=== PATIENT | male | born 1955 | race Two or more races ===

== ENCOUNTER 2023-12-09 07:51 | Outpatient (OUT) | payer OTHER, MEDICARE, SELFPAY ==
--- NOTE | 2023-12-09 07:53 | VEIN_ITS ---
Patient Name: BRIGETTE CHA MR#: [id number] : 1955 Exam Date: 12/09/2023 Ordering Doctor: DR VIKTORIA JOSE M.D. RADIOLOGY REPORT PROCEDURE: [facility] EST [facility] - OFFICE VISIT INITIAL COMPARISON: None. PROGRESS NOTES: [age] year old male who presents with a 3 month history of bilateral leg pain and discolored veins. The patient's left leg symptoms are worse than the right. There has been a progression of symptoms over past 3 months. This increases with prolonged standing. The patient describes an improvement with rest and elevation. The patient denies any signs and symptoms to suggest arterial ischemia. The patient describes a family history of diabetes and cancer. The patient has drinking and smoking history of occasional alcohol consumption; no tobacco use. Patient has a past medical history significant for hypertension, degenerative disc disease, coronary artery disease. The patient denies a history of deep venous thrombus or pulmonary embolus. See separate history and physical for medication list. No prior treatment for varicose or spider veins. Current use of compression stockings. After review of nurse notes, history and physical exam I discussed at length the pathophysiology of venous hypertension and possible treatments, therapies and strategies available. We discussed at length the importance of elevating the lower extremities above the level of the heart, increased physical activity and compression stocking use. Ultrasound venous reflux study performed today was discussed at length with the patient. The report demonstrates abnormal dilation of right great saphenous vein with significant reflux. Dilated proximal segment of left great saphenous vein with several levels demonstrate moderate reflux.. PHYSICAL EXAM: The right leg demonstrates several varicosities, scattered reticular and spider veins, no ulceration, no significant edema, no skin discoloration. The left leg demonstrates several varicosities, scattered reticular and spider veins, no ulceration, no significant edema, no skin discoloration. Both thighs, legs and feet were symmetrically warm to the touch. Good posterior tibial and dorsalis pedis pulses were present bilaterally. VEIN/[facility] Facility EST Comprehensive IMPRESSION: 1. Bilateral lower extremity venous insufficiency 2. Bilateral lower extremity varicose veins 3. No significant lower extremity subcutaneous edema 4. No flow significant arterial disease 5. CEAP: C2, AP, , CA PLAN: 1. Continued use of compression stockings 2. Elevated legs and increased physical activity symptomatic relief 3. Endovenous laser ablation of right great saphenous vein. 4. Due to significant left lower extremity symptoms endovenous laser ablation of left great saphenous vein (as much of the length as can be accessed) is recommended. 5. Patient could use microfoam chemical ablation of branch saphenous varicosities, but this will not be approved by his insurance company. Nurse notes, history and physical were reviewed and confirmed, see attached forms. The nurse was present throughout the physical exam and consultation Dictated by: Tariq Dc M.D. on 12/09/2023 at 09:08 Approved by: Tariq Dc M.D. on 12/09/2023 at 09:17
--- NOTE | 2023-12-09 07:53 | VEIN_ITS ---
Patient Name: BRIGETTE CHA MR#: [id number] : 1955 Exam Date: 12/09/2023 Ordering Doctor: DR VIKTORIA JOSE M.D. RADIOLOGY REPORT PROCEDURE: VC EXT VENOUS REFLUX ALEXIA LMTD COMPARISON: None. INDICATIONS: I83.813 Bilateral painful varicose veins TECHNIQUE: Duplex imaging of the lower extremity to assess the deep and superficial venous system for the presence of deep or superficial venous incompetence and to document the location and severity of disease. The study includes evaluation of the great saphenous vein (GSV), anterior accessory saphenous vein (AASV) and small saphenous vein (SSV). Patient scanned in reverse Trendelenburg and standing. FINDINGS: RIGHT LOWER EXTREMITY: Saphenofemoral Junction Reflux: Yes 7.0mm 1.7 sec GSV: Diam (mm) Reflux/ Time (sec) Proximal Thigh 5.9 Yes 1.0 Mid Thigh 6.5 Yes 3.2 Distal Thigh 6.5 Yes 3.5 Prox Calf 5.6 Yes 1.5 Mid Calf 2.6 Yes 0.5 Saphenopopliteal Junction Reflux: SSV: Proximal Calf Mid Calf AASV: Not present Proximal Thigh Mid Thigh Distal Thigh Thrombi: Chronic thrombus visualized in mid to distal thigh GSV. It is compressible and demonstrates flow Compressibility: Normal Flow: Normal Preforator: Dist/med calf 2.6mm with 0s reflux. Dist/med thigh 3.9mm with 1.6s reflux. Tech Note: Incompetent GSV. Right SSV is not present. Patent varicose vein prox/med calf 4.4mm with 0.8s reflux. Patent varicose vein mid/med calf 1.0mm with 0s reflux. LEFT LOWER EXTREMITY: Saphenofemoral Junction Reflux: Yes 8.9 mm 1.6 sec GSV: Diam (mm) Reflux/Time (sec) Proximal Thigh 6.9 Yes 1.5 Mid Thigh 3.7 Yes 1.0 Distal Thigh 3.7 Yes 0.8 Prox Calf 3.3 Yes 1.3 Mid Calf 4.0 Yes 0.8 Saphenopopliteal Junction Relux: 3.1 mm No SSV: Proximal Calf 2.3 No Mid Calf 2.5 No AASV: Proximal Thigh 2.7 No Mid Thigh Distal Thigh Thrombi: No acute or chronic thrombus visualized Compressibility: Normal Flow: Normal Jewelry Setter: No perforators visualized. Tech Note: Incompetent GSV. GSV is extrafascial from medial knee to mid calf and then dives intrafascial. Patent varicose vein mid/med thigh 2.6mm with 0.7s reflux. CONCLUSION: 1. Abnormally dilated and incompetent right great saphenous vein. 2. Abnormally dilated and incompetent proximal segment of left great saphenous vein. Dictated by: Tariq Dc M.D. on 12/09/2023 at 08:47 Approved by: Tariq Dc M.D. on 12/09/2023 at 09:08
== END 2023-12-09 07:52 | disposition home or self-care (01) ==
PROVIDERS: PCP Family Medicine; Visit Provider Radiology Diagnostic Radiology
DX: I83.813 Varicose veins of bilateral lower extremities with pain (principal)
CPT/HCPCS: 93970; G0463

== ENCOUNTER 2024-01-11 08:49 | Outpatient (OUT) | payer OTHER, MEDICARE, SELFPAY | END 2024-01-11 08:50 | disposition home or self-care (01) | LOC: PST 08:49 | PROVIDERS: PCP Radiology Diagnostic Radiology; Visit Provider Surgery | DX: Z01.818 Encounter for other preprocedural examination (principal) ==

== ENCOUNTER 2024-01-13 08:58 | Outpatient (OUT) | payer OTHER, MEDICARE, SELFPAY ==
--- NOTE | 2024-01-13 09:06 | VEIN_ITS ---
[address] [address] Patient Name: BRIGETTE CHA MRN: [id number] date: 1955 Sex: M Assigned Patient Location: Current Patient Location: Accession/Order Number: [id number] Exam Date: 01/13/2024 09:08 Report Date: 01/13/2024 12:29 At the request of: VIKTORIA JOSE Procedure: VC Endovenous Ablation 1VeinRT EXAMINATION: VC Endovenous Ablation 1VeinRT right great saphenous vein HISTORY: Pain due to varicose veins of bilateral legs I83.813 COMPARISON: No relevant comparison available. TECHNIQUE: The risks and benefits of the procedure had been previously discussed, and were rediscussed at length. Informed written consent was obtained. Adamaris Espinoza and Dwight Parsons assisted. Time out procedure was performed. The right lower extremity was prepared and draped in the usual sterile fashion to allow knee flexion in the sterile field. Duplex ultrasound probe was draped in a sterile cover, sterile transmission gel was used. Venous mapping was performed with the areas of dilation and large tributaries marked. The total length was 27 cm from the entry proximal lower leg 2 3 cm below the saphenofemoral junction. The diameter of the greater saphenous vein ranged from 6-7 mm. A 30 gauge needle and 1% buffered lidocaine was used to anesthetize the entry site. A 4 mm incision was made with a scalpel and the saphenous vein was entered percutaneously under direct ultrasound guidance with a micropuncture set, a single stick was successful in gaining access. A micro-guide wire was inserted and the needle removed. A micro-set including a dilator was inserted over the microwire and the needle and dilator were removed. A 0.018 guide wire was inserted through the micro-set and threaded through the saphenous vein to the saphenofemoral junction. The dilator was removed and an introducer sheath was inserted over the wire until the end of the sheath entered the saphenofemoral junction. The dilator and wire were removed and the 600 micron fiber was introduced and placed and positioned so that it extended beyond the sheath and was 3 cm peripheral to the saphenofemoral femoral junction. Final position of the fiber was determined by ultrasound guidance and duplex imaging. Tumescent anesthetic was delivered by ultrasound guidance. 175 cc of fluid was delivered along the entire course of the saphenous vein. The solution consisted of 1000 cc of normal saline with 40 mL of 1% lidocaine and 20 mL of sodium bicarbonate. A final positioning check was made. The energy source was turned on by means of the foot pedal and the fiber and sheath were withdrawn. The total number of Joules delivered was 1286. The laser was active for 161seconds under continuous pulse, average laser use of 8 J. Laser start time 10:04 AM, 01/13/2024 . Laser stop time 10:06 AM 01/13/2024 . A duplex ultrasound revealed compressibility and flow at the saphenofemoral junction immediately after the procedure. Hemostasis at the access site was achieved. The skin incision of the saphenous vein was closed with a 4 x 4. A compression stocking was applied. Postop instructions were given. A follow up appointment was recommended and scheduled. The patient tolerated the procedure well and was discharged in good condition . VEIN/VC Endovenous Ablation 1VeinRT IMPRESSION: Technically successful endovenous ablation of the right great saphenous vein Electronically authenticated by: VIKTORIA JOSE Date: 01/13/2024 12:29
[2024-01-13] MEDS: LIDOCAINE HCL 1% 100 MG/10 ML MDV INJ (09:22)
[2024-01-13] MEDS: 0.9 % SODIUM CHLORIDE 500 ML, LIDOCAINE HCL 20 ML, SODIUM BICARBONATE 10 MEQ INJ (09:23)
== END 2024-01-13 08:59 | disposition home or self-care (01) ==
LOC: VC 08:58
PROVIDERS: PCP Radiology Diagnostic Radiology; Visit Provider Radiology Diagnostic Radiology
DX: I83.813 Varicose veins of bilateral lower extremities with pain (principal)
CPT/HCPCS: 36478

== ENCOUNTER 2024-01-17 07:46 | Day surgery (SDC) | payer OTHER, MEDICARE, SELFPAY ==
[2024-01-17 08:00] VITALS: BP 173/81; PULSE 88; TEMP 36.1; O2SAT 100; BMI 32.5
[2024-01-17 08:08] LABS: Glucometer 110 mg/dL (74-106)
[2024-01-17] MEDS: LACTATED RINGER'S SOLUTION 1,000 ML 50 ML IV (08:31)
--- NOTE | 2024-01-17 08:56 | PM.GSPRC ---
Date of procedure: 01/17/24 Indications for Procedure: screening colonoscopy Pre-op diagnosis: screening colonoscopy Post-op diagnosis: same as pre-op Procedure: Previous colonoscopy: never procedure: screening colonoscopy The patient was given IV conscious sedation.? The patient's SPO2 remained above 90% throughout the procedure. The colonoscope was inserted per rectum and advanced under direct vision to the cecum without difficulty.? The prep was good.? Findings: Terminal ileum os: normal Cecum/Ascending colon: normal Transverse colon: normal Descending/Sigmoid colon: normal Rectum/Anus: examined in normal and retroflexed positions and was normal Withdrawal Time was (minutes): 10 The colon was decompressed and the scope was removed.? The patient tolerated the procedure well. Recommendations/Plan: 1.? Lifestyle and dietary modifications as discussed 2.? F/U in 10 years for repeat c-scope 3.? Discussed with the family Findings: normal c-scope Anesthesia: MAC Surgeon: Kristopher Lopez Procedure Summary: screening colonoscopy Estimated blood loss (mL): 0 Complications: No Pathology: none sent Condition: stable Disposition: PACU
[2024-01-17 09:56] VITALS: BP 103/60; PULSE 70; TEMP 36.9; O2SAT 94
[2024-01-17 10:10] VITALS: BP 124/66; PULSE 69; O2SAT 95
[2024-01-17 10:24] VITALS: BP 117/78; PULSE 68; O2SAT 96
[2024-01-17 10:39] VITALS: BP 148/78; PULSE 62; O2SAT 96
== END 2024-01-17 10:50 | disposition home or self-care (01) ==
PROVIDERS: Visit Provider Surgery
PROC: (CPT 00812; principal; 2024-01-17 10:00)
DX: Z12.11 Encounter for screening for malignant neoplasm of colon (principal); Z79.82 Long term (current) use of aspirin; I10 Essential (primary) hypertension; I25.10 Atherosclerotic heart disease of native coronary artery without angina pectoris; M50.30 Other cervical disc degeneration, unspecified cervical region; M51.36 Other intervertebral disc degeneration, lumbar region; E78.5 Hyperlipidemia, unspecified; I25.2 Old myocardial infarction; M17.0 Bilateral primary osteoarthritis of knee; E66.9 Obesity, unspecified; Z79.899 Other long term (current) drug therapy; Z68.34 Body mass index [BMI] 34.0-34.9, adult
CPT/HCPCS: 00812; 45378; 36415; 82948; J2704

== ENCOUNTER 2024-01-20 08:17 | Outpatient (OUT) | payer OTHER, MEDICARE, SELFPAY ==
--- NOTE | 2024-01-20 08:18 | VEIN_ITS ---
Patient Name: BRIGETTE CHA MR#: [id number] : 1955 Exam Date: 01/20/2024 Ordering Doctor: DR THIAGO TERRAZAS M.D. RADIOLOGY REPORT PROCEDURE: VC EXT VENOUS RT LMTD COMPARISON: None. INDICATIONS: Phlebitis of superficial veins of rt lower extremity I80.01 TECHNIQUE: Lower extremity alvarez scale and Duplex Doppler evaluation of the deep venous system from the inguinal ligament through the calf veins. FINDINGS: REGION: Right lower extremity. THROMBI: Negative for DVT. Heat induced thrombus visualized 2.1 cm from the SFJ. The heat induced thrombus extends from groin to distal thigh. COMPRESSIBILITY: Non-compressible segments corresponding to thrombus FLOW: Areas of no flow corresponding to thrombus CONCLUSION: Post ablation occlusion of the right great saphenous vein with heat induced thrombus 2.1 cm from the saphenofemoral junction Dictated by: Thiago Terrazas MD on 01/20/2024 at 08:33 Approved by: Thiago Terrazas MD on 01/20/2024 at 08:34
--- NOTE | 2024-01-20 08:18 | VEIN_ITS ---
Patient Name: BRIGETTE CHA MR#: [id number] : 1955 Exam Date: 01/20/2024 Ordering Doctor: DR THIAGO TERRAZAS M.D. RADIOLOGY REPORT PROCEDURE: [facility] EST LMTD VEIN CENTER - OFFICE VISIT FOLLOW UP COMPARISON: None. PROGRESS NOTES: The patient reports some mild discomfort in bruising of the right leg following intravenous laser ablation of the right great saphenous vein. The patient did not require oral analgesics. The patient has worn his compression stocking. The patient has tried exercise Physical exam demonstrates 3 areas of bruising in the medial right thigh the largest area measuring 12 x 8 cm, consistent with tumescent injection. Thrombosed right great saphenous vein can be partially palpated. No erythema or warmth to suggest cellulitis or thrombophlebitis. No active ulceration Review of the ultrasound performed the same day demonstrates occlusive thrombus extending throughout the treated right great saphenous vein. Heat induced thrombus is 2.1 cm from the saphenofemoral junction. No deep vein thrombus. The patient expressed a desire to proceed with treatment of incompetent left great saphenous vein with intravenous laser ablation. VEIN/[facility] Facility EST LMTD IMPRESSION: 1. Successful ablation of the right great saphenous vein(s). 2. Persistent incompetent left great saphenous vein. PLAN: Intravenous laser ablation left great saphenous vein Nurse notes, history and physical were reviewed and confirmed, see attached forms. The nurse was present throughout the physical exam and consultation Dictated by: Thiago Terrazas MD on 01/20/2024 at 08:40 Approved by: Thiago Terrazas MD on 01/20/2024 at 08:41
--- OUTSIDE RECORDS SUMMARY | 2024-01-20 08:21 | XMS_ITS | CCD ---
Author Organization [facility] Care Team Providers Care Direct Mail Clerk Name Role Phone PHYSICIAN, DEFAULT Unavailable Unavailable PHYSICIAN, DEFAULT Unavailable Unavailable ALVARO ., CECIL Admitting Unavailable ALVARO Fernandes, CECIL Attending Unavailable DAMON, DR VIKTORIA Zhang Consulting Unavailable NADERER, DR LUX [place] Primary Care Unavailable CECIL WRIGHT Consulting Unavailable ALLYSSA, DR LUX [place] Attending Unavailable ALLYSSA, DR LUX [place] Admitting Unavailable ALLYSSA, DR LUX [place] Primary Care Unavailable ALLYSSA, DR LUX [place] Consulting Unavailable Allyssa, Dr. Lux Christine Primary Care Deangelo Spivey, Dr. Lux Christine Primary Care Angela Thomas Attending Unavailable Allyssa, Dr. Lux Christine Primary Care Deangelo Schaefer, Greg Malik Attending Unavailable Trinidad, Greg Malik Admitting Unavailable Allyssa, Lux Primary Care Unavailable Lux Spivey MD Primary Care Provider ANGELA SCHAEFER Attending Unavailable LUX SPIVEY Primary Care Unavailabl e LUX SPIVEY Primary Care Unavailable NGUYỄN JASMINE Attending Unavailable NGUYỄN JASMNIE Attending Unavailable NGUYỄN JASMINE Referring Unavailable LUX SPIVEY Primary Care Unavailable LUX SPIVEY Referring Unavailable ALLYSSA, LUX Attending Unavailable ODILON CHOI Attending Unavailable ALLYSSA, LUX Referring Unavailable Medications Current Medications Medication Drug Class(es) Dates Sig (Normalized) Sig (Original) aspirin 81 mg delayed release oral tablet (1 source) Platelet Aggregation Inhibitor, Nonsteroidal Anti-inflammator y Drug take 1 tablet by mouth once daily aspirin 81 mg EC tablet Take 1 tablet (81 mg) by mouth once daily. 0 Active atorvastatin 20 mg oral tablet (2 sources) HMG-CoA Reductase Inhibitor Start: 3 End: 4 take 1 tablet by mouth once daily atorvastatin (Lipitor) 20 mg tablet Indications: Mixed hyperlipidemia Take 1 tablet (20 mg) by mouth once daily. 90 tablet 3 08/03/2023 08/02/2024 Active famotidine 20 mg oral tablet (1 source) Histamine-2 Receptor Antagonist take 1 tablet by mouth once daily at bedtime famotidine (Pepcid) 20 mg tablet Take 1 tablet (20 mg) by mouth once daily at bedtime. 0 Active folic acid 1 mg oral tablet (1 source) take 1 tablet by mouth once daily folic acid (Folvite) 1 mg tablet Take 1 tablet (1 mg) by mouth once daily. 0 Active hydroCHLOROthiazide 25 mg oral tablet (2 sources) Thiazide Diuretic Start: 3 End: 4 take 1 tablet by mouth once daily hydroCHLOROthiazide (HYDRODiuril) 25 mg tablet Indications: Essential hypertension Take 1 tablet (25 mg) by mouth once daily. 90 tablet 3 08/03/2023 08/02/2024 Active melatonin 5 mg oral capsule (1 source) take 1 capsule by mouth once daily melatonin 5 mg capsule Take 1 capsule by mouth once daily. 0 Active 24 hr metoprolol succinate 25 mg extended release oral tablet (2 sources) beta-Adrenergic Toño Start: 3 End: 4 take 0.5 tablet by mouth once daily metoprolol succinate XL (Toprol-XL) 25 mg 24 hr tablet Indications: Essential hypertension Take 0.5 tablets (12.5 mg) by mouth once daily. Do not crush or chew. 45 tablet 3 08/03/2023 08/02/2024 Active multivitamin tablet (1 source) take 1 tablet by mouth once daily multivitamin tablet Take 1 tablet by mouth once daily. 0 Active nitroglycerin 0.4 mg sublingual tablet (1 source) Nitrate Vasodilator nitroglycerin (Nitrostat) 0.[address] 1 tablet (0.4 mg) under the tongue every 5 minutes if needed for chest pain. 0 Active Problems Active Problems Problem Classification Problem Date Documented Da te Episodic/Chronic Acute myocardial infarction (2 sources) ST elevation (STEMI) myocardial infarction of unspecified site; Translations: [ST elevation (STEMI) myocardial infarction involving other coronary artery of anterior wall] Onset: 01-15-2023 Chronic Coronary atherosclerosis and other heart disease (8 sources) History of non-ST segment elevation myocardial infarction; Translations: [Old myocardial infarction] Onset: 08-02-2023 08-03-2023 Chronic Disorders of lipid metabolism (5 sources) Hyperlipidemia, unspecified; Translations: [Mixed hyperlipidemia] Onset: 08-11-2022 08-03-2023 Chronic E Codes: Fall (1 source) Fall Onset: 09-29-2023 Essential hypertension (9 sources) Essential (primary) hypertension; Translations: [Essential hypertension] Onset: 08-06-2022 Chronic Malaise and fatigue (1 source) Fatigue; Translations: [Other fatigue] Onset: 08-02-2023 08-02-2023 Episodic Nonspecific chest pain (4 sources) Chest pain, unspecified; Translations: [Atypical chest pain] Onset: 01-15-2023 Episodic Other aftercare (1 source) Other alf (current) drug therapy; Translations: [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] Onset: 01-18-2023 Episodic Other non-traumatic joint disorders (1 source) Effusion, left knee; Translations: [Effusion, left knee] Onset: 09-29-2023 Episodic Other nutritional; endocrine; and metabolic disorders (1 source) Obesity, unspecified; Translations: [OBESITY UNSPECIFIED] Onset: 08-11-2022 Chronic Unclassified (1 source) Fall, Knee Pain Onset: 09-29-2023 Past or Other Problems Problem Classification Problem Date Documented Da te Episodic/Chronic Other screening for suspected conditions (not mental disorders or infectious disease) (1 source) Encounter for screening for malignant neoplasm of prostate; Translations: [ENC SCREEN MALIG NEOPLASM PROSTATE] Onset: 08-11-2022 Episodic Unclassified (1 source) Onset: 08-03-2023 08-03-2023 Results Test Name Value Interpretation Reference Range Facil ity XR KNEE LT 3 VWSon 4 XR KNEE LT 3 VWS XR KNEE LT 3 VWS XR KNEE LT 3 VWS HISTORY: Fall, knee pain. COMPARISON: None. IMPRESSION: 1. No acute fracture or dislocation. 2. Large knee joint effusion. Finalized by Akin Leon MD on 09/29/2023 9:46 AM Normal [facility] US LIVERon 09-23-2023 LIVER CLINICAL HISTORY: Abnormal liver function TECHNIQUE: Grayscale images and Doppler images of the right upper quadrant were obtained in multiple planes. COMPARISON: NONE. FINDINGS: The liver is normal in size and sonographic appearance. There are no solid or cystic lesions. There is no intra or extrahepatic bile duct dilatation. Diameter is 14.2 cm the common bile duct measures 3 mm. There is no free fluid. The gallbladder contains no filling defects or wall abnormalities. There is no pericholecystic fluid. The gallbladder wall measures 2 mm. The right kidney is normal in size and sonographic appearance of the diameter 8.5 x 5.4 x 5.9 cm. There is no hydronephrosis. There are no solid lesions. There is a simple cyst measuring 1.9 x 2.3 x 1.8 cm in the midportion of the right kidney. IMPRESSION: The study is within normal limits. ELECTRONICALLY SIGNED BY: Jesus Starks MD Normal Not Available Basic Metabolic Panelon 12-20 Anion gap [Moles/Vol] 10.0 mmol/L Normal 6.0-15.0 [facility] Comment on above: Performed By: #### C BC, BMP, LIPID #### [address] Calcium [Mass/Vol] 8.6 mg/dL Normal 8.6-10.3 [facility] Comment on above: Performed By: #### C BC, BMP, LIPID #### [address] Chloride [Moles/Vol] 102 mmol/L Normal 98-107 [facility] Comment on above: Performed By: #### C BC, BMP, LIPID #### [facility] [address] CO2 [Moles/Vol] 28.7 mmol/L Normal 21.0-31.0 [facility] Comment on above: Performed By: #### C BC, BMP, LIPID #### [facility] [address] Creatinine [Mass/Vol] 1.15 mg/dL Normal 0.70-1.30 [facility] Comment on above: Performed By: #### C BC, BMP, LIPID #### [facility] [address] [place] [address] [place] Creatinine Clr Calc Pharmacy 57.91 [facility] Comment on above: Performed By: #### C BC BMP, LIPID #### [facility] [address] [place] [address] [place] GFR/1.73 sq M.predicted MDRD (S/P/Bld) [Vol rate/Area] mL/min/{1.73_m2} Normal [facility] Comment on above: Performed By: #### C BC BMP, LIPID #### [facility] [address] Glucose [Mass/Vol] 112 mg/dL High 70-100 [facility] Comment on above: Result Comment: [place] Glucose Reference Range is dependent on time and content of last meal. Glucose of more than 200 mg/dL in a nonstressed, ambulatory subject supports the diagnosis of Diabetes Mellitus. ADA recommended reference range Performed By: #### C BC BMP, LIPID #### [address] Potassium [Moles/Vol] 3.7 mmol/L Normal 3.5-5.1 [facility] Comment on above: Performed By: #### C BC BMP, LIPID #### [address] Sodium [Moles/Vol] 137 mmol/L Normal 136-145 [facility] Comment on above: Performed By: #### C BC BMP, LIPID #### [facility] [address] [place] [address] [place] Urea nitrogen [Mass/Vol] 17 mg/dL Normal 7-25 [facility] Comment on above: Performed By: #### C BC, BMP, LIPID #### [facility] [address] [place] [address] Complete Blood Count Auto Di ffon 01-16-2023 Basophils (Bld) [#/Vol] 0.0 10*3/uL Normal 0.0-0.2 [facility] Comment on above: Result Comment: PERF ORMED BY: [place] [address] PATHOLOGIST INTERNAL COMBUSTION ENGINE SUBASSEMBLER COLLETTE ENRIQUEZ M.D. Performed By: #### C BC, BMP, LIPID #### [facility] [address] [place] [address] [place] Basophils/100 WBC (Bld) 0.2 % Normal . [facility] Comment on above: Performed By: #### C BC, BMP, LIPID #### [facility] [address] [place] [address] [place] Eosinophils (Bld) [#/Vol] 0.1 10*3/uL Normal 0.0-0.45 [facility] Comment on above: Performed By: #### C BC, BMP, LIPID #### [facility] [address] [place] [address] [place] Eosinophils/100 WBC (Bld) 0.5 % Normal . [facility] Comment on above: Performed By: #### C BC, BMP, LIPID #### [facility] [address] Erythrocyte distribution width (RBC) [Ratio] 13.7 % Normal 12.0-14.8 [facility] Comment on above: Performed By: #### C BC, BMP, LIPID #### [facility] [address] [place] [address] [place] Hematocrit (Bld) [Volume fraction] 50.3 % High 38.8-50.0 [facility] Comment on above: Performed By: #### C BC, BMP, LIPID #### [facility] [address] [place] [address] [place] Hemoglobin (Bld) [Mass/Vol] 16.9 g/dL Normal 13.0-17.0 [facility] Comment on above: Performed By: #### C BC, BMP, LIPID #### [facility] [address] [place] [address] [place] Lymphocytes (Bld) [#/Vol] 1.9 10*3/uL Normal 1.00-4.8 [facility] Comment on above: Performed By: #### C BC, BMP, LIPID #### [facility] [address] [place] [address] [place] Lymphocytes/100 WBC (Bld) 16.0 % Normal . [facility] Comment on above: Performed By: #### C BC, BMP, LIPID #### [facility] [address] MCH (RBC) [Entitic mass] 31.0 pg Normal 27.5-35.2 [facility] Comment on above: Performed By: #### C BC, BMP, LIPID #### [address] MCV (RBC) [Entitic vol] 92.0 fL Normal 83.5-101 [facility] Comment on above: Performed By: #### C BC, BMP, LIPID #### [address] Mean Corpuscular HGB Conc 33.6 g/dL Normal 32.5-35.6 [facility] Comment on above: Performed By: #### C BC, BMP, LIPID #### [address] Monocytes (Bld) [#/Vol] 1.1 10*3/uL High 0.0-0.8 [facility] Comment on above: Performed By: #### C BC, BMP, LIPID #### [address] Monocytes/100 WBC (Bld) 9.1 % Normal . [facility] Comment on above: Performed By: #### C BC, BMP, LIPID #### [address] Neutrophils (Bld) [#/Vol] 9.0 10*3/uL High 1.8-7.7 [facility] Comment on above: Performed By: #### C BC, BMP, LIPID #### [place] [address] [place] Neutrophils/100 WBC (Bld) 74.2 % Normal . [facility] Comment on above: Performed By: #### C BC, BMP, LIPID #### [address] NRBC% 0.1 /100{WBC} Normal 0-0.5 [facility] Comment on above: Performed By: #### C BC, BMP, LIPID #### [facility] [address] Platelet mean volume (Bld) [Entitic vol] 8.3 fL Normal 6.6-10.1 [facility] Comment on above: Performed By: #### C BC, BMP, LIPID #### [facility] [address] Platelets (Bld) [#/Vol] 229 10*3/uL Normal 150-450 [facility] Comment on above: Performed By: #### C BC, BMP, LIPID #### [address] RBC (Bld) [#/Vol] 5.47 10*6/uL Normal 3.90-5.60 [facility] Comment on above: Performed By: #### C BC, BMP, LIPID #### [address] WBC (Bld) [#/Vol] 12.2 10*3/uL High 4.1-10.5 [facility] Comment on above: Performed By: #### C BC, BMP, LIPID #### [address] ECG 12 lead ECGon 01-16-2023 ECG 12 lead ECG [facility] [place] [address] [place] [address] Electrocardiograph Report Signed Patient: Brigette Degroot Sr MR#: [id number] : 1955 Acct:[id number] Age/Sex: 67 / M ADM Date: 01/15/23 Loc: Room: 6M3495-6 Type: ADM IN Attending Dr: Greg Schaefer DO Ordering Provider: Greg Schaefer DO Date of Service: 01/16/23 ECG/ECG 12 lead ECG: High lateral STEMI Copies to: Test Reason : Blood Pressure : / mmHG Vent. Rate : 062 BPM Atrial Rate : 062 BPM P-R Int : 138 ms QRS Dur : 082 ms QT Int : 396 ms P-R-T Axes : 049 024 050 degrees QTc Int : 401 ms Normal sinus rhythm Normal ECG No previous ECGs available Confirmed by JIN HUNTER DO ([id number]) on 01/16/2023 3:16:49 PM Referred By: Electronically Signed By:JIN HUNTER DO Transcribed By: MUS Signed By Jin Hunter DO 01/16 1516 Normal [facility] Lipid Panelon 01-16-2023 Cholesterol [Mass/Vol] 181 mg/dL Normal 140-200 [facility] Comment on above: Result Comment: Chol less than 200 mg/dl low risk Chol 201-239 mg/dl borderline risk Chol 240 mg/dl and greater high risk Performed By: #### C BC, BMP, LIPID #### [facility] [address] Cholesterol in HDL [Mass/Vol] 46 mg/dL Normal 29-71 [facility] Comment on above: Result Comment: HDL CHOL ATP-III CLASSIFICATION Cardiovascular Risk HDL > or equal to 60 mg/dL LOW HDL < 40 mg/dL HIGH Performed By: #### C BC, BMP, LIPID #### [facility] [address] Cholesterol.total/C holesterol in HDL [Mass ratio] 3.9 {ratio} Normal <5.0 [facility] Comment on above: Result Comment: PERF ORMED BY: [place] [address] PATHOLOGIST INTERNAL COMBUSTION ENGINE SUBASSEMBLER COLLETTE ENRIQUEZ M.D. Performed By: #### C BC, BMP, LIPID #### [facility] [address] LDL Cholesterol,Calcula joey 107 mg/dL High 0-100 [facility] Comment on above: Result Comment: LDL ATP III CLASSIFICATION LDL less than 100 mg/dL Optimal LDL 100-129 mg/dL Near or above optimal LDL 130-159 mg/dL Borderline high LDL 160-189 mg/dL High LDL greater than 189 mg/dL Very high Performed By: #### C BC, BMP, LIPID #### [facility] [address] Triglyceride w/Reflex 141 mg/dL Normal 0-149 [facility] Comment on above: Result Comment: TRIG ATP III CLASSIFICATION TRIG less than 150 mg/dL Normal TRIG 150-199 mg/dL Borderline high TRIG 200-500 mg/dL High TRIG greater than 500 mg/dL Very high Standard traceable to the Center for Disease Conrtrol and Prevention (CDC) test method. Performed By: #### C BC, BMP, LIPID #### [facility] [address] VLDL CHOLESTEROL 28 mg/dL Normal [facility] Comment on above: Performed By: #### C BC, BMP, LIPID #### [facility] [address] BNPon 01-15-2023 Natriuretic peptide B (Bld) [Mass/Vol] 15.0 pg/mL Normal <=900.0 [facility] Comment on above: Performed By: #### C MP, BNP, CMADM #### [facility] [address] [place] [address] Dr. Harmeet Dorsey CARDIAC JULEE ADMITon 023 CK [Catalytic activity/Vol] 109 U/L Normal 39-308 [facility] Comment on above: Performed By: #### C MP, BNP, CMADM #### [facility] [address] [address] [address] Harmeet Dorsey CK.MB [Mass/Vol] 2.05 ng/mL Normal <=3.60 [facility] Comment on above: Performed By: #### C MP, BNP, CMADM #### [facility] [address] [address] [address] Harmeet Dorsey HSTROP 69.9 pg/mL Normal 4.0-76.1 [facility] Comment on above: Result Comment: CUT- OFF POINTS HAVE BEEN ESTABLISHED BASED ON THE FOURTH UNIVERSAL DEFINITIONS OF MYOCARDIAL INFARCTION. THE UPPER REFERENCE LIMIT (URL) OF TROPONIN, DEFINED THE 99TH PERCENTILE OF cTnI DISTRIBUTION IN A REFERENCE POPULATION, HAS BEEN CONFIRMED THE DECISION THRESHOLD FOR MT DIAGNOSIS. Performed By: #### C MP, BNP, CMADM #### [facility] [address] [place] [address] Dr. Harmeet Dorsey PRICE 96 ng/mL Normal 16-96 [facility] Comment on above: Performed By: #### C MP, BNP, CMADM #### [facility] [address] [address] [address] Harmeet Dorsey CBC AUTO DIFFon 01-15-2023 BASO # 0.1 103/ul Normal 0.0-0.1 [facility] Comment on above: Performed By: #### C BC #### [facility] [address] [place] [address] Dr. Harmeet Dorsey Basophils/100 WBC (Bld) 0.6 % Normal 0.2-2.0 [facility] Comment on above: Performed By: #### C BC #### [facility] [address] [place] [address] Dr. Harmeet Dorsey EO # 0.1 103/ul Normal 0.0-0.7 [facility] Comment on above: Performed By: #### C BC #### [facility] [address] [place] [address] Dr. Harmeet Dorsey Eosinophils/100 WBC (Bld) 0.7 % Critically low 0.9-7.0 [facility] Comment on above: Performed By: #### C BC #### [facility] [address] [place] [address] Dr. Harmeet Dorsey Erythrocyte distribution width (RBC) [Ratio] 13.3 % Normal 11.0-15.0 [facility] Comment on above: Performed By: #### C BC #### [facility] [address] [place] [address] Dr. Harmeet Dorsey Hematocrit (Bld) [Volume fraction] 54.4 % Critically high 42.0-54.0 [facility] Comment on above: Performed By: #### C BC #### [facility] [address] [place] [address] Dr. Harmeet Dorsey Hemoglobin (Bld) [Mass/Vol] 18.7 g/dL Critically high 14.0-18.0 [facility] Comment on above: Performed By: #### C BC #### [facility] [address] [address] [address] Harmeet Dorsey IG # 0.23 10e3/ul Critically high 0.00-0.03 [facility] Comment on above: Performed By: #### C BC #### [facility] [address] [place] [address] Dr. Harmeet Dorsey IG % 2.1 % Critically high 0.0-0.5 [facility] Comment on above: Performed By: #### C BC #### [facility] [address] [place] [address] Dr. Harmeet Dorsey LYMPH # 2.6 103/ul Normal 1.2-3.8 [facility] Comment on above: Performed By: #### C BC #### [facility] [address] [place] [address] Dr. Harmeet Dorsey Lymphocytes/100 WBC (Bld) 23.9 % Normal 20.5-60.0 [facility] Comment on above: Performed By: #### C BC #### [facility] [address] [place] [address] Dr. Harmeet Dorsey MANUAL DIFF REQ NO Normal [facility] Comment on above: Performed By: #### C BC #### [facility] [address] [place] [address] Dr. Harmeet Dorsey MCH (RBC) [Entitic mass] 31.2 pg Normal 25.9-34.0 [facility] Comment on above: Performed By: #### C BC #### [facility] [address] [place] [address] Dr. Harmeet Dorsey MCHC (RBC) [Mass/Vol] 34.4 g/dL Normal 29.9-35.2 [facility] Comment on above: Performed By: #### C BC #### [facility] [address] [place] [address] Dr. Harmeet Dorsey MCV (RBC) [Entitic vol] 90.8 fL Normal 80.0-94.0 [facility] Comment on above: Performed By: #### C BC #### [facility] [address] [address] [address] Harmeet Dorsey MONO # 0.9 103/ul Critically high 0.3-0.8 [facility] Comment on above: Performed By: #### C BC #### [facility] [address] [address] [address] Harmeet Dorsey Monocytes/100 WBC (Bld) 8.4 % Normal 1.7-12.0 [facility] Comment on above: Performed By: #### C BC #### [facility] [address] [place] [address] Dr. Harmeet Dorsey NEUT # 7.0 103/ul Critically high 1.4-6.5 [facility] Comment on above: Performed By: #### C BC #### [facility] [address] [place] [address] Dr. Harmeet Dorsey Neutrophils/100 WBC (Bld) 64.3 % Normal 43.0-75.0 [facility] Comment on above: Performed By: #### C BC #### [facility] [address] [place] [address] Dr. Harmeet Dorsey Platelet mean volume (Bld) [Entitic vol] 9.7 fL Normal 9.5-13.5 [facility] Comment on above: Performed By: #### C BC #### [facility] [address] [place] [address] Dr. Harmeet Dorsey PLT 262 103/ul Normal 150-450 [facility] Comment on above: Performed By: #### C BC #### [facility] [address] [place] [address] Dr. Harmeet Dorsey RBC 5.99 106/ul Normal 4.70-6.10 [facility] Comment on above: Performed By: #### C BC #### [facility] [address] [place] [address] Dr. Harmeet Dorsey WBC 10.9 103/ul Normal 4.0-11.0 [facility] Comment on above: Performed By: #### C BC #### [facility] [address] [place] [address] Dr. Harmeet Dorsey PROF 14(COMP METB)on 023 Albumin [Mass/Vol] 3.5 g/dL Normal 3.4-5.0 [facility] Comment on above: Performed By: #### C MP, BNP, CMADM #### [facility] [address] [address] [address] Harmeet Dorsey Albumin/Globulin [Mass ratio] 0.8 {ratio} Normal [facility] Comment on above: Performed By: #### C MP, BNP, CMADM #### [facility] [address] [address] [address] Harmeet Dorsey ALP [Catalytic activity/Vol] 71 U/L Normal 46-116 [facility] Comment on above: Performed By: #### C MP, BNP, CMADM #### [facility] [address] [place] [address] Dr. Harmeet Dorsey ALT [Catalytic activity/Vol] 218 U/L Critically high 16-63 [facility] Comment on above: Performed By: #### C MP, BNP, CMADM #### [facility] [address] [address] [address] Harmeet Dorsey Anion gap [Moles/Vol] 10.2 mmol/L Normal [facility] Comment on above: Performed By: #### C MP, BNP, CMADM #### [facility] [address] [address] [address] Harmeet Dorsey AST [Catalytic activity/Vol] 92 U/L Critically high 15-37 [facility] Comment on above: Performed By: #### C MP, BNP, CMADM #### [facility] [address] [address] [address] Harmeet Dorsey Bilirubin [Mass/Vol] 0.7 mg/dL Normal 0.2-1.0 [facility] Comment on above: Performed By: #### C MP, BNP, CMADM #### [facility] Laboratory [address] [address] [address] Harmeet Dorsey Calcium [Mass/Vol] 8.9 mg/dL Normal 8.5-10.1 [facility] Comment on above: Performed By: #### C MP, BNP, CMADM #### [facility] Laboratory [address] [address] [address] Harmeet Dorsey Chloride [Moles/Vol] 101 mmol/L Normal 98-107 [facility] Comment on above: Performed By: #### C MP, BNP, CMADM #### [facility] Laboratory [address] [place] [address] Dr. Harmeet Dorsey CO2 [Moles/Vol] 29.3 mmol/L Normal 21.0-32.0 [facility] Comment on above: Performed By: #### C MP, BNP, CMADM #### [facility] Laboratory [address] [place] [address] Dr. Harmeet Dorsey Creatinine [Mass/Vol] 1.26 mg/dL Normal 0.70-1.30 [facility] Comment on above: Performed By: #### C MP, BNP, CMADM #### [facility] Laboratory [address] [place] [address] Dr. Harmeet Dorsey EGFR-AF TANZANIAN >60 Normal >=60 [facility] Comment on above: Performed By: #### C MP, BNP, CMADM #### [facility] Laboratory [address] [place] [address] Dr. Harmeet Dorsey EGFR-NON AF TANZANIAN 57 mL/min/1.73m2 Critically low >=60 [facility] Comment on above: Performed By: #### C MP, BNP, CMADM #### [facility] Laboratory [address] [place] [address] Dr. Harmeet Dorsey Globulin (S) [Mass/Vol] 4.3 g/dL Normal [facility] Comment on above: Performed By: #### C MP, BNP, CMADM #### [facility] Laboratory [address] [place] [address] Dr. Harmeet Dorsey Glucose [Mass/Vol] 178 mg/dL Critically high 74-106 [facility] Comment on above: Performed By: #### C MP, BNP, CMADM #### [facility] Laboratory [address] [place] [address] Dr. Harmeet Dorsey Potassium [Moles/Vol] 3.5 mmol/L Normal 3.5-5.1 [facility] Comment on above: Performed By: #### C MP, BNP, CMADM #### [facility] Laboratory [address] [place] [address] Dr. Harmeet Dorsey Protein [Mass/Vol] 7.8 g/dL Normal 6.4-8.2 [facility] Comment on above: Performed By: #### C MP, BNP, CMADM #### [facility] Laboratory [address] [place] [address] Dr. Harmeet Dorsey Sodium [Moles/Vol] 137 mmol/L Normal 136-145 [facility] Comment on above: Performed By: #### C MP, BNP, CMADM #### [facility] Laboratory [address] [place] [address] Dr. Harmeet Dorsey Urea nitrogen [Mass/Vol] 15.0 mg/dL Normal 7.0-18.0 [facility] Comment on above: Performed By: #### C MP, BNP, CMADM #### [facility] Laboratory [address] [place] [address] Dr. Harmeet Dorsey Urea nitrogen/Creatinine [Mass ratio] 11.9 mg/mg Normal [facility] Comment on above: Performed By: #### C MP, BNP, CMADM #### [facility] Laboratory [address] [place] [address] Dr. Harmeet Dorsey PROTIMEon 01-15-2023 INR Coag (PPP) [Relative time] 0.98 {INR} Normal [facility] Comment on above: Performed By: #### P T, PTT #### [facility] Laboratory [address] [place] [address] Dr. Harmeet Dorsey INR GUIDELINES SEE BELOW Normal [facility] Comment on above: Result Comment: VICENTE RED INR: 2.0 - 3.0 CONDITIONS NOT LISTED BELOW 2.5 - 3.5 FOR PROSTHETIC HEART VALVE REPLACEMENT 2.5 - 3.5 RECURRENT THROMBOSIS Performed By: #### P T, PTT #### [facility] Laboratory [address] [place] [address] Dr. Harmeet Dorsey PT Coag (PPP) [Time] 10.4 s Normal 9.0-11.6 [facility] Comment on above: Performed By: #### P T, PTT #### [facility] Laboratory [address] [place] [address] Dr. Harmeet Dorsey PTTon 01-15-2023 aPTT Coag (Bld) [Time] 26.0 s Normal 22.3-36.2 [facility] Comment on above: Performed By: #### P T, PTT #### [facility] Laboratory [address] [place] [address] Dr. Harmeet Dorsey Troponin I High Sensitivityo n 01-15-2023 Troponin I High Sensitivity 34719.6 pg/mL Off scale high 0.0-20.0 [facility] Comment on above: Result Comment: Crit ical Result : Called to and read back by: KIM WALSH at: 01/15/2023 20:17:48 by:LFM PERFORMED BY: [place] [id number] PATHOLOGIST [employer]NAL [employer]SEM[employer]ER COLLETTE ENRIQUEZ M.D. Performed By: #### H S TROP #### [address] Troponin I High Sensitivity 9066.4 pg/mL Off scale high 0.0-20.0 [facility] Comment on above: Result Comment: Crit ical Result : Called to and read back by: LUCY MCELROY at: 01/15/2023 17:40:27 by:LFM PERFORMED BY: [place] [address] PATHOLOGIST INTERNAL COM[employer] ENGINE [employer]SEM[employer]ER COLLETTE ENRIQUEZ M.D. Performed By: #### H S TROP #### [address] Troponin I High Sensitivity 4327.6 pg/mL Off scale high 0.0-20.0 [facility] Comment on above: Result Comment: Crit ical Result : Called to and read back by: LUCY MCELROY at: 01/15/2023 14:33:06 by:LFM PERFORMED BY: [place] [address] PATHOLOGIST INTERNAL COM[employer] ENGINE [employer]SEM[employer]ER COLLETTE ENRIQUEZ M.D. Performed By: #### H S TROP #### [address] Troponin I High Sensitivity 1492.5 pg/mL Off scale high 0.0-20.0 [facility] Comment on above: Result Comment: Crit ical Result : Called to and read back by: LUCY MCELROY at: 01/15/2023 13:14:42 by:[id number] PERFORMED BY: [place] [address] PATHOLOGIST INTERNAL COM[employer]ST[employer] ENGINE SUBASSEM[employer]ER COLLETTE ENRIQUEZ M.D. Performed By: #### H S TROP #### [address] XR CHEST 1 Von 01-15-2023 XR CHEST 1 V EXAMINATION: XR CHES T 1 V HISTORY: CHEST PAIN, UNSPECIFIED COMPARISON: 10/10/2021 TECHNIQUE: AP portable FINDINGS: LUNGS: No significant pulmonary parenchymal abnormalities. VASCULATURE: No increased pulmonary vasculature. PLEURA: No pneumothorax, effusion, or pleural thickening. CARDIAC: No cardiomegaly or cardiac silhouette abnormality. MEDIASTINUM: No visible mass or adenopathy. BONES: No fracture or visible bone lesion. OTHER: Negative. IMPRESSION: No acute cardiopulmonary process Electronically authenticated by: VIKTORIA JOSE Date: 2023-01-15 09:51 Normal [facility] CBC AUTO DIFFon 08-06-2022 BASO # 0.0 103/ul Normal 0.0-0.1 [facility] Comment on above: Performed By: #### C BC #### [facility] Laboratory [address] [address] [address] Harmeet Dorsey Basophils/100 WBC (Bld) 0.4 % Normal 0.2-2.0 [facility] Comment on above: Performed By: #### C BC #### [facility] Laboratory [address] [address] [address] Harmeet Dorsey EO # 0.2 103/ul Normal 0.0-0.7 [facility] Comment on above: Performed By: #### C BC #### [facility] [address] [place] [address] Dr. Harmeet Dorsey Eosinophils/100 WBC (Bld) 2.3 % Normal 0.9-7.0 [facility] Comment on above: Performed By: #### C BC #### [facility] [address] [place] [address] Dr. Harmeet Dorsey Erythrocyte distribution width (RBC) [Ratio] 12.9 % Normal 11.0-15.0 [facility] Comment on above: Performed By: #### C BC #### [facility] Laboratory [address] [place] [address] Dr. Harmeet Dorsey Hematocrit (Bld) [Volume fraction] 49.8 % Normal 42.0-54.0 [facility] Comment on above: Performed By: #### C BC #### [facility] [address] [place] [address] Dr. Harmeet Dorsey Hemoglobin (Bld) [Mass/Vol] 17.0 g/dL Normal 14.0-18.0 [facility] Comment on above: Performed By: #### C BC #### [facility] [address] [place] [address] Dr. Harmeet Dorsey IG # 0.03 10e3/ul Normal 0.00-0.03 [facility] Comment on above: Performed By: #### C BC #### [facility] [address] [place] [address] Dr. Harmeet Dorsey IG % 0.4 % Normal 0.0-0.5 [facility] Comment on above: Performed By: #### C BC #### [facility] Laboratory [address] [place] [address] Dr. Harmeet Dorsey LYMPH # 2.5 103/ul Normal 1.2-3.8 [facility] Comment on above: Performed By: #### C BC #### [facility] Laboratory [address] [place] [address] Dr. Harmeet Dorsey Lymphocytes/100 WBC (Bld) 30.9 % Normal 20.5-60.0 [facility] Comment on above: Performed By: #### C BC #### [facility] [address] [place] [address] Dr. Harmeet Dorsey MANUAL DIFF REQ NO Normal [facility] Comment on above: Performed By: #### C BC #### [facility] [address] [place] [address] Dr. Harmeet Dorsey MCH (RBC) [Entitic mass] 30.7 pg Normal 25.9-34.0 [facility] Comment on above: Performed By: #### C BC #### [facility] [address] [place] [address] Dr. Harmeet Dorsey MCHC (RBC) [Mass/Vol] 34.1 g/dL Normal 29.9-35.2 [facility] Comment on above: Performed By: #### C BC #### [facility] [address] [place] [address] Dr. Harmeet Dorsey MCV (RBC) [Entitic vol] 90.1 fL Normal 80.0-94.0 [facility] Comment on above: Performed By: #### C BC #### [facility] [address] [place] [address] Dr. Harmeet Dorsey MONO # 0.8 103/ul Normal 0.3-0.8 [facility] Comment on above: Performed By: #### C BC #### [facility] [address] [place] [address] Dr. Harmeet Dorsey Monocytes/100 WBC (Bld) 10.1 % Normal 1.7-12.0 [facility] Comment on above: Performed By: #### C BC #### [facility] [address] [place] [address] Dr. Harmeet Dorsey NEUT # 4.6 103/ul Normal 1.4-6.5 [facility] Comment on above: Performed By: #### C BC #### [facility] [address] [place] [address] Dr. Harmeet Dorsey Neutrophils/100 WBC (Bld) 55.9 % Normal 43.0-75.0 [facility] Comment on above: Performed By: #### C BC #### [facility] [address] [address] [address] Harmeet Dorsey Platelet mean volume (Bld) [Entitic vol] 10.8 fL Normal 9.5-13.5 [facility] Comment on above: Performed By: #### C BC #### [facility] [address] [address] [address] Harmeet Dorsey PLT 254 103/ul Normal 150-450 [facility] Comment on above: Performed By: #### C BC #### [facility] Laboratory [address] [address] [address] Harmeet Dorsey RBC 5.53 106/ul Normal 4.70-6.10 [facility] Comment on above: Performed By: #### C BC #### [facility] [address] [place] [address] Dr. Harmeet Dorsey WBC 8.2 103/ul Normal 4.0-11.0 [facility] Comment on above: Performed By: #### C BC #### [facility] [address] [place] [address] Dr. Harmeet Dorsey LIPID PROFILEon 08-06-2022 CHOL-HDL RATIO NORM SEE BELOW Normal [facility] Comment on above: Result Comment: 3.3 - 4.4 LOW RISK 4.4 - 7.1 AVERAGE RISK 7.1 - 11.0 MODERATE RISK >11.0 HIGH RISK Performed By: #### L IPID, BMP, LIVER, TSH #### [facility] [address] [place] [address] Dr. Harmeet Dorsey Cholesterol [Mass/Vol] 236 mg/dL Critically high <=200 [facility] Comment on above: Performed By: #### L IPID, BMP, LIVER, TSH #### [facility] [address] [address] [address] Harmeet Dorsey Cholesterol in HDL [Mass/Vol] 43 mg/dL Normal 40-60 [facility] Comment on above: Performed By: #### L IPID, BMP, LIVER, TSH #### [facility] [address] [address] [address] Harmeet Dorsey Cholesterol in LDL [Mass/Vol] 146.8 mg/dL Normal [facility] Comment on above: Performed By: #### L IPID, BMP, LIVER, TSH #### [facility] [address] [address] [address] Harmeet Dorsey Cholesterol.total/C holesterol in HDL [Mass ratio] 5.5 {ratio} Normal [facility] Comment on above: Performed By: #### L IPID, BMP, LIVER, TSH #### [facility] [address] [address] [address] Harmeet Dorsey HDL NORMAL > or = 60 mg/dl - LO W CARDIOVASCULAR RISK <40 mg/dl - HIGH CARDIOVASCULAR RISK Normal [facility] Comment on above: Performed By: #### L IPID, BMP, LIVER, TSH #### [facility] [address] [place] [address] Dr. Harmeet Dorsey LDL CALC NORMAL SEE BELOW Normal [facility] Comment on above: Result Comment: <100 mg/dl OPTIMAL 100 - 129 mg/dl NEAR OR ABOVE OPTIMAL 130 - 159 mg/dl BORDERLINE HIGH 160 - 189 mg/dl HIGH >190 mg/dl VERY HIGH Performed By: #### L IPID, BMP, LIVER, TSH #### [facility] [address] [place] [address] Dr. Harmeet Dorsey Triglyceride [Mass/Vol] 231 mg/dL Critically high <=150 [facility] Comment on above: Performed By: #### L IPID, BMP, LIVER, TSH #### [facility] [address] [address] [address] Harmeet Dorsey VLDL CALC 46.2 mg/dL Normal [facility] Comment on above: Performed By: #### L IPID, BMP, LIVER, TSH #### [facility] [address] [address] [address] Harmeet Dorsey LIVER PROFILEon 08-06-2022 Albumin [Mass/Vol] 3.7 g/dL Normal 3.4-5.0 [facility] Comment on above: Performed By: #### C MP, BNP, CMADM #### [facility] [address] [place] [address] Dr. Harmeet Dorsey Albumin/Globulin [Mass ratio] 1.0 {ratio} Normal [facility] Comment on above: Performed By: #### C MP, BNP, CMADM #### [facility] [address] [place] [address] Dr. Harmeet Dorsey ALP [Catalytic activity/Vol] 65 U/L Normal 46-116 [facility] Comment on above: Performed By: #### C MP, BNP, CMADM #### [facility] [address] [place] [address] Dr. Harmeet Dorsey ALT [Catalytic activity/Vol] 131 U/L Critically high 16-63 [facility] Comment on above: Performed By: #### C MP, BNP, CMADM #### [facility] [address] [place] [address] Dr. Harmeet Dorsey AST [Catalytic activity/Vol] 83 U/L Critically high 15-37 [facility] Comment on above: Performed By: #### C MP, BNP, CMADM #### [facility] [address] [place] [address] Dr. Harmeet Dorsey BILI, CONJUGATED 0.2 mg/dL Normal 0.0-0.2 [facility] Comment on above: Performed By: #### C MP, BNP, CMADM #### [facility] [address] [place] [address] Dr. Harmeet Dorsey Bilirubin [Mass/Vol] 0.8 mg/dL Normal 0.2-1.0 [facility] Comment on above: Performed By: #### C MP, BNP, CMADM #### [facility] [address] [place] [address] Dr. Harmeet Dorsey Globulin (S) [Mass/Vol] 3.8 g/dL Normal [facility] Comment on above: Performed By: #### C MP, BNP, CMADM #### [facility] [address] [place] [address] Dr. Harmeet Dorsey Protein [Mass/Vol] 7.5 g/dL Normal 6.4-8.2 [facility] Comment on above: Performed By: #### C MP, BNP, CMADM #### [facility] [address] [address] [address] Harmeet Dorsey PROF CHEM 8 (BAS METB)on Anion gap [Moles/Vol] 9.5 mmol/L Normal [facility] Comment on above: Performed By: #### C MP, BNP, CMADM #### [facility] [address] [address] [address] Harmeet Dorsey Calcium [Mass/Vol] 8.8 mg/dL Normal 8.5-10.1 [facility] Comment on above: Performed By: #### C MP, BNP, CMADM #### [facility] [address] [address] [address] Harmeet Dorsey Chloride [Moles/Vol] 102 mmol/L Normal 98-107 [facility] Comment on above: Performed By: #### C MP, BNP, CMADM #### [facility] [address] [place] [address] Dr. Harmeet Dorsey CO2 [Moles/Vol] 29.0 mmol/L Normal 21.0-32.0 [facility] Comment on above: Performed By: #### C MP, BNP, CMADM #### [facility] [address] [place] [address] Dr. Harmeet Dorsey Creatinine [Mass/Vol] 1.07 mg/dL Normal 0.70-1.30 [facility] Comment on above: Performed By: #### C MP, BNP, CMADM #### [facility] [address] [place] [address] Dr. Harmeet Dorsey EGFR-AF TANZANIAN >60 Normal >=60 [facility] Comment on above: Performed By: #### C MP, BNP, CMADM #### [facility] [address] [place] [address] Dr. Harmeet Dorsey EGFR-NON AF TANZANIAN >60 Normal >=60 [facility] Comment on above: Performed By: #### C MP, BNP, CMADM #### [facility] [address] [place] [address] Dr. Harmeet Dorsey Glucose [Mass/Vol] 142 mg/dL Critically high 74-106 [facility] Comment on above: Performed By: #### C MP, BNP, CMADM #### [facility] [address] [place] [address] Dr. Harmeet Dorsey Potassium [Moles/Vol] 3.5 mmol/L Normal 3.5-5.1 [facility] Comment on above: Performed By: #### C MP, BNP, CMADM #### [facility] [address] [place] [address] Dr. Harmeet Dorsey Sodium [Moles/Vol] 137 mmol/L Normal 136-145 [facility] Comment on above: Performed By: #### C MP, BNP, CMADM #### [facility] [address] [place] [address] Dr. Harmeet Dorsey Urea nitrogen [Mass/Vol] 15.0 mg/dL Normal 7.0-18.0 [facility] Comment on above: Performed By: #### C MP, BNP, CMADM #### [facility] [address] [place] [address] Dr. Harmeet Dorsey Urea nitrogen/Creatinine [Mass ratio] 14.0 mg/mg Normal [facility] Comment on above: Performed By: #### C MP, BNP, CMADM #### [facility] [address] [place] [address] Dr. Harmeet Dorsey TSHon 08-06-2022 TSH 1.940 uIU/mL Normal 0.358-3.740 [facility] Comment on above: Performed By: #### C MP, BNP, CMADM #### [facility] [address] [place] [address] Dr. Harmeet Dorsey Vital Signs Date Time Vital Sign Value Performing Clinician Bettyi briana 08-03-2023 11:04-0500 Diastolic blood pressure 80 mm[Hg] nAgela Schaefer DO Work Phone: [facility] 08-03-2023 11:04-0500 Systolic blood pressure 144 mm[Hg] Angela Schaefer DO Work Phone: [facility] 08-03-2023 10:21-0500 Body height 157.5 cm Angela Schaefer DO Work Phone: [facility] 08-03-2023 10:21-0500 Body mass index (BMI) [Ratio] 34.02 kg/m2 Angela Schaefer DO Work Phone: [facility] 08-03-2023 10:21-0500 Body weight 84.37 kg Angela Schaefer DO Work Phone: [facility] 08-03-2023 10:21-0500 Heart rate 64 /min Angela Schaefer DO Work Phone: [facility] Encounters Encounter Date Encounter Type Care Provider Facility Start: 01-02-2024 End: 01-03-2024 ambulatory ODILON CHOI Not Available Start: 11-17-2023 End: 11-17-2023 ambulatory LUX SPIVEY Not Available Start: 09-29-2023 End: 09-30-2023 Emergency department patient visit NGUYỄNJOVITA JASMINE [facility] Start: 09-29-2023 End: 09-30-2023 ambulatory LUX SPIVEY Not Available Start: 08-03-2023 End: 08-03-2023 ambulatory ANGELA Whyte [facility]ID[facility] Start: 08-03-2023 End: 08-03-2023 Office outpatient visit 25 minutes Angela Schaefer DO Work Phone: [facility] Comment on above: History of non-ST el evation myocardial infarction (NSTEMI); Atherosclerosis of [place] coronary artery of [place] heart, unspecified whether angina present; Mixed hyperlipidemia; Essential hypertension Start: 01-17-[address] Lux Spivey Facility:[facility] Start: 01-15-[address] Lux Spivey Facility:[id number] Start: 01-15-2023 End: 01-16-2023 Evaluation and management of inpatient W King Valenzueladon Facility:[facility] Start: 01-15-2023 End: 01-15-2023 ambulatory CECIL Fernandes Facility: Start: 01-15-[address] Lux Spivey Facility:[id number] Start: 08-06-2022 End: 08-07-[address] LUX SPIVEY Facility: Start: 09-29-2018 End: 09-30-2018 Patient encounter procedure DEFAULT PHYSICIAN Facility:[facility] Procedures Date Procedure Procedure Detail Performing Clinician Start: 08-06-2022 PSA screening CECIL RAO . Comment on above: Performed By: #### P [facility] #### [facility] [address] [address] [address] Harmeet Dorsey Plan of Treatment Date Care Activity Detail Author Start: 03-18-2025 DTaP/Tdap/Td Vaccines (2 - Td or Tdap) DTaP/Tdap/Td Vaccines (2 - Td or Tdap) [facility] Start: 08-03-2023 End: 08-03-2024 Alanine aminotransferase [Enzymatic activity/volume] in Serum or Plasma by With P-5'-P Alanine Aminotransferase Lab Routine Mixed hyperlipidemia Expected: 08/03/2023 (Approximate), Expires: 08/03/2024 [facility] Service Area Work Phone: Comment on above: Expected: 08/03/2023 (Approximate), Expi res: 08/03/2024 Start: 08-03-2023 End: 08-03-2024 Aspartate aminotransferase [Enzymatic activity/volume] in Serum or Plasma by With P-5'-P Aspartate Aminotransferase Lab Routine Mixed hyperlipidemia Expected: 08/03/2023 (Approximate), Expires: 08/03/2024 [facility] Work Phone: Comment on above: Expected: 08/03/2023 (Approximate), Expi res: 08/03/2024 Start: 08-03-2023 End: 08-03-2024 Basic metabolic 2000 panel - Serum or Plasma Basic Metabolic Panel Lab Routine History of non-ST elevation myocardial infarction (NSTEMI) Atherosclerosis of [place] coronary artery of [place] heart, unspecified whether angina present Mixed hyperlipidemia Essential hypertension Expected: 08/03/2023 (Approximate), Expires: 08/03/2024 [facility] Work Phone: Comment on above: Expected: 08/03/2023 (Approximate), Expi res: 08/03/2024 Start: 08-03-2023 End: 08-03-2024 Lipid 1996 panel - Serum or Plasma Lipid Panel Lab Routine Mixed hyperlipidemia Expected: 08/03/2023 (Approximate), Expires: 08/03/2024 [facility] Work Phone: Comment on above: Expected: 08/03/2023 (Approximate), Expi res: 08/03/2024 Start: 05-20-2023 Influenza vaccination Influenza Vaccine (#1) [facility] Start: 08-27-2021 Zoster Vaccines (2 of 2) Zoster Vaccines (2 of 2) [facility] Start: 03-05-2021 COVID-19 Vaccine (3 - Pfizer series) COVID-19 Vaccine (3 - Pfizer series) [facility] Start: 2020 Abdominal aortic aneurysm screening Abdominal Aortic Aneurysm (AAA) Screening [facility] Start: 1973 Diabetes mellitus screening Diabetes Screening [facility] Start: 1973 Hepatitis C screening Hepatitis C Screening [facility] Start: 1961 Pneumococcal Vaccine: 65+ Years (1 - PCV) Pneumococcal Vaccine: 65+ Years (1 - PCV) [facility] Start: 1955 Lipid panel Lipid Panel [facility] Start: 1955 Screening for malignant neoplasm of colon [facility] Start: 1955 Yearly Adult Physical Yearly Adult Physical [facility] Immunizations Immunization Date Immunization Notes Care Provider Cher lorenzo 07-02-2021 influenza virus vaccine, unspecified formulation Angela Schaefer DO Work Phone: [facility] Work Phone: Payers Date Payer Category Payer Private Health Insurance [facility] [id number] 2023-Present [address] [place] [address] [id number] 2023 Private Health Insurance [id number] 2023 Self-pay 2020 Medicare MEDICARE MEDICAR E PART A AND B [id number] 2020-Present [address] [place] [address] [id number] 1959 Medicare [id number] 1959 Private Health Insurance [id number] 1955 Unknown [id number] [id number]. 2.647 1955 Unknown [id number] 2.16.840.1.219647.3.579. 2.593 1955 Unknown [id number] 2.16.840.1.117032.3.579. 2.593 1955 Unknown [id number] 2.16.840.1.011672.3.579. 2.356 1955 Unknown [id number] 2.16.840.1.993297.3.579. 2.356 1955 Unknown [id number] 2.16.840.1.136348.3.579. 2.1244 1955 Unknown [id number] 2.16.840.1.246108.3.579. 2.1286 1955 Unknown [id number] 2.16.840.1.809158.3.579. 2.1286 1955 Unknown [id number] 2.16.840.1.660247.3.579. 2.1259 1955 Unknown [id number] 2.16.840.1.782348.3.579. 2.1259 1955 Unknown [id number] 2.16.840.1.663290.3.579. 2.1259 Unknown Unknown [id number] 2.16.840.1.415858.3.579. 2.531 Social History Date Type Detail Facility Start: [facility]03[facility]23 [facility] History of tobacco use Current smoker [facility] Work Phone: History of tobacco use Cigarette Smoker [facility] Work Phone: Start: 08-03-2023 Tobacco use and exposure Smokeless tobacco non-user [facility] Work Phone: Start: 08-03-2023 Alcohol intake Lifetime non-d dylan (finding) [facility] Work Phone: Start: 08-03-2023 History of Social function [facility] Work Phone: Start: 08-03-2023 Tobacco use panel [facility] Work Phone: Start: 1955 Sex Assigned At Not on file [facility] Work Phone: Start: 07-24-2023 End: 08-03-2023 Exposure to SARS-CoV-2 (event) Not sure [facility] History of Present illness Narrative 08-03-2023 Angela Schaefer, DO - 08/03/2023 9:40 AM EST Note Date & Type Note Facility 08-03-2023 History of Present illness Narrative Katrina Degroot Sr. is a 67 y.o. male Chief Complaint Follow-up 67-year-old gentleman returns for 6-month follow-up he is doing well he has no cardiovascular events, symptoms or nitrate usage or recurrent hospitalizations. He sustained a small STEMI back in December 2022 with a small second diagonal branch occlusion with normal left ventricular function. He is relegated to conservative management no angioplasty or stenting was performed. He has had no clinical sequela Blood pressure is mildly elevated 144/80 on my exam, LDL is 92 AST and ALT are in the 80s/90s and there is been no advancement in his statin dosing. He remains on appropriate GDMT however not on DAPT. Recommendations, continue current therapies, follow-up with primary care physician, will reassess lipid and liver profiles in the next 3 months and keep an eye on his LFTs. Review of Systems All other systems reviewed and are negative. Visit Vitals BP 144/80 (BP Location: Left arm, Patient Position: Sitting) Pulse 64 Ht 1.575 m (5' 2 ) Wt 84.4 kg (186 lb) BMI 34.02 kg/m Smoking Status Former BSA 1.92 m Objective Physical Exam Constitutional: Appearance: Normal appearance. He is normal weight. HENT: Nose: Nose normal. Neck: Vascular: No carotid bruit. Cardiovascular: Rate and Rhythm: Normal rate. Pulses: Normal pulses. Heart sounds: Normal heart sounds. Pulmonary: Effort: Pulmonary effort is normal. Abdominal: General: Bowel sounds are normal. Palpations: Abdomen is soft. Genitourinary: Rectum: Normal. Musculoskeletal: General: Normal range of motion. Cervical back: Normal range of motion. Right lower leg: No edema. Left lower leg: No edema. Skin: General: Skin is warm and dry. Neurological: General: No focal deficit present. Mental Status: He is alert. Psychiatric: Mood and Affect: Mood normal. Behavior: Behavior normal. Thought Content: Thought content normal. Judgment: Judgment normal. Current Medications Current Outpatient Medications: aspirin 81 mg EC tablet, Take 1 tablet (81 mg) by mouth once daily., Disp: , Rfl: atorvastatin (Lipitor) 20 mg tablet, Take 1 tablet (20 mg) by mouth once daily., Disp: , Rfl: famotidine (Pepcid) 20 mg tablet, Take 1 tablet (20 mg) by mouth once daily at bedtime., Disp: , Rfl: folic acid (Folvite) 1 mg tablet, Take 1 tablet (1 mg) by mouth once daily., Disp: , Rfl: hydroCHLOROthiazide (HYDRODiuril) 25 mg tablet, Take 1 tablet (25 mg) by mouth once daily., Disp: , Rfl: melatonin 5 mg capsule, Take 1 capsule by mouth once daily., Disp: , Rfl: metoprolol succinate XL (Toprol-XL) 25 mg 24 hr tablet, Take 0.5 tablets (12.5 mg) by mouth once daily. Do not crush or chew., Disp: , Rfl: multivitamin tablet, Take 1 tablet by mouth once daily., Disp: , Rfl: nitroglycerin (Nitrostat) 0.4 mg SL tablet, Place 1 tablet (0.4 mg) under the tongue every 5 minutes if needed for chest pain., Disp: , Rfl: Assessment/Plan 1. History of non-ST elevation myocardial infarction (NSTEMI) 2. Atherosclerosis of [place] coronary artery of [place] heart, unspecified whether angina present 3. Mixed hyperlipidemia 4. Essential hypertension documented in this encounter [facility] Work Phone: Instructions 08-03-2023 Patient Instructions Note Date & Type Note Facility 08-03-2023 Instructions Savannah Graham LPN - 08/03/2023 9:40 AM EST Please bring all medicines, vitamins, and herbal supplements with you when you come to the office. Prescriptions will not be filled unless you are compliant with your follow up appointments or have a follow up appointment scheduled as per instruction of your physician. Refills should be requested at the time of your visit. documented in this encounter [facility] Work Phone: Clinical Note 10-26-2021 Note Date & Type Note Facility 10-26-2021 Note PROCEDURE: [employer] pe[employer]kin VCT 64, 5.0 mm withIV contrast, axial helical images of the chest were performed. Comparison made with prior examination, three years earlier October 13, 2018. FINDINGS: Minimal posterior subpleural haziness, no suspicious nodule, mass or parenchymal consolidation/infiltrate. Near total resolution of the prior subpleural abnormalities from the three years earlier consistent with a resolved inflammatory process with minimal residual post-inflammatory sequela. No mediastinal or hilar lymphadenopathy. No pleural or pericardial effusion. Residual right lower paratracheal 7 x 14 mm lymph node, reduced volume from the prior examination. Unremarkable upper abdominal images. IMPRESSION: 1. No suspicious lung nodule or mass, resolved parenchymal changes from three years earlier with minimal post-inflammatory sequela. Report reported and signed by Pradeep Renteria on 10/26/2021 133[address] [facility] [employer] Evaluation note Note Date & Type Note Facility Evaluation note Diagnosis History of non-ST elevation myocardial infarction (NSTEMI) Atherosclerosis of [place] coronary artery of [place] heart, unspecified whether angina present Mixed hyperlipidemia Essential hypertension Unspecified essential hypertension documented in this encounter [facility] Work Phone: Reason for referral (narrative) Consultation (Routine) - Authorized Note Date & Type Note Facility Reason for referral (narrati ve) Specialty Diagnoses / Procedures Referred By Leonie villanueva Referred To Contact Cardiology Diagnoses History of non-ST elevation myocardial infarction (NSTEMI) Atherosclerosis of [place] coronary artery of [place] heart, unspecified whether angina present Essential hypertension Procedures Follow Up In Cardiology Angela Schaefer DO [address] [place] [address] Angela Schaefer DO [address] [place] [address] Referral ID Status Reason Start Date Expiration Date V isits Requested Visits Authorized [id number] Authorized 08/03/2023 08/02/2024 1 1 [facility] Work Phone: Summary Purpose Family History No Family History Records FoundNo Family History Records FoundNo Family History Records FoundNo Family History Records FoundNo Family History Records FoundNo Family History Records FoundNo Family History Records FoundNo Family History Records Found Advance Directives No Advanced Directives Records FoundNo Advanced Directives Records FoundNo Advanced Directives Records FoundNo Advanced Directives Records FoundNo Advanced Directives Records FoundNo Advanced Directives Records FoundNo Advanced Directives Records FoundNo Advanced Directives Records Found Additional Source Comments (unrecognized sect ion and content) No Status Records FoundNo Status Records FoundNo Status Records FoundNo Status Records FoundNo Status Records FoundNo Status Records FoundNo Status Records FoundNo Status Records Found INFORMATION SOURCE (unrecogn ized section and content) DATE CREATED AUTHOR 10/02/2018 [facility] DATE CREATED AUTHOR AUTHOR'S ORGANIZ ATION 10/27/2021 [facility] dical Specialist DATE CREATED AUTHOR AUTHOR'S ORGANIZ ATION 01/18/2023 [facility] DATE CREATED AUTHOR AUTHOR'S ORGANIZ ATION 01/19/2023 [facility] DATE CREATED AUTHOR AUTHOR'S ORGANIZ ATION 03/08/2023 [facility] DATE CREATED AUTHOR AUTHOR'S ORGANIZ ATION 08/05/2023 [facility] DATE CREATED AUTHOR AUTHOR'S ORGANIZ ATION 10/02/2023 [facility] DATE CREATED AUTHOR AUTHOR'S ORGANIZ ATION 01/07/2024 [facility] dical Specialists EPIC Reason for Visit (unrecogniz ed section and content) Reason Comments Follow-up 6m Care Teams (unrecognized sec tion and content) Direct Mail Clerk Relationship Specialty Start Date End Date Lux Spivey MD [address] [place] [address] PCP - General 01/17/23 FOR RECORDS PERTAINING TO PATIENTS WHO ARE OR HAVE BEEN ENROLLED IN A CHEMICAL DEPENDENCY/SUBSTANCEABUSE PROGRAM, SOME INFORMATION MAY BE OMITTED. This clinical summary was aggregated from multiple sources. Caution should be exercised in using it in the provision of clinical care. This summary normalizes information from multiple sources, and as a consequence, information in this document may materially change the coding, format and clinical context of patient data. In addition, data may be omitted in some cases. CLINICAL DECISIONS SHOULD BE BASED ON THE PRIMARY CLINICAL RECORDS. [facility]. provides no warranty or guarantee of the accuracy or completeness of information in this document.
== END 2024-01-20 08:18 | disposition home or self-care (01) ==
LOC: VC 08:17
PROVIDERS: Visit Provider Radiology Diagnostic Radiology
DX: I80.01 Phlebitis and thrombophlebitis of superficial vessels of right lower extremity (principal)
CPT/HCPCS: 93971; G0463

== ENCOUNTER 2024-02-03 07:48 | Outpatient (OUT) | payer OTHER, MEDICARE, SELFPAY ==
--- NOTE | 2024-02-03 07:50 | VEIN_ITS ---
[address] [address] Patient Name: BRIGETTE CHA MRN: [id number] date: 1955 Sex: M Assigned Patient Location: Current Patient Location: Accession/Order Number: [id number] Exam Date: 02/03/2024 07:55 Report Date: 02/03/2024 09:17 At the request of: VIKTORIA JOSE Procedure: VC Endovenous Ablation 1VeinLT EXAMINATION: VC Endovenous Ablation 1Vein, left great saphenous vein HISTORY: I83.813 Pain due to varicose veins of bilateral legs COMPARISON: No relevant comparison available. TECHNIQUE: The risks and benefits of the procedure had been previously discussed, and were rediscussed at length. Informed written consent was obtained. Erin Ptee and Dwight Parsons assisted. Time out procedure was performed. The left lower extremity was prepared and draped in the usual sterile fashion to allow knee flexion in the sterile field. Duplex ultrasound probe was draped in a sterile cover, sterile transmission gel was used. Venous mapping was performed with the areas of dilation and large tributaries marked. The total length was 57 cm from the entry 4 cm above the medial malleolus to 3 cm below the saphenofemoral junction. The diameter of the greater saphenous vein ranged from 4-7 mm. A 30 gauge needle and 1% buffered lidocaine was used to anesthetize the entry site. A 4 mm incision was made with a scalpel and the saphenous vein was entered percutaneously under direct ultrasound guidance with a micropuncture set, a single stick was successful in gaining access. A micro-guide wire was inserted and the needle removed. A micro-set including a dilator was inserted over the microwire and the needle and dilator were removed. A 0.018 guide wire was inserted through the micro-set and threaded through the saphenous vein to the saphenofemoral junction. The dilator was removed and an introducer sheath was inserted over the wire until the end of the sheath entered the saphenofemoral junction. The dilator and wire were removed and the 600 micron fiber was introduced and placed and positioned so that it extended beyond the sheath and was 3 cm peripheral to the saphenofemoral femoral junction. Final position of the fiber was determined by ultrasound guidance and duplex imaging. Tumescent anesthetic was delivered by ultrasound guidance. 225 cc of fluid was delivered along the entire course of the saphenous vein. The solution consisted of 1000 cc of normal saline with 40 mL of 1% lidocaine and 20 mL of sodium bicarbonate. A final positioning check was made. The energy source was turned on by means of the foot pedal and the fiber and sheath were withdrawn. The total number of Joules delivered was 2763. The laser was active for 345seconds under continuous pulse, average laser use of 8 J. Laser start time 838 AM 02/03/2024. Laser stop time 8:47AM 02/03/2024. A duplex ultrasound revealed compressibility and flow at the saphenofemoral junction immediately after the procedure. Hemostasis at the access site was achieved. The skin incision of the saphenous vein was closed with a 4 x 4. A compression stocking was applied. Postop instructions were given. A follow up appointment was recommended and scheduled. The patient tolerated the procedure well and was discharged in good condition . VEIN/VC Endovenous Ablation 1VeinLT IMPRESSION: Technically successful endovenous laser ablation of the left great saphenous vein Electronically authenticated by: VIKTORIA JOSE Date: 02/03/2024 09:17
--- OUTSIDE RECORDS SUMMARY | 2024-02-03 07:54 | XMS_ITS | CCD ---
Author Organization [facility] Care Team Providers Care Manager General Name Role Phone PHYSICIAN, DEFAULT Unavailable Unavailable [...] Care Unavailable NGUYỄN JASMINE Attending Unavailable NGUYỄN JASMINE Attending Unavailable NGUYỄN JASMINE Referring Unavailable LUX [...] 01-15-2023 Episodic Other aftercare (1 source) Other [place] [facility] (current) drug therapy; Translations: [OTH BALLOON PILOT CURRENT DRUG THERAPY] Onset: 01-18-2023 Episodic Other [...] Leon MD on 09/29/2023 9:46 AM Normal [facility] US LIVERon 09-23-2023 LIVER CLINICAL HISTORY: Abnormal [...] Anion gap [Moles/Vol] 10.0 mmol/L Normal 6.0-15.0 [facility] Comment on above: Performed By: #### C BC, BMP, LIPID #### [address] Calcium [Mass/Vol] 8.6 mg/dL Normal 8.6-10.[address] [facility] Comment on above: Performed By: #### C BC, BMP, LIPID #### [address] Chloride [Moles/Vol] 102 mmol/L Normal 98-107 [facility] Comment on above: Performed By: #### C BC, BMP, LIPID #### [facility] [address] CO2 [Moles/Vol] 28.7 mmol/L Normal 21.0-31.[address] [facility] Comment on above: Performed By: #### C BC, BMP, LIPID #### [facility] [address] Creatinine [Mass/Vol] 1.15 mg/dL Normal 0.70-1.30 [facility] Comment on above: Performed By: #### C BC, BMP, LIPID #### [facility] [address] [place] [address] [place] Creatinine Clr Calc Pharmacy 57.91 [facility] Comment on above: Performed By: #### C BC BMP, LIPID #### [facility] [address] [place] [address] [place] GFR/1.73 sq M.predicted MDRD (S/P/Bld) [Vol rate/Area] mL/min/{1.73_m2} Normal [facility] Comment on above: Performed By: #### C BC BMP, LIPID #### [facility] [address] Glucose [Mass/Vol] 112 mg/dL High 70-[address] [facility] Comment on above: Result Comment: [place] Glucose Reference Range is dependent on time and content of last meal. Glucose of more than 200 mg/dL in a nonstressed, ambulatory subject supports the diagnosis of Diabetes Mellitus. ADA recommended reference range Performed By: #### C BC BMP, LIPID #### [address] Potassium [Moles/Vol] 3.7 mmol/L Normal 3.5-5.1 [facility] Comment on above: Performed By: #### C BC BMP, LIPID #### [address] Sodium [Moles/Vol] 137 mmol/L Normal 136-[address] [facility] Comment on above: Performed By: #### C BC BMP, LIPID #### [facility] [address] [place] [address] [place] Urea nitrogen [Mass/Vol] 17 mg/dL Normal 7-25 [facility] Comment on above: Performed By: #### C BC, BMP, LIPID #### [facility] [address] [place] [address] Complete Blood Count Auto Di ffon 01-16-2023 Basophils (Bld) [#/Vol] 0.0 10*3/uL Normal 0.0-0.2 [facility] Comment on above: Result Comment: PERF ORMED BY: [place] [address] PATHOLOGIST GEOTECHNICAL FIELD TECHNICIAN COLLETTE ENRIQUEZ M.D. Performed By: #### C BC, BMP, LIPID #### [facility] [address] [place] [address] [place] Basophils/100 WBC (Bld) 0.2 % Normal . [facility] Comment on above: Performed By: #### C BC, BMP, LIPID #### [facility] [address] [place] [address] [place] Eosinophils (Bld) [#/Vol] 0.1 10*3/uL Normal 0.0-0.45 [facility] Comment on above: Performed By: #### C BC, BMP, LIPID #### [facility] [address] [place] [address] [place] Eosinophils/100 WBC (Bld) 0.5 % Normal . [facility] Comment on above: Performed By: #### C BC, BMP, LIPID #### [facility] [address] Erythrocyte distribution width (RBC) [Ratio] 13.7 % Normal 12.0-14.8 [facility] Comment on above: Performed By: #### C BC, BMP, LIPID #### [facility] [address] [place] [address] [place] Hematocrit (Bld) [Volume fraction] 50.3 % High 38.8-50.0 [facility] Comment on above: Performed By: #### C BC, BMP, LIPID #### [facility] [address] [place] [address] [place] Hemoglobin (Bld) [Mass/Vol] 16.9 g/dL Normal 13.0-17.0 [facility] Comment on above: Performed By: #### C BC, BMP, LIPID #### [facility] [address] [place] [address] [place] Lymphocytes (Bld) [#/Vol] 1.9 10*3/uL Normal 1.00-4.8 [facility] Comment on above: Performed By: #### C BC, BMP, LIPID #### [facility] [address] [place] [address] [place] Lymphocytes/100 WBC (Bld) 16.0 % Normal . [facility] Comment on above: Performed By: #### C BC, BMP, LIPID #### [facility] [address] MCH (RBC) [Entitic mass] 31.0 pg Normal 27.5-35.2 [facility] Comment on above: Performed By: #### C BC, BMP, LIPID #### [address] MCV (RBC) [Entitic vol] 92.0 fL Normal 83.5-101 [facility] Comment on above: Performed By: #### C BC, BMP, LIPID #### [address] Mean Corpuscular HGB Conc 33.6 g/dL Normal 32.5-35.6 [facility] Comment on above: Performed By: #### C BC, BMP, LIPID #### [address] Monocytes (Bld) [#/Vol] 1.1 10*3/uL High 0.0-0.8 [facility] Comment on above: Performed By: #### C BC, BMP, LIPID #### [address] Monocytes/100 WBC (Bld) 9.1 % Normal . [facility] Comment on above: Performed By: #### C BC, BMP, LIPID #### [address] Neutrophils (Bld) [#/Vol] 9.0 10*3/uL High 1.8-7.7 [facility] Comment on above: Performed By: #### C BC, BMP, LIPID #### [place] [address] [place] Neutrophils/100 WBC (Bld) 74.2 % Normal . [facility] Comment on above: Performed By: #### C BC, BMP, LIPID #### [address] NRBC% 0.1 /100{WBC} Normal 0-0.5 [facility] Comment on above: Performed By: #### C BC, BMP, LIPID #### [facility] [address] Platelet mean volume (Bld) [Entitic vol] 8.3 fL Normal 6.6-10.1 [facility] Comment on above: Performed By: #### C BC, BMP, LIPID #### [facility] [address] Platelets (Bld) [#/Vol] 229 10*3/uL Normal 150-450 [facility] Comment on above: Performed By: #### C BC, BMP, LIPID #### [address] RBC (Bld) [#/Vol] 5.47 10*6/uL Normal 3.90-5.60 [facility] Comment on above: Performed By: #### C BC, BMP, LIPID #### [address] WBC (Bld) [#/Vol] 12.2 10*3/uL High 4.1-10.5 [facility] Comment on above: Performed By: #### C BC, BMP, LIPID #### [address] ECG 12 lead ECGon 01-16-2023 ECG 12 lead ECG [facility] [place] [address] [place] [address] Electrocardiograph Report Signed Patient: Brigette Degroot Sr MR#: [id number] : 1955 Acct:[id number] Age/Sex: 67 / M ADM Date: 01/15/23 Loc: Room: 0E7695-1 Type: ADM IN Attending Dr: Greg Schaefer [...] By Jin Hunter DO 01/16 1516 Normal [facility] Lipid Panelon 01-16-2023 Cholesterol [Mass/Vol] 181 mg/dL Normal 140-200 [facility] Comment on above: Result Comment: Chol less than 200 mg/dl low risk Chol 201-239 mg/dl borderline risk Chol 240 mg/dl and greater high risk Performed By: #### C BC, BMP, LIPID #### [facility] [address] Cholesterol in HDL [Mass/Vol] 46 mg/dL Normal 29-71 [facility] Comment on above: Result Comment: HDL CHOL ATP-III CLASSIFICATION Cardiovascular Risk HDL > or equal to 60 mg/dL LOW HDL < 40 mg/dL HIGH Performed By: #### C BC, BMP, LIPID #### [facility] [address] Cholesterol.total/C holesterol in HDL [Mass ratio] 3.9 {ratio} Normal <5.0 [facility] Comment on above: Result Comment: PERF ORMED BY: [place] [address] PATHOLOGIST GEOTECHNICAL FIELD TECHNICIAN COLLETTE ENRIQUEZ M.D. Performed By: #### C BC, BMP, LIPID #### [facility] [address] LDL Cholesterol,Calcula joey 107 mg/dL High 0-100 [facility] Comment on above: Result Comment: LDL ATP III CLASSIFICATION LDL less than 100 mg/dL Optimal LDL 100-129 mg/dL Near or above optimal LDL 130-159 mg/dL Borderline high LDL 160-189 mg/dL High LDL greater than 189 mg/dL Very high Performed By: #### C BC, BMP, LIPID #### [facility] [address] Triglyceride w/Reflex 141 mg/dL Normal 0-149 [facility] Comment on above: Result Comment: TRIG ATP III CLASSIFICATION TRIG less than 150 mg/dL Normal TRIG 150-199 mg/dL Borderline high TRIG 200-500 mg/dL High TRIG greater than 500 mg/dL Very high Standard traceable to the Center for Disease Conrtrol and Prevention (CDC) test method. Performed By: #### C BC, BMP, LIPID #### [facility] [address] VLDL CHOLESTEROL 28 mg/dL Normal [facility] Comment on above: Performed By: #### C BC, BMP, LIPID #### [facility] [address] BNPon 01-15-2023 Natriuretic peptide B (Bld) [Mass/Vol] 15.0 pg/mL Normal <=900.0 [facility] Comment on above: Performed By: #### C MP, BNP, CMADM #### [facility] [address] [place] [address] Dr. Harmeet Dorsey CARDIAC JLUEE ADMITon 023 CK [Catalytic activity/Vol] 109 U/L Normal 39-308 [facility] Comment on above: Performed By: #### C MP, BNP, CMADM #### [facility] [address] [address] [address] Harmeet Dorsey CK.MB [Mass/Vol] 2.05 ng/mL Normal <=3.60 [facility] Comment on above: Performed By: #### C MP, BNP, CMADM #### [facility] [address] [address] [address] Harmeet Dorsey HSTROP 69.9 pg/mL Normal 4.0-76.1 [facility] Comment on above: Result Comment: CUT- OFF POINTS HAVE BEEN ESTABLISHED BASED ON THE FOURTH UNIVERSAL DEFINITIONS OF MYOCARDIAL INFARCTION. THE UPPER REFERENCE LIMIT (URL) OF TROPONIN, DEFINED THE 99TH PERCENTILE OF cTnI DISTRIBUTION IN A REFERENCE POPULATION, HAS BEEN CONFIRMED THE DECISION THRESHOLD FOR [place] DIAGNOSIS. Performed By: #### C MP, BNP, CMADM #### [facility] [address] [place] [address] Dr. Harmeet Dorsey PRICE 96 ng/mL Normal 16-96 [facility] Comment on above: Performed By: #### C MP, BNP, CMADM #### [facility] [address] [address] [address] Harmeet Dorsey CBC AUTO DIFFon 01-15-2023 BASO # 0.1 103/ul Normal 0.0-0.1 [facility] Comment on above: Performed By: #### C BC #### [facility] [address] [place] [address] Dr. Harmeet Dorsey Basophils/100 WBC (Bld) 0.6 % Normal 0.2-2.0 [facility] Comment on above: Performed By: #### C BC #### [facility] [address] [place] [address] Dr. Harmeet Dorsey EO # 0.1 103/ul Normal 0.0-0.7 [facility] Comment on above: Performed By: #### C BC #### [facility] [address] [place] [address] Dr. Harmeet Dorsey Eosinophils/100 WBC (Bld) 0.7 % Critically low 0.9-7.0 [facility] Comment on above: Performed By: #### C BC #### [facility] [address] [place] [address] Dr. Harmeet Dorsey Erythrocyte distribution width (RBC) [Ratio] 13.3 % Normal 11.0-15.0 [facility] Comment on above: Performed By: #### C BC #### [facility] [address] [place] [address] Dr. Harmeet Dorsey Hematocrit (Bld) [Volume fraction] 54.4 % Critically high 42.0-54.0 [facility] Comment on above: Performed By: #### C BC #### [facility] [address] [place] [address] Dr. Harmeet Dorsey Hemoglobin (Bld) [Mass/Vol] 18.7 g/dL Critically high 14.0-18.0 [facility] Comment on above: Performed By: #### C BC #### [facility] [address] [address] [address] Harmeet Dorsey IG # 0.23 10e3/ul Critically high 0.00-0.03 [facility] Comment on above: Performed By: #### C BC #### [facility] [address] [place] [address] Dr. Harmeet Dorsey IG % 2.1 % Critically high 0.0-0.5 [facility] Comment on above: Performed By: #### C BC #### [facility] [address] [place] [address] Dr. Harmeet Dorsey LYMPH # 2.6 103/ul Normal 1.2-3.8 [facility] Comment on above: Performed By: #### C BC #### [facility] [address] [place] [address] Dr. Harmeet Dorsey Lymphocytes/100 WBC (Bld) 23.9 % Normal 20.5-60.0 [facility] Comment on above: Performed By: #### C BC #### [facility] [address] [place] [address] Dr. Harmeet Dorsey MANUAL DIFF REQ NO Normal [facility] Comment on above: Performed By: #### C BC #### [facility] [address] [place] [address] Dr. Harmeet Dorsey MCH (RBC) [Entitic mass] 31.2 pg Normal 25.9-34.0 [facility] Comment on above: Performed By: #### C BC #### [facility] [address] [place] [address] Dr. Harmeet Dorsey MCHC (RBC) [Mass/Vol] 34.4 g/dL Normal 29.9-35.2 [facility] Comment on above: Performed By: #### C BC #### [facility] [address] [place] [address] Dr. Harmeet Dorsey MCV (RBC) [Entitic vol] 90.8 fL Normal 80.0-94.0 [facility] Comment on above: Performed By: #### C BC #### [facility] [address] [address] [address] Harmeet Dorsey MONO # 0.9 103/ul Critically high 0.3-0.8 [facility] Comment on above: Performed By: #### C BC #### [facility] [address] [address] [address] Harmeet Dorsey Monocytes/100 WBC (Bld) 8.4 % Normal 1.7-12.0 [facility] Comment on above: Performed By: #### C BC #### [facility] [address] [place] [address] Dr. Harmeet Dorsey NEUT # 7.0 103/ul Critically high 1.4-6.5 [facility] Comment on above: Performed By: #### C BC #### [facility] [address] [place] [address] Dr. Harmeet Dorsey Neutrophils/100 WBC (Bld) 64.3 % Normal 43.0-75.0 [facility] Comment on above: Performed By: #### C BC #### [facility] [address] [place] [address] Dr. Harmeet Dorsey Platelet mean volume (Bld) [Entitic vol] 9.7 fL Normal 9.5-13.5 [facility] Comment on above: Performed By: #### C BC #### [facility] [address] [place] [address] Dr. Harmeet Dorsey PLT 262 103/ul Normal 150-450 [facility] Comment on above: Performed By: #### C BC #### [facility] [address] [place] [address] Dr. Harmeet Dorsey RBC 5.99 106/ul Normal 4.70-6.10 [facility] Comment on above: Performed By: #### C BC #### [facility] [address] [place] [address] Dr. Harmeet Dorsey WBC 10.9 103/ul Normal 4.0-11.0 [facility] Comment on above: Performed By: #### C BC #### [facility] [address] [place] [address] Dr. Harmeet Dorsey PROF 14(COMP METB)on 023 Albumin [Mass/Vol] 3.5 g/dL Normal 3.4-5.0 [facility] Comment on above: Performed By: #### C MP, BNP, CMADM #### [facility] [address] [address] [address] Harmeet Dorsey Albumin/Globulin [Mass ratio] 0.8 {ratio} Normal [facility] Comment on above: Performed By: #### C MP, BNP, CMADM #### [facility] [address] [address] [address] Harmeet Drosey ALP [Catalytic activity/Vol] 71 U/L Normal 46-116 [facility] Comment on above: Performed By: #### C MP, BNP, CMADM #### [facility] [address] [place] [address] Dr. Harmeet Dorsey ALT [Catalytic activity/Vol] 218 U/L Critically high 16-63 [facility] Comment on above: Performed By: #### C MP, BNP, CMADM #### [facility] [address] [address] [address] Harmeet Dorsey Anion gap [Moles/Vol] 10.2 mmol/L Normal [facility] Comment on above: Performed By: #### C MP, BNP, CMADM #### [facility] [address] [address] [address] Harmeet Dorsey AST [Catalytic activity/Vol] 92 U/L Critically high 15-37 [facility] Comment on above: Performed By: #### C MP, BNP, CMADM #### [facility] [address] [address] [address] Harmeet Dorsey Bilirubin [Mass/Vol] 0.7 mg/dL Normal 0.2-1.0 [facility] Comment on above: Performed By: #### C MP, BNP, CMADM #### [facility] [address] [address] [address] Harmeet Dorsey Calcium [Mass/Vol] 8.9 mg/dL Normal 8.5-10.1 [facility] Comment on above: Performed By: #### C MP, BNP, CMADM #### [facility] [address] [address] [address] Harmeet Dorsey Chloride [Moles/Vol] 101 mmol/L Normal 98-107 [facility] Comment on above: Performed By: #### C MP, BNP, CMADM #### [facility] [address] [place] [address] Dr. Harmeet Dorsey CO2 [Moles/Vol] 29.3 mmol/L Normal 21.0-32.0 [facility] Comment on above: Performed By: #### C MP, BNP, CMADM #### [facility] [address] [place] [address] Dr. Harmeet Dorsey Creatinine [Mass/Vol] 1.26 mg/dL Normal 0.70-1.30 [facility] Comment on above: Performed By: #### C MP, BNP, CMADM #### [facility] [address] [place] [address] Dr. Harmeet Dorsey EGFR-AF LIBYAN >60 Normal >=60 [facility] Comment on above: Performed By: #### C MP, BNP, CMADM #### [facility] [address] [place] [address] Dr. Harmeet Dorsey EGFR-NON AF LIBYAN 57 mL/min/1.73m2 Critically low >=60 [facility] Comment on above: Performed By: #### C MP, BNP, CMADM #### [facility] [address] [place] [address] Dr. Harmeet Dorsey Globulin (S) [Mass/Vol] 4.3 g/dL Normal [facility] Comment on above: Performed By: #### C MP, BNP, CMADM #### [facility] [address] [place] [address] Dr. Harmeet Dorsey Glucose [Mass/Vol] 178 mg/dL Critically high 74-106 [facility] Comment on above: Performed By: #### C MP, BNP, CMADM #### [facility] [address] [place] [address] Dr. Harmeet Dorsey Potassium [Moles/Vol] 3.5 mmol/L Normal 3.5-5.1 [facility] Comment on above: Performed By: #### C MP, BNP, CMADM #### [facility] [address] [place] [address] Dr. Harmeet Dorsey Protein [Mass/Vol] 7.8 g/dL Normal 6.4-8.2 [facility] Comment on above: Performed By: #### C MP, BNP, CMADM #### [facility] [address] [place] [address] Dr. Harmeet Dorsey Sodium [Moles/Vol] 137 mmol/L Normal 136-145 [facility] Comment on above: Performed By: #### C MP, BNP, CMADM #### [facility] [address] [place] [address] Dr. Harmeet Dorsey Urea nitrogen [Mass/Vol] 15.0 mg/dL Normal 7.0-18.0 [facility] Comment on above: Performed By: #### C MP, BNP, CMADM #### [facility] [address] [place] [address] Dr. Harmeet Dorsey Urea nitrogen/Creatinine [Mass ratio] 11.9 mg/mg Normal [facility] Comment on above: Performed By: #### C MP, BNP, CMADM #### [facility] [address] [place] [address] Dr. Harmeet Dorsey PROTIMEon 01-15-2023 INR Coag (PPP) [Relative time] 0.98 {INR} Normal [facility] Comment on above: Performed By: #### P T, PTT #### [facility] [address] [place] [address] Dr. Harmeet Dorsey INR GUIDELINES SEE BELOW Normal [facility] Comment on above: Result Comment: VICENTE RED INR: 2.0 - 3.0 CONDITIONS NOT LISTED BELOW 2.5 - 3.5 FOR PROSTHETIC HEART VALVE REPLACEMENT 2.5 - 3.5 RECURRENT THROMBOSIS Performed By: #### P T, PTT #### [facility] [address] [place] [address] Dr. Harmeet Dorsey PT Coag (PPP) [Time] 10.4 s Normal 9.0-11.6 [facility] Comment on above: Performed By: #### P T, PTT #### [facility] [address] [place] [address] Dr. Harmeet Dorsey PTTon 01-15-2023 aPTT Coag (Bld) [Time] 26.0 s Normal 22.3-36.2 [facility] Comment on above: Performed By: #### P T, PTT #### [facility] [address] [place] [address] Dr. Harmeet Dorsey Troponin I High Sensitivityo n 01-15-2023 Troponin I High Sensitivity 11541.6 pg/mL Off scale high 0.0-20.0 [facility] Comment on above: Result Comment: Crit ical Result : Called to and read back by: KIM WALSH at: 01/15/2023 20:17:48 by:LFM PERFORMED BY: [place] [phone] PATHOLOGIST GEOTECHNICAL FIELD TECHNICIAN COLLETTE ENRIQUEZ M.D. Performed By: #### H S TROP #### [address] Troponin I High Sensitivity 9066.4 pg/mL Off scale high 0.0-20.0 [facility] Comment on above: Result Comment: Crit ical Result : Called to and read back by: LUCY MCELROY at: 01/15/2023 17:40:27 by:LFM PERFORMED BY: [place] [address] PATHOLOGIST GEOTECHNICAL FIELD TECHNICIAN COLLETTE ENRIQUEZ M.D. Performed By: #### H S TROP #### [address] Troponin I High Sensitivity 4327.6 pg/mL Off scale high 0.0-20.0 [facility] Comment on above: Result Comment: Crit ical Result : Called to and read back by: LUCY MCELROY at: 01/15/2023 14:33:06 by:LFM PERFORMED BY: [place] [address] PATHOLOGIST GEOTECHNICAL FIELD TECHNICIAN COLLETTE ENRIQUEZ M.D. Performed By: #### H S TROP #### [address] Troponin I High Sensitivity 1492.5 pg/mL Off scale high 0.0-20.0 [facility] Comment on above: Result Comment: Crit ical Result : Called to and read back by: LUCY MCELROY at: 01/15/2023 13:14:42 by:[id number] PERFORMED BY: [place] [address] PATHOLOGIST GEOTECHNICAL FIELD TECHNICIAN COLLETTE ENRIQUEZ M.D. Performed By: #### H S TROP #### [address] XR CHEST 1 Von 01-15-2023 XR [...] VIKTORIA JOSE Date: 2023-01-15 09:51 Normal [facility] CBC AUTO DIFFon 08-06-2022 BASO # 0.0 103/ul Normal 0.0-0.1 [facility] Comment on above: Performed By: #### C BC #### [facility] [address] [address] [address] Harmeet Dorsey Basophils/100 WBC (Bld) 0.4 % Normal 0.2-2.0 [facility] Comment on above: Performed By: #### C BC #### [facility] [address] [address] [address] Harmeet Dorsey EO # 0.2 103/ul Normal 0.0-0.7 [facility] Comment on above: Performed By: #### C BC #### [facility] [address] [place] [address] Dr. Harmeet Dorsey Eosinophils/100 WBC (Bld) 2.3 % Normal 0.9-7.0 [facility] Comment on above: Performed By: #### C BC #### [facility] [address] [place] [address] Dr. Harmeet Dorsey Erythrocyte distribution width (RBC) [Ratio] 12.9 % Normal 11.0-15.0 [facility] Comment on above: Performed By: #### C BC #### [facility] [address] [place] [address] Dr. Harmeet Dorsey Hematocrit (Bld) [Volume fraction] 49.8 % Normal 42.0-54.0 [facility] Comment on above: Performed By: #### C BC #### [facility] [address] [place] [address] Dr. Harmeet Dorsey Hemoglobin (Bld) [Mass/Vol] 17.0 g/dL Normal 14.0-18.0 [facility] Comment on above: Performed By: #### C BC #### [facility] [address] [place] [address] Dr. Harmeet Dorsey IG # 0.03 10e3/ul Normal 0.00-0.03 [facility] Comment on above: Performed By: #### C BC #### [facility] [address] [place] [address] Dr. Harmeet Dorsey IG % 0.4 % Normal 0.0-0.5 [facility] Comment on above: Performed By: #### C BC #### [facility] [address] [place] [address] Dr. Harmeet Dorsey LYMPH # 2.5 103/ul Normal 1.2-3.8 [facility] Comment on above: Performed By: #### C BC #### [facility] [address] [place] [address] Dr. Hrameet Dorsey Lymphocytes/100 WBC (Bld) 30.9 % Normal 20.5-60.0 [facility] Comment on above: Performed By: #### C BC #### [facility] [address] [place] [address] Dr. Harmeet Dorsey MANUAL DIFF REQ NO Normal [facility] Comment on above: Performed By: #### C BC #### [facility] [address] [place] [address] Dr. Harmeet Dorsey MCH (RBC) [Entitic mass] 30.7 pg Normal 25.9-34.0 [facility] Comment on above: Performed By: #### C BC #### [facility] [address] [place] [address] Dr. Harmeet Dorsey MCHC (RBC) [Mass/Vol] 34.1 g/dL Normal 29.9-35.2 [facility] Comment on above: Performed By: #### C BC #### [facility] [address] [place] [address] Dr. Harmeet Dorsey MCV (RBC) [Entitic vol] 90.1 fL Normal 80.0-94.0 [facility] Comment on above: Performed By: #### C BC #### [facility] [address] [place] [address] Dr. Harmeet Dorsey MONO # 0.8 103/ul Normal 0.3-0.8 [facility] Comment on above: Performed By: #### C BC #### [facility] [address] [place] [address] Dr. Harmeet Dorsey Monocytes/100 WBC (Bld) 10.1 % Normal 1.7-12.0 [facility] Comment on above: Performed By: #### C BC #### [facility] [address] [place] [address] Dr. Harmeet Dorsey NEUT # 4.6 103/ul Normal 1.4-6.5 [facility] Comment on above: Performed By: #### C BC #### [facility] [address] [place] [address] Dr. Harmeet Dorsey Neutrophils/100 WBC (Bld) 55.9 % Normal 43.0-75.0 [facility] Comment on above: Performed By: #### C BC #### [facility] [address] [address] [address] Harmeet Dorsey Platelet mean volume (Bld) [Entitic vol] 10.8 fL Normal 9.5-13.5 [facility] Comment on above: Performed By: #### C BC #### [facility] [address] [address] [address] Harmeet Dorsey PLT 254 103/ul Normal 150-450 [facility] Comment on above: Performed By: #### C BC #### [facility] [address] [address] [address] Harmeet Dorsey RBC 5.53 106/ul Normal 4.70-6.10 [facility] Comment on above: Performed By: #### C BC #### [facility] [address] [place] [address] Dr. Harmeet Dorsey WBC 8.2 103/ul Normal 4.0-11.0 [facility] Comment on above: Performed By: #### C BC #### [facility] [address] [place] [address] Dr. Harmeet Dorsey LIPID PROFILEon 08-06-2022 CHOL-HDL RATIO NORM SEE BELOW Normal [facility] Comment on above: Result Comment: 3.3 - 4.4 LOW RISK 4.4 - 7.1 AVERAGE RISK 7.1 - 11.0 MODERATE RISK >11.0 HIGH RISK Performed By: #### L IPID, BMP, LIVER, TSH #### [facility] [address] [place] [address] Dr. Harmeet Dorsey Cholesterol [Mass/Vol] 236 mg/dL Critically high <=200 [facility] Comment on above: Performed By: #### L IPID, BMP, LIVER, TSH #### [facility] [address] [address] [address] Harmeet Dorsey Cholesterol in HDL [Mass/Vol] 43 mg/dL Normal 40-60 [facility] Comment on above: Performed By: #### L IPID, BMP, LIVER, TSH #### [facility] [address] [address] [address] Harmeet Dorsey Cholesterol in LDL [Mass/Vol] 146.8 mg/dL Normal [facility] Comment on above: Performed By: #### L IPID, BMP, LIVER, TSH #### [facility] [address] [address] [address] Harmeet Dorsey Cholesterol.total/C holesterol in HDL [Mass ratio] 5.5 {ratio} Normal [facility] Comment on above: Performed By: #### L IPID, BMP, LIVER, TSH #### [facility] [address] [address] [address] Harmeet Dorsey HDL NORMAL > or = 60 mg/dl - LO W CARDIOVASCULAR RISK <40 mg/dl - HIGH CARDIOVASCULAR RISK Normal [facility] Comment on above: Performed By: #### L IPID, BMP, LIVER, TSH #### [facility] [address] [place] [address] Dr. Harmeet Dorsey LDL CALC NORMAL SEE BELOW Normal [facility] Comment on above: Result Comment: <100 mg/dl OPTIMAL 100 - 129 mg/dl NEAR OR ABOVE OPTIMAL 130 - 159 mg/dl BORDERLINE HIGH 160 - 189 mg/dl HIGH >190 mg/dl VERY HIGH Performed By: #### L IPID, BMP, LIVER, TSH #### [facility] [address] [place] [address] Dr. Harmeet Dorsey Triglyceride [Mass/Vol] 231 mg/dL Critically high <=150 [facility] Comment on above: Performed By: #### L IPID, BMP, LIVER, TSH #### [facility] [address] [address] [address] Harmeet Dorsey VLDL CALC 46.2 mg/dL Normal [facility] Comment on above: Performed By: #### L IPID, BMP, LIVER, TSH #### [facility] [address] [address] [address] Harmeet Dorsey LIVER PROFILEon 08-06-2022 Albumin [Mass/Vol] 3.7 g/dL Normal 3.4-5.0 [facility] Comment on above: Performed By: #### C MP, BNP, CMADM #### [facility] [address] [place] [address] Dr. Harmeet Dorsey Albumin/Globulin [Mass ratio] 1.0 {ratio} Normal [facility] Comment on above: Performed By: #### C MP, BNP, CMADM #### [facility] [address] [place] [address] Dr. Harmeet Dorsey ALP [Catalytic activity/Vol] 65 U/L Normal 46-116 [facility] Comment on above: Performed By: #### C MP, BNP, CMADM #### [facility] [address] [place] [address] Dr. Harmeet Dorsey ALT [Catalytic activity/Vol] 131 U/L Critically high 16-63 [facility] Comment on above: Performed By: #### C MP, BNP, CMADM #### [facility] [address] [place] [address] Dr. Harmeet Dosrey AST [Catalytic activity/Vol] 83 U/L Critically high 15-37 [facility] Comment on above: Performed By: #### C MP, BNP, CMADM #### [facility] [address] [place] [address] Dr. Harmeet Dorsey BILI, CONJUGATED 0.2 mg/dL Normal 0.0-0.2 [facility] Comment on above: Performed By: #### C MP, BNP, CMADM #### [facility] [address] [place] [address] Dr. Harmeet Dorsey Bilirubin [Mass/Vol] 0.8 mg/dL Normal 0.2-1.0 [facility] Comment on above: Performed By: #### C MP, BNP, CMADM #### [facility] [address] [place] [address] Dr. Harmeet Dorsey Globulin (S) [Mass/Vol] 3.8 g/dL Normal [facility] Comment on above: Performed By: #### C MP, BNP, CMADM #### [facility] [address] [place] [address] Dr. Harmeet Dorsey Protein [Mass/Vol] 7.5 g/dL Normal 6.4-8.2 [facility] Comment on above: Performed By: #### C MP, BNP, CMADM #### [facility] [address] [address] [address] Harmeet Dorsey PROF CHEM 8 (BAS METB)on Anion gap [Moles/Vol] 9.5 mmol/L Normal [facility] Comment on above: Performed By: #### C MP, BNP, CMADM #### [facility] [address] [address] [address] Harmeet Dorsey Calcium [Mass/Vol] 8.8 mg/dL Normal 8.5-10.1 [facility] Comment on above: Performed By: #### C MP, BNP, CMADM #### [facility] [address] [address] [address] Harmeet Dorsey Chloride [Moles/Vol] 102 mmol/L Normal 98-107 [facility] Comment on above: Performed By: #### C MP, BNP, CMADM #### [facility] [address] [place] [address] Dr. Harmeet Dorsey CO2 [Moles/Vol] 29.0 mmol/L Normal 21.0-32.0 [facility] Comment on above: Performed By: #### C MP, BNP, CMADM #### [facility] [address] [place] [address] Dr. Harmeet Dorsey Creatinine [Mass/Vol] 1.07 mg/dL Normal 0.70-1.30 [facility] Comment on above: Performed By: #### C MP, BNP, CMADM #### [facility] [address] [place] [address] Dr. Harmeet Dorsey EGFR-AF LIBYAN >60 Normal >=60 [facility] Comment on above: Performed By: #### C MP, BNP, CMADM #### [facility] [address] [place] [address] Dr. Harmeet Dorsey EGFR-NON AF LIBYAN >60 Normal >=60 [facility] Comment on above: Performed By: #### C MP, BNP, CMADM #### [facility] [address] [place] [address] Dr. Harmeet Dorsey Glucose [Mass/Vol] 142 mg/dL Critically high 74-106 [facility] Comment on above: Performed By: #### C MP, BNP, CMADM #### [facility] [address] [place] [address] Dr. Harmeet Dorsey Potassium [Moles/Vol] 3.5 mmol/L Normal 3.5-5.1 [facility] Comment on above: Performed By: #### C MP, BNP, CMADM #### [facility] [address] [place] [address] Dr. Harmeet Dorsey Sodium [Moles/Vol] 137 mmol/L Normal 136-145 [facility] Comment on above: Performed By: #### C MP, BNP, CMADM #### [facility] [address] [place] [address] Dr. Harmeet Dorsey Urea nitrogen [Mass/Vol] 15.0 mg/dL Normal 7.0-18.0 [facility] Comment on above: Performed By: #### C MP, BNP, CMADM #### [facility] [address] [place] [address] Dr. Harmeet Dorsey Urea nitrogen/Creatinine [Mass ratio] 14.0 mg/mg Normal [facility] Comment on above: Performed By: #### C MP, BNP, CMADM #### [facility] [address] [place] [address] Dr. Harmeet Dorsey TSHon 08-06-2022 TSH 1.940 uIU/mL Normal 0.358-3.740 [facility] Comment on above: Performed By: #### C MP, BNP, CMADM #### [facility] [address] [place] [address] Dr. Harmeet Dorsey Vital Signs Date Time Vital Sign Value Performing Clinician Bettyi briana 08-03-2023 11:04-0500 Diastolic blood pressure 80 mm[Hg] Angela Schaefer DO Work Phone: [facility] 08-03-2023 11:04-0500 Systolic blood pressure 144 mm[Hg] Angela Schaefer DO Work Phone: [facility] 08-03-2023 10:21-0500 Body height 157.5 cm Angela Schaefer DO Work Phone: [facility] 08-03-2023 10:21-0500 Body mass index (BMI) [Ratio] 34.02 kg/m2 Angela Schaefer DO Work Phone: [facility] 08-03-2023 10:21-0500 Body weight 84.37 kg Angela Schaefer DO Work Phone: [facility] 08-03-2023 10:21-0500 Heart rate 64 /min Angela Schaefer DO Work Phone: [facility] Encounters Encounter Date Encounter Type Care Provider Facility Start: 01-02-2024 End: 01-03-2024 ambulatory ODILON CHOI Not Available Start: 11-17-2023 End: 11-17-2023 ambulatory LUX SPIVEY Not Available Start: 09-29-2023 End: 09-30-2023 Emergency department patient visit NGUYỄNJOVITA JASMINE [facility] Start: 09-29-2023 End: 09-30-2023 ambulatory LUX SPIVEY Not Available Start: 08-03-2023 End: 08-03-2023 ambulatory ANGELA Whyte TRINIDAD [facility] Start: 08-03-2023 End: 08-03-2023 Office outpatient visit 25 minutes Angela Schaefer DO Work Phone: [facility] Comment on above: History of non-ST el evation myocardial infarction (NSTEMI); Atherosclerosis of beaver coronary artery of beaver heart, unspecified whether angina present; Mixed hyperlipidemia; Essential hypertension Start: 01-17-[address] Lux Spivey Facility:[facility] Start: 01-15-[address] Lux Spivey Facility:[id number] Start: 01-15-2023 End: 01-16-2023 Evaluation and management of inpatient W King Valenzueladon Facility:[facility] Start: 01-15-2023 End: 01-15-2023 ambulatory CECIL Fernandes Facility: Start: 01-15-[address] Lux Spivey Facility:[id number] Start: 08-06-2022 End: 08-07-[address] LUX SPIVEY Facility: Start: 09-29-2018 End: 09-30-2018 Patient encounter procedure DEFAULT PHYSICIAN Facility:[facility] Procedures Date Procedure Procedure Detail Performing Clinician Start: 08-06-2022 PSA screening CECIL RAO . Comment on above: Performed By: #### P [facility] #### [facility] [address] [address] [address] Harmeet Dorsey Plan of Treatment Date Care Activity Detail Author Start: 03-18-2025 DTaP/Tdap/Td Vaccines (2 - Td or Tdap) DTaP/Tdap/Td Vaccines (2 - Td or Tdap) [facility] Start: 08-03-2023 End: 08-03-2024 Alanine aminotransferase [Enzymatic activity/volume] in Serum or Plasma by With P-5'-P Alanine Aminotransferase Lab Routine Mixed hyperlipidemia Expected: 08/03/2023 (Approximate), Expires: 08/03/2024 [facility] Service Area Work Phone: Comment on above: Expected: 08/03/2023 (Approximate), Expi res: 08/03/2024 Start: 08-03-2023 End: 08-03-2024 Aspartate aminotransferase [Enzymatic activity/volume] in Serum or Plasma by With P-5'-P Aspartate Aminotransferase Lab Routine Mixed hyperlipidemia Expected: 08/03/2023 (Approximate), Expires: 08/03/2024 [facility] Work Phone: Comment on above: Expected: 08/03/2023 (Approximate), Expi res: 08/03/2024 Start: 08-03-2023 End: 08-03-2024 Basic metabolic 2000 panel - Serum or Plasma Basic Metabolic Panel Lab Routine History of non-ST elevation myocardial infarction (NSTEMI) Atherosclerosis of beaver coronary artery of beaver heart, unspecified whether angina present Mixed hyperlipidemia Essential hypertension Expected: 08/03/2023 (Approximate), Expires: 08/03/2024 [facility] Work Phone: Comment on above: Expected: 08/03/2023 (Approximate), Expi res: 08/03/2024 Start: 08-03-2023 End: 08-03-2024 Lipid 1996 panel - Serum or Plasma Lipid Panel Lab Routine Mixed hyperlipidemia Expected: 08/03/2023 (Approximate), Expires: 08/03/2024 [facility] Work Phone: Comment on above: Expected: 08/03/2023 (Approximate), Expi res: 08/03/2024 Start: 05-20-2023 Influenza vaccination Influenza Vaccine (#1) [facility] Start: 08-27-2021 Zoster Vaccines (2 of 2) Zoster Vaccines (2 of 2) [facility] Start: 03-05-2021 COVID-19 Vaccine (3 - Pfizer series) COVID-19 Vaccine (3 - Pfizer series) [facility] Start: 2020 Abdominal aortic aneurysm screening Abdominal Aortic Aneurysm (AAA) Screening [facility] Start: 1973 Diabetes mellitus screening Diabetes Screening [facility] Start: 1973 Hepatitis C screening Hepatitis C Screening [facility] Start: 1961 Pneumococcal Vaccine: 65+ Years (1 - PCV) Pneumococcal Vaccine: 65+ Years (1 - PCV) [facility] Start: 1955 Lipid panel Lipid Panel [facility] Start: 1955 Screening for malignant neoplasm of colon [facility] Start: 1955 Yearly Adult Physical Yearly Adult Physical [facility] Immunizations Immunization Date Immunization Notes Care Provider Cher lorenzo 07-02-2021 influenza virus vaccine, unspecified formulation Angela Schaefer DO Work Phone: [facility] Work Phone: Payers Date Payer Category Payer Private Health Insurance [facility] [id number] 2023-Present [address] [place] [address] [id number] 2023 Private Health Insurance [id number] 2023 Self-pay 2020 Medicare MEDICARE MEDICAR E PART A AND B [id number] 2020-Present [address] [place] [address] [id number] 1959 Medicare [id number] 1959 Private Health Insurance [id number] 1955 Unknown [id number]. [id number] 1955 Unknown [id number] [id number]. 2.593 1955 Unknown [id number] [id number]. 2.593 1955 Unknown [id number] [id number]. 2.356 1955 Unknown [id number] [id number]. 2.356 1955 Unknown [id number] [id number]. 2.1244 1955 Unknown [id number] [id number]. 2.1286 1955 Unknown [id number] [id number]. 2.1286 1955 Unknown [id number] [id number]. 2.1259 1955 Unknown [id number] [id number]. 2.1259 1955 Unknown [id number] [id number]. 2.1259 Unknown Unknown [id number] [id number]. 2.531 Social History Date Type Detail Facility Start: 08-03-2023 [facility] History of tobacco use Current smoker [facility] Work Phone: History of tobacco use Cigarette Smoker [facility] Work Phone: Start: 08-03-2023 Tobacco use and exposure Smokeless tobacco non-user [facility] Work Phone: Start: 08-03-2023 Alcohol intake Lifetime non-d dylan (finding) [facility] Work Phone: Start: 08-03-2023 History of Social function [facility] Work Phone: Start: 08-03-2023 Tobacco use panel [facility] Work Phone: Start: 1955 Sex Assigned At Not on file [facility] Work Phone: Start: 07-24-2023 End: 08-03-2023 Exposure to SARS-CoV-2 (event) Not sure [facility] History of Present illness Narrative [...] elevation myocardial infarction (NSTEMI) 2. Atherosclerosis of beaver coronary artery of beaver heart, unspecified whether angina present 3. Mixed hyperlipidemia 4. Essential hypertension documented in this encounter [facility] Work Phone: Instructions 08-03-2023 Patient [...] of your visit. documented in this encounter [facility] Work Phone: Clinical Note 10-26-2021 Note Date & Type Note Facility 10-26-2021 Note PROCEDURE: [employer] VCT 64, 5.0 mm withIV contrast, axial [...] signed by Pradeep Renteria on 10/26/2021 1336 [facility] Telehealth Nurse Evaluation note Note Date & Type Note Facility Evaluation note Diagnosis History of non-ST elevation myocardial infarction (NSTEMI) Atherosclerosis of beaver coronary artery of beaver heart, unspecified whether angina present Mixed hyperlipidemia Essential hypertension Unspecified essential hypertension documented in this encounter [facility] Work Phone: Reason for referral (narrative) Consultation (Routine) - Authorized Note Date & Type Note Facility Reason for referral (narrati ve) Specialty Diagnoses / Procedures Referred By Leonie villanueva Referred To Contact Cardiology Diagnoses History of non-ST elevation myocardial infarction (NSTEMI) Atherosclerosis of beaver coronary artery of beaver heart, unspecified whether angina present Essential hypertension Procedures Follow Up In Cardiology Angela Schaefer DO [address] [facility] [address] [place] [address] Angela Schaefer DO [address] [facility] [address] [place] [address] Referral ID Status Reason Start Date Expiration Date V isits Requested Visits Authorized [id number] Authorized 08/03/2023 08/02/2024 1 1 [facility] Work Phone: Summary Purpose Family History No [...] section and content) DATE CREATED AUTHOR 10/02/2018 [facility] DATE CREATED AUTHOR AUTHOR'S ORGANIZ ATION 10/27/2021 [facility] dical Specialist DATE CREATED AUTHOR AUTHOR'S ORGANIZ ATION 01/18/2023 [facility] DATE CREATED AUTHOR AUTHOR'S ORGANIZ ATION 01/19/2023 [facility] DATE CREATED AUTHOR AUTHOR'S ORGANIZ ATION 03/08/2023 [facility] DATE CREATED AUTHOR AUTHOR'S ORGANIZ ATION 08/05/2023 [facility] DATE CREATED AUTHOR AUTHOR'S ORGANIZ ATION 10/02/2023 [facility] DATE CREATED AUTHOR AUTHOR'S ORGANIZ ATION 01/07/2024 [facility] dical Specialists EPIC Reason for Visit (unrecogniz ed section and content) Reason Comments Follow-up 6m Care Teams (unrecognized sec tion and content) Manager General Relationship Specialty Start Date End Date Lux Spivey MD [address] [place] [address] PCP - General 01/17/23 FOR RECORDS PERTAINING [...] BE BASED ON THE PRIMARY CLINICAL RECORDS. [employer] [facility]. provides no warranty or guarantee of the accuracy or completeness of information in this document.
[2024-02-03] MEDS: LIDOCAINE HCL 1% 100 MG/10 ML MDV INJ (07:57)
[2024-02-03] MEDS: 0.9 % SODIUM CHLORIDE 500 ML, LIDOCAINE HCL 20 ML, SODIUM BICARBONATE 10 MEQ INJ (07:58)
== END 2024-02-03 07:49 | disposition home or self-care (01) ==
LOC: VC 07:48
PROVIDERS: PCP Radiology Diagnostic Radiology; Visit Provider Radiology Diagnostic Radiology
DX: I83.813 Varicose veins of bilateral lower extremities with pain (principal)
CPT/HCPCS: 36478

== ENCOUNTER 2024-02-10 07:43 | Outpatient (OUT) | payer OTHER, MEDICARE, SELFPAY ==
--- NOTE | 2024-02-10 07:45 | VEIN_ITS ---
Patient Name: BRIGETTE CHA MR#: [id number] : 1955 Exam Date: 02/10/2024 Ordering Doctor: DR VIKTORIA JOSE M.D. RADIOLOGY REPORT PROCEDURE: VC EXT VENOUS LT LIMITED COMPARISON: None. INDICATIONS: I80.02 Phlebitis of superficial veins of lt lower extremity TECHNIQUE: Lower extremity alvarez scale and Duplex Doppler evaluation of the deep venous system from the inguinal ligament through the calf veins. FINDINGS: REGION: Left lower extremity. THROMBI: Negative for DVT. Heat induced thrombus in left GSV 9.9 mm from SFJ and extends to distal lower leg. COMPRESSIBILITY: Non-compressible segments corresponding to thrombus FLOW: Areas of no flow corresponding to thrombus OTHER: CONCLUSION: 1. Successful post ablation occlusion of left great saphenous vein. Dictated by: Tariq Dc M.D. on 02/10/2024 at 08:41 Approved by: Tariq Dc M.D. on 02/10/2024 at 08:45
--- NOTE | 2024-02-10 07:45 | VEIN_ITS ---
Patient Name: BRIGETTE CHA MR#: [id number] : 1955 Exam Date: 02/10/2024 Ordering Doctor: DR VIKTORIA JOSE M.D. RADIOLOGY REPORT PROCEDURE: [facility] - OFFICE VISIT FOLLOW UP [facility] PROGRESS NOTES: The patient reports improvement in leg symptoms. There has been interval reduction in varicosities. The patient has followed our recommendations to walk 20-30 minutes once or twice per day since the procedure. Physical exam demonstrates decrease in varicosities of the leg. Persistent reticular veins and spider veins are identified along the legs bilaterally. Review of the ultrasound performed the same day demonstrates occlusive thrombus extending throughout the treated vein(s), see separate report, consistent with a successful ablation. No thrombus extending into or beyond the saphenofemoral junction. The patient expressed a desire to proceed with treatment of reticular and spider veins. The patient was informed that treatment was a process and would require approximately 2 procedures/sessions. [facility]: 1. Successful ablation of the left great saphenous vein(s). 2. Persistent reticular veins and spider veins and lower extremity superficial symptoms. PLAN: Bilateral lower extremity sclerotherapy is recommended. Nurse notes, history and physical were reviewed and confirmed, see attached forms. The nurse was present throughout the physical exam and consultation Dictated by: Tariq Dc M.D. on 02/10/2024 at 08:45 Approved by: Tariq Dc M.D. on 02/10/2024 at 08:49
--- OUTSIDE RECORDS SUMMARY | 2024-02-10 07:47 | XMS_ITS | CCD ---
Author Organization [facility] Care Team Providers Care Yam Curer Name Role Phone PHYSICIAN, DEFAULT Unavailable Unavailable PHYSICIAN, DEFAULT Unavailable Unavailable ALVARO Fernandes, CECIL Admitting Unavailable ALVARO Fernandes, CECIL Attending [...] Allyssa, Dr. Lux Christine Primary Care Deangelo Abdi, Greg Malik Attending Unavailable Silvano, Greg Malik Admitting Unavailable Allyssa, Lux Primary Care Unavailable Lux Spivey MD Primary Care Provider ANGELA ABDI Attending Unavailable LUX SPIVEY Primary Care Unavailabl e LUX SPIVEY Primary Care Unavailable NGUYỄN JASMINE Attending Unavailable NGUYỄN JASMINE Attending Unavailable NGUYỄN JASMINE Referring Unavailable LUX SPIVEY Primary Care Unavailable ALLYSSA, LUX Referring Unavailable ALLYSSA, LUX Attending Unavailable OIDLON CHOI Attending Unavailable JOSE DERELeona, LUX Referring Unavailable Medications Current Medications Medication [...] 01-15-2023 Episodic Other aftercare (1 source) Other exterminator termite (current) drug therapy; Translations: [OTH 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 Comment on above: Performed By: #### C BC, BMP, LIPID #### [place] [address] [place] Chloride [Moles/Vol] 102 mmol/L Normal 98-107 [facility] Comment on above: Performed By: #### C BC, BMP, LIPID #### [facility] [address] [id number] [place] CO2 [Moles/Vol] 28.7 mmol/L Normal 21.0-31.0 [facility] Comment on above: Performed By: #### C BC, BMP, LIPID #### [facility] [address] [id number] [place] Creatinine [Mass/Vol] 1.15 mg/dL Normal 0.70-1.30 [facility] Comment on above: Performed By: #### C BC, BMP, LIPID #### [address] Creatinine Clr Calc Pharmacy 57.91 [facility] Comment on above: Performed By: #### C MOHIT RAMIREZ, LIPID #### [place] [address] [place] GFR/1.73 sq M.predicted MDRD (S/P/Bld) [Vol rate/Area] mL/min/{1.73_m2} Normal [facility] Comment on above: Performed By: #### C ASHLEY BMP, LIPID #### [place] [address] [place] Glucose [Mass/Vol] 112 mg/dL High 70-100 [facility] Comment on above: Result Comment: [facility] Glucose Reference Range is dependent on time and content of last meal. Glucose of more than 200 mg/dL in a nonstressed, ambulatory subject supports the diagnosis of Diabetes Mellitus. ADA recommended reference range Performed By: #### C MOHIT RAMIREZ, LIPID #### [address] Potassium [Moles/Vol] 3.7 mmol/L Normal 3.5-5.1 [facility] Comment on above: Performed By: #### C MOHIT RAMIREZ, LIPID #### [address] Sodium [Moles/Vol] 137 mmol/L Normal 136-145 [facility] Comment on above: Performed By: #### C MOHIT RAMIREZ, LIPID #### [place] [address] [place] Urea nitrogen [Mass/Vol] 17 mg/dL Normal 7-25 [facility] Comment on above: Performed By: #### C MOHIT RAMIREZ, LIPID #### [address] Complete Blood Count Auto Di ffon 01-16-2023 Basophils (Bld) [#/Vol] 0.0 10*3/uL Normal 0.0-0.2 [facility] Comment on above: Result Comment: PERF ORMED BY: [place] [phone] PATHOLOGIST [employer]SE[employer] COLLETTE ENRIQUEZ M.D. Performed By: #### C BC, BMP, LIPID #### [address] Basophils/100 WBC (Bld) 0.2 % Normal . [facility] Comment on above: Performed By: #### C BC, BMP, LIPID #### [address] Eosinophils (Bld) [#/Vol] 0.1 10*3/uL Normal 0.0-0.45 [facility] Comment on above: Performed By: #### C BC, BMP, LIPID #### [address] Eosinophils/100 WBC (Bld) 0.5 % Normal . [facility] Comment on above: Performed By: #### C BC, BMP, LIPID #### [address] Erythrocyte distribution width (RBC) [Ratio] 13.7 % Normal 12.0-14.8 [facility] Comment on above: Performed By: #### C BC, BMP, LIPID #### [address] Hematocrit (Bld) [Volume fraction] 50.3 % High 38.8-50.0 [facility] Comment on above: Performed By: #### C BC, BMP, LIPID #### [address] Hemoglobin (Bld) [Mass/Vol] 16.9 g/dL Normal 13.0-17.0 [facility] Comment on above: Performed By: #### C BC, BMP, LIPID #### [address] Lymphocytes (Bld) [#/Vol] 1.9 10*3/uL Normal 1.00-4.8 [facility] Comment on above: Performed By: #### C BC, BMP, LIPID #### [place] [address] [place] Lymphocytes/100 WBC (Bld) 16.0 % Normal . [facility] Comment on above: Performed By: #### C BC, BMP, LIPID #### [facility] [address] MCH (RBC) [Entitic mass] 31.0 pg Normal 27.5-35.2 [facility] Comment on above: Performed By: #### C BC, BMP, LIPID #### [address] MCV (RBC) [Entitic vol] 92.0 fL Normal 83.5-101 [facility] Comment on above: Performed By: #### C BC, BMP, LIPID #### [address] Mean Corpuscular HGB Conc 33.6 g/dL Normal 32.5-35.6 [facility] Comment on above: Performed By: #### C BC, BMP, LIPID #### [address] Monocytes (Bld) [#/Vol] 1.1 10*3/uL High 0.0-0.8 [facility] Comment on above: Performed By: #### C BC, BMP, LIPID #### [address] Monocytes/100 WBC (Bld) 9.1 % Normal . [facility] Comment on above: Performed By: #### C BC, BMP, LIPID #### [address] Neutrophils (Bld) [#/Vol] 9.0 10*3/uL High 1.8-7.7 [facility] Comment on above: Performed By: #### C BC, BMP, LIPID #### [address] Neutrophils/100 WBC (Bld) 74.2 % Normal . [facility] Comment on above: Performed By: #### C BC, BMP, LIPID #### [address] NRBC% 0.1 /100{WBC} Normal 0-0.5 [facility] Comment on above: Performed By: #### C BC, BMP, LIPID #### [facility] [address] Platelet mean volume (Bld) [Entitic vol] 8.3 fL Normal 6.6-10.1 [facility] Comment on above: Performed By: #### C BC, BMP, LIPID #### [facility] [address] Platelets (Bld) [#/Vol] 229 10*3/uL Normal 150-450 [facility] Comment on above: Performed By: #### C BC, BMP, LIPID #### [address] RBC (Bld) [#/Vol] 5.47 10*6/uL Normal 3.90-5.60 [facility] Comment on above: Performed By: #### C BC, BMP, LIPID #### [address] WBC (Bld) [#/Vol] 12.2 10*3/uL High 4.1-10.5 [facility] Comment on above: Performed By: #### C BC, BMP, LIPID #### [address] ECG 12 lead ECGon 01-16-2023 ECG 12 lead ECG [facility] [place] [address] [place] [address] Electrocardiograph Report Signed Patient: Brigette Degroot MR#: [id number] : 1955 Acct:[id number] Age/Sex: 67 / M ADM Date: 01/15/23 Loc: Room: [address] [place] [address] Type: ADM IN Attending Dr: Greg Abdi DO Ordering Provider: Greg Abdi DO Date of Service: 01/16/23 ECG/ECG 12 [...] By Jin Hunter DO 01/16 1516 Normal [facility] Lipid Panelon 01-16-2023 Cholesterol [Mass/Vol] 181 mg/dL Normal 140-200 [facility] Comment on above: Result Comment: Chol less than 200 mg/dl low risk Chol 201-239 mg/dl borderline risk Chol 240 mg/dl and greater high risk Performed By: #### C BC, BMP, LIPID #### [facility] [address] Cholesterol in HDL [Mass/Vol] 46 mg/dL Normal 29-71 [facility] Comment on above: Result Comment: HDL CHOL ATP-III CLASSIFICATION Cardiovascular Risk HDL > or equal to 60 mg/dL LOW HDL < 40 mg/dL HIGH Performed By: #### C BC, BMP, LIPID #### [facility] [address] Cholesterol.total/C holesterol in HDL [Mass ratio] 3.9 {ratio} Normal <5.0 [facility] Comment on above: Result Comment: PERF ORMED BY: [place] [address] PATHOLOGIST [employer] COLLETTE ENRIQUEZ M.D. Performed By: #### C BC, BMP, LIPID #### [facility] [address] LDL Cholesterol,Calcula joey 107 mg/dL High 0-100 [facility] Comment on above: Result Comment: LDL ATP III CLASSIFICATION LDL less than 100 mg/dL Optimal LDL 100-129 mg/dL Near or above optimal LDL 130-159 mg/dL Borderline high LDL 160-189 mg/dL High LDL greater than 189 mg/dL Very high Performed By: #### C BC, BMP, LIPID #### [facility] [address] Triglyceride w/Reflex 141 mg/dL Normal 0-149 [facility] Comment on above: Result Comment: TRIG ATP III CLASSIFICATION TRIG less than 150 mg/dL Normal TRIG 150-199 mg/dL Borderline high TRIG 200-500 mg/dL High TRIG greater than 500 mg/dL Very high Standard traceable to the Center for Disease Conrtrol and Prevention (CDC) test method. Performed By: #### C BC, BMP, LIPID #### [facility] [address] VLDL CHOLESTEROL 28 mg/dL Normal [facility] Comment on above: Performed By: #### C BC, BMP, LIPID #### [facility] [address] BNPon 01-15-2023 Natriuretic peptide B (Bld) [Mass/Vol] 15.0 pg/mL Normal <=900.0 [facility] Comment on above: Performed By: #### C MP, BNP, CMADM #### [facility] [address] [address] [address] Harmeet Dorsey CARDIAC JULEE ADMITon 023 CK [Catalytic activity/Vol] 109 U/L Normal 39-308 [facility] Comment on above: Performed By: #### C MP, BNP, CMADM #### [facility] [address] [address] [address] Harmeet Dorsey CK.MB [Mass/Vol] 2.05 ng/mL Normal <=3.60 [facility] Comment on above: Performed By: #### C MP, BNP, CMADM #### [facility] [address] [address] [address] Harmeet Dorsey HSTROP 69.9 pg/mL Normal 4.0-76.[address] [facility] Comment on above: Result Comment: CUT- OFF POINTS HAVE BEEN ESTABLISHED BASED ON THE FOURTH UNIVERSAL DEFINITIONS OF MYOCARDIAL INFARCTION. THE UPPER REFERENCE LIMIT (URL) OF TROPONIN, DEFINED THE 99TH PERCENTILE OF cTnI DISTRIBUTION IN A REFERENCE POPULATION, HAS BEEN CONFIRMED THE DECISION THRESHOLD FOR [place] DIAGNOSIS. Performed By: #### C MP, BNP, CMADM #### [facility] [address] [address] [address] Harmeet Dorsey PRICE 96 ng/mL Normal 16-96 [facility] Comment on above: Performed By: #### C MP, BNP, CMADM #### [facility] [address] [address] [address] Harmeet Dorsey CBC AUTO DIFFon 01-15-2023 BASO # 0.1 103/ul Normal 0.0-0.1 [facility] Comment on above: Performed By: #### C BC #### [facility] [address] [place] [address] Dr. Harmeet Dorsey Basophils/100 WBC (Bld) 0.6 % Normal 0.2-2.0 [facility] Comment on above: Performed By: #### C BC #### [facility] [address] [place] [address] Dr. Harmeet Dorsey EO # 0.1 103/ul Normal 0.0-0.7 [facility] Comment on above: Performed By: #### C BC #### [facility] [address] [place] [address] Dr. Harmeet Dorsey Eosinophils/100 WBC (Bld) 0.7 % Critically low 0.9-7.0 [facility] Comment on above: Performed By: #### C BC #### [facility] [address] [place] [address] Dr. Harmeet Dorsey Erythrocyte distribution width (RBC) [Ratio] 13.3 % Normal 11.0-15.0 [facility] Comment on above: Performed By: #### C BC #### [facility] [address] [place] [address] Dr. Harmeet Dorsey Hematocrit (Bld) [Volume fraction] 54.4 % Critically high 42.0-54.0 [facility] Comment on above: Performed By: #### C BC #### [facility] [address] [place] [address] Dr. Harmeet Dorsey Hemoglobin (Bld) [Mass/Vol] 18.7 g/dL Critically high 14.0-18.0 [facility] Comment on above: Performed By: #### C BC #### [facility] [address] [address] [address] Harmeet Dorsey IG # 0.23 10e3/ul Critically high 0.00-0.03 [facility] Comment on above: Performed By: #### C BC #### [facility] [address] [address] [address] Harmeet Dorsey IG % 2.1 % Critically high 0.0-0.[address] [facility] Comment on above: Performed By: #### C BC #### [facility] [address] [address] [address] Harmeet Dorsey LYMPH # 2.6 103/ul Normal 1.2-3.8 [facility] Comment on above: Performed By: #### C BC #### [facility] [address] [place] [address] Dr. Harmeet Dorsey Lymphocytes/100 WBC (Bld) 23.9 % Normal 20.5-60.0 [facility] Comment on above: Performed By: #### C BC #### [facility] [address] [address] [address] Harmeet Dorsey MANUAL DIFF REQ NO Normal [facility] Comment on above: Performed By: #### C BC #### [facility] [address] [place] [address] Dr. Harmeet Dorsey MCH (RBC) [Entitic mass] 31.2 pg Normal 25.9-34.0 [facility] Comment on above: Performed By: #### C BC #### [facility] [address] [place] [address] Dr. Harmeet Dorsey MCHC (RBC) [Mass/Vol] 34.4 g/dL Normal 29.9-35.2 [facility] Comment on above: Performed By: #### C BC #### [facility] [address] [place] [address] Dr. Harmeet Dorsey MCV (RBC) [Entitic vol] 90.8 fL Normal 80.0-94.0 [facility] Comment on above: Performed By: #### C BC #### [facility] [address] [address] [address] Harmeet Dorsey MONO # 0.9 103/ul Critically high 0.3-0.[address] [facility] Comment on above: Performed By: #### C BC #### [facility] [address] [address] [address] Harmeet Dorsey Monocytes/100 WBC (Bld) 8.4 % Normal 1.7-12.0 [facility] Comment on above: Performed By: #### C BC #### [facility] [address] [address] [address] Harmeet Dorsey NEUT # 7.0 103/ul Critically high 1.4-6.5 The [facility] Comment on above: Performed By: #### C BC #### [facility] [address] [place] [address] Dr. Harmeet Dorsey Neutrophils/100 WBC (Bld) 64.3 % Normal 43.0-75.0 [facility] Comment on above: Performed By: #### C BC #### [facility] [address] [place] [address] Dr. Harmeet Dorsey Platelet mean volume (Bld) [Entitic vol] 9.7 fL Normal 9.5-13.5 [facility] Comment on above: Performed By: #### C BC #### [facility] [address] [place] [address] Dr. Harmeet Dorsey PLT 262 103/ul Normal 150-[address] [facility] Comment on above: Performed By: #### C BC #### [facility] [address] [address] [address] Harmeet Dorsey RBC 5.99 106/ul Normal 4.70-6.[address] [facility] Comment on above: Performed By: #### C BC #### [facility] [address] [address] [address] Harmeet Dorsey WBC 10.9 103/ul Normal 4.0-11.[address] [facility] Comment on above: Performed By: #### C BC #### [facility] [address] [address] [address] Harmeet Dorsey PROF 14(COMP METB)on 023 Albumin [Mass/Vol] 3.5 g/dL Normal 3.4-5.0 [facility] Comment on above: Performed By: #### C MP, BNP, CMADM #### [facility] [address] [address] [address] Harmeet Dorsey Albumin/Globulin [Mass ratio] 0.8 {ratio} Normal [facility] Comment on above: Performed By: #### C MP, BNP, CMADM #### [facility] [address] [address] [address] Harmeet Dorsey ALP [Catalytic activity/Vol] 71 U/L Normal 46-116 [facility] Comment on above: Performed By: #### C MP, BNP, CMADM #### [facility] [address] [address] [address] Harmeet Dorsey ALT [Catalytic activity/Vol] 218 U/L Critically high 16-63 [facility] Comment on above: Performed By: #### C MP, BNP, CMADM #### [facility] [address] [address] [address] Harmeet Dorsey Anion gap [Moles/Vol] 10.2 mmol/L Normal [facility] Comment on above: Performed By: #### C MP, BNP, CMADM #### [facility] [address] [address] [address] Harmeet Dorsey AST [Catalytic activity/Vol] 92 U/L Critically high 15-37 [facility] Comment on above: Performed By: #### C MP, BNP, CMADM #### [facility] [address] [address] [address] Harmeet Dorsey Bilirubin [Mass/Vol] 0.7 mg/dL Normal 0.2-1.0 [facility] Comment on above: Performed By: #### C MP, BNP, CMADM #### [facility] [address] [address] [address] Harmeet Dorsey Calcium [Mass/Vol] 8.9 mg/dL Normal 8.5-10.1 [facility] Comment on above: Performed By: #### C MP, BNP, CMADM #### [facility] [address] [place] [address] Dr. Harmeet Dorsey Chloride [Moles/Vol] 101 mmol/L Normal 98-107 [facility] Comment on above: Performed By: #### C MP, BNP, CMADM #### [facility] [address] [place] [address] Dr. Harmeet Dorsey CO2 [Moles/Vol] 29.3 mmol/L Normal 21.0-32.0 [facility] Comment on above: Performed By: #### C MP, BNP, CMADM #### [facility] [address] [place] [address] Dr. Harmeet Dorsey Creatinine [Mass/Vol] 1.26 mg/dL Normal 0.70-1.30 [facility] Comment on above: Performed By: #### C MP, BNP, CMADM #### [facility] [address] [place] [address] Dr. Harmeet Dorsey EGFR-AF EGYPTIAN >60 Normal >=60 [facility] Comment on above: Performed By: #### C MP, BNP, CMADM #### [facility] [address] [place] [address] Dr. Harmeet Dorsey EGFR-NON AF EGYPTIAN 57 mL/min/1.73m2 Critically low >=60 [facility] Comment on above: Performed By: #### C MP, BNP, CMADM #### [facility] [address] [place] [address] Dr. Harmeet Dorsey Globulin (S) [Mass/Vol] 4.3 g/dL Normal [facility] Comment on above: Performed By: #### C MP, BNP, CMADM #### [facility] [address] [place] [address] Dr. Harmeet Dorsey Glucose [Mass/Vol] 178 mg/dL Critically high 74-106 [facility] Comment on above: Performed By: #### C MP, BNP, CMADM #### [facility] [address] [place] [address] Dr. Harmeet Dorsey Potassium [Moles/Vol] 3.5 mmol/L Normal 3.5-5.[address] [facility] Comment on above: Performed By: #### C MP, BNP, CMADM #### [facility] [address] [place] [address] Dr. Harmeet Dorsey Protein [Mass/Vol] 7.8 g/dL Normal 6.4-8.2 [facility] Comment on above: Performed By: #### C MP, BNP, CMADM #### [facility] [address] [place] [address] Dr. Harmeet Dorsey Sodium [Moles/Vol] 137 mmol/L Normal 136-145 [facility] Comment on above: Performed By: #### C MP, BNP, CMADM #### [facility] [address] [place] [address] Dr. Harmeet Dorsey Urea nitrogen [Mass/Vol] 15.0 mg/dL Normal 7.0-18.0 [facility] Comment on above: Performed By: #### C MP, BNP, CMADM #### [facility] [address] [place] [address] Dr. Harmeet Dorsey Urea nitrogen/Creatinine [Mass ratio] 11.9 mg/mg Normal [facility] Comment on above: Performed By: #### C MP, BNP, CMADM #### [facility] [address] [place] [address] Dr. Harmeet Dorsey PROTIMEon 01-15-2023 INR Coag (PPP) [Relative time] 0.98 {INR} Normal [facility] Comment on above: Performed By: #### P T, PTT #### [facility] [address] [place] [address] Dr. Harmeet Dorsey INR GUIDELINES SEE BELOW Normal [facility] Comment on above: Result Comment: VICENTE RED INR: 2.0 - 3.0 CONDITIONS NOT LISTED BELOW 2.5 - 3.5 FOR PROSTHETIC HEART VALVE REPLACEMENT 2.5 - 3.5 RECURRENT THROMBOSIS Performed By: #### P T, PTT #### [facility] [address] [place] [address] Dr. Harmeet Dorsey PT Coag (PPP) [Time] 10.4 s Normal 9.0-11.6 [facility] Comment on above: Performed By: #### P T, PTT #### [facility] [address] [place], [place] [address] Dr. Harmeet Dorsey PTTon 01-15-2023 aPTT Coag (Bld) [Time] 26.0 s Normal 22.3-36.2 [facility] Comment on above: Performed By: #### P T, PTT #### [facility] [address] [place] [address] [address] Harmeet Dorsey Troponin I High Sensitivityo n 01-15-2023 Troponin I High Sensitivity 06721.6 pg/mL Off scale high 0.0-20.0 [facility] Comment on above: Result Comment: Crit ical Result : Called to and read back by: KIM WALSH at: 01/15/2023 20:17:48 by:LFM PERFORMED BY: [place] [id number] PATHOLOGIST [employer] COLLETTE ENRIQUEZ M.D. Performed By: #### H S TROP #### [address] Troponin I High Sensitivity 9066.4 pg/mL Off scale high 0.0-20.0 [facility] Comment on above: Result Comment: Crit ical Result : Called to and read back by: LUCY MCELROY at: 01/15/2023 17:40:27 by:LFM PERFORMED BY: [id number] PATHOLOGIST [employer] COLLETTE ENRIQUEZ M.D. Performed By: #### H S TROP #### [facility] [address] [place] [address] Troponin I High Sensitivity 4327.6 pg/mL Off scale high 0.0-20.0 [facility] Comment on above: Result Comment: Crit ical Result : Called to and read back by: LUCY MCELROY at: 01/15/2023 14:33:06 by:LFM PERFORMED BY: [place] [address] PATHOLOGIST [employer] COLLETTE ENRIQUEZ M.D. Performed By: #### H S TROP #### [place] [id number] [facility] Troponin I High Sensitivity 1492.5 pg/mL Off scale high 0.0-20.0 [facility] Comment on above: Result Comment: Crit ical Result : Called to and read back by: LUCY MCELROY at: 01/15/2023 13:14:42 by:[id number] PERFORMED BY: [place] [address] PATHOLOGIST [employer] COLLETTE ENRIQUEZ M.D. Performed By: #### H S TROP #### [place] [id number] [facility] XR CHEST 1 Von 01-15-2023 XR CHEST [...] VIKTORIA JOSE Date: 2023-01-15 09:[address] [facility] CBC AUTO DIFFon 08-06-2022 BASO # 0.0 103/ul Normal 0.0-0.1 [facility] Comment on above: Performed By: #### C BC #### [facility] [address] [address] [address] Harmeet Dorsey Basophils/100 WBC (Bld) 0.4 % Normal 0.2-2.0 [facility] Comment on above: Performed By: #### C BC #### [facility] [address] [address] [address] Harmeet Dorsey EO # 0.2 103/ul Normal 0.0-0.7 [facility] Comment on above: Performed By: #### C BC #### [facility] [address] [place] [address] Dr. Harmeet Dorsey Eosinophils/100 WBC (Bld) 2.3 % Normal 0.9-7.0 [facility] Comment on above: Performed By: #### C BC #### [facility] [address] [place] [address] Dr. Harmeet Dorsey Erythrocyte distribution width (RBC) [Ratio] 12.9 % Normal 11.0-15.0 [facility] Comment on above: Performed By: #### C BC #### [facility] [address] [place] [address] Dr. Harmeet Dorsey Hematocrit (Bld) [Volume fraction] 49.8 % Normal 42.0-54.0 [facility] Comment on above: Performed By: #### C BC #### [facility] [facility] [address] [place] [address] Dr. Harmeet Dorsey Hemoglobin (Bld) [Mass/Vol] 17.0 g/dL Normal 14.0-18.0 [facility] Comment on above: Performed By: #### C BC #### [facility] [address] [place] [address] Dr. Harmeet Dorsey IG # 0.03 10e3/ul Normal 0.00-0.03 [facility] Comment on above: Performed By: #### C BC #### [facility] [address] [place] [address] Dr. Harmeet Dorsey IG % 0.4 % Normal 0.0-0.[address] [facility] Comment on above: Performed By: #### C BC #### [facility] [address] [place] [address] Dr. Harmeet Dorsey LYMPH # 2.5 103/ul Normal 1.2-3.[address] [facility] Comment on above: Performed By: #### C BC #### [facility] [address] [place] [address] Dr. Harmeet Dorsey Lymphocytes/100 WBC (Bld) 30.9 % Normal 20.5-60.0 [facility] Comment on above: Performed By: #### C BC #### [facility] [address] [place] [address] Dr. Harmeet Dorsey MANUAL DIFF REQ NO Normal [facility] Comment on above: Performed By: #### C BC #### [facility] [address] [place] [address] Dr. Harmeet Dorsey MCH (RBC) [Entitic mass] 30.7 pg Normal 25.9-34.0 [facility] Comment on above: Performed By: #### C BC #### [facility] [address] [place] [address] Dr. Harmeet Dorsey MCHC (RBC) [Mass/Vol] 34.1 g/dL Normal 29.9-35.2 [facility] Comment on above: Performed By: #### C BC #### [facility] [address] [place] [address] Dr. Harmeet Dorsey MCV (RBC) [Entitic vol] 90.1 fL Normal 80.0-94.0 [facility] Comment on above: Performed By: #### C BC #### [facility] [address] [place] [address] Dr. Harmeet Dorsey MONO # 0.8 103/ul Normal 0.3-0.8 [facility] Comment on above: Performed By: #### C BC #### [facility] [address] [place] [address] Dr. Harmeet Dorsey Monocytes/100 WBC (Bld) 10.1 % Normal 1.7-12.0 [facility] Comment on above: Performed By: #### C BC #### [facility] [address] [place] [address] Dr. Harmeet Dorsey NEUT # 4.6 103/ul Normal 1.4-6.[address] [facility] Comment on above: Performed By: #### C BC #### [facility] [address] [place] [address] Dr. Harmeet Dorsey Neutrophils/100 WBC (Bld) 55.9 % Normal 43.0-75.[address] [facility] Comment on above: Performed By: #### C BC #### [facility] [address] [place] [address] Dr. Harmeet Dorsey Platelet mean volume (Bld) [Entitic vol] 10.8 fL Normal 9.5-13.5 [facility] Comment on above: Performed By: #### C BC #### [facility] [address] [place] [address] Dr. Harmeet Dorsey PLT 254 103/ul Normal 150-[address] [facility] Comment on above: Performed By: #### C BC #### [facility] [address] [place] [address] Dr. Harmeet Dorsey RBC 5.53 106/ul Normal 4.70-6.10 [facility] Comment on above: Performed By: #### C BC #### [facility] [address] [place] [address] Dr. Harmeet Dorsey WBC 8.2 103/ul Normal 4.0-11.0 [facility] Comment on above: Performed By: #### C BC #### [facility] [address] [place] [address] Dr. Harmeet Dorsey LIPID PROFILEon 08-06-2022 CHOL-HDL RATIO NORM SEE BELOW Normal [facility] Comment on above: Result Comment: 3.3 - 4.4 LOW RISK 4.4 - 7.1 AVERAGE RISK 7.1 - 11.0 MODERATE RISK >11.0 HIGH RISK Performed By: #### L IPID, BMP, LIVER, TSH #### [facility] [address] [place] [address] Dr. Harmeet Dorsey Cholesterol [Mass/Vol] 236 mg/dL Critically high <=200 [facility] Comment on above: Performed By: #### L IPID, BMP, LIVER, TSH #### [facility] [address] [place] [address] Dr. Harmeet Dorsey Cholesterol in HDL [Mass/Vol] 43 mg/dL Normal 40-60 [facility] Comment on above: Performed By: #### L IPID, BMP, LIVER, TSH #### [facility] [address] [place] [address] Dr. Harmeet Dorsey Cholesterol in LDL [Mass/Vol] 146.8 mg/dL Normal [facility] Comment on above: Performed By: #### L IPID, BMP, LIVER, TSH #### [facility] [address] [address] [address] Harmeet Dorsey Cholesterol.total/C holesterol in HDL [Mass ratio] 5.5 {ratio} Normal [facility] Comment on above: Performed By: #### L IPID, BMP, LIVER, TSH #### [facility] [address] [address] [address] Harmeet Dorsey HDL NORMAL > or = 60 mg/dl - LO W CARDIOVASCULAR RISK <40 mg/dl - HIGH CARDIOVASCULAR RISK Normal [facility] Comment on above: Performed By: #### L IPID, BMP, LIVER, TSH #### [facility] [address] [address] [address] Harmeet Dorsey LDL CALC NORMAL SEE BELOW Normal The [facility] Comment on above: Result Comment: <100 mg/dl OPTIMAL 100 - 129 mg/dl NEAR OR ABOVE OPTIMAL 130 - 159 mg/dl BORDERLINE HIGH 160 - 189 mg/dl HIGH >190 mg/dl VERY HIGH Performed By: #### L IPID, BMP, LIVER, TSH #### [facility] [address] [address] [address] Harmeet Dorsey Triglyceride [Mass/Vol] 231 mg/dL Critically high <=150 [facility] Comment on above: Performed By: #### L IPID, BMP, LIVER, TSH #### [facility] [address] [address] [address] Harmeet Dorsey VLDL CALC 46.2 mg/dL Normal [facility] Comment on above: Performed By: #### L IPID, BMP, LIVER, TSH #### [facility] [address] [address] [address] Harmeet Dorsey LIVER PROFILEon 08-06-2022 Albumin [Mass/Vol] 3.7 g/dL Normal 3.4-5.0 [facility] Comment on above: Performed By: #### C MP, BNP, CMADM #### [facility] [address] [address] [address] Harmeet Dorsey Albumin/Globulin [Mass ratio] 1.0 {ratio} Normal [facility] Comment on above: Performed By: #### C MP, BNP, CMADM #### [facility] [address] [place] [address] Dr. Harmeet Dorsey ALP [Catalytic activity/Vol] 65 U/L Normal 46-116 [facility] Comment on above: Performed By: #### C MP, BNP, CMADM #### [facility] [address] [address] [address] Harmeet Dorsey ALT [Catalytic activity/Vol] 131 U/L Critically high 16-63 [facility] Comment on above: Performed By: #### C MP, BNP, CMADM #### [facility] [address] [place] [address] Dr. Harmeet Dorsey AST [Catalytic activity/Vol] 83 U/L Critically high 15-37 [facility] Comment on above: Performed By: #### C MP, BNP, CMADM #### [facility] [address] [place] [address] Dr. Harmeet Dorsey BILI, CONJUGATED 0.2 mg/dL Normal 0.0-0.2 [facility] Comment on above: Performed By: #### C MP, BNP, CMADM #### [facility] [address] [place] [address] Dr. Harmeet Dorsey Bilirubin [Mass/Vol] 0.8 mg/dL Normal 0.2-1.0 [facility] Comment on above: Performed By: #### C MP, BNP, CMADM #### [facility] [address] [place] [address] Dr. Harmeet Dorsey Globulin (S) [Mass/Vol] 3.8 g/dL Normal [facility] Comment on above: Performed By: #### C MP, BNP, CMADM #### [facility] [address] [place] [address] Dr. Harmeet Dorsey Protein [Mass/Vol] 7.5 g/dL Normal 6.4-8.2 [facility] Comment on above: Performed By: #### C MP, BNP, CMADM #### [facility] [address] [address] [address] Harmeet Dorsey PROF CHEM 8 (BAS METB)on Anion gap [Moles/Vol] 9.5 mmol/L Normal [facility] Comment on above: Performed By: #### C MP, BNP, CMADM #### [facility] [address] [place] [address] Dr. Harmeet Dorsey Calcium [Mass/Vol] 8.8 mg/dL Normal 8.5-10.1 [facility] Comment on above: Performed By: #### C MP, BNP, CMADM #### [facility] [address] [place] [address] Dr. Harmeet Dorsey Chloride [Moles/Vol] 102 mmol/L Normal 98-107 [facility] Comment on above: Performed By: #### C MP, BNP, CMADM #### [facility] [address] [place] [address] Dr. Harmeet Dorsey CO2 [Moles/Vol] 29.0 mmol/L Normal 21.0-32.0 [facility] Comment on above: Performed By: #### C MP, BNP, CMADM #### [facility] [address] [place] [address] Dr. Harmeet Dorsey Creatinine [Mass/Vol] 1.07 mg/dL Normal 0.70-1.30 [facility] Comment on above: Performed By: #### C MP, BNP, CMADM #### [facility] [address] [place] [address] Dr. Harmeet Dorsey EGFR-AF EGYPTIAN >60 Normal >=60 [facility] Comment on above: Performed By: #### C MP, BNP, CMADM #### [facility] [address] [place] [address] Dr. Harmeet Dorsey EGFR-NON AF EGYPTIAN >60 Normal >=60 [facility] Comment on above: Performed By: #### C MP, BNP, CMADM #### [facility] [address] [place] [address] Dr. Harmeet Dorsey Glucose [Mass/Vol] 142 mg/dL Critically high 74-106 [facility] Comment on above: Performed By: #### C MP, BNP, CMADM #### [facility] [address] [place] [address] Dr. Harmeet Dorsey Potassium [Moles/Vol] 3.5 mmol/L Normal 3.5-5.1 [facility] Comment on above: Performed By: #### C MP, BNP, CMADM #### [facility] [address] [place] [address] Dr. Harmeet Dorsey Sodium [Moles/Vol] 137 mmol/L Normal 136-145 [facility] Comment on above: Performed By: #### C MP, BNP, CMADM #### [facility] [address] [place] [address] Dr. Harmeet Dorsey Urea nitrogen [Mass/Vol] 15.0 mg/dL Normal 7.0-18.0 [facility] Comment on above: Performed By: #### C MP, BNP, CMADM #### [facility] [address] [place] [address] Dr. Harmeet Dorsey Urea nitrogen/Creatinine [Mass ratio] 14.0 mg/mg Normal [facility] Comment on above: Performed By: #### C MP, BNP, CMADM #### [facility] [address] [place] [address] Dr. Harmeet Dorsey TSHon 08-06-2022 TSH 1.940 uIU/mL Normal 0.358-3.740 [facility] Comment on above: Performed By: #### C MP, BNP, CMADM #### [facility] [address] [place] [address] Dr. Harmeet Dorsey Vital Signs Date Time Vital Sign Value Performing Clinician Alberto warren 08-03-2023 11:04-0500 Diastolic blood pressure 80 mm[Hg] Angela Abdi DO Work Phone: [facility] 08-03-2023 11:04-0500 Systolic blood pressure 144 mm[Hg] Angela Abdi DO Work Phone: [facility] 08-03-2023 10:21-0500 Body height 157.5 cm Angela Abdi DO Work Phone: [facility] 08-03-2023 10:0500 Body mass index (BMI) [Ratio] 34.02 kg/m2 Angela Abdi DO Work Phone: [facility] 08-03-2023 10:050 Body weight 84.37 kg Angela Abdi DO Work Phone: [facility] 08-03-2023 10:050 Heart rate 64 /min Angela Abdi DO Work Phone: [facility] Encounters Encounter Date Encounter Type Care Provider Facility Start: 01-02-2024 End: 01-03-2024 ambulatory ODILON CHOI Not Available Start: 11-17-2023 End: 11-17-2023 ambulatory LUX SPIVEY Not Available Start: 09-29-2023 End: 09-30-2023 Emergency department patient visit NGUYỄN JASMINE [facility] Start: 09-29-2023 End: 09-30-2023 ambulatory LUX SPIVEY Not Available Start: 08-03-2023 End: 08-03-2023 ambulatory [facility] Start: 08-03-2023 End: 08-03-2023 Office outpatient visit 25 minutes Angela Abdi DO Work Phone: [facility] Comment on above: History of non-ST el evation myocardial infarction (NSTEMI); Atherosclerosis of crow coronary artery of crow heart, unspecified whether angina present; Mixed hyperlipidemia; Essential hypertension Start: 01-17-[address] Lux Spivey Facility:[facility] Start: 01-15-[address] Lux Spivey Facility:[id number] Start: 01-15-2023 End: 01-16-2023 Evaluation and management of inpatient W King Abdi Facility:[facility] Start: 01-15-2023 End: 01-15-2023 ambulatory CECIL JOHN . Facility: Start: 01-15-[address] Lux Spievy Facility:[id number] Start: 08-06-2022 End: 08-07-[address] LUX SPIVEY Facility: Start: 09-29-2018 End: 09-30-2018 Patient encounter procedure DEFAULT PHYSICIAN Facility:[facility] Procedures Date Procedure Procedure Detail Performing Clinician Start: 08-06-2022 PSA screening CECIL RAO . Comment on above: Performed By: #### [facility] #### [facility] [address] [address] [address] Harmeet Dorsey Plan of Treatment Date Care Activity Detail Author Start: 03-18-2025 DTaP/Tdap/Td Vaccines (2 - Td or Tdap) DTaP/Tdap/Td Vaccines (2 - Td or Tdap) [facility] Start: 08-03-2023 End: 08-03-2024 Alanine aminotransferase [Enzymatic activity/volume] in Serum or Plasma by With P-5'-P Alanine Aminotransferase Lab Routine Mixed hyperlipidemia Expected: 08/03/2023 (Approximate), Expires: 08/03/2024 [facility] Service Area Work Phone: Comment on above: Expected: 08/03/2023 (Approximate), Expi res: 08/03/2024 Start: 08-03-2023 End: 08-03-2024 Aspartate aminotransferase [Enzymatic activity/volume] in Serum or Plasma by With P-5'-P Aspartate Aminotransferase Lab Routine Mixed hyperlipidemia Expected: 08/03/2023 (Approximate), Expires: 08/03/2024 [facility] Work Phone: Comment on above: Expected: 08/03/2023 (Approximate), Expi res: 08/03/2024 Start: 08-03-2023 End: 08-03-2024 Basic metabolic 2000 panel - Serum or Plasma Basic Metabolic Panel Lab Routine History of non-ST elevation myocardial infarction (NSTEMI) Atherosclerosis of crow coronary artery of crow heart, unspecified whether angina present Mixed hyperlipidemia Essential hypertension Expected: 08/03/2023 (Approximate), Expires: 08/03/2024 [facility] Work Phone: Comment on above: Expected: 08/03/2023 (Approximate), Expi res: 08/03/2024 Start: 08-03-2023 End: 08-03-2024 Lipid 1996 panel - Serum or Plasma Lipid Panel Lab Routine Mixed hyperlipidemia Expected: 08/03/2023 (Approximate), Expires: 08/03/2024 [facility] Work Phone: Comment on above: Expected: 08/03/2023 (Approximate), Expi res: 08/03/2024 Start: 05-20-2023 Influenza vaccination Influenza Vaccine (#1) [facility] Start: 08-27-2021 Zoster Vaccines (2 of 2) Zoster Vaccines (2 of 2) [facility] Start: 03-05-2021 COVID-19 Vaccine (3 - Pfizer series) COVID-19 Vaccine (3 - Pfizer series) [facility] Start: 2020 Abdominal aortic aneurysm screening Abdominal Aortic Aneurysm (AAA) Screening [facility] Start: 1973 Diabetes mellitus screening Diabetes Screening [facility] Start: 1973 Hepatitis C screening Hepatitis C Screening [facility] Start: 1961 Pneumococcal Vaccine: 65+ Years (1 - PCV) Pneumococcal Vaccine: 65+ Years (1 - PCV) [facility] Start: 1955 Lipid panel Lipid Panel [facility] Start: 1955 Screening for malignant neoplasm of colon [facility] Start: 1955 Yearly Adult Physical Yearly Adult Physical [facility] Immunizations Immunization Date Immunization Notes Care Provider Fa cilikiley 07-02-2021 influenza virus vaccine, unspecified formulation Angela Abdi DO Work Phone: [facility] Work Phone: Payers Date Payer Category Payer Private Health Insurance [facility] [id number] 2023-Present [address] [place] [address] [id number] 2023 Private Health Insurance [id number] 2023 Self-pay 2020 Medicare MEDICARE MEDICAR E PART A AND B [id number] 2020-Present [address] [place] [address] [id number] 1959 Medicare [id number] 1959 Private Health Insurance [id number] 1955 Unknown [id number]. 2.647 1955 Unknown [id number] [id number]. 2.593 1955 Unknown [id number] [id number]. 2.593 1955 Unknown [id number] [id number]. 2.356 1955 Unknown [id number] [id number]. 2.356 1955 Unknown [id number] [id number]. 2.1244 1955 Unknown [id number] [id number]. 2.1286 1955 Unknown [id number] 2.16.840.1.683729.3.579. 2.1286 1955 Unknown [id number] [id number]. 2.1259 1955 Unknown [id number] [id number]. 2.1259 1955 Unknown [id number] [id number]. 2.1259 Unknown Unknown [id number] [id number]. 2.531 Social History Date Type Detail Facility Start: 08-03-2023 [facility] History of tobacco use Current smoker [facility] Work Phone: History of tobacco use Cigarette Smoker [facility] Work Phone: Start: 08-03-2023 Tobacco use and exposure Smokeless tobacco non-user [facility] Work Phone: Start: 08-03-2023 Alcohol intake Lifetime non-d dylan (finding) [facility] Work Phone: Start: 08-03-2023 History of Social function [facility] Work Phone: Start: 08-03-[address] [facility] Work Phone: Start: 1955 Sex Assigned At Not on file [facility] Work Phone: Start: 07-24-2023 End: 08-03-2023 Exposure to SARS-CoV-2 (event) Not sure [facility] History of Present illness Narrative 08-03-2023 Angela Abdi, DO - 08/03/2023 9:40 AM EST Note Date & Type Note Facility 08-03-2023 History of Present illness Narrative Subjective Brigette Degroot Sr. is a 67 y.o. male [...] elevation myocardial infarction (NSTEMI) 2. Atherosclerosis of crow coronary artery of crow heart, unspecified whether angina present 3. Mixed hyperlipidemia 4. Essential hypertension documented in this encounter [facility] Work Phone: Instructions 08-03-2023 Patient Instructions [...] of your visit. documented in this encounter [facility] Work Phone: Clinical Note 10-26-2021 Note Date & Type Note Facility 10-26-2021 Note PROCEDURE: 250ok VCT 64, 5.0 mm withIV contrast, axial [...] signed by Pradeep Renteria on 10/26/2021 133[address] [facility] [employer] Evaluation note Note Date & Type Note Facility Evaluation note Diagnosis History of non-ST elevation myocardial infarction (NSTEMI) Atherosclerosis of crow coronary artery of crow heart, unspecified whether angina present Mixed hyperlipidemia Essential hypertension Unspecified essential hypertension documented in this encounter [facility] Work Phone: Reason for referral (narrative) Consultation (Routine) - Authorized Note Date & Type Note Facility Reason for referral (narrati ve) Specialty Diagnoses / Procedures Referred By Contac t Referred To Contact Cardiology Diagnoses History of non-ST elevation myocardial infarction (NSTEMI) Atherosclerosis of crow coronary artery of crow heart, unspecified whether angina present Essential hypertension Procedures Follow Up In Cardiology Angela Abdi DO [address] [facility] [address] [place] [address] Angela Abdi DO [address] [facility] [address] [id number] Referral ID Status Reason Start Date Expiration Date V isits Requested Visits Authorized [id number] Authorized 08/03/2023 08/02/2024 1 1 [facility] Work Phone: Summary Purpose Family History No [...] section and content) DATE CREATED AUTHOR 10/02/2018 [facility] DATE CREATED AUTHOR AUTHOR'S ORGANIZ ATION 10/27/2021 [facility] dical Specialist DATE CREATED AUTHOR AUTHOR'S ORGANIZ ATION 01/18/2023 [facility] DATE CREATED AUTHOR AUTHOR'S ORGANIZ ATION 01/19/2023 [facility] DATE CREATED AUTHOR AUTHOR'S ORGANIZ ATION 03/08/2023 [facility] DATE CREATED AUTHOR AUTHOR'S ORGANIZ ATION 08/05/2023 [facility] DATE CREATED AUTHOR AUTHOR'S ORGANIZ ATION 10/02/2023 [facility] DATE CREATED AUTHOR AUTHOR'S ORGANIZ ATION 01/07/2024 [facility] dical Specialists EPIC Reason for Visit (unrecogniz ed section and content) Reason Comments Follow-up Care Teams (unrecognized sec tion and content) Yam Curer Relationship Specialty Start Date End Date Lux Spivey MD [address] [place] [address] PCP - General 01/17/23 FOR RECORDS PERTAINING [...] BE BASED ON THE PRIMARY CLINICAL RECORDS. [facility]. provides no warranty or guarantee of the accuracy or completeness of information in this document.
== END 2024-02-10 07:44 | disposition home or self-care (01) ==
LOC: VC 07:43
PROVIDERS: PCP Radiology Diagnostic Radiology; Visit Provider Radiology Diagnostic Radiology
DX: I80.02 Phlebitis and thrombophlebitis of superficial vessels of left lower extremity (principal)
CPT/HCPCS: 93971; G0463

== ENCOUNTER 2024-03-09 07:50 | Outpatient (OUT) | payer OTHER, MEDICARE, SELFPAY ==
--- NOTE | 2024-03-09 07:51 | VEIN_ITS ---
[address] [address] Patient Name: BRIGETTE CHA MRN: [id number] date: 1955 Sex: M Assigned Patient Location: Current Patient Location: Accession/Order Number: [id number] Exam Date: 03/09/2024 07:55 Report Date: 03/09/2024 09:54 At the request of: VIKTORIA JOSE Procedure: VC INJ Sclerosing SOLMULT Vein EXAMINATION: VC INJ Sclerosing SOLMULT Vein HISTORY: I83.813 Bilateral leg painful varicose veins COMPARISON: No relevant comparison available. TECHNIQUE: The risks and benefits of the procedure were explained at length to the patient and informed written consent was obtained. Dwight Parsons was present and assisted. The procedure was performed under sterile technique. The patient's leg was wrapped with Coban and postprocedural verbal and written instructions provided. SCLEROSANT: 4 cc, 0.5% polidocanol VEIN(S) INJECTED: 26 veins in the left leg VISUALIZATION: Ultrasound was not used to visualize the sclerosant ANESTHESIA: Supercooled air COMPLICATIONS: None VEIN/VC INJ Sclerosing SOLMULT Vein IMPRESSION: Technically successful sclerotherapy as described Electronically authenticated by: VIKTORIA JOSE Date: 03/09/2024 09:54
--- OUTSIDE RECORDS SUMMARY | 2024-03-09 07:53 | XMS_ITS | CCD ---
Author Organization [facility] Care Team Providers Care Sash Installer Name Role Phone PHYSICIAN, DEFAULT Unavailable Unavailable PHYSICIAN, DEFAULT Unavailable Unavailable ALVARO Fernandes, CECIL Admitting Unavailable ALVARO Fernandes, CECIL Attending Unavailable DAMON, DR VIKTORIA Zhang Consulting Unavailable NADERER, DR LUX [place] [facility] Unavailable CECIL WRIGHT Consulting Unavailable ALLYSSA, DR LXU [place] Attending Unavailable ALLYSSA, DR LUX [place] [...] JASMINE Attending Unavailable NGUYỄN JASMINE Attending Unavailable NUGYỄN JASMINE Referring Unavailable LUX SPIVEY Primary Care Unavailable ALLYSSA, LUX Referring Unavailable ALLYSSA, LUX Attending Unavailable ODILON CHOI Attending Unavailable JOSE DERELeona, LUX Referring [...] 01-15-2023 Episodic Other aftercare (1 source) 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; Translations: [OTH 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 OF 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 MEDICINE CURRENT DRUG THERAPY] Onset: 01-18-2023 Episodic Other [...] Leon MD on 09/29/2023 9:46 AM Normal [facility] LIVERon 09-23-2023 LIVER CLINICAL HISTORY: Abnormal liver [...] Anion gap [Moles/Vol] 10.0 mmol/L Normal 6.0-15.0 [facility] Comment on above: Performed By: #### C BC, BMP, LIPID #### [address] Calcium [Mass/Vol] 8.6 mg/dL Normal 8.6-10.3 [facility] Comment on above: Performed By: #### C BC, BMP, LIPID #### [place] [address] [place] Chloride [Moles/Vol] 102 mmol/L Normal 98-107 [facility] Comment on above: Performed By: #### C BC, BMP, LIPID #### [facility] [address] [place] [id number] [place] CO2 [Moles/Vol] 28.7 mmol/L Normal 21.0-31.0 [facility] Comment on above: Performed By: #### C BC, BMP, LIPID #### [facility] [address] [place] [id number] [place] Creatinine [Mass/Vol] 1.15 mg/dL Normal 0.70-1.30 [facility] Comment on above: Performed By: #### C BC, BMP, LIPID #### [address] Creatinine Clr Calc Pharmacy 57.91 [facility] Comment on above: Performed By: #### C MOHIT RAMIREZ, LIPID #### [place] [address] [place] GFR/1.73 sq M.predicted MDRD (S/P/Bld) [Vol rate/Area] mL/min/{1.73_m2} Normal [facility] Comment on above: Performed By: #### C ASHLEY BMP, LIPID #### [place] [address] [place] Glucose [Mass/Vol] 112 mg/dL High 70-100 [facility] Comment on above: Result Comment: [facility] Glucose Reference Range is dependent on time and content of last meal. Glucose of more than 200 mg/dL in a nonstressed, ambulatory subject supports the diagnosis of Diabetes Mellitus. ADA recommended reference range Performed By: #### C MOHIT RAMIREZ, LIPID #### [address] Potassium [Moles/Vol] 3.7 mmol/L Normal 3.5-5.1 [facility] Comment on above: Performed By: #### C MOHIT RAMIREZ, LIPID #### [address] Sodium [Moles/Vol] 137 mmol/L Normal 136-145 [facility] Comment on above: Performed By: #### C MOHIT RAMIREZ, LIPID #### [place] [address] [place] Urea nitrogen [Mass/Vol] 17 mg/dL Normal 7-25 [facility] Comment on above: Performed By: #### C MOHIT RAMIREZ, LIPID #### [address] Complete Blood Count Auto Di ffon 01-16-2023 Basophils (Bld) [#/Vol] 0.0 10*3/uL Normal 0.0-0.2 [facility] Comment on above: Result Comment: PERF ORMED BY: [place] [phone] PATHOLOGIST [employer] COLLETTE ENRIQUEZ M.D. Performed By: #### C BC, BMP, LIPID #### [address] Basophils/100 WBC (Bld) 0.2 % Normal . [facility] Comment on above: Performed By: #### C BC, BMP, LIPID #### [address] Eosinophils (Bld) [#/Vol] 0.1 10*3/uL Normal 0.0-0.45 [facility] Comment on above: Performed By: #### C BC, BMP, LIPID #### [address] Eosinophils/100 WBC (Bld) 0.5 % Normal . [facility] Comment on above: Performed By: #### C BC, BMP, LIPID #### [address] Erythrocyte distribution width (RBC) [Ratio] 13.7 % Normal 12.0-14.8 [facility] Comment on above: Performed By: #### C BC, BMP, LIPID #### [address] Hematocrit (Bld) [Volume fraction] 50.3 % High 38.8-50.0 [facility] Comment on above: Performed By: #### C BC, BMP, LIPID #### [address] Hemoglobin (Bld) [Mass/Vol] 16.9 g/dL Normal 13.0-17.0 [facility] Comment on above: Performed By: #### C BC, BMP, LIPID #### [address] Lymphocytes (Bld) [#/Vol] 1.9 10*3/uL Normal 1.00-4.8 [facility] Comment on above: Performed By: #### C BC, BMP, LIPID #### [place] [address] [place] Lymphocytes/100 WBC (Bld) 16.0 % Normal . [facility] Comment on above: Performed By: #### C BC, BMP, LIPID #### [facility] [address] MCH (RBC) [Entitic mass] 31.0 pg Normal 27.5-35.2 [facility] Comment on above: Performed By: #### C BC, BMP, LIPID #### [address] MCV (RBC) [Entitic vol] 92.0 fL Normal 83.5-101 [facility] Comment on above: Performed By: #### C BC, BMP, LIPID #### [address] Mean Corpuscular HGB Conc 33.6 g/dL Normal 32.5-35.6 [facility] Comment on above: Performed By: #### C BC, BMP, LIPID #### [address] Monocytes (Bld) [#/Vol] 1.1 10*3/uL High 0.0-0.8 [facility] Comment on above: Performed By: #### C BC, BMP, LIPID #### [address] Monocytes/100 WBC (Bld) 9.1 % Normal . [facility] Comment on above: Performed By: #### C BC, BMP, LIPID #### [address] Neutrophils (Bld) [#/Vol] 9.0 10*3/uL High 1.8-7.7 [facility] Comment on above: Performed By: #### C BC, BMP, LIPID #### [address] Neutrophils/100 WBC (Bld) 74.2 % Normal . [facility] Comment on above: Performed By: #### C BC, BMP, LIPID #### [address] NRBC% 0.1 /100{WBC} Normal 0-0.5 [facility] Comment on above: Performed By: #### C BC, BMP, LIPID #### [facility] [address] Platelet mean volume (Bld) [Entitic vol] 8.3 fL Normal 6.6-10.1 [facility] Comment on above: Performed By: #### C BC, BMP, LIPID #### [facility] [address] Platelets (Bld) [#/Vol] 229 10*3/uL Normal 150-450 [facility] Comment on above: Performed By: #### C BC, BMP, LIPID #### [address] RBC (Bld) [#/Vol] 5.47 10*6/uL Normal 3.90-5.60 [facility] Comment on above: Performed By: #### C BC, BMP, LIPID #### [address] WBC (Bld) [#/Vol] 12.2 10*3/uL High 4.1-10.5 [facility] Comment on above: Performed By: #### C BC, BMP, LIPID #### [address] ECG 12 lead ECGon 01-16-2023 ECG 12 lead ECG [facility] [place] [address] [place] [address] Electrocardiograph Report Signed Patient: Brigette Degroot MR#: [id number] : 1955 Acct:[id number] Age/Sex: 67 / M ADM Date: 01/15/23 Loc: Room: [address] [place] [address] Type: ADM IN Attending Dr: Greg Abdi [...] By Jin Hunter DO 01/16 1516 Normal [facility] Lipid Panelon 01-16-2023 Cholesterol [Mass/Vol] 181 mg/dL Normal 140-200 [facility] Comment on above: Result Comment: Chol less than 200 mg/dl low risk Chol 201-239 mg/dl borderline risk Chol 240 mg/dl and greater high risk Performed By: #### C BC, BMP, LIPID #### [facility] [address] Cholesterol in HDL [Mass/Vol] 46 mg/dL Normal 29-71 [facility] Comment on above: Result Comment: HDL CHOL ATP-III CLASSIFICATION Cardiovascular Risk HDL > or equal to 60 mg/dL LOW HDL < 40 mg/dL HIGH Performed By: #### C BC, BMP, LIPID #### [facility] [address] Cholesterol.total/C holesterol in HDL [Mass ratio] 3.9 {ratio} Normal <5.0 [facility] Comment on above: Result Comment: PERF ORMED BY: [place] [id number] PATHOLOGIST [employer]LE[employer]E ENRIQUEZ M.D. Performed By: #### C BC, BMP, LIPID #### [facility] [address] LDL Cholesterol,Calcula joey 107 mg/dL High 0-100 [facility] Comment on above: Result Comment: LDL ATP III CLASSIFICATION LDL less than 100 mg/dL Optimal LDL 100-129 mg/dL Near or above optimal LDL 130-159 mg/dL Borderline high LDL 160-189 mg/dL High LDL greater than 189 mg/dL Very high Performed By: #### C BC, BMP, LIPID #### [facility] [address] Triglyceride w/Reflex 141 mg/dL Normal 0-149 [facility] Comment on above: Result Comment: TRIG ATP III CLASSIFICATION TRIG less than 150 mg/dL Normal TRIG 150-199 mg/dL Borderline high TRIG 200-500 mg/dL High TRIG greater than 500 mg/dL Very high Standard traceable to the Center for Disease Conrtrol and Prevention (CDC) test method. Performed By: #### C BC, BMP, LIPID #### [facility] [address] VLDL CHOLESTEROL 28 mg/dL Normal [facility] Comment on above: Performed By: #### C BC, BMP, LIPID #### [facility] [address] BNPon 01-15-2023 Natriuretic peptide B (Bld) [Mass/Vol] 15.0 pg/mL Normal <=900.0 [facility] Comment on above: Performed By: #### C MP, BNP, CMADM #### [facility] [address] [place] [address] [address] Harmeet Dorsey CARDIAC JULEE ADMITon 023 CK [Catalytic activity/Vol] 109 U/L Normal 39-308 [facility] Comment on above: Performed By: #### C MP, BNP, CMADM #### [facility] [address] [place] [address] [address] Harmeet Dorsey CK.MB [Mass/Vol] 2.05 ng/mL Normal <=3.60 [facility] Comment on above: Performed By: #### C MP, BNP, CMADM #### [facility] [address] [place] [address] [address] Harmeet Dorsey HSTROP 69.9 pg/mL Normal 4.0-76.1 [facility] Comment on above: Result Comment: CUT- OFF POINTS HAVE BEEN ESTABLISHED BASED ON THE FOURTH UNIVERSAL DEFINITIONS OF MYOCARDIAL INFARCTION. THE UPPER REFERENCE LIMIT (URL) OF TROPONIN, DEFINED THE 99TH PERCENTILE OF cTnI DISTRIBUTION IN A REFERENCE POPULATION, HAS BEEN CONFIRMED THE DECISION THRESHOLD FOR [place] DIAGNOSIS. Performed By: #### C MP, BNP, CMADM #### [facility] [address] [address] [address] Harmeet Dorsey PRICE 96 ng/mL Normal 16-96 [facility] Comment on above: Performed By: #### C MP, BNP, CMADM #### [facility] [address] [place] [address] [address] Harmeet Dorsey CBC AUTO DIFFon 01-15-2023 BASO # 0.1 103/ul Normal 0.0-0.1 [facility] Comment on above: Performed By: #### C BC #### [facility] [address] [place] [address] Dr. Harmeet Dorsey Basophils/100 WBC (Bld) 0.6 % Normal 0.2-2.0 [facility] Comment on above: Performed By: #### C BC #### [facility] [address] [place] [address] Dr. Harmeet Dorsey EO # 0.1 103/ul Normal 0.0-0.7 [facility] Comment on above: Performed By: #### C BC #### [facility] [address] [place] [address] Dr. Harmeet Dorsey Eosinophils/100 WBC (Bld) 0.7 % Critically low 0.9-7.0 [facility] Comment on above: Performed By: #### C BC #### [facility] [address] [place] [address] Dr. Harmeet Dorsey Erythrocyte distribution width (RBC) [Ratio] 13.3 % Normal 11.0-15.0 [facility] Comment on above: Performed By: #### C BC #### [facility] [address] [place] [address] Dr. Harmeet Dorsey Hematocrit (Bld) [Volume fraction] 54.4 % Critically high 42.0-54.0 [facility] Comment on above: Performed By: #### C BC #### [facility] [address] [place] [address] Dr. Harmeet Dorsey Hemoglobin (Bld) [Mass/Vol] 18.7 g/dL Critically high 14.0-18.0 [facility] Comment on above: Performed By: #### C BC #### [facility] [address] [place] [address] [address] Harmeet Dorsey IG # 0.23 10e3/ul Critically high 0.00-0.03 [facility] Comment on above: Performed By: #### C BC #### [facility] [address] [place] [address] [address] Harmeet Dorsey IG % 2.1 % Critically high 0.0-0.5 [facility] Comment on above: Performed By: #### C BC #### [facility] [address] [place] [address] [address] Harmeet Dorsey LYMPH # 2.6 103/ul Normal 1.2-3.8 [facility] Comment on above: Performed By: #### C BC #### [facility] [address] [place] [address] Dr. Harmeet Dorsey Lymphocytes/100 WBC (Bld) 23.9 % Normal 20.5-60.0 [facility] Comment on above: Performed By: #### C BC #### [facility] [address] [place] [address] [address] Harmeet Dorsey MANUAL DIFF REQ NO Normal [facility] Comment on above: Performed By: #### C BC #### [facility] [address] [place] [address] Dr. Harmeet Dorsey MCH (RBC) [Entitic mass] 31.2 pg Normal 25.9-34.0 [facility] Comment on above: Performed By: #### C BC #### [facility] [address] [place] [address] Dr. Harmeet Dorsey MCHC (RBC) [Mass/Vol] 34.4 g/dL Normal 29.9-35.2 [facility] Comment on above: Performed By: #### C BC #### [facility] [address] [place] [address] Dr. Harmeet Dorsey MCV (RBC) [Entitic vol] 90.8 fL Normal 80.0-94.0 [facility] Comment on above: Performed By: #### C BC #### [facility] [address] [place] [address] [address] Harmeet Dorsey MONO # 0.9 103/ul Critically high 0.3-0.8 [facility] Comment on above: Performed By: #### C BC #### [facility] [address] [place] [address] [address] Harmeet Dorsey Monocytes/100 WBC (Bld) 8.4 % Normal 1.7-12.0 [facility] Comment on above: Performed By: #### C BC #### [facility] [address] [place] [address] [address] Harmeet Dorsey NEUT # 7.0 103/ul Critically high 1.4-6.5 [facility] Comment on above: Performed By: #### C BC #### [facility] [address] [place] [address] Dr. Harmeet Dorsey Neutrophils/100 WBC (Bld) 64.3 % Normal 43.0-75.0 [facility] Comment on above: Performed By: #### C BC #### [facility] [address] [place] [address] Dr. Harmeet Dorsey Platelet mean volume (Bld) [Entitic vol] 9.7 fL Normal 9.5-13.5 [facility] Comment on above: Performed By: #### C BC #### [facility] [address] [place] [address] Dr. Harmeet Dorsey PLT 262 103/ul Normal 150-450 [facility] Comment on above: Performed By: #### C BC #### [facility] [address] [place] [address] [address] Harmeet Dorsey RBC 5.99 106/ul Normal 4.70-6.10 [facility] Comment on above: Performed By: #### C BC #### [facility] [address] [place] [address] [address] Harmeet Dorsey WBC 10.9 103/ul Normal 4.0-11.0 [facility] Comment on above: Performed By: #### C BC #### [facility] [address] [place] [address] [address] Harmeet Dorsey PROF 14(COMP METB)on 023 Albumin [Mass/Vol] 3.5 g/dL Normal 3.4-5.0 [facility] Comment on above: Performed By: #### C MP, BNP, CMADM #### [facility] [address] [place] [address] [address] Harmeet Dorsey Albumin/Globulin [Mass ratio] 0.8 {ratio} Normal [facility] Comment on above: Performed By: #### C MP, BNP, CMADM #### [facility] [address] [address] [address] Harmeet Dorsey ALP [Catalytic activity/Vol] 71 U/L Normal 46-116 [facility] Comment on above: Performed By: #### C MP, BNP, CMADM #### [facility] [address] [place] [address] [address] Harmeet Dorsey ALT [Catalytic activity/Vol] 218 U/L Critically high 16-63 [facility] Comment on above: Performed By: #### C MP, BNP, CMADM #### [facility] [address] [place] [address] [address] Harmeet Dorsey Anion gap [Moles/Vol] 10.2 mmol/L Normal [facility] Comment on above: Performed By: #### C MP, BNP, CMADM #### [facility] [address] [place] [address] [address] Harmeet Dorsey AST [Catalytic activity/Vol] 92 U/L Critically high 15-37 [facility] Comment on above: Performed By: #### C MP, BNP, CMADM #### [facility] [address] [address] [address] Harmeet Dorsey Bilirubin [Mass/Vol] 0.7 mg/dL Normal 0.2-1.0 [facility] Comment on above: Performed By: #### C MP, BNP, CMADM #### [facility] [address] [address] [address] Harmeet Dorsey Calcium [Mass/Vol] 8.9 mg/dL Normal 8.5-10.1 [facility] Comment on above: Performed By: #### C MP, BNP, CMADM #### [facility] [address] [place] [address] Dr. Harmeet Dorsey Chloride [Moles/Vol] 101 mmol/L Normal 98-107 [facility] Comment on above: Performed By: #### C MP, BNP, CMADM #### [facility] [address] [place] [address] Dr. Harmeet Dorsey CO2 [Moles/Vol] 29.3 mmol/L Normal 21.0-32.0 [facility] Comment on above: Performed By: #### C MP, BNP, CMADM #### [facility] [address] [place] [address] Dr. Harmeet Dorsey Creatinine [Mass/Vol] 1.26 mg/dL Normal 0.70-1.30 [facility] Comment on above: Performed By: #### C MP, BNP, CMADM #### [facility] [address] [place] [address] Dr. Harmeet Dorsey EGFR-AF PRYDEINIG >60 Normal >=60 [facility] Comment on above: Performed By: #### C MP, BNP, CMADM #### [facility] [address] [place] [address] Dr. Harmeet Dorsey EGFR-NON AF PRYDEINIG 57 mL/min/1.73m2 Critically low >=60 [facility] Comment on above: Performed By: #### C MP, BNP, CMADM #### [facility] [address] [place] [address] Dr. Harmeet Dorsey Globulin (S) [Mass/Vol] 4.3 g/dL Normal [facility] Comment on above: Performed By: #### C MP, BNP, CMADM #### [facility] [address] [place] [address] Dr. Harmeet Dorsey Glucose [Mass/Vol] 178 mg/dL Critically high 74-106 [facility] Comment on above: Performed By: #### C MP, BNP, CMADM #### [facility] [address] [place] [address] Dr. Harmeet Dorsey Potassium [Moles/Vol] 3.5 mmol/L Normal 3.5-5.1 [facility] Comment on above: Performed By: #### C MP, BNP, CMADM #### [facility] [address] [place] [address] Dr. Harmeet Dorsey Protein [Mass/Vol] 7.8 g/dL Normal 6.4-8.2 [facility] Comment on above: Performed By: #### C MP, BNP, CMADM #### [facility] [address] [place] [address] Dr. Harmeet Dorsey Sodium [Moles/Vol] 137 mmol/L Normal 136-145 [facility] Comment on above: Performed By: #### C MP, BNP, CMADM #### [facility] [address] [place] [address] Dr. Harmeet Dorsey Urea nitrogen [Mass/Vol] 15.0 mg/dL Normal 7.0-18.0 [facility] Comment on above: Performed By: #### C MP, BNP, CMADM #### [facility] [address] [place] [address] Dr. Harmeet Dorsey Urea nitrogen/Creatinine [Mass ratio] 11.9 mg/mg Normal [facility] Comment on above: Performed By: #### C MP, BNP, CMADM #### [facility] [address] [place] [address] Dr. Harmeet Dorsey PROTIMEon 01-15-2023 INR Coag (PPP) [Relative time] 0.98 {INR} Normal [facility] Comment on above: Performed By: #### P T, PTT #### [facility] [address] [place] [address] Dr. Harmeet Dorsey INR GUIDELINES SEE BELOW Normal [facility] Comment on above: Result Comment: VICENTE RED INR: 2.0 - 3.0 CONDITIONS NOT LISTED BELOW 2.5 - 3.5 FOR PROSTHETIC HEART VALVE REPLACEMENT 2.5 - 3.5 RECURRENT THROMBOSIS Performed By: #### P T, PTT #### [facility] [address] [place] [address] Dr. Harmeet Dorsey PT Coag (PPP) [Time] 10.4 s Normal 9.0-11.6 [facility] Comment on above: Performed By: #### P T, PTT #### [facility] [address] [place], [place] [address] Dr. Harmeet Dorsey PTTon 01-15-2023 aPTT Coag (Bld) [Time] 26.0 s Normal 22.3-36.2 [facility] Comment on above: Performed By: #### P T, PTT #### [facility] [address] [place] [address] Harmeet Dorsey Troponin I High Sensitivityo n 01-15-2023 Troponin I High Sensitivity 28383.6 pg/mL Off scale high 0.0-20.0 [facility] Comment on above: Result Comment: Crit ical Result : Called to and read back by: KIM WALSH at: 01/15/2023 20:17:48 by:LFM PERFORMED BY: [place] [id number] PATHOLOGIST [employer] COLLETTE ENRIQUEZ M.D. Performed By: #### H S TROP #### [address] Troponin I High Sensitivity 9066.4 pg/mL Off scale high 0.0-20.0 [facility] Comment on above: Result Comment: Crit ical Result : Called to and read back by: LUCY MCELROY at: 01/15/2023 17:40:27 by:LFM PERFORMED BY: [phone] PATHOLOGIST [employer] COLLETTE ENRIQUEZ M.D. Performed By: #### H S TROP #### [facility] [address] [place] [address] Troponin I High Sensitivity 4327.6 pg/mL Off scale high 0.0-20.0 [facility] Comment on above: Result Comment: Crit ical Result : Called to and read back by: LUCY MCELROY at: 01/15/2023 14:33:06 by:LFM PERFORMED BY: [place] [id number] PATHOLOGIST [employer] COLLETTE ENRIQUEZ M.D. Performed By: #### H S TROP #### [place] [id number] [facility] Troponin I High Sensitivity 1492.5 pg/mL Off scale high 0.0-20.0 [facility] Comment on above: Result Comment: Crit ical Result : Called to and read back by: LUCY MCELROY at: 01/15/2023 13:14:42 by:[id number] PERFORMED BY: [place] [id number] PATHOLOGIST [employer]LE[employer]E ENRIQUEZ M.D. Performed By: #### H S TROP #### [place] [id number] [facility] XR CHEST 1 Von 01-15-2023 XR [...] VIKTORIA JOSE Date: 2023-01-15 09:51 Normal [facility] CBC AUTO DIFFon 08-06-2022 BASO # 0.0 103/ul Normal 0.0-0.1 [facility] Comment on above: Performed By: #### C BC #### [facility] [address] [address] [address] Harmeet Dorsey Basophils/100 WBC (Bld) 0.4 % Normal 0.2-2.0 [facility] Comment on above: Performed By: #### C BC #### [facility] [address] [address] [address] Harmeet Dorsey EO # 0.2 103/ul Normal 0.0-0.7 [facility] Comment on above: Performed By: #### C BC #### [facility] [address] [place] [address] Dr. Harmeet Dorsey Eosinophils/100 WBC (Bld) 2.3 % Normal 0.9-7.0 [facility] Comment on above: Performed By: #### C BC #### [facility] [address] [place] [address] Dr. Harmeet Dorsey Erythrocyte distribution width (RBC) [Ratio] 12.9 % Normal 11.0-15.0 [facility] Comment on above: Performed By: #### C BC #### [facility] [address] [place] [address] Dr. Harmeet Dorsey Hematocrit (Bld) [Volume fraction] 49.8 % Normal 42.0-54.0 [facility] Comment on above: Performed By: #### C BC #### [facility] [address] [place] [address] Dr. Harmeet Dorsey Hemoglobin (Bld) [Mass/Vol] 17.0 g/dL Normal 14.0-18.0 [facility] Comment on above: Performed By: #### C BC #### [facility] [address] [place] [address] Dr. Harmeet Dorsey IG # 0.03 10e3/ul Normal 0.00-0.03 [facility] Comment on above: Performed By: #### C BC #### [facility] [address] [place] [address] Dr. Harmeet Dorsey IG % 0.4 % Normal 0.0-0.5 [facility] Comment on above: Performed By: #### C BC #### [facility] [address] [place] [address] Dr. Harmeet Dorsey LYMPH # 2.5 103/ul Normal 1.2-3.8 [facility] Comment on above: Performed By: #### C BC #### [facility] [address] [place] [address] Dr. Harmeet Dorsey Lymphocytes/100 WBC (Bld) 30.9 % Normal 20.5-60.0 [facility] Comment on above: Performed By: #### C BC #### [facility] [address] [place] [address] Dr. Harmeet Dorsey MANUAL DIFF REQ NO Normal [facility] Comment on above: Performed By: #### C BC #### [facility] [address] [place] [address] Dr. Harmeet Dorsey MCH (RBC) [Entitic mass] 30.7 pg Normal 25.9-34.0 [facility] Comment on above: Performed By: #### C BC #### [facility] [address] [place] [address] Dr. Harmeet Dorsey MCHC (RBC) [Mass/Vol] 34.1 g/dL Normal 29.9-35.2 [facility] Comment on above: Performed By: #### C BC #### [facility] [address] [place] [address] Dr. Harmeet Dorsey MCV (RBC) [Entitic vol] 90.1 fL Normal 80.0-94.0 [facility] Comment on above: Performed By: #### C BC #### [facility] [address] [place] [address] Dr. Harmeet Dorsey MONO # 0.8 103/ul Normal 0.3-0.8 [facility] Comment on above: Performed By: #### C BC #### [facility] [address] [place] [address] Dr. Harmeet Dorsey Monocytes/100 WBC (Bld) 10.1 % Normal 1.7-12.0 [facility] Comment on above: Performed By: #### C BC #### [facility] [address] [place] [address] Dr. Harmeet Dorsey NEUT # 4.6 103/ul Normal 1.4-6.5 [facility] Comment on above: Performed By: #### C BC #### [facility] [address] [place] [address] Dr. Harmeet Dorsey Neutrophils/100 WBC (Bld) 55.9 % Normal 43.0-75.0 [facility] Comment on above: Performed By: #### C BC #### [facility] [address] [place] [address] Dr. Harmeet Dorsey Platelet mean volume (Bld) [Entitic vol] 10.8 fL Normal 9.5-13.5 [facility] Comment on above: Performed By: #### C BC #### [facility] [address] [place] [address] Dr. Harmeet Dorsey PLT 254 103/ul Normal 150-450 [facility] Comment on above: Performed By: #### C BC #### [facility] [address] [place] [address] Dr. Harmeet Dorsey RBC 5.53 106/ul Normal 4.70-6.10 [facility] Comment on above: Performed By: #### C BC #### [facility] [address] [place] [address] Dr. Harmeet Dorsey WBC 8.2 103/ul Normal 4.0-11.0 [facility] Comment on above: Performed By: #### C BC #### [facility] [address] [place] [address] Dr. Harmeet Dorsey LIPID PROFILEon 08-06-2022 CHOL-HDL RATIO NORM SEE BELOW Normal [facility] Comment on above: Result Comment: 3.3 - 4.4 LOW RISK 4.4 - 7.1 AVERAGE RISK 7.1 - 11.0 MODERATE RISK >11.0 HIGH RISK Performed By: #### L IPID, BMP, LIVER, TSH #### [facility] [address] [place] [address] Dr. Harmeet Dorsey Cholesterol [Mass/Vol] 236 mg/dL Critically high <=200 [facility] Comment on above: Performed By: #### L IPID, BMP, LIVER, TSH #### [facility] [address] [place] [address] Dr. Harmeet Dorsey Cholesterol in HDL [Mass/Vol] 43 mg/dL Normal 40-60 [facility] Comment on above: Performed By: #### L IPID, BMP, LIVER, TSH #### [facility] [address] [place] [address] Dr. Harmeet Dorsey Cholesterol in LDL [Mass/Vol] 146.8 mg/dL Normal [facility] Comment on above: Performed By: #### L IPID, BMP, LIVER, TSH #### [facility] [address] [address] [address] Harmeet Dorsey Cholesterol.total/C holesterol in HDL [Mass ratio] 5.5 {ratio} Normal [facility] Comment on above: Performed By: #### L IPID, BMP, LIVER, TSH #### [facility] [address] [address] [address] Harmeet Dorsey HDL NORMAL > or = 60 mg/dl - LO W CARDIOVASCULAR RISK <40 mg/dl - HIGH CARDIOVASCULAR RISK Normal [facility] Comment on above: Performed By: #### L IPID, BMP, LIVER, TSH #### [facility] [address] [address] [address] Harmeet Dorsey LDL CALC NORMAL SEE BELOW Normal [facility] Comment on above: Result Comment: <100 mg/dl OPTIMAL 100 - 129 mg/dl NEAR OR ABOVE OPTIMAL 130 - 159 mg/dl BORDERLINE HIGH 160 - 189 mg/dl HIGH >190 mg/dl VERY HIGH Performed By: #### L IPID, BMP, LIVER, TSH #### [facility] [address] [address] [address] Harmeet Dorsey Triglyceride [Mass/Vol] 231 mg/dL Critically high <=150 [facility] Comment on above: Performed By: #### L IPID, BMP, LIVER, TSH #### [facility] [address] [address] [address] Harmeet Dorsey VLDL CALC 46.2 mg/dL Normal [facility] Comment on above: Performed By: #### L IPID, BMP, LIVER, TSH #### [facility] [address] [address] [address] Harmeet Dorsey LIVER PROFILEon 08-06-2022 Albumin [Mass/Vol] 3.7 g/dL Normal 3.4-5.0 [facility] Comment on above: Performed By: #### C MP, BNP, CMADM #### [facility] [address] [address] [address] Harmeet Dorsey Albumin/Globulin [Mass ratio] 1.0 {ratio} Normal [facility] Comment on above: Performed By: #### C MP, BNP, CMADM #### [facility] [address] [place] [address] Dr. Harmeet Dorsey ALP [Catalytic activity/Vol] 65 U/L Normal 46-116 [facility] Comment on above: Performed By: #### C MP, BNP, CMADM #### [facility] [address] [address] [address] Harmeet Dorsey ALT [Catalytic activity/Vol] 131 U/L Critically high 16-63 [facility] Comment on above: Performed By: #### C MP, BNP, CMADM #### [facility] [address] [place] [address] Dr. Harmeet Dorsey AST [Catalytic activity/Vol] 83 U/L Critically high 15-37 [facility] Comment on above: Performed By: #### C MP, BNP, CMADM #### [facility] [address] [place] [address] Dr. Harmeet Dorsey BILI, CONJUGATED 0.2 mg/dL Normal 0.0-0.2 [facility] Comment on above: Performed By: #### C MP, BNP, CMADM #### [facility] [address] [place] [address] Dr. Harmeet Dorsey Bilirubin [Mass/Vol] 0.8 mg/dL Normal 0.2-1.0 [facility] Comment on above: Performed By: #### C MP, BNP, CMADM #### [facility] [address] [place] [address] Dr. Harmeet Dorsey Globulin (S) [Mass/Vol] 3.8 g/dL Normal [facility] Comment on above: Performed By: #### C MP, BNP, CMADM #### [facility] [address] [place] [address] Dr. Harmeet Dorsey Protein [Mass/Vol] 7.5 g/dL Normal 6.4-8.2 [facility] Comment on above: Performed By: #### C MP, BNP, CMADM #### [facility] [address] [address] [address] Harmeet Dorsey PROF CHEM 8 (BAS METB)on Anion gap [Moles/Vol] 9.5 mmol/L Normal [facility] Comment on above: Performed By: #### C MP, BNP, CMADM #### [facility] [address] [place] [address] Dr. Harmeet Dorsey Calcium [Mass/Vol] 8.8 mg/dL Normal 8.5-10.1 [facility] Comment on above: Performed By: #### C MP, BNP, CMADM #### [facility] [address] [place] [address] Dr. Harmeet Dorsey Chloride [Moles/Vol] 102 mmol/L Normal 98-107 [facility] Comment on above: Performed By: #### C MP, BNP, CMADM #### [facility] [address] [place] [address] Dr. Harmeet Dorsey CO2 [Moles/Vol] 29.0 mmol/L Normal 21.0-32.0 [facility] Comment on above: Performed By: #### C MP, BNP, CMADM #### [facility] [address] [place] [address] Dr. Harmeet Dorsey Creatinine [Mass/Vol] 1.07 mg/dL Normal 0.70-1.30 [facility] Comment on above: Performed By: #### C MP, BNP, CMADM #### [facility] [address] [place] [address] Dr. Harmeet Dorsey EGFR-AF PRYDEINIG >60 Normal >=60 [facility] Comment on above: Performed By: #### C MP, BNP, CMADM #### [facility] [address] [place] [address] Dr. Harmeet Dorsey EGFR-NON AF PRYDEINIG >60 Normal >=60 [facility] Comment on above: Performed By: #### C MP, BNP, CMADM #### [facility] [address] [place] [address] Dr. Harmeet Dorsey Glucose [Mass/Vol] 142 mg/dL Critically high 74-106 T [facility] Comment on above: Performed By: #### C MP, BNP, CMADM #### [facility] [address] [place] [address] Dr. Harmeet Dorsey Potassium [Moles/Vol] 3.5 mmol/L Normal 3.5-5.1 [facility] Comment on above: Performed By: #### C MP, BNP, CMADM #### [facility] [address] [place] [address] Dr. Harmeet Dorsey Sodium [Moles/Vol] 137 mmol/L Normal 136-145 [facility] Comment on above: Performed By: #### C MP, BNP, CMADM #### [facility] [address] [place] [address] Dr. Harmeet Dorsey Urea nitrogen [Mass/Vol] 15.0 mg/dL Normal 7.0-18.0 [facility] Comment on above: Performed By: #### C MP, BNP, CMADM #### [facility] [address] [place] [address] Dr. Harmeet Dorsey Urea nitrogen/Creatinine [Mass ratio] 14.0 mg/mg Normal [facility] Comment on above: Performed By: #### C MP, BNP, CMADM #### [facility] [address] [place] [address] Dr. Harmeet Dorsey TSHon 08-06-2022 TSH 1.940 uIU/mL Normal 0.358-3.740 [facility] Comment on above: Performed By: #### C MP, BNP, CMADM #### [facility] [address] [place] [address] Dr. Harmeet Dorsey Vital Signs Date Time Vital Sign Value Performing Clinician Alberto warren 08-03-2023 11:04-0500 Diastolic blood pressure 80 mm[Hg] Angela Abdi DO Work Phone: [facility] 08-03-2023 11:04-0500 Systolic blood pressure 144 mm[Hg] Angela Abdi DO Work Phone: [facility] 08-03-2023 10:21-0500 Body height 157.5 cm Angela Abdi DO Work Phone: [facility] 08-03-2023 10:0500 Body mass index (BMI) [Ratio] 34.02 kg/m2 Angela Abdi DO Work Phone: [facility] 08-03-2023 10:050 Body weight 84.37 kg Angela Abdi DO Work Phone: [facility] 08-03-2023 10:050 Heart rate 64 /min Angela Abdi DO Work Phone: [facility] Encounters Encounter Date Encounter Type Care Provider Facility Start: 01-02-2024 End: 01-03-2024 ambulatory ODILON CHOI Not Available Start: 11-17-2023 End: 11-17-2023 ambulatory LUX SPIVEY Not Available Start: 09-29-2023 End: 09-30-2023 Emergency department patient visit NGUYỄN JASMINE [facility] Start: 09-29-2023 End: 09-30-2023 ambulatory LUX SPIVEY Not Available Start: 08-03-2023 End: 08-03-2023 ambulatory [facility] Ambulatory Start: 08-03-2023 End: 08-03-2023 Office outpatient visit 25 minutes Angela Abdi DO Work Phone: [facility] Comment on above: History of non-ST el evation myocardial infarction (NSTEMI); Atherosclerosis of [place] coronary artery of [place] heart, unspecified whether angina present; Mixed hyperlipidemia; Essential hypertension Start: 01-17-[address] Lux Spivey Facility:[facility] Start: 01-15-[address] Lux Spivey Facility:[id number] Start: 01-15-2023 End: 01-16-2023 Evaluation and management of inpatient W King Abdi Facility:[facility] Start: 01-15-2023 End: 01-15-2023 ambulatory CECIL JOHN . Facility: Start: 01-15-[address] Lux Spivey Facility:[id number] Start: 08-06-2022 End: 08-07-[address] LUX SPIVEY Facility: Start: 09-29-2018 End: 09-30-2018 Patient encounter procedure DEFAULT PHYSICIAN Facility:[facility] Procedures Date Procedure Procedure Detail Performing Clinician Start: 08-06-2022 PSA screening CECIL RAO . Comment on above: Performed By: #### P [facility] #### [facility] [address] [address] [address] Harmeet Dorsey Plan of Treatment Date Care Activity Detail Author Start: 03-18-2025 DTaP/Tdap/Td Vaccines (2 - Td or Tdap) DTaP/Tdap/Td Vaccines (2 - Td or Tdap) [facility] Start: 08-03-2023 End: 08-03-2024 Alanine aminotransferase [Enzymatic activity/volume] in Serum or Plasma by With P-5'-P Alanine Aminotransferase Lab Routine Mixed hyperlipidemia Expected: 08/03/2023 (Approximate), Expires: 08/03/2024 [facility] Service Area Work Phone: Comment on above: Expected: 08/03/2023 (Approximate), Expi res: 08/03/2024 Start: 08-03-2023 End: 08-03-2024 Aspartate aminotransferase [Enzymatic activity/volume] in Serum or Plasma by With P-5'-P Aspartate Aminotransferase Lab Routine Mixed hyperlipidemia Expected: 08/03/2023 (Approximate), Expires: 08/03/2024 [facility] Work Phone: Comment on above: Expected: 08/03/2023 (Approximate), Expi res: 08/03/2024 Start: 08-03-2023 End: 08-03-2024 Basic metabolic 2000 panel - Serum or Plasma Basic Metabolic Panel Lab Routine History of non-ST elevation myocardial infarction (NSTEMI) Atherosclerosis of [place] coronary artery of [place] heart, unspecified whether angina present Mixed hyperlipidemia Essential hypertension Expected: 08/03/2023 (Approximate), Expires: 08/03/2024 [facility] Work Phone: Comment on above: Expected: 08/03/2023 (Approximate), Expi res: 08/03/2024 Start: 08-03-2023 End: 08-03-2024 Lipid 1996 panel - Serum or Plasma Lipid Panel Lab Routine Mixed hyperlipidemia Expected: 08/03/2023 (Approximate), Expires: 08/03/2024 [facility] Work Phone: Comment on above: Expected: 08/03/2023 (Approximate), Expi res: 08/03/2024 Start: 05-20-2023 Influenza vaccination Influenza Vaccine (#1) [facility] Start: 08-27-2021 Zoster Vaccines (2 of 2) Zoster Vaccines (2 of 2) [facility] Start: 03-05-2021 COVID-19 Vaccine (3 - Pfizer series) COVID-19 Vaccine (3 - Pfizer series) [facility] Start: 2020 Abdominal aortic aneurysm screening Abdominal Aortic Aneurysm (AAA) Screening [facility] Start: 1973 Diabetes mellitus screening Diabetes Screening [facility] Start: 1973 Hepatitis C screening Hepatitis C Screening [facility] Start: 1961 Pneumococcal Vaccine: 65+ Years (1 - PCV) Pneumococcal Vaccine: 65+ Years (1 - PCV) [facility] Start: 1955 Lipid panel Lipid Panel [facility] Start: 1955 Screening for malignant neoplasm of colon [facility] Start: 1955 Yearly Adult Physical Yearly Adult Physical [facility] Immunizations Immunization Date Immunization Notes Care Provider Fa cilikiley 07-02-2021 influenza virus vaccine, unspecified formulation Angela Abdi DO Work Phone: [facility] Work Phone: Payers Date Payer Category Payer Private Health Insurance [facility] [id number] 2023-Present [address] [place] [address] [id number] 2023 Private Health Insurance [id number] 2023 Self-pay 2020 Medicare MEDICARE MEDICAR E PART A AND B [id number] 2020-Present [address] [place] [address] [id number] 1959 Medicare [id number] 1959 Private Health Insurance [id number] 1955 Unknown [id number]. 2.647 1955 Unknown [id number] [id number]. 2.593 1955 Unknown [id number] [id number]. 2.593 1955 Unknown [id number] [id number]. 2.356 1955 Unknown [id number] [id number]. 2.356 1955 Unknown [id number] [id number]. 2.1244 1955 Unknown [id number] [id number]. 2.1286 1955 Unknown [id number] [id number]. 2.1286 1955 Unknown [id number] [id number]. 2.1259 1955 Unknown [id number] [id number]. 2.1259 1955 Unknown [id number] [id number]. 2.1259 Unknown Unknown [id number]. 2.531 Social History Date Type Detail Facility Start: 08-03-2023 [facility] History of tobacco use Current smoker [facility] Work Phone: History of tobacco use Cigarette Smoker [facility] Work Phone: Start: 08-03-2023 Tobacco use and exposure Smokeless tobacco non-user [facility] Work Phone: Start: 08-03-2023 Alcohol intake Lifetime non-d dylan (finding) [facility] Work Phone: Start: 08-03-2023 History of Social function [facility] Work Phone: Start: 08-03-2023 Tobacco use panel [facility] Work Phone: Start: 1955 Sex Assigned At Not on file [facility] Work Phone: Start: 07-24-2023 End: 08-03-2023 Exposure to SARS-CoV-2 (event) Not sure [facility] History of Present illness Narrative 08-03-2023 [...] elevation myocardial infarction (NSTEMI) 2. Atherosclerosis of [place] coronary artery of [place] heart, unspecified whether angina present 3. Mixed hyperlipidemia 4. Essential hypertension documented in this encounter [facility] Work Phone: Instructions 08-03-2023 Patient Instructions [...] of your visit. documented in this encounter [facility] Work Phone: Clinical Note 10-26-2021 Note Date & Type Note Facility 10-26-2021 Note PROCEDURE: [employer] VCT 64, 5.0 mm withIV contrast, axial [...] signed by Pradeep Renteria on 10/26/2021 [address] [facility] Oncology Registrar Evaluation note Note Date & Type Note Facility Evaluation note Diagnosis History of non-ST elevation myocardial infarction (NSTEMI) Atherosclerosis of [place] coronary artery of [place] heart, unspecified whether angina present Mixed hyperlipidemia Essential hypertension Unspecified essential hypertension documented in this encounter [facility] Work Phone: Reason for referral (narrative) Consultation (Routine) - Authorized Note Date & Type Note Facility Reason for referral (narrati ve) Specialty Diagnoses / Procedures Referred By Contac t Referred To Contact Cardiology Diagnoses History of non-ST elevation myocardial infarction (NSTEMI) Atherosclerosis of [place] coronary artery of [place] heart, unspecified whether angina present Essential hypertension Procedures Follow Up In Cardiology Angela Abdi DO [address] [facility] [address] [place] [address] Angela Abdi DO [address] [facility] [address] [id number] Referral ID Status Reason Start Date Expiration Date V isits Requested Visits Authorized [id number] Authorized 08/03/2023 08/02/2024 1 1 [facility] Work Phone: Summary Purpose Family History [...] section and content) DATE CREATED AUTHOR 10/02/2018 [facility] DATE CREATED AUTHOR AUTHOR'S ORGANIZ ATION 10/27/2021 [facility] dical Specialist DATE CREATED AUTHOR AUTHOR'S ORGANIZ ATION 01/18/2023 [facility] pital DATE CREATED AUTHOR AUTHOR'S ORGANIZ ATION 01/19/2023 [facility] DATE CREATED AUTHOR AUTHOR'S ORGANIZ ATION 03/08/[address] 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 [email or web address] [facility]. provides no warranty or guarantee of the accuracy or completeness of information in this document.
== END 2024-03-09 07:51 | disposition home or self-care (01) ==
LOC: VC 07:50
PROVIDERS: PCP Radiology Diagnostic Radiology; Visit Provider Radiology Diagnostic Radiology
DX: I83.813 Varicose veins of bilateral lower extremities with pain (principal)
CPT/HCPCS: 36471

== ENCOUNTER 2024-05-07 08:58 | Outpatient (OUT) | payer OTHER, MEDICARE, SELFPAY ==
--- NOTE | 2024-05-07 09:04 | XR_ITS ---
The [address] [address] Patient Name: BRIGETTE CHA MRN: [id number] date: 1955 Sex: M Assigned Patient Location: [facility] Current Patient Location: Accession/Order Number: [id number] Exam Date: 05/07/2024 09:55 Report Date: 05/08/2024 07:17 At the request of: ODILON CHOI Procedure: XR chest 2V PROCEDURE: XR chest 2V DATE: 05/07/2024 8:55 AM CDT COMPARISONS: 01/15/2023 CLINICAL INDICATION: 68 years Male Preop exam FINDINGS: The cardiomediastinal silhouette and pulmonary vasculature are within normal limits. The lungs are clear. There is no evidence of pleural effusion or pneumothorax. XR/XR chest 2V IMPRESSION: Chest radiograph is within normal limits. Electronically authenticated by: ARIADNE QUIROZ Date: 05/08/2024 07:17
--- NOTE | 2024-05-07 09:04 | ECG_ITS ---
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
--- OUTSIDE RECORDS SUMMARY | 2024-05-07 09:10 | XMS_ITS | CCD ---
Author Organization [facility] Care Team Providers Care Switch Box Installer Name Role Phone PHYSICIAN, DEFAULT Unavailable Unavailable PHYSICIAN, DEFAULT Unavailable Unavailable ALVARO eFrnandes, CECIL Admitting Unavailable ALVARO Fernandes, CECIL Attending Unavailable DAMON, DR VIKTORIA Zhang Consulting Unavailable NADERER, DR LUX [place] [facility] Unavailable CECIL WRIGHT Consulting Unavailable ALLYSSA, DR LUX [place] Attending Unavailable NADBARB, DR LUX [place] Admitting Unavailable ALLYSSA, DR LUX [place] [facility] Unavailable ALLYSSA, DR LUX [place] Consulting Unavailable Allyssa, Dr. Lux Christine Primary Care Deangelo Spivey, Dr. Lux Christine Primary Care Angela Thomas Attending Unavailable Allyssa, Dr. Lux Christine Primary Care Deangelo Abdi, Greg Malik Attending Unavailable Silvano, Greg Malik Admitting Unavailable Lux Spivey Primary Care Unavailable Lux Spivey MD Primary Care Provider ANGELA ABDI Attending Unavailable LUX SPIVEY Primary Care Unavailabl e LUX SPIVEY Primary Care Unavailable NGUYỄN JASMINE Attending Unavailable NGUYỄN JASMINE Attending Unavailable NGUYỄN JASMINE Referring Unavailable LUX SPIVEY Primary Care Unavailable ALLYSSA, LUX Referring Unavailable ALLYSSA, LUX Attending Unavailable ODILON CHOI Attending Unavailable JOSE DERER, LUX Referring Unavailable JOSE DERELeona, LUX Attending Unavailable ODILON CHOI Attending Unavailable Medications Current Medications Medication Drug Class(es) [...] 01-15-2023 Episodic Other aftercare (1 source) Other manager terminal (current) drug therapy; Translations: [OTH SNF CURRENT DRUG THERAPY] Onset: 01-18-2023 Episodic Other [...] Leon MD on 09/29/2023 9:46 AM Normal [facility] L[facility]on 09-23-2023 US LIVER CLINICAL HISTORY: Abnormal liver function TECHNIQUE: [...] Anion gap [Moles/Vol] 10.0 mmol/L Normal 6.0-15.0 [facility] Comment on above: Performed By: #### C BC, BMP, LIPID #### [facility] [address] [id number] [place] Calcium [Mass/Vol] 8.6 mg/dL Normal 8.6-10.3 [facility] Comment on above: Performed By: #### C BC, BMP, LIPID #### [facility] [address] [id number] [place] Chloride [Moles/Vol] 102 mmol/L Normal 98-107 [facility] Comment on above: Performed By: #### C BC, BMP, LIPID #### [facility] [address] [place] [address] [place] CO2 [Moles/Vol] 28.7 mmol/L Normal 21.0-31.0 [facility] Comment on above: Performed By: #### C BC, BMP, LIPID #### [facility] [address] [id number] [place] Creatinine [Mass/Vol] 1.15 mg/dL Normal 0.70-1.30 [facility] Comment on above: Performed By: #### C BC, BMP, LIPID #### [facility] [address] [place] [address] [place] Creatinine Clr Calc Pharmacy 57.91 Normal [facility] Comment on above: Performed By: #### C BC BMP, LIPID #### [facility] [address] [place] [address] [place] GFR/1.73 sq M.predicted MDRD (S/P/Bld) [Vol rate/Area] mL/min/{1.73_m2} Normal [facility] Comment on above: Performed By: #### C BC BMP, LIPID #### [facility] [address] Glucose [Mass/Vol] 112 mg/dL High 70-100 [facility] Comment on above: Result Comment: [place] Glucose Reference Range is dependent on time and content of last meal. Glucose of more than 200 mg/dL in a nonstressed, ambulatory subject supports the diagnosis of Diabetes Mellitus. ADA recommended reference range Performed By: #### C ASHLEY BMP, LIPID #### [address] Potassium [Moles/Vol] 3.7 mmol/L Normal 3.5-5.1 [facility] Comment on above: Performed By: #### C ASHLEY BMP, LIPID #### [facility] [address] Sodium [Moles/Vol] 137 mmol/L Normal 136-145 [facility] Comment on above: Performed By: #### C BC BMP, LIPID #### [facility] [address] [place] [address] [place] Urea nitrogen [Mass/Vol] 17 mg/dL Normal 7-25 [facility] Comment on above: Performed By: #### C BC BMP, LIPID #### [address] Complete Blood Count Auto Di ffon 01-16-2023 Basophils (Bld) [#/Vol] 0.0 10*3/uL Normal 0.0-0.2 [facility] Comment on above: Result Comment: PERF ORMED BY: [place] [address] PATHOLOGIST [employer] COLLETTE ENRIQUEZ M.D. Performed By: #### C BC, BMP, LIPID #### [address] Basophils/100 WBC (Bld) 0.2 % Normal . [facility] Comment on above: Performed By: #### C BC, BMP, LIPID #### [address] Eosinophils (Bld) [#/Vol] 0.1 10*3/uL Normal 0.0-0.45 [facility] Comment on above: Performed By: #### C BC, BMP, LIPID #### [address] Eosinophils/100 WBC (Bld) 0.5 % Normal . [facility] Comment on above: Performed By: #### C BC, BMP, LIPID #### [address] Erythrocyte distribution width (RBC) [Ratio] 13.7 % Normal 12.0-14.8 [facility] Comment on above: Performed By: #### C BC, BMP, LIPID #### [address] Hematocrit (Bld) [Volume fraction] 50.3 % High 38.8-50.0 [facility] Comment on above: Performed By: #### C BC, BMP, LIPID #### [address] Hemoglobin (Bld) [Mass/Vol] 16.9 g/dL Normal 13.0-17.0 [facility] Comment on above: Performed By: #### C BC, BMP, LIPID #### [address] Lymphocytes (Bld) [#/Vol] 1.9 10*3/uL Normal 1.00-4.8 [facility] Comment on above: Performed By: #### C BC, BMP, LIPID #### [facility] [address] [place] [address] [place] Lymphocytes/100 WBC (Bld) 16.0 % Normal . [facility] Comment on above: Performed By: #### C BC, BMP, LIPID #### [facility] [address] MCH (RBC) [Entitic mass] 31.0 pg Normal 27.5-35.2 [facility] Comment on above: Performed By: #### C BC, BMP, LIPID #### [facility] [address] MCV (RBC) [Entitic vol] 92.0 fL Normal 83.5-101 [facility] Comment on above: Performed By: #### C BC, BMP, LIPID #### [facility] [address] Mean Corpuscular HGB Conc 33.6 g/dL Normal 32.5-35.6 [facility] Comment on above: Performed By: #### C BC, BMP, LIPID #### [facility] [address] [place] [address] [place] Monocytes (Bld) [#/Vol] 1.1 10*3/uL High 0.0-0.8 [facility] Comment on above: Performed By: #### C BC, BMP, LIPID #### [facility] [address] [place] [address] [place] Monocytes/100 WBC (Bld) 9.1 % Normal . [facility] Comment on above: Performed By: #### C BC, BMP, LIPID #### [facility] [address] [place] [address] [place] Neutrophils (Bld) [#/Vol] 9.0 10*3/uL High 1.8-7.7 [facility] Comment on above: Performed By: #### C BC, BMP, LIPID #### [facility] [address] [place] [address] [place] Neutrophils/100 WBC (Bld) 74.2 % Normal . [facility] Comment on above: Performed By: #### C BC, BMP, LIPID #### [facility] [address] NRBC% 0.1 /100{WBC} Normal 0-0.5 [facility] Comment on above: Performed By: #### C BC, BMP, LIPID #### [facility] [address] Platelet mean volume (Bld) [Entitic vol] 8.3 fL Normal 6.6-10.1 [facility] Comment on above: Performed By: #### C BC, BMP, LIPID #### [facility] [address] Platelets (Bld) [#/Vol] 229 10*3/uL Normal 150-450 [facility] Comment on above: Performed By: #### C BC, BMP, LIPID #### [address] RBC (Bld) [#/Vol] 5.47 10*6/uL Normal 3.90-5.60 [facility] Comment on above: Performed By: #### C BC, BMP, LIPID #### [facility] [address] [place] [address] WBC (Bld) [#/Vol] 12.2 10*3/uL High 4.1-10.5 [facility] Comment on above: Performed By: #### C BC, BMP, LIPID #### [address] ECG 12 lead ECGon 01-16-2023 ECG 12 lead ECG [facility] [place] [address] [place] [address] Electrocardiograph Report Signed Patient: Brigette Degroot MR#: [id number] : 1955 Acct:[id number] Age/Sex: 67 / M ADM Date: 01/15/23 Loc: Room: [address] [place] [address] Type: ADM IN Attending Dr: Greg Abdi [...] By Jin Hunter DO 01/16 1516 Normal [facility] Lipid Panelon 01-16-2023 Cholesterol [Mass/Vol] 181 mg/dL Normal 140-200 [facility] Comment on above: Result Comment: Chol less than 200 mg/dl low risk Chol 201-239 mg/dl borderline risk Chol 240 mg/dl and greater high risk Performed By: #### C BC, BMP, LIPID #### [facility] [address] Cholesterol in HDL [Mass/Vol] 46 mg/dL Normal 29-71 [facility] Comment on above: Result Comment: HDL CHOL ATP-III CLASSIFICATION Cardiovascular Risk HDL > or equal to 60 mg/dL LOW HDL < 40 mg/dL HIGH Performed By: #### C BC, BMP, LIPID #### [facility] [address] Cholesterol.total/C holesterol in HDL [Mass ratio] 3.9 {ratio} Normal <5.0 [facility] Comment on above: Result Comment: PERF ORMED BY: [place] [address] PATHOLOGIST [employer] COLLETTE ENRIQUEZ M.D. Performed By: #### C BC, BMP, LIPID #### [facility] [address] [place] [address] [place] LDL Cholesterol,Calcula joey 107 mg/dL High 0-100 [facility] Comment on above: Result Comment: LDL ATP III CLASSIFICATION LDL less than 100 mg/dL Optimal LDL 100-129 mg/dL Near or above optimal LDL 130-159 mg/dL Borderline high LDL 160-189 mg/dL High LDL greater than 189 mg/dL Very high Performed By: #### C BC, BMP, LIPID #### [facility] [address] Triglyceride w/Reflex 141 mg/dL Normal 0-149 [facility] Comment on above: Result Comment: TRIG ATP III CLASSIFICATION TRIG less than 150 mg/dL Normal TRIG 150-199 mg/dL Borderline high TRIG 200-500 mg/dL High TRIG greater than 500 mg/dL Very high Standard traceable to the Center for Disease Conrtrol and Prevention (CDC) test method. Performed By: #### C BC, BMP, LIPID #### [facility] [address] VLDL CHOLESTEROL 28 mg/dL Normal [facility] Comment on above: Performed By: #### C BC, BMP, LIPID #### [facility] [address] BNPon 01-15-2023 Natriuretic peptide B (Bld) [Mass/Vol] 15.0 pg/mL Normal <=900.0 [facility] Comment on above: Performed By: #### C MP, BNP, CMADM #### [facility] [address] [address] [address] Harmeet Dorsey CARDIAC JULEE ADMITon 023 CK [Catalytic activity/Vol] 109 U/L Normal 39-308 [facility] Comment on above: Performed By: #### C MP, BNP, CMADM #### [facility] [address] [address] [address] Harmeet Dorsey CK.MB [Mass/Vol] 2.05 ng/mL Normal <=3.60 [facility] Comment on above: Performed By: #### C MP, BNP, CMADM #### [facility] [address] [address] [address] Harmeet Dorsey HSTROP 69.9 pg/mL Normal 4.0-76.1 [facility] Comment on above: Result Comment: CUT- OFF POINTS HAVE BEEN ESTABLISHED BASED ON THE FOURTH UNIVERSAL DEFINITIONS OF MYOCARDIAL INFARCTION. THE UPPER REFERENCE LIMIT (URL) OF TROPONIN, DEFINED THE 99TH PERCENTILE OF cTnI DISTRIBUTION IN A REFERENCE POPULATION, HAS BEEN CONFIRMED THE DECISION THRESHOLD FOR [place] DIAGNOSIS. Performed By: #### C MP, BNP, CMADM #### [facility] [address] [place] [address] Dr. Harmeet Dorsey PRICE 96 ng/mL Normal 16-96 [facility] Comment on above: Performed By: #### C MP, BNP, CMADM #### [facility] [address] [place] [address] Dr. Harmeet Dorsey CBC AUTO DIFFon 01-15-2023 BASO # 0.1 103/ul Normal 0.0-0.1 [facility] Comment on above: Performed By: #### C BC #### [facility] [address] [place] [address] Dr. Harmeet Dorsey Basophils/100 WBC (Bld) 0.6 % Normal 0.2-2.0 [facility] Comment on above: Performed By: #### C BC #### [facility] [address] [place] [address] Dr. Harmeet Dorsey EO # 0.1 103/ul Normal 0.0-0.7 [facility] Comment on above: Performed By: #### C BC #### [facility] [address] [place] [address] Dr. Harmeet Dorsey Eosinophils/100 WBC (Bld) 0.7 % Critically low 0.9-7.0 [facility] Comment on above: Performed By: #### C BC #### [facility] [address] [place] [address] Dr. Harmeet Dorsey Erythrocyte distribution width (RBC) [Ratio] 13.3 % Normal 11.0-15.0 [facility] Comment on above: Performed By: #### C BC #### [facility] [address] [place] [address] Dr. Harmeet Dorsey Hematocrit (Bld) [Volume fraction] 54.4 % Critically high 42.0-54.0 [facility] Comment on above: Performed By: #### C BC #### [facility] [address] [place] [address] Dr. Harmeet Dorsey Hemoglobin (Bld) [Mass/Vol] 18.7 g/dL Critically high 14.0-18.0 [facility] Comment on above: Performed By: #### C BC #### [facility] [address] [place] [address] Dr. Harmeet Dorsey IG # 0.23 10e3/ul Critically high 0.00-0.03 [facility] Comment on above: Performed By: #### C BC #### [facility] [address] [place] [address] Dr. Harmeet Dorsey IG % 2.1 % Critically high 0.0-0.5 [facility] Comment on above: Performed By: #### C BC #### [facility] [address] [place] [address] Dr. Harmeet Dorsey LYMPH # 2.6 103/ul Normal 1.2-3.8 [facility] Comment on above: Performed By: #### C BC #### [facility] [address] [place] [address] Dr. Harmeet Dorsey Lymphocytes/100 WBC (Bld) 23.9 % Normal 20.5-60.0 [facility] Comment on above: Performed By: #### C BC #### [facility] [address] [place] [address] Dr. Harmeet Dorsey MANUAL DIFF REQ NO Normal [facility] Comment on above: Performed By: #### C BC #### [facility] [address] [place] [address] Dr. Harmeet Drosey MCH (RBC) [Entitic mass] 31.2 pg Normal 25.9-34.0 [facility] Comment on above: Performed By: #### C BC #### [facility] [address] [place] [address] Dr. Harmeet Dorsey MCHC (RBC) [Mass/Vol] 34.4 g/dL Normal 29.9-35.2 [facility] Comment on above: Performed By: #### C BC #### [facility] [address] [place] [address] Dr. Harmeet Dorsey MCV (RBC) [Entitic vol] 90.8 fL Normal 80.0-94.0 [facility] Comment on above: Performed By: #### C BC #### [facility] [address] [place] [address] Dr. Harmeet Dorsey MONO # 0.9 103/ul Critically high 0.3-0.8 [facility] Comment on above: Performed By: #### C BC #### [facility] [address] [place] [address] Dr. Harmeet Dorsey Monocytes/100 WBC (Bld) 8.4 % Normal 1.7-12.0 [facility] Comment on above: Performed By: #### C BC #### [facility] [address] [place] [address] Dr. Harmeet Dorsey NEUT # 7.0 103/ul Critically high 1.4-6.5 [facility] Comment on above: Performed By: #### C BC #### [facility] [address] [place] [address] Dr. Harmeet Dorsey Neutrophils/100 WBC (Bld) 64.3 % Normal 43.0-75.0 [facility] Comment on above: Performed By: #### C BC #### [facility] [address] [place] [address] Dr. Harmeet Dorsey Platelet mean volume (Bld) [Entitic vol] 9.7 fL Normal 9.5-13.5 [facility] Comment on above: Performed By: #### C BC #### [facility] [address] [place] [address] Dr. Harmeet Dorsey PLT 262 103/ul Normal 150-450 [facility] Comment on above: Performed By: #### C BC #### [facility] [address] [place] [address] Dr. Harmeet Dorsey RBC 5.99 106/ul Normal 4.70-6.10 [facility] Comment on above: Performed By: #### C BC #### [facility] [address] [place] [address] Dr. Harmeet Dorsey WBC 10.9 103/ul Normal 4.0-11.0 [facility] Comment on above: Performed By: #### C BC #### [facility] [address] [place] [address] Dr. Harmeet Dorsey PROF 14(COMP METB)on 023 Albumin [Mass/Vol] 3.5 g/dL Normal 3.4-5.0 [facility] Comment on above: Performed By: #### C MP, BNP, CMADM #### [facility] [address] [place] [address] Dr. Harmeet Dorsey Albumin/Globulin [Mass ratio] 0.8 {ratio} Normal [facility] Comment on above: Performed By: #### C MP, BNP, CMADM #### [facility] [address] [place] [address] Dr. Harmeet Dorsey ALP [Catalytic activity/Vol] 71 U/L Normal 46-116 [facility] Comment on above: Performed By: #### C MP, BNP, CMADM #### [facility] [address] [place] [address] Dr. Harmeet Dorsey ALT [Catalytic activity/Vol] 218 U/L Critically high 16-63 [facility] Comment on above: Performed By: #### C MP, BNP, CMADM #### [facility] [address] [place] [address] Dr. Harmeet Dorsey Anion gap [Moles/Vol] 10.2 mmol/L Normal [facility] Comment on above: Performed By: #### C MP, BNP, CMADM #### [facility] [address] [place] [address] Dr. Harmeet Dorsey AST [Catalytic activity/Vol] 92 U/L Critically high 15-37 [facility] Comment on above: Performed By: #### C MP, BNP, CMADM #### [facility] [address] [place] [address] Dr. Harmeet Dorsey Bilirubin [Mass/Vol] 0.7 mg/dL Normal 0.2-1.0 [facility] Comment on above: Performed By: #### C MP, BNP, CMADM #### [facility] [address] [place] [address] Dr. Harmeet Dorsey Calcium [Mass/Vol] 8.9 mg/dL Normal 8.5-10.1 [facility] Comment on above: Performed By: #### C MP, BNP, CMADM #### [facility] [address] [address] [address] Harmeet Dorsey Chloride [Moles/Vol] 101 mmol/L Normal 98-107 [facility] Comment on above: Performed By: #### C MP, BNP, CMADM #### [facility] [address] [address] [address] Harmeet Dorsey CO2 [Moles/Vol] 29.3 mmol/L Normal 21.0-32.0 [facility] Comment on above: Performed By: #### C MP, BNP, CMADM #### [facility] [address] [place] [address] Dr. Harmeet Dorsey Creatinine [Mass/Vol] 1.26 mg/dL Normal 0.70-1.30 [facility] Comment on above: Performed By: #### C MP, BNP, CMADM #### [facility] [address] [place] [address] Dr. Harmeet Dorsey EGFR-AF INDONESIAN >60 Normal >=60 [facility] Comment on above: Performed By: #### C MP, BNP, CMADM #### [facility] [address] [address] [address] Harmeet Dorsey EGFR-NON AF INDONESIAN 57 mL/min/1.73m2 Critically low >=60 [facility] Comment on above: Performed By: #### C MP, BNP, CMADM #### [facility] [address] [place] [address] Dr. Harmeet Dorsey Globulin (S) [Mass/Vol] 4.3 g/dL Normal [facility] Comment on above: Performed By: #### C MP, BNP, CMADM #### [facility] [address] [place] [address] Dr. Harmeet Dorsey Glucose [Mass/Vol] 178 mg/dL Critically high 74-106 [facility] Comment on above: Performed By: #### C MP, BNP, CMADM #### [facility] [address] [address] [address] Harmeet Dorsey Potassium [Moles/Vol] 3.5 mmol/L Normal 3.5-5.1 [facility] Comment on above: Performed By: #### C MP, BNP, CMADM #### [facility] [address] [address] [address] Harmeet Dorsey Protein [Mass/Vol] 7.8 g/dL Normal 6.4-8.2 [facility] Comment on above: Performed By: #### C MP, BNP, CMADM #### [facility] [address] [place] [address] Dr. Harmeet Dorsey Sodium [Moles/Vol] 137 mmol/L Normal 136-145 [facility] Comment on above: Performed By: #### C MP, BNP, CMADM #### [facility] [address] [place] [address] Dr. Harmeet Dorsey Urea nitrogen [Mass/Vol] 15.0 mg/dL Normal 7.0-18.0 [facility] Comment on above: Performed By: #### C MP, BNP, CMADM #### [facility] [address] [address] [address] Harmeet Dorsey Urea nitrogen/Creatinine [Mass ratio] 11.9 mg/mg Normal [facility] Comment on above: Performed By: #### C MP, BNP, CMADM #### [facility] [address] [place] [address] Dr. Harmeet Dorsey PROTIMEon 01-15-2023 INR Coag (PPP) [Relative time] 0.98 {INR} Normal [facility] Comment on above: Performed By: #### P T, PTT #### [facility] [address] [place] [address] Dr. Harmeet Dorsey INR GUIDELINES SEE BELOW Normal [facility] Comment on above: Result Comment: VICENTE RED INR: 2.0 - 3.0 CONDITIONS NOT LISTED BELOW 2.5 - 3.5 FOR PROSTHETIC HEART VALVE REPLACEMENT 2.5 - 3.5 RECURRENT THROMBOSIS Performed By: #### P T, PTT #### [facility] [address] [address] [address] Harmeet Dorsey PT Coag (PPP) [Time] 10.4 s Normal 9.0-11.6 [facility] Comment on above: Performed By: #### P T, PTT #### [facility] [address] [address] [address] Harmeet Dorsey PTTon 01-15-2023 aPTT Coag (Bld) [Time] 26.0 s Normal 22.3-36.2 [facility] Comment on above: Performed By: #### P T, PTT #### [facility] [address] [address] [address] Harmeet Dorsey Troponin I High Sensitivityo n 01-15-2023 Troponin I High Sensitivity 24992.6 pg/mL Off scale high 0.0-20.0 [facility] Comment on above: Result Comment: Crit ical Result : Called to and read back by: KIM WALSH at: 01/15/2023 20:17:48 by:LFM PERFORMED BY: [place] [address] PATHOLOGIST [employer] COLLETTE ENRIQUEZ M.D. Performed By: #### H S TROP #### [facility] [address] [place] [address] Troponin I High Sensitivity 9066.4 pg/mL Off scale high 0.0-20.0 [facility] Comment on above: Result Comment: Crit ical Result : Called to and read back by: LUCY MCELROY at: 01/15/2023 17:40:27 by:LFM PERFORMED BY: [place] [address] PATHOLOGIST [employer] COLLETTE ENRIQUEZ M.D. Performed By: #### H S TROP #### [facility] [address] [place] [address] [place] Troponin I High Sensitivity 4327.6 pg/mL Off scale high 0.0-20.0 [facility] [facility] Comment on above: Result Comment: Crit ical Result : Called to and read back by: LUCY MCELROY at: 01/15/2023 14:33:06 by:LFM PERFORMED BY: [place] [address] PATHOLOGIST [employer] COLLETTE ENRIQUEZ M.D. Performed By: #### H S TROP #### [address] Troponin I High Sensitivity 1492.5 pg/mL Off scale high 0.0-20.0 [facility] Comment on above: Result Comment: Crit ical Result : Called to and read back by: LUCY MCELROY at: 01/15/2023 13:14:42 by:[id number] PERFORMED BY: [place] [address] PATHOLOGIST [employer] GU[employer] COLLETTE ENRIQUEZ M.D. Performed By: #### H S TROP #### [address] XR CHEST 1 Von 01-15-2023 XR [...] VIKTORIA JOSE Date: 2023-01-15 09:51 Normal [facility] CBC AUTO DIFFon 08-06-2022 BASO # 0.0 103/ul Normal 0.0-0.1 [facility] Comment on above: Performed By: #### C BC #### [facility] [address] [place] [address] Dr. Harmeet Dorsey Basophils/100 WBC (Bld) 0.4 % Normal 0.2-2.0 [facility] Comment on above: Performed By: #### C BC #### [facility] [address] [place] [address] Dr. Harmeet Dorsey EO # 0.2 103/ul Normal 0.0-0.7 [facility] Comment on above: Performed By: #### C BC #### [facility] [address] [place] [address] Dr. Harmeet Dorsey Eosinophils/100 WBC (Bld) 2.3 % Normal 0.9-7.0 [facility] Comment on above: Performed By: #### C BC #### [facility] [address] [place] [address] Dr. Harmeet Dorsey Erythrocyte distribution width (RBC) [Ratio] 12.9 % Normal 11.0-15.0 [facility] Comment on above: Performed By: #### C BC #### [facility] [address] [place] [address] Dr. Harmeet Dorsey Hematocrit (Bld) [Volume fraction] 49.8 % Normal 42.0-54.0 [facility] Comment on above: Performed By: #### C BC #### [facility] [address] [place] [address] Dr. Harmeet Dorsey Hemoglobin (Bld) [Mass/Vol] 17.0 g/dL Normal 14.0-18.0 [facility] Comment on above: Performed By: #### C BC #### [facility] [address] [place] [address] Dr. Harmeet Dorsey IG # 0.03 10e3/ul Normal 0.00-0.03 [facility] Comment on above: Performed By: #### C BC #### [facility] [address] [place] [address] Dr. Harmeet Dorsey IG % 0.4 % Normal 0.0-0.5 [facility] Comment on above: Performed By: #### C BC #### [facility] [address] [place] [address] Dr. Harmeet Dorsey LYMPH # 2.5 103/ul Normal 1.2-3.8 [facility] Comment on above: Performed By: #### C BC #### [facility] [address] [place] [address] Dr. Harmeet Dorsey Lymphocytes/100 WBC (Bld) 30.9 % Normal 20.5-60.0 [facility] Comment on above: Performed By: #### C BC #### [facility] [address] [place] [address] Dr. Harmeet Dorsey MANUAL DIFF REQ NO Normal [facility] Comment on above: Performed By: #### C BC #### [facility] [address] [place] [address] Dr. Harmeet Dorsey MCH (RBC) [Entitic mass] 30.7 pg Normal 25.9-34.0 [facility] Comment on above: Performed By: #### C BC #### [facility] [address] [place] [address] Dr. Harmeet Dorsey MCHC (RBC) [Mass/Vol] 34.1 g/dL Normal 29.9-35.2 [facility] Comment on above: Performed By: #### C BC #### [facility] [address] [place] [address] Dr. Harmeet Dorsey MCV (RBC) [Entitic vol] 90.1 fL Normal 80.0-94.0 [facility] Comment on above: Performed By: #### C BC #### [facility] [address] [place] [address] Dr. Harmeet Dorsey MONO # 0.8 103/ul Normal 0.3-0.8 [facility] Comment on above: Performed By: #### C BC #### [facility] [address] [place] [address] Dr. Harmeet Dorsey Monocytes/100 WBC (Bld) 10.1 % Normal 1.7-12.0 [facility] Comment on above: Performed By: #### C BC #### [facility] [address] [place] [address] Dr. Harmeet Dorsey NEUT # 4.6 103/ul Normal 1.4-6.5 [facility] Comment on above: Performed By: #### C BC #### [facility] [address] [place] [address] Dr. Harmeet Dorsey Neutrophils/100 WBC (Bld) 55.9 % Normal 43.0-75.0 [facility] Comment on above: Performed By: #### C BC #### [facility] [address] [address] [address] Harmeet Dorsey Platelet mean volume (Bld) [Entitic vol] 10.8 fL Normal 9.5-13.5 [facility] Comment on above: Performed By: #### C BC #### [facility] [address] [address] [address] Harmeet Dorsey PLT 254 103/ul Normal 150-450 [facility] Comment on above: Performed By: #### C BC #### [facility] [address] [address] [address] Harmeet Dorsey RBC 5.53 106/ul Normal 4.70-6.10 [facility] Comment on above: Performed By: #### C BC #### [facility] [address] [place] [address] Dr. Harmeet Dorsey WBC 8.2 103/ul Normal 4.0-11.0 [facility] Comment on above: Performed By: #### C BC #### [facility] [address] [place] [address] Dr. Harmeet Dorsey LIPID PROFILEon 08-06-2022 CHOL-HDL RATIO NORM SEE BELOW Normal [facility] Comment on above: Result Comment: 3.3 - 4.4 LOW RISK 4.4 - 7.1 AVERAGE RISK 7.1 - 11.0 MODERATE RISK >11.0 HIGH RISK Performed By: #### L IPID, BMP, LIVER, TSH #### [facility] [address] [place] [address] Dr. Harmeet Dorsey Cholesterol [Mass/Vol] 236 mg/dL Critically high <=200 [facility] Comment on above: Performed By: #### L IPID, BMP, LIVER, TSH #### [facility] [address] [address] [address] Harmeet Dorsey Cholesterol in HDL [Mass/Vol] 43 mg/dL Normal 40-60 [facility] Comment on above: Performed By: #### L IPID, BMP, LIVER, TSH #### [facility] [address] [address] [address] Harmeet Dorsey Cholesterol in LDL [Mass/Vol] 146.8 mg/dL Normal [facility] Comment on above: Performed By: #### L IPID, BMP, LIVER, TSH #### [facility] [address] [address] [address] Harmeet Dorsey Cholesterol.total/C holesterol in HDL [Mass ratio] 5.5 {ratio} Normal [facility] Comment on above: Performed By: #### L IPID, BMP, LIVER, TSH #### [facility] [address] [address] [address] Harmeet Dorsey HDL NORMAL > or = 60 mg/dl - LO W CARDIOVASCULAR RISK <40 mg/dl - HIGH CARDIOVASCULAR RISK Normal [facility] Comment on above: Performed By: #### L IPID, BMP, LIVER, TSH #### [facility] [address] [address] [address] Harmeet Dorsey LDL CALC NORMAL SEE BELOW Normal [facility] Comment on above: Result Comment: <100 mg/dl OPTIMAL 100 - 129 mg/dl NEAR OR ABOVE OPTIMAL 130 - 159 mg/dl BORDERLINE HIGH 160 - 189 mg/dl HIGH >190 mg/dl VERY HIGH Performed By: #### L IPID, BMP, LIVER, TSH #### [facility] [address] [address] [address] Harmeet Dorsey Triglyceride [Mass/Vol] 231 mg/dL Critically high <=150 [facility] Comment on above: Performed By: #### L IPID, BMP, LIVER, TSH #### [facility] [address] [address] [address] Harmeet Dorsey VLDL CALC 46.2 mg/dL Normal [facility] Comment on above: Performed By: #### L IPID, BMP, LIVER, TSH #### [facility] [address] [address] [address] Harmeet Dorsey LIVER PROFILEon 08-06-2022 Albumin [Mass/Vol] 3.7 g/dL Normal 3.4-5.0 [facility] Comment on above: Performed By: #### C MP, BNP, CMADM #### [facility] [address] [address] [address] Harmeet Dorsey Albumin/Globulin [Mass ratio] 1.0 {ratio} Normal [facility] Comment on above: Performed By: #### C MP, BNP, CMADM #### [facility] [address] [address] [address] Harmeet Dorsey ALP [Catalytic activity/Vol] 65 U/L Normal 46-116 [facility] Comment on above: Performed By: #### C MP, BNP, CMADM #### [facility] [address] [address] [address] Harmeet Dorsey ALT [Catalytic activity/Vol] 131 U/L Critically high 16-63 [facility] Comment on above: Performed By: #### C MP, BNP, CMADM #### [facility] [address] [place] [address] Dr. Harmeet Dorsey AST [Catalytic activity/Vol] 83 U/L Critically high 15-37 [facility] Comment on above: Performed By: #### C MP, BNP, CMADM #### [facility] [address] [place] [address] Dr. Harmeet Dorsey BILI, CONJUGATED 0.2 mg/dL Normal 0.0-0.2 [facility] Comment on above: Performed By: #### C MP, BNP, CMADM #### [facility] [address] [place] [address] Dr. Harmeet Dorsey Bilirubin [Mass/Vol] 0.8 mg/dL Normal 0.2-1.0 [facility] Comment on above: Performed By: #### C MP, BNP, CMADM #### [facility] [address] [place] [address] Dr. Harmeet Dorsey Globulin (S) [Mass/Vol] 3.8 g/dL Normal [facility] Comment on above: Performed By: #### C MP, BNP, CMADM #### [facility] [address] [address] [address] Harmeet Dorsey Protein [Mass/Vol] 7.5 g/dL Normal 6.4-8.2 [facility] Comment on above: Performed By: #### C MP, BNP, CMADM #### [facility] [address] [place] [address] Dr. Harmeet Dorsey PROF CHEM 8 (BAS METB)on Anion gap [Moles/Vol] 9.5 mmol/L Normal [facility] Comment on above: Performed By: #### C MP, BNP, CMADM #### [facility] [address] [place] [address] Dr. Harmeet Dorsey Calcium [Mass/Vol] 8.8 mg/dL Normal 8.5-10.1 [facility] Comment on above: Performed By: #### C MP, BNP, CMADM #### [facility] [address] [place] [address] Dr. Harmeet Dorsey Chloride [Moles/Vol] 102 mmol/L Normal 98-107 [facility] Comment on above: Performed By: #### C MP, BNP, CMADM #### [facility] [address] [place] [address] Dr. Harmeet Dorsey CO2 [Moles/Vol] 29.0 mmol/L Normal 21.0-32.0 [facility] Comment on above: Performed By: #### C MP, BNP, CMADM #### [facility] [address] [place] [address] Dr. Harmeet Dorsey Creatinine [Mass/Vol] 1.07 mg/dL Normal 0.70-1.30 [facility] Comment on above: Performed By: #### C MP, BNP, CMADM #### [facility] [address] [place] [address] Dr. Harmeet Dorsey EGFR-AF INDONESIAN >60 Normal >=60 [facility] Comment on above: Performed By: #### C MP, BNP, CMADM #### [facility] [address] [place] [address] Dr. Harmeet Dorsey EGFR-NON AF INDONESIAN >60 Normal >=60 [facility] Comment on above: Performed By: #### C MP, BNP, CMADM #### [facility] [address] [place] [address] Dr. Harmeet Dorsey Glucose [Mass/Vol] 142 mg/dL Critically high 74-106 [facility] Comment on above: Performed By: #### C MP, BNP, CMADM #### [facility] [address] [place] [address] Dr. Harmeet Dorsey Potassium [Moles/Vol] 3.5 mmol/L Normal 3.5-5.1 [facility] Comment on above: Performed By: #### C MP, BNP, CMADM #### [facility] [address] [place] [address] Dr. Harmeet Dorsey Sodium [Moles/Vol] 137 mmol/L Normal 136-145 [facility] Comment on above: Performed By: #### C MP, BNP, CMADM #### [facility] [address] [place] [address] Dr. Harmeet Dorsey Urea nitrogen [Mass/Vol] 15.0 mg/dL Normal 7.0-18.0 [facility] Comment on above: Performed By: #### C MP, BNP, CMADM #### [facility] [address] [place] [address] Dr. Harmeet Dorsey Urea nitrogen/Creatinine [Mass ratio] 14.0 mg/mg Normal [facility] Comment on above: Performed By: #### C MP, BNP, CMADM #### [facility] [address] [place] [address] Dr. Harmeet Dorsey TSHon 08-06-2022 TSH 1.940 uIU/mL Normal 0.358-3.740 [facility] Comment on above: Performed By: #### C MP, BNP, CMADM #### [facility] [address] [place] [address] Dr. Harmeet Dorsey Vital Signs Date Time Vital Sign Value Performing Clinician Alberto warren 08-03-2023 11:04-0500 Diastolic blood pressure 80 mm[Hg] Angela Abdi DO Work Phone: [facility] 08-03-2023 11:04-0500 Systolic blood pressure 144 mm[Hg] Angela Abdi DO Work Phone: [facility] 08-03-2023 10:21-0500 Body height 157.5 cm Angela Abdi DO Work Phone: [facility] 08-03-2023 10:21-0500 Body mass index (BMI) [Ratio] 34.02 kg/m2 Angela Abdi DO Work Phone: [facility] 08-03-2023 10:21-0500 Body weight 84.37 kg Angela Abdi DO Work Phone: [facility] 08-03-2023 10:21-0500 Heart rate 64 /min Angela Abdi DO Work Phone: [facility] Encounters Encounter Date Encounter Type Care Provider Facility Start: 04-30-2024 End: 04-30-2024 ambulatory ODILON CHOI Not Available Start: 04-24-2024 End: 04-24-2024 ambulatory LUX SPIVEY Not Available Start: 01-02-2024 End: 01-02-2024 ambulatory ODILON CHOI Not Available Start: 11-17-2023 End: 11-17-2023 ambulatory LUX SPIVEY Not Available Start: 09-29-2023 End: 09-30-2023 Emergency department patient visit [facility] Start: 09-29-2023 End: 09-29-2023 ambulatory LUX SPIVEY Not Available Start: 08-03-2023 End: 08-03-2023 ambulatory [facility] Start: 08-03-2023 End: 08-03-2023 Office outpatient visit 25 minutes Angela Valenzueladon Work Phone: [facility] Comment on above: History of non-ST el evation myocardial infarction (NSTEMI); Atherosclerosis of [place] coronary artery of [place] heart, unspecified whether angina present; Mixed hyperlipidemia; Essential hypertension Start: 01-17-[address] Lux Spivey Facility:[facility] Start: 01-15-[address] Lux Spivey Facility:[id number] Start: 01-15-2023 End: 01-16-2023 Evaluation and management of inpatient W King Valenzueladon Facility:[facility] Start: 01-15-2023 End: 01-15-2023 ambulatory CECIL JOHN . Facility:[facility] Start: 01-15-[address] Lux Spivey Facility:[id number] Start: 08-06-2022 End: 08-07-[address] LUX SPIVEY Facility:[facility] Start: 09-29-2018 End: 09-30-2018 Patient encounter procedure DEFAULT PHYSICIAN Facility:[facility] Procedures Date Procedure Procedure Detail Performing Clinician Start: 08-06-2022 PSA screening CECIL RAO . Comment on above: Performed By: #### P [facility] #### [facility] [address] [place] [address] Dr. Harmeet Dorsey Plan of Treatment Date Care Activity Detail Author Start: 03-18-2025 DTaP/Tdap/Td Vaccines (2 - Td or Tdap) DTaP/Tdap/Td Vaccines (2 - Td or Tdap) [facility] Start: 08-03-2023 End: 08-03-2024 Alanine aminotransferase [Enzymatic activity/volume] in Serum or Plasma by With P-5'-P Alanine Aminotransferase Lab Routine Mixed hyperlipidemia Expected: 08/03/2023 (Approximate), Expires: 08/03/2024 [facility] Service Area Work Phone: Comment on above: Expected: 08/03/2023 (Approximate), Expi res: 08/03/2024 Start: 08-03-2023 End: 08-03-2024 Aspartate aminotransferase [Enzymatic activity/volume] in Serum or Plasma by With P-5'-P Aspartate Aminotransferase Lab Routine Mixed hyperlipidemia Expected: 08/03/2023 (Approximate), Expires: 08/03/[address] [facility] Work Phone: Comment on above: Expected: 08/03/2023 (Approximate), Expi res: 08/03/2024 Start: 08-03-2023 End: 08-03-2024 Basic metabolic 2000 panel - Serum or Plasma Basic Metabolic Panel Lab Routine History of non-ST elevation myocardial infarction (NSTEMI) Atherosclerosis of [place] coronary artery of [place] heart, unspecified whether angina present Mixed hyperlipidemia Essential hypertension Expected: 08/03/2023 (Approximate), Expires: 08/03/[address] [facility] Work Phone: Comment on above: Expected: 08/03/2023 (Approximate), Expi res: 08/03/2024 Start: 08-03-2023 End: 08-03-2024 Lipid 1996 panel - Serum or Plasma Lipid Panel Lab Routine Mixed hyperlipidemia Expected: 08/03/2023 (Approximate), Expires: 08/03/[address] [facility] Work Phone: Comment on above: Expected: 08/03/2023 (Approximate), Expi res: 08/03/2024 Start: 05-20-2023 Influenza vaccination Influenza Vaccine (#1) [facility] Start: 08-27-2021 Zoster Vaccines (2 of 2) Zoster Vaccines (2 of 2) [facility] Start: 03-05-2021 COVID-19 Vaccine (3 - Pfizer series) COVID-19 Vaccine (3 - Pfizer series) [facility] Start: 2020 Abdominal aortic aneurysm screening Abdominal Aortic Aneurysm (AAA) Screening [facility] Start: 1973 Diabetes mellitus screening Diabetes Screening [facility] Start: 1973 Hepatitis C screening Hepatitis C Screening [facility] Start: 1961 Pneumococcal Vaccine: 65+ Years (1 - PCV) Pneumococcal Vaccine: 65+ Years (1 - PCV) [facility] Start: 1955 Lipid panel Lipid Panel [facility] Start: 1955 Screening for malignant neoplasm of colon [facility] Start: 1955 Yearly Adult Physical Yearly Adult Physical [facility] Immunizations Immunization Date Immunization Notes Care Provider Fa cilikiley 07-02-2021 influenza virus vaccine, unspecified formulation Angela Abdi DO Work Phone: [facility] Work Phone: Payers Date Payer Category Payer Private Health Insurance [facility] [id number] 2023-Present [address] [place] [address] [id number] 2023 Private Health Insurance [id number] 2023 Self-pay 2020 Medicare MEDICARE MEDICAR E PART A AND B [id number] 2020-Present [address] [place] [address] [id number] 1959 Medicare [id number] 1959 Private Health Insurance [id number] 1955 Unknown [id number] [id number]. 2.647 1955 Unknown [id number] [id number]. 2.593 1955 Unknown [id number] 2.16.840.1.247539.3.579. 2.593 1955 Unknown [id number] 2.16.840.1.504224.3.579. 2.356 1955 Unknown [id number] 2.16.840.1.107155.3.579. 2.356 1955 Unknown [id number] 2.16.840.1.818353.3.579. 2.1244 1955 Unknown [id number] 2.16.840.1.541688.3.579. 2.1286 1955 Unknown [id number] 2.16.840.1.067331.3.579. 2.1286 1955 Unknown [id number] 2.16.840.1.826800.3.579. 2.1259 1955 Unknown [id number] 2.16.840.1.104054.3.579. 2.1259 1955 Unknown [id number] 2.16.840.1.710076.3.579. 2.1259 1955 Unknown [id number] 2.16.840.1.265171.3.579. 2.1259 1955 Unknown [id number] 2.16.840.1.224923.3.579. 2.1259 Unknown Unknown [id number] [id number]. 2.531 Social History Date Type Detail Facility Start: 08-03-2023 Tobacco smoking stat us NHIS Ex-smoker [facility] History of tobacco use Current smoker [facility] Work Phone: History of tobacco use Cigarette Smoker [facility] Work Phone: Start: 08-03-2023 Tobacco use and exposure Smokeless tobacco non-user [facility] Work Phone: Start: 08-03-2023 Alcohol intake Lifetime non-d dylan (finding) [facility] Work Phone: Start: 08-03-2023 History of Social function [facility] Work Phone: Start: 08-03-2023 Tobacco use panel [facility] Work Phone: Start: 1955 Sex Assigned At Not on file [facility] Work Phone: Start: 07-24-2023 End: 08-03-2023 Exposure to SARS-CoV-2 (event) Not sure [facility] History of Present illness Narrative 08-03-2023 Angela Abdi, DO - 08/03/2023 9:40 AM EST Note Date & Type Note Facility 08-03-2023 History of Present illness Narrative Katrina Degroot is a 67 y.o. male Chief Complaint [...] elevation myocardial infarction (NSTEMI) 2. Atherosclerosis of [place] coronary artery of [place] heart, unspecified whether angina present 3. Mixed hyperlipidemia 4. Essential hypertension documented in this encounter [facility] Work Phone: Instructions 08-03-2023 Patient Instructions [...] of your visit. documented in this encounter [facility] Work Phone: Clinical Note 10-26-2021 Note Date & Type Note Facility 10-26-2021 Note PROCEDURE: [employer] peed VCT 64, 5.0 mm withIV contrast, axial [...] signed by Pradeep Renteria on 10/26/2021 [id number] [facility] Box [employer] Evaluation note Note Date & Type Note Facility Evaluation note Diagnosis History of non-ST elevation myocardial infarction (NSTEMI) Atherosclerosis of [place] coronary artery of [place] heart, unspecified whether angina present Mixed hyperlipidemia Essential hypertension Unspecified essential hypertension documented in this encounter [facility] Work Phone: Reason for referral (narrative) Consultation (Routine) - Authorized Note Date & Type Note Facility Reason for referral (narrati ve) Specialty Diagnoses / Procedures Referred By Contac t Referred To Contact Cardiology Diagnoses History of non-ST elevation myocardial infarction (NSTEMI) Atherosclerosis of [place] coronary artery of [place] heart, unspecified whether angina present Essential hypertension Procedures Follow Up In Cardiology Angela Abdi DO [address] [facility] [address], [address] [address] Angela Abdi DO [facility] [facility], [address] [address] Referral ID Status Reason Start Date Expiration Date V isits Requested Visits Authorized [id number] Authorized 08/03/2023 08/02/2024 1 1 [facility] Work Phone: Summary Purpose Family History [...] section and content) DATE CREATED AUTHOR 10/02/2018 [facility] DATE CREATED AUTHOR AUTHOR'S ORGANIZ ATION 10/27/2021 [facility] Me dical Specialist DATE CREATED AUTHOR AUTHOR'S ORGANIZ ATION 01/18/2023 [facility] DATE CREATED AUTHOR AUTHOR'S ORGANIZ ATION 01/19/2023 [facility] DATE CREATED AUTHOR AUTHOR'S ORGANIZ ATION 03/08/2023 [facility] DATE CREATED AUTHOR AUTHOR'S ORGANIZ ATION 08/05/2023 [facility] DATE CREATED AUTHOR AUTHOR'S ORGANIZ ATION 10/02/2023 [facility] DATE CREATED AUTHOR AUTHOR'S ORGANIZ ATION 05/01/2024 [facility] dical Specialists EPIC Reason for Visit (unrecogniz ed section and content) Reason Comments Follow-up 6m Care Teams (unrecognized sec tion and content) 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 [employer] [facility]. provides no warranty or guarantee of the accuracy or completeness of information in this [email or web address]
[2024-05-07 09:46] LABS: Basophils Percent Auto 0.4 % (0.2-2.0); Eosinophils Absolute Auto 0.1 10^3/uL (0.0-0.7); Eosinophils Percent Auto 1.2 % (0.9-7.0); Hematocrit 48.5 % (42.0-54.0); Hemoglobin 16.7 g/dL (14.0-18.0); Immature Granulocytes Abs Auto 0.04 10^3/uL (0.00-0.03); Immature Granulocytes Pct Auto 0.5 % (0.0-0.5); Lymphocytes Absolute Auto 2.3 10^3/uL (1.2-3.8); Lymphocytes Percent Auto 27.9 % (20.5-60.0); Mean Corpuscular HGB Conc 34.4 g/dL (29.9-35.2); Mean Corpuscular Hemoglobin 31.9 pg (25.9-34.0); Mean Corpuscular Volume 92.7 fL (80.0-94.0); Mean Platelet Volume 10.1 fL (9.5-13.5); Monocytes Absolute Auto 0.7 10^3/uL (0.3-0.8); Monocytes Percent Auto 8.3 % (1.7-12.0); Neutrophils Absolute Auto 5.1 10^3/uL (1.4-6.5); Neutrophils Percent Auto 61.7 % (43.0-75.0); Platelet Count 214 10^3/uL (150-450); Red Blood Count 5.23 10^6/uL (4.70-6.10); Red Cell Distribution Width 12.7 % (11.0-15.0); White Blood Count 8.2 10^3/uL (4.0-11.0)
[2024-05-07 10:02] LABS: INR 1.02; Partial Thromboplastin Time 29.3 sec (22.3-36.2); Prothrombin Time 10.8 sec (9.0-11.6)
[2024-05-07 10:30] LABS: Anion Gap 12.3; BUN Creatinine Ratio 21.2; Calcium 9.3 mg/dL (8.5-10.1); Carbon Dioxide 28.9 mmol/L (21.0-32.0); Chloride 102 mmol/L (98-107); Estimated GFR (African America >60 (>=60); Estimated GFR (Non-African Ame >60 (>=60); Glucose 125 mg/dL (74-106); Potassium 4.2 mmol/L (3.5-5.1); Sodium 139 mmol/L (136-145)
== END 2024-05-07 08:59 | disposition home or self-care (01) ==
LOC: PST 08:59
PROVIDERS: PCP Family Medicine; Visit Provider Surgery
DX: Z01.810 Encounter for preprocedural cardiovascular examination (principal); Z01.812 Encounter for preprocedural laboratory examination; D36.7 Benign neoplasm of other specified sites
CPT/HCPCS: 71046; 80048; 85025; 85610; 85730; 93005

== ENCOUNTER 2024-05-15 08:15 | Day surgery (SDC) | payer OTHER, MEDICARE, SELFPAY ==
[2024-05-07 09:36] VITALS: BP 148/81; PULSE 65; TEMP 36.3; O2SAT 98; BMI 34.9
[2024-05-15] VITALS (11 sets, daily range): BP systolic 103–145; BP diastolic 58–75; PULSE 64–75; TEMP 36.3–36.7; O2SAT 92–98; BMI 33.6
--- OUTSIDE RECORDS SUMMARY | 2024-05-15 08:31 | XMS_ITS | CCD ---
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; Translations: [OTH [facility] CURRENT DRUG THERAPY] Onset: 01-18-2023 Episodic Other [...] Leon MD on 09/29/2023 9:46 AM [facility]23 US LIVER CLINICAL HISTORY: Abnormal [...] Anion gap [Moles/Vol] 10.0 mmol/L Normal 6.0-15.0 [facility] Comment on above: Performed By: #### C BC, BMP, LIPID #### [facility] [address] [id number] [place] Calcium [Mass/Vol] 8.6 mg/dL Normal 8.6-10.3 [facility] Comment on above: Performed By: #### C BC, BMP, LIPID #### [facility] [address] [id number] [place] Chloride [Moles/Vol] 102 mmol/L Normal 98-107 [facility] Comment on above: Performed By: #### C BC, BMP, LIPID #### [facility] [address] [place] [address] [place] CO2 [Moles/Vol] 28.7 mmol/L Normal 21.0-31.0 [facility] Comment on above: Performed By: #### C BC, BMP, LIPID #### [facility] [address] [id number] [place] Creatinine [Mass/Vol] 1.15 mg/dL Normal 0.70-1.30 [facility] Comment on above: Performed By: #### C BC, BMP, LIPID #### [facility] [address] [place] [address] [place] Creatinine Clr Calc Pharmacy 57.91 Normal [facility] Comment on above: Performed By: #### C BC BMP, LIPID #### [facility] [address] [place] [address] [place] GFR/1.73 sq M.predicted MDRD (S/P/Bld) [Vol rate/Area] mL/min/{1.73_m2} Normal [facility] Comment on above: Performed By: #### C BC BMP, LIPID #### [facility] [address] Glucose [Mass/Vol] 112 mg/dL High 70-100 [facility] Comment on above: Result Comment: [place] Glucose Reference Range is dependent on time and content of last meal. Glucose of more than 200 mg/dL in a nonstressed, ambulatory subject supports the diagnosis of Diabetes Mellitus. ADA recommended reference range Performed By: #### C ASHLEY BMP, LIPID #### [address] Potassium [Moles/Vol] 3.7 mmol/L Normal 3.5-5.1 [facility] Comment on above: Performed By: #### C ASHLEY BMP, LIPID #### [facility] [address] Sodium [Moles/Vol] 137 mmol/L Normal 136-145 [facility] Comment on above: Performed By: #### C BC BMP, LIPID #### [facility] [address] [place] [address] [place] Urea nitrogen [Mass/Vol] 17 mg/dL Normal 7-25 [facility] Comment on above: Performed By: #### C BC BMP, LIPID #### [address] Complete Blood Count Auto Di ffon 01-16-2023 Basophils (Bld) [#/Vol] 0.0 10*3/uL Normal 0.0-0.2 [facility] Comment on above: Result Comment: PERF ORMED BY: [place] [address] PATHOLOGIST NEURO INTENSIVIST PHYSICIAN COLLETTE ENRIQUEZ M.D. Performed By: #### C BC, BMP, LIPID #### [address] Basophils/100 WBC (Bld) 0.2 % Normal . [facility] Comment on above: Performed By: #### C BC, BMP, LIPID #### [address] Eosinophils (Bld) [#/Vol] 0.1 10*3/uL Normal 0.0-0.45 [facility] Comment on above: Performed By: #### C BC, BMP, LIPID #### [address] Eosinophils/100 WBC (Bld) 0.5 % Normal . [facility] Comment on above: Performed By: #### C BC, BMP, LIPID #### [address] Erythrocyte distribution width (RBC) [Ratio] 13.7 % Normal 12.0-14.8 [facility] Comment on above: Performed By: #### C BC, BMP, LIPID #### [address] Hematocrit (Bld) [Volume fraction] 50.3 % High 38.8-50.0 [facility] Comment on above: Performed By: #### C BC, BMP, LIPID #### [address] Hemoglobin (Bld) [Mass/Vol] 16.9 g/dL Normal 13.0-17.0 [facility] Comment on above: Performed By: #### C BC, BMP, LIPID #### [address] Lymphocytes (Bld) [#/Vol] 1.9 10*3/uL Normal 1.00-4.8 [facility] Comment on above: Performed By: #### C BC, BMP, LIPID #### [facility] [address] [place] [address] [place] Lymphocytes/100 WBC (Bld) 16.0 % Normal . [facility] Comment on above: Performed By: #### C BC, BMP, LIPID #### [facility] [address] MCH (RBC) [Entitic mass] 31.0 pg Normal 27.5-35.2 [facility] Comment on above: Performed By: #### C BC, BMP, LIPID #### [facility] [address] MCV (RBC) [Entitic vol] 92.0 fL Normal 83.5-101 [facility] Comment on above: Performed By: #### C BC, BMP, LIPID #### [facility] [address] Mean Corpuscular HGB Conc 33.6 g/dL Normal 32.5-35.6 [facility] Comment on above: Performed By: #### C BC, BMP, LIPID #### [facility] [address] [place] [address] [place] Monocytes (Bld) [#/Vol] 1.1 10*3/uL High 0.0-0.8 [facility] Comment on above: Performed By: #### C BC, BMP, LIPID #### [facility] [address] [place] [address] [place] Monocytes/100 WBC (Bld) 9.1 % Normal . [facility] Comment on above: Performed By: #### C BC, BMP, LIPID #### [facility] [address] [place] [address] [place] Neutrophils (Bld) [#/Vol] 9.0 10*3/uL High 1.8-7.7 [facility] Comment on above: Performed By: #### C BC, BMP, LIPID #### [facility] [address] [place] [address] [place] Neutrophils/100 WBC (Bld) 74.2 % Normal . [facility] Comment on above: Performed By: #### C BC, BMP, LIPID #### [facility] [address] NRBC% 0.1 /100{WBC} Normal 0-0.5 [facility] Comment on above: Performed By: #### C BC, BMP, LIPID #### [facility] [address] Platelet mean volume (Bld) [Entitic vol] 8.3 fL Normal 6.6-10.1 [facility] Comment on above: Performed By: #### C BC, BMP, LIPID #### [facility] [address] Platelets (Bld) [#/Vol] 229 10*3/uL Normal 150-450 [facility] Comment on above: Performed By: #### C BC, BMP, LIPID #### [address] RBC (Bld) [#/Vol] 5.47 10*6/uL Normal 3.90-5.[address] [facility] Comment on above: Performed By: #### C BC, BMP, LIPID #### [facility] [address] [place] [address] WBC (Bld) [#/Vol] 12.2 10*3/uL High 4.1-10.[address] [facility] Comment on above: Performed By: #### C BC, BMP, LIPID #### [address] ECG 12 lead ECGon 01-16-2023 ECG 12 lead ECG [facility] Main [place] [address] [place] [address] Electrocardiograph Report Signed Patient: Brigette Degroot MR#: [id number] : 1955 Acct:[id number] Age/Sex: 67 / M ADM Date: 01/15/23 Loc: Room: [address] [place] [address] Type: ADM IN Attending Dr: Greg Abdi [...] By Jin Hunter DO 01/16 1516 Normal [facility] Lipid Panelon 01-16-2023 Cholesterol [Mass/Vol] 181 mg/dL Normal 140-200 [facility] Comment on above: Result Comment: Chol less than 200 mg/dl low risk Chol 201-239 mg/dl borderline risk Chol 240 mg/dl and greater high risk Performed By: #### C BC, BMP, LIPID #### [facility] [address] Cholesterol in HDL [Mass/Vol] 46 mg/dL Normal 29-71 [facility] Comment on above: Result Comment: HDL CHOL ATP-III CLASSIFICATION Cardiovascular Risk HDL > or equal to 60 mg/dL LOW HDL < 40 mg/dL HIGH Performed By: #### C BC, BMP, LIPID #### [facility] [address] Cholesterol.total/C holesterol in HDL [Mass ratio] 3.9 {ratio} Normal <5.0 [facility] Comment on above: Result Comment: PERF ORMED BY: [place] [address] PATHOLOGIST NEURO INTENSIVIST PHYSICIAN COLLETTE ENRIQUEZ M.D. Performed By: #### C BC, BMP, LIPID #### [facility] [address] [place] [address] [place] LDL Cholesterol,Calcula joey 107 mg/dL High 0-100 [facility] Comment on above: Result Comment: LDL ATP III CLASSIFICATION LDL less than 100 mg/dL Optimal LDL 100-129 mg/dL Near or above optimal LDL 130-159 mg/dL Borderline high LDL 160-189 mg/dL High LDL greater than 189 mg/dL Very high Performed By: #### C BC, BMP, LIPID #### [facility] [address] Triglyceride w/Reflex 141 mg/dL Normal 0-149 [facility] Comment on above: Result Comment: TRIG ATP III CLASSIFICATION TRIG less than 150 mg/dL Normal TRIG 150-199 mg/dL Borderline high TRIG 200-500 mg/dL High TRIG greater than 500 mg/dL Very high Standard traceable to the Center for Disease Conrtrol and Prevention (CDC) test method. Performed By: #### C BC, BMP, LIPID #### [facility] [address] VLDL CHOLESTEROL 28 mg/dL Normal [facility] Comment on above: Performed By: #### C BC, BMP, LIPID #### [facility] [address] BNPon 01-15-2023 Natriuretic peptide B (Bld) [Mass/Vol] 15.0 pg/mL Normal <=900.0 [facility] Comment on above: Performed By: #### C MP, BNP, CMADM #### [facility] [address] [address] [address] Harmeet Dorsey CARDIAC JULEE ADMITon 023 CK [Catalytic activity/Vol] 109 U/L Normal 39-308 [facility] Comment on above: Performed By: #### C MP, BNP, CMADM #### [facility] [address] [address] [address] Harmeet Dorsey CK.MB [Mass/Vol] 2.05 ng/mL Normal <=3.60 [facility] Comment on above: Performed By: #### C MP, BNP, CMADM #### [facility] [address] [address] [address] Harmeet Dorsey HSTROP 69.9 pg/mL Normal 4.0-76.1 [facility] Comment on above: Result Comment: CUT- OFF POINTS HAVE BEEN ESTABLISHED BASED ON THE FOURTH UNIVERSAL DEFINITIONS OF MYOCARDIAL INFARCTION. THE UPPER REFERENCE LIMIT (URL) OF TROPONIN, DEFINED THE 99TH PERCENTILE OF cTnI DISTRIBUTION IN A REFERENCE POPULATION, HAS BEEN CONFIRMED THE DECISION THRESHOLD FOR NC DIAGNOSIS. Performed By: #### C MP, BNP, CMADM #### [facility] [address] [place] [address] Dr. Harmeet Dorsey PRICE 96 ng/mL Normal 16-96 [facility] Comment on above: Performed By: #### C MP, BNP, CMADM #### [facility] [address] [place] [address] Dr. Harmeet Dorsey CBC AUTO DIFFon 01-15-2023 BASO # 0.1 103/ul Normal 0.0-0.1 [facility] Comment on above: Performed By: #### C BC #### [facility] [address] [place] [address] Dr. Harmeet Dorsey Basophils/100 WBC (Bld) 0.6 % Normal 0.2-2.0 [facility] Comment on above: Performed By: #### C BC #### [facility] [address] [place] [address] Dr. Harmeet Dorsey EO # 0.1 103/ul Normal 0.0-0.7 [facility] Comment on above: Performed By: #### C BC #### [facility] [address] [place] [address] Dr. Harmeet Dorsey Eosinophils/100 WBC (Bld) 0.7 % Critically low 0.9-7.0 [facility] Comment on above: Performed By: #### C BC #### [facility] [address] [place] [address] Dr. Harmeet Dorsey Erythrocyte distribution width (RBC) [Ratio] 13.3 % Normal 11.0-15.0 [facility] Comment on above: Performed By: #### C BC #### [facility] [address] [place] [address] Dr. Harmeet Dorsey Hematocrit (Bld) [Volume fraction] 54.4 % Critically high 42.0-54.0 [facility] Comment on above: Performed By: #### C BC #### [facility] [address] [place] [address] Dr. Harmeet Dorsey Hemoglobin (Bld) [Mass/Vol] 18.7 g/dL Critically high 14.0-18.0 [facility] Comment on above: Performed By: #### C BC #### [facility] [address] [place] [address] Dr. Harmeet Dorsey IG # 0.23 10e3/ul Critically high 0.00-0.03 [facility] Comment on above: Performed By: #### C BC #### [facility] [address] [place] [address] Dr. Harmeet Dorsey IG % 2.1 % Critically high 0.0-0.5 [facility] Comment on above: Performed By: #### C BC #### [facility] [address] [place] [address] Dr. Harmeet Dorsey LYMPH # 2.6 103/ul Normal 1.2-3.8 [facility] Comment on above: Performed By: #### C BC #### [facility] [address] [place] [address] Dr. Harmeet Dorsey Lymphocytes/100 WBC (Bld) 23.9 % Normal 20.5-60.0 [facility] Comment on above: Performed By: #### C BC #### [facility] [address] [place] [address] Dr. Harmeet Dorsey MANUAL DIFF REQ NO Normal [facility] Comment on above: Performed By: #### C BC #### [facility] [address] [place] [address] Dr. Harmeet Dorsey MCH (RBC) [Entitic mass] 31.2 pg Normal 25.9-34.0 [facility] Comment on above: Performed By: #### C BC #### [facility] [address] [place] [address] Dr. Harmeet Dorsey MCHC (RBC) [Mass/Vol] 34.4 g/dL Normal 29.9-35.2 [facility] Comment on above: Performed By: #### C BC #### [facility] [address] [place] [address] Dr. Harmeet Dorsey MCV (RBC) [Entitic vol] 90.8 fL Normal 80.0-94.0 [facility] Comment on above: Performed By: #### C BC #### [facility] [address] [place] [address] Dr. Harmeet Dorsey MONO # 0.9 103/ul Critically high 0.3-0.8 [facility] Comment on above: Performed By: #### C BC #### [facility] [address] [place] [address] Dr. Harmeet Dorsey Monocytes/100 WBC (Bld) 8.4 % Normal 1.7-12.0 [facility] Comment on above: Performed By: #### C BC #### [facility] [address] [place] [address] Dr. Harmeet Dorsey NEUT # 7.0 103/ul Critically high 1.4-6.5 [facility] Comment on above: Performed By: #### C BC #### [facility] [address] [place] [address] Dr. Harmeet Dorsey Neutrophils/100 WBC (Bld) 64.3 % Normal 43.0-75.0 [facility] Comment on above: Performed By: #### C BC #### [facility] [address] [place] [address] Dr. Harmeet Dorsey Platelet mean volume (Bld) [Entitic vol] 9.7 fL Normal 9.5-13.5 [facility] Comment on above: Performed By: #### C BC #### [facility] [address] [place] [address] Dr. Harmeet Dorsey PLT 262 103/ul Normal 150-450 [facility] Comment on above: Performed By: #### C BC #### [facility] [address] [place] [address] Dr. Harmeet Dorsey RBC 5.99 106/ul Normal 4.70-6.10 [facility] Comment on above: Performed By: #### C BC #### [facility] [address] [place] [address] Dr. Harmeet Dorsey WBC 10.9 103/ul Normal 4.0-11.0 [facility] Comment on above: Performed By: #### C BC #### [facility] [address] [place] [address] Dr. Harmeet Dorsey PROF 14(COMP METB)on 023 Albumin [Mass/Vol] 3.5 g/dL Normal 3.4-5.0 [facility] Comment on above: Performed By: #### C MP, BNP, CMADM #### [facility] [address] [place] [address] Dr. Harmeet Dorsey Albumin/Globulin [Mass ratio] 0.8 {ratio} Normal [facility] Comment on above: Performed By: #### C MP, BNP, CMADM #### [facility] [address] [place] [address] Dr. Harmeet Dorsey ALP [Catalytic activity/Vol] 71 U/L Normal 46-116 [facility] Comment on above: Performed By: #### C MP, BNP, CMADM #### [facility] [address] [place] [address] Dr. Harmeet Dorsey ALT [Catalytic activity/Vol] 218 U/L Critically high 16-63 [facility] Comment on above: Performed By: #### C MP, BNP, CMADM #### [facility] [address] [place] [address] Dr. Harmeet Dorsey Anion gap [Moles/Vol] 10.2 mmol/L Normal [facility] Comment on above: Performed By: #### C MP, BNP, CMADM #### [facility] [address] [place] [address] Dr. Harmeet Dorsey AST [Catalytic activity/Vol] 92 U/L Critically high 15-37 [facility] Comment on above: Performed By: #### C MP, BNP, CMADM #### [facility] [address] [place] [address] Dr. Harmeet Dorsey Bilirubin [Mass/Vol] 0.7 mg/dL Normal 0.2-1.0 [facility] Comment on above: Performed By: #### C MP, BNP, CMADM #### [facility] [address] [place] [address] Dr. Harmeet Dorsey Calcium [Mass/Vol] 8.9 mg/dL Normal 8.5-10.1 [facility] Comment on above: Performed By: #### C MP, BNP, CMADM #### [facility] [address] [address] [address] Harmeet Dorsey Chloride [Moles/Vol] 101 mmol/L Normal 98-107 [facility] Comment on above: Performed By: #### C MP, BNP, CMADM #### [facility] [address] [address] [address] Harmeet Dorsey CO2 [Moles/Vol] 29.3 mmol/L Normal 21.0-32.0 [facility] Comment on above: Performed By: #### C MP, BNP, CMADM #### [facility] [address] [place] [address] Dr. Harmeet Dorsey Creatinine [Mass/Vol] 1.26 mg/dL Normal 0.70-1.30 [facility] Comment on above: Performed By: #### C MP, BNP, CMADM #### [facility] [address] [place] [address] Dr. Harmeet Dorsey EGFR-AF QATARI >60 Normal >=60 [facility] Comment on above: Performed By: #### C MP, BNP, CMADM #### [facility] [address] [address] [address] Harmeet Dorsey EGFR-NON AF QATARI 57 mL/min/1.73m2 Critically low >=60 [facility] Comment on above: Performed By: #### C MP, BNP, CMADM #### [facility] [address] [place] [address] Dr. Harmeet Dorsey Globulin (S) [Mass/Vol] 4.3 g/dL Normal [facility] Comment on above: Performed By: #### C MP, BNP, CMADM #### [facility] [address] [place] [address] Dr. Harmeet Dorsey Glucose [Mass/Vol] 178 mg/dL Critically high 74-106 [facility] Comment on above: Performed By: #### C MP, BNP, CMADM #### [facility] [address] [address] [address] Harmeet Dorsey Potassium [Moles/Vol] 3.5 mmol/L Normal 3.5-5.1 [facility] Comment on above: Performed By: #### C MP, BNP, CMADM #### [facility] [address] [address] [address] Harmeet Dorsey Protein [Mass/Vol] 7.8 g/dL Normal 6.4-8.2 [facility] Comment on above: Performed By: #### C MP, BNP, CMADM #### [facility] [address] [place] [address] Dr. Harmeet Dorsey Sodium [Moles/Vol] 137 mmol/L Normal 136-145 [facility] Comment on above: Performed By: #### C MP, BNP, CMADM #### [facility] [address] [place] [address] Dr. Harmeet Dorsey Urea nitrogen [Mass/Vol] 15.0 mg/dL Normal 7.0-18.0 [facility] Comment on above: Performed By: #### C MP, BNP, CMADM #### [facility] [address] [address] [address] Harmeet Dorsey Urea nitrogen/Creatinine [Mass ratio] 11.9 mg/mg Normal [facility] Comment on above: Performed By: #### C MP, BNP, CMADM #### [facility] [address] [place] [address] Dr. Harmeet Dorsey PROTIMEon 01-15-2023 INR Coag (PPP) [Relative time] 0.98 {INR} Normal [facility] Comment on above: Performed By: #### P T, PTT #### [facility] [address] [place] [address] Dr. Harmeet Dorsey INR GUIDELINES SEE BELOW Normal [facility] Comment on above: Result Comment: VICENTE RED INR: 2.0 - 3.0 CONDITIONS NOT LISTED BELOW 2.5 - 3.5 FOR PROSTHETIC HEART VALVE REPLACEMENT 2.5 - 3.5 RECURRENT THROMBOSIS Performed By: #### P T, PTT #### [facility] [address] [address] [address] Harmeet Dorsey PT Coag (PPP) [Time] 10.4 s Normal 9.0-11.6 [facility] Comment on above: Performed By: #### P T, PTT #### [facility] [address] [address] [address] Harmeet Dorsey PTTon 01-15-2023 aPTT Coag (Bld) [Time] 26.0 s Normal 22.3-36.2 [facility] Comment on above: Performed By: #### P T, PTT #### [facility] [address] [address] [address] Harmeet Dorsey Troponin I High Sensitivityo n 01-15-2023 Troponin I High Sensitivity 52686.6 pg/mL Off scale high 0.0-20.0 [facility] Comment on above: Result Comment: Crit ical Result : Called to and read back by: KIM WALSH at: 01/15/2023 20:17:48 by:LFM PERFORMED BY: [place] [address] PATHOLOGIST NEURO INTENSIVIST PHYSICIAN COLLETTE ENRIQUEZ M.D. Performed By: #### H S TROP #### [facility] [address] [place] [address] Troponin I High Sensitivity 9066.4 pg/mL Off scale high 0.0-20.0 [facility] Comment on above: Result Comment: Crit ical Result : Called to and read back by: LUCY MCELROY at: 01/15/2023 17:40:27 by:LFM PERFORMED BY: [place] [address] PATHOLOGIST NEURO INTENSIVIST PHYSICIAN COLLETTE ENRIQUEZ M.D. Performed By: #### H S TROP #### [facility] [address] [place] [address] [place] Troponin I High Sensitivity 4327.6 pg/mL Off scale high 0.0-20.0 [facility] Comment on above: Result Comment: Crit ical Result : Called to and read back by: LUCY MCELROY at: 01/15/2023 14:33:06 by:LFM PERFORMED BY: [place] [address] PATHOLOGIST NEURO INTENSIVIST PHYSICIAN COLLETTE ENRIQUEZ M.D. Performed By: #### H S TROP #### [address] Troponin I High Sensitivity 1492.5 pg/mL Off scale high 0.0-20.0 [facility] Comment on above: Result Comment: Crit ical Result : Called to and read back by: LUCY MCELROY at: 01/15/2023 13:14:42 by:[id number] PERFORMED BY: [place] [address] PATHOLOGIST NEURO INTENSIVIST PHYSICIAN COLLETTE ENRIQUEZ M.D. Performed By: #### H S TROP #### [address] XR CHEST 1 Von 01-15-2023 XR [...] VIKTORIA JOSE Date: 2023-01-15 09:51 Normal [facility] CBC AUTO DIFFon 08-06-2022 BASO # 0.0 103/ul Normal 0.0-0.1 [facility] Comment on above: Performed By: #### C BC #### [facility] [address] [place] [address] Dr. Harmeet Dorsey Basophils/100 WBC (Bld) 0.4 % Normal 0.2-2.0 [facility] Comment on above: Performed By: #### C BC #### [facility] [address] [place] [address] Dr. Harmeet Dorsey EO # 0.2 103/ul Normal 0.0-0.7 [facility] Comment on above: Performed By: #### C BC #### [facility] [address] [place] [address] Dr. Harmeet Dorsey Eosinophils/100 WBC (Bld) 2.3 % Normal 0.9-7.0 [facility] Comment on above: Performed By: #### C BC #### [facility] [address] [place] [address] Dr. Harmeet Dorsey Erythrocyte distribution width (RBC) [Ratio] 12.9 % Normal 11.0-15.0 [facility] Comment on above: Performed By: #### C BC #### [facility] [address] [place] [address] Dr. Harmeet Dorsey Hematocrit (Bld) [Volume fraction] 49.8 % Normal 42.0-54.0 [facility] Comment on above: Performed By: #### C BC #### [facility] [address] [place] [address] Dr. Harmeet Dorsey Hemoglobin (Bld) [Mass/Vol] 17.0 g/dL Normal 14.0-18.0 [facility] Comment on above: Performed By: #### C BC #### [facility] [address] [place] [address] Dr. Harmeet Dorsey IG # 0.03 10e3/ul Normal 0.00-0.03 [facility] Comment on above: Performed By: #### C BC #### [facility] [address] [place] [address] Dr. Harmeet Dorsey IG % 0.4 % Normal 0.0-0.5 [facility] Comment on above: Performed By: #### C BC #### [facility] [address] [place] [address] Dr. Harmeet Dorsey LYMPH # 2.5 103/ul Normal 1.2-3.8 [facility] Comment on above: Performed By: #### C BC #### [facility] [address] [place] [address] Dr. Harmeet Dorsey Lymphocytes/100 WBC (Bld) 30.9 % Normal 20.5-60.0 [facility] Comment on above: Performed By: #### C BC #### [facility] [address] [place] [address] Dr. Harmeet Dorsey MANUAL DIFF REQ NO Normal [facility] Comment on above: Performed By: #### C BC #### [facility] [address] [place] [address] Dr. Harmeet Dorsey MCH (RBC) [Entitic mass] 30.7 pg Normal 25.9-34.0 [facility] Comment on above: Performed By: #### C BC #### [facility] [address] [place] [address] Dr. Harmeet Dorsey MCHC (RBC) [Mass/Vol] 34.1 g/dL Normal 29.9-35.2 [facility] Comment on above: Performed By: #### C BC #### [facility] [address] [place] [address] Dr. Harmeet Dorsey MCV (RBC) [Entitic vol] 90.1 fL Normal 80.0-94.0 [facility] Comment on above: Performed By: #### C BC #### [facility] [address] [place] [address] Dr. Harmeet Dorsey MONO # 0.8 103/ul Normal 0.3-0.8 [facility] Comment on above: Performed By: #### C BC #### [facility] [address] [place] [address] Dr. Harmeet Dorsey Monocytes/100 WBC (Bld) 10.1 % Normal 1.7-12.0 [facility] Comment on above: Performed By: #### C BC #### [facility] [address] [place] [address] Dr. Harmeet Dorsey NEUT # 4.6 103/ul Normal 1.4-6.5 [facility] Comment on above: Performed By: #### C BC #### [facility] [address] [place] [address] Dr. Harmeet Dorsey Neutrophils/100 WBC (Bld) 55.9 % Normal 43.0-75.0 [facility] Comment on above: Performed By: #### C BC #### [facility] [address] [address] [address] Harmeet Dorsey Platelet mean volume (Bld) [Entitic vol] 10.8 fL Normal 9.5-13.5 [facility] Comment on above: Performed By: #### C BC #### [facility] [address] [address] [address] Harmeet Dorsey PLT 254 103/ul Normal 150-450 [facility] Comment on above: Performed By: #### C BC #### [facility] [address] [address] [address] Harmeet Dorsey RBC 5.53 106/ul Normal 4.70-6.10 [facility] Comment on above: Performed By: #### C BC #### [facility] [address] [place] [address] Dr. Harmeet Dorsey WBC 8.2 103/ul Normal 4.0-11.0 [facility] Comment on above: Performed By: #### C BC #### [facility] [address] [place] [address] Dr. Harmeet Dorsey LIPID PROFILEon 08-06-2022 CHOL-HDL RATIO NORM SEE BELOW Normal [facility] Comment on above: Result Comment: 3.3 - 4.4 LOW RISK 4.4 - 7.1 AVERAGE RISK 7.1 - 11.0 MODERATE RISK >11.0 HIGH RISK Performed By: #### L IPID, BMP, LIVER, TSH #### [facility] [address] [place] [address] Dr. Harmeet Dorsey Cholesterol [Mass/Vol] 236 mg/dL Critically high <=200 [facility] Comment on above: Performed By: #### L IPID, BMP, LIVER, TSH #### [facility] [address] [address] [address] Harmeet Dorsey Cholesterol in HDL [Mass/Vol] 43 mg/dL Normal 40-60 [facility] Comment on above: Performed By: #### L IPID, BMP, LIVER, TSH #### [facility] [address] [address] [address] Harmeet Dorsey Cholesterol in LDL [Mass/Vol] 146.8 mg/dL Normal [facility] Comment on above: Performed By: #### L IPID, BMP, LIVER, TSH #### [facility] [address] [address] [address] Harmeet Dorsey Cholesterol.total/C holesterol in HDL [Mass ratio] 5.5 {ratio} Normal [facility] Comment on above: Performed By: #### L IPID, BMP, LIVER, TSH #### [facility] [address] [address] [address] Harmeet Dorsey HDL NORMAL > or = 60 mg/dl - LO W CARDIOVASCULAR RISK <40 mg/dl - HIGH CARDIOVASCULAR RISK Normal [facility] Comment on above: Performed By: #### L IPID, BMP, LIVER, TSH #### [facility] [address] [address] [address] Harmeet Dorsey LDL CALC NORMAL SEE BELOW Normal [facility] Comment on above: Result Comment: <100 mg/dl OPTIMAL 100 - 129 mg/dl NEAR OR ABOVE OPTIMAL 130 - 159 mg/dl BORDERLINE HIGH 160 - 189 mg/dl HIGH >190 mg/dl VERY HIGH Performed By: #### L IPID, BMP, LIVER, TSH #### [facility] [address] [address] [address] Harmeet Dorsey Triglyceride [Mass/Vol] 231 mg/dL Critically high <=150 [facility] Comment on above: Performed By: #### L IPID, BMP, LIVER, TSH #### [facility] [address] [address] [address] Harmeet Dorsey VLDL CALC 46.2 mg/dL Normal [facility] Comment on above: Performed By: #### L IPID, BMP, LIVER, TSH #### [facility] [address] [address] [address] Harmeet Dorsey LIVER PROFILEon 08-06-2022 Albumin [Mass/Vol] 3.7 g/dL Normal 3.4-5.0 [facility] Comment on above: Performed By: #### C MP, BNP, CMADM #### [facility] [address] [address] [address] Harmeet Dorsey Albumin/Globulin [Mass ratio] 1.0 {ratio} Normal [facility] Comment on above: Performed By: #### C MP, BNP, CMADM #### [facility] [address] [address] [address] Harmeet Dorsey ALP [Catalytic activity/Vol] 65 U/L Normal 46-116 [facility] Comment on above: Performed By: #### C MP, BNP, CMADM #### [facility] [address] [address] [address] Harmeet Dorsey ALT [Catalytic activity/Vol] 131 U/L Critically high 16-63 [facility] Comment on above: Performed By: #### C MP, BNP, CMADM #### [facility] [address] [place] [address] Dr. Harmeet Dorsey AST [Catalytic activity/Vol] 83 U/L Critically high 15-37 [facility] Comment on above: Performed By: #### C MP, BNP, CMADM #### [facility] [address] [place] [address] Dr. Harmeet Dorsey BILI, CONJUGATED 0.2 mg/dL Normal 0.0-0.2 [facility] Comment on above: Performed By: #### C MP, BNP, CMADM #### [facility] [address] [place] [address] Dr. Harmeet Dorsey Bilirubin [Mass/Vol] 0.8 mg/dL Normal 0.2-1.0 [facility] Comment on above: Performed By: #### C MP, BNP, CMADM #### [facility] [address] [place] [address] Dr. Harmeet Dorsey Globulin (S) [Mass/Vol] 3.8 g/dL Normal [facility] Comment on above: Performed By: #### C MP, BNP, CMADM #### [facility] [address] [address] [address] Harmeet Dorsey Protein [Mass/Vol] 7.5 g/dL Normal 6.4-8.2 [facility] Comment on above: Performed By: #### C MP, BNP, CMADM #### [facility] [address] [place] [address] Dr. Harmeet Dorsey PROF CHEM 8 (BAS METB)on Anion gap [Moles/Vol] 9.5 mmol/L Normal [facility] Comment on above: Performed By: #### C MP, BNP, CMADM #### [facility] [address] [place] [address] Dr. Harmeet Dorsey Calcium [Mass/Vol] 8.8 mg/dL Normal 8.5-10.1 [facility] Comment on above: Performed By: #### C MP, BNP, CMADM #### [facility] [address] [place] [address] Dr. Harmeet Dorsey Chloride [Moles/Vol] 102 mmol/L Normal 98-107 [facility] Comment on above: Performed By: #### C MP, BNP, CMADM #### [facility] [address] [place] [address] Dr. Harmeet Dorsey CO2 [Moles/Vol] 29.0 mmol/L Normal 21.0-32.0 [facility] Comment on above: Performed By: #### C MP, BNP, CMADM #### [facility] [address] [place] [address] Dr. Harmeet Dorsey Creatinine [Mass/Vol] 1.07 mg/dL Normal 0.70-1.30 [facility] Comment on above: Performed By: #### C MP, BNP, CMADM #### [facility] [address] [place] [address] Dr. Harmeet Dorsey EGFR-AF QATARI >60 Normal >=60 [facility] Comment on above: Performed By: #### C MP, BNP, CMADM #### [facility] [address] [place] [address] Dr. Harmeet Dorsey EGFR-NON AF QATARI >60 Normal >=60 [facility] Comment on above: Performed By: #### C MP, BNP, CMADM #### [facility] [address] [place] [address] Dr. Harmeet Dorsey Glucose [Mass/Vol] 142 mg/dL Critically high 74-106 [facility] Comment on above: Performed By: #### C MP, BNP, CMADM #### [facility] [address] [place] [address] Dr. Harmeet Dorsey Potassium [Moles/Vol] 3.5 mmol/L Normal 3.5-5.1 [facility] Comment on above: Performed By: #### C MP, BNP, CMADM #### [facility] [address] [place] [address] Dr. Harmeet Dorsey Sodium [Moles/Vol] 137 mmol/L Normal 136-145 [facility] Comment on above: Performed By: #### C MP, BNP, CMADM #### [facility] [address] [place] [address] Dr. Harmeet Dorsey Urea nitrogen [Mass/Vol] 15.0 mg/dL Normal 7.0-18.0 [facility] Comment on above: Performed By: #### C MP, BNP, CMADM #### [facility] [address] [place] [address] Dr. Harmeet Dorsey Urea nitrogen/Creatinine [Mass ratio] 14.0 mg/mg Normal [facility] Comment on above: Performed By: #### C MP, BNP, CMADM #### [facility] [address] [place] [address] Dr. Harmeet Dorsey TSHon 08-06-2022 TSH 1.940 uIU/mL Normal 0.358-3.740 [facility] Comment on above: Performed By: #### C MP, BNP, CMADM #### [facility] [address] [place] [address] Dr. Harmeet Dorsey Vital Signs Date Time Vital Sign Value Performing Clinician Alberto warren 08-03-2023 11:04-0500 Diastolic blood pressure 80 mm[Hg] Angela Abdi DO Work Phone: [facility] 08-03-2023 11:04-0500 Systolic blood pressure 144 mm[Hg] Angela Abdi DO Work Phone: [facility] 08-03-2023 10:21-0500 Body height 157.5 cm Angela Abdi DO Work Phone: [facility] 08-03-2023 10:21-0500 Body mass index (BMI) [Ratio] 34.02 kg/m2 Angela Abdi DO Work Phone: [facility] 08-03-2023 10:21-0500 Body weight 84.37 kg Angela Abdi DO Work Phone: [facility] 08-03-2023 10:21-0500 Heart rate 64 /min Angela Abdi DO Work Phone: [facility] Encounters Encounter Date Encounter Type Care Provider Facility Start: 04-30-2024 End: 04-30-2024 ambulatory ODILON CHOI Not Available Start: 04-24-2024 End: 04-24-2024 ambulatory LUX SPIVEY Not Available Start: 01-02-2024 End: 01-02-2024 ambulatory ODILON CHOI Not Available Start: 11-17-2023 End: 11-17-2023 ambulatory LUX SPIVEY Not Available Start: 09-29-2023 End: 09-30-2023 Emergency department patient visit NGUYỄNJOVITA JASMINE [facility] Start: 09-29-2023 End: 09-29-2023 ambulatory LUX SPIVEY Not Available Start: 08-03-2023 End: 08-03-2023 ambulatory [facility] Start: 08-03-2023 End: 08-03-2023 Office outpatient visit 25 minutes Angela Valenzueladon Work Phone: [facility] Comment on above: History of non-ST el evation myocardial infarction (NSTEMI); Atherosclerosis of enterprise coronary artery of enterprise heart, unspecified whether angina present; Mixed hyperlipidemia; Essential hypertension Start: 01-17-[address] Lux Spivey Facility:[facility] Start: 01-15-[address] Lux Spivey Facility:[id number] Start: 01-15-2023 End: 01-16-2023 Evaluation and management of inpatient W King Valenzueladon Facility:[facility] Start: 01-15-2023 End: 01-15-2023 ambulatory CECIL JOHN . Facility:[facility] Start: 01-15-[address] Lux Spivey Facility:[id number] Start: 08-06-2022 End: 08-07-[address] LUX SPIVEY Facility:[facility] Start: 09-29-2018 End: 09-30-2018 Patient encounter procedure DEFAULT PHYSICIAN Facility:[facility] Procedures Date Procedure Procedure Detail Performing Clinician Start: 08-06-2022 PSA screening CECIL RAO . Comment on above: Performed By: #### [facility] #### [facility] [address] [place] [address] Dr. Harmeet Dorsey Plan of Treatment Date Care Activity Detail Author Start: 03-18-2025 DTaP/Tdap/Td Vaccines (2 - Td or Tdap) DTaP/Tdap/Td Vaccines (2 - Td or Tdap) [facility] Start: 08-03-2023 End: 08-03-2024 Alanine aminotransferase [Enzymatic activity/volume] in Serum or Plasma by With P-5'-P Alanine Aminotransferase Lab Routine Mixed hyperlipidemia Expected: 08/03/2023 (Approximate), Expires: 08/03/2024 [facility] Service Area Work Phone: Comment on above: Expected: 08/03/2023 (Approximate), Expi res: 08/03/2024 Start: 08-03-2023 End: 08-03-2024 Aspartate aminotransferase [Enzymatic activity/volume] in Serum or Plasma by With P-5'-P Aspartate Aminotransferase Lab Routine Mixed hyperlipidemia Expected: 08/03/2023 (Approximate), Expires: 08/03/2024 [facility] Work Phone: Comment on above: Expected: 08/03/2023 (Approximate), Expi res: 08/03/2024 Start: 08-03-2023 End: 08-03-2024 Basic metabolic 2000 panel - Serum or Plasma Basic Metabolic Panel Lab Routine History of non-ST elevation myocardial infarction (NSTEMI) Atherosclerosis of enterprise coronary artery of enterprise heart, unspecified whether angina present Mixed hyperlipidemia Essential hypertension Expected: 08/03/2023 (Approximate), Expires: 08/03/2024 [facility] Work Phone: Comment on above: Expected: 08/03/2023 (Approximate), Expi res: 08/03/2024 Start: 08-03-2023 End: 08-03-2024 Lipid 1996 panel - Serum or Plasma Lipid Panel Lab Routine Mixed hyperlipidemia Expected: 08/03/2023 (Approximate), Expires: 08/03/2024 [facility] Work Phone: Comment on above: Expected: 08/03/2023 (Approximate), Expi res: 08/03/2024 Start: 05-20-2023 Influenza vaccination Influenza Vaccine (#1) [facility] Start: 08-27-2021 Zoster Vaccines (2 of 2) Zoster Vaccines (2 of 2) [facility] Start: 03-05-2021 COVID-19 Vaccine (3 - Pfizer series) COVID-19 Vaccine (3 - Pfizer series) [facility] Start: 2020 Abdominal aortic aneurysm screening Abdominal Aortic Aneurysm (AAA) Screening [facility] Start: 1973 Diabetes mellitus screening Diabetes Screening [facility] Start: 1973 Hepatitis C screening Hepatitis C Screening [facility] Start: 1961 Pneumococcal Vaccine: 65+ Years (1 - PCV) Pneumococcal Vaccine: 65+ Years (1 - PCV) [facility] Start: 1955 Lipid panel Lipid Panel [facility] Start: 1955 Screening for malignant neoplasm of colon [facility] Start: 1955 Yearly Adult Physical Yearly Adult Physical [facility] Immunizations Immunization Date Immunization Notes Care Provider Fa [email or web address] 07-02-2021 influenza virus vaccine, unspecified formulation Angela Abdi DO Work Phone: [facility] Work Phone: Payers Date Payer Category Payer Private Health Insurance [facility] [id number] 2023-Present [address] [place] [address] [id number] 2023 Private Health Insurance [id number] 2023 Self-pay 2020 Medicare MEDICARE MEDICAR E PART A AND B [id number] 2020-Present [address] [place] [address] [id number] 1959 Medicare [id number] 1959 Private Health Insurance [id number] 1955 Unknown [id number] [id number]. 2.647 1955 Unknown [id number] [id number]. 2.593 1955 Unknown [id number] [id number]. 2.593 1955 Unknown [id number] 2.16.840.1.825777.3.579. 2.356 1955 Unknown [id number] 2.16.840.1.963824.3.579. 2.356 1955 Unknown [id number] 2.16.840.1.939757.3.579. 2.1244 1955 Unknown [id number] 2.16.840.1.531437.3.579. 2.1286 1955 Unknown [id number] 2.16.840.1.966731.3.579. 2.1286 1955 Unknown [id number] 2.16.840.1.796252.3.579. 2.1259 1955 Unknown [id number] 2.16.840.1.819973.3.579. 2.1259 1955 Unknown [id number] 2.16.840.1.180300.3.579. 2.1259 1955 Unknown [id number] [id number]. 2.1259 1955 Unknown [id number] [id number]. 2.1259 Unknown Unknown [id number] [id number]. 2.531 Social History Date Type Detail Facility Start: 08-03-2023 Tobacco smoking stat us [facility] Ex-smoker [facility] History of tobacco use Current smoker [facility] Work Phone: History of tobacco use Cigarette Smoker [facility] Work Phone: Start: 08-03-2023 Tobacco use and exposure Smokeless tobacco non-user [facility] Work Phone: Start: 08-03-2023 Alcohol intake Lifetime non-d dylan (finding) [facility] Work Phone: Start: 08-03-2023 History of Social function [facility] Work Phone: Start: 08-03-2023 Tobacco use panel [facility] Work Phone: Start: 1955 Sex Assigned At Not on file [facility] Work Phone: Start: 07-24-2023 End: 08-03-2023 Exposure to SARS-CoV-2 (event) Not sure [facility] History of Present illness Narrative [...] elevation myocardial infarction (NSTEMI) 2. Atherosclerosis of enterprise coronary artery of enterprise heart, unspecified whether angina present 3. Mixed hyperlipidemia 4. Essential hypertension documented in this encounter [facility] Work Phone: Instructions 08-03-2023 Patient [...] of your visit. documented in this encounter [facility] Work Phone: Clinical Note 10-26-2021 Note Date & Type Note Facility 10-26-2021 Note PROCEDURE: Jenn Rykert peed VCT 64, 5.0 mm withIV contrast, [...] signed by Pradeep Renteria on 10/26/2021 [id number] [facility] [employer] Evaluation note Note Date & Type Note Facility Evaluation note Diagnosis History of non-ST elevation myocardial infarction (NSTEMI) Atherosclerosis of enterprise coronary artery of enterprise heart, unspecified whether angina present Mixed hyperlipidemia Essential hypertension Unspecified essential hypertension documented in this encounter [facility] Work Phone: Reason for referral (narrative) Consultation (Routine) - Authorized Note Date & Type Note Facility Reason for referral (narrati ve) Specialty Diagnoses / Procedures Referred By Contac t Referred To Contact Cardiology Diagnoses History of non-ST elevation myocardial infarction (NSTEMI) Atherosclerosis of enterprise coronary artery of enterprise heart, unspecified whether angina present Essential hypertension Procedures Follow Up In Cardiology Angela Abdi DO [address] [facility], [address] [address] Angela Abdi DO [address] [facility], [address] [address] Referral ID Status Reason Start Date Expiration Date V isits Requested Visits Authorized [id number] Authorized 08/03/2023 08/02/2024 1 1 [facility] Work Phone: Summary Purpose Family History No [...] and content) DATE CREATED AUTHOR 10/02/2018 [facility] DATE CREATED AUTHOR AUTHOR'S ORGANIZ ATION 10/27/2021 [facility] Me dical Specialist DATE CREATED AUTHOR AUTHOR'S ORGANIZ ATION 01/18/2023 [facility] pital DATE CREATED AUTHOR AUTHOR'S ORGANIZ ATION 01/19/2023 [facility] DATE CREATED AUTHOR AUTHOR'S ORGANIZ ATION 03/08/2023 [facility] DATE CREATED AUTHOR AUTHOR'S ORGANIZ ATION 08/05/2023 [facility]ulatory DATE CREATED AUTHOR AUTHOR'S ORGANIZ ATION 10/02/[address] [facility] DATE CREATED AUTHOR AUTHOR'S ORGANIZ ATION 05/01/2024 [facility] dical Specialists EPIC Reason for Visit (unrecogniz ed section and content) Reason Comments Follow-up 6m Care Teams (unrecognized sec tion and content) Health Physicist Relationship Specialty Start Date End Date Lux Spivey MD [address] [place] [address] PCP - General 01/17/23 FOR RECORDS PERTAINING [...] BE BASED ON THE PRIMARY CLINICAL RECORDS. [facility]. provides no warranty or guarantee of the accuracy or completeness of information in this document.
[2024-05-15 08:37] LABS: Glucometer 117 mg/dL (74-106)
[2024-05-15] MEDS: LACTATED RINGER'S SOLUTION 1,000 ML 50 ML IV (08:54)
--- NOTE | 2024-05-15 09:33 | W.PM.PROCNOT ---
Date of procedure: 05/15/24 Pre-op diagnosis: right chest wall cyst Post-op diagnosis: same as pre-op Procedure: Excision of right chest wall cyst aprox 5cm Procedure Details The patient was taken to Operating Room, identified as the correct patient and the procedure verified. A Time Out was held and the above information confirmed. The patient was placed in supine position and anesthesia was induced per anesthesia team, along with placement of EPC cuffs. The right chest wall was was prepped and draped in a sterile fashion. The area of planned incision was injected with 1% lidocaine with epi, approximately 10ml was used. A 15 blade was used to make an ellipse style incision around the right chest wall cyst approximately 5cm in length along the lines of Rancho. Use of careful sharp and blunt dissection was carried out to remove the lesion in its entirety. The lesion was sent to pathology. The skin edges and incision site deep tissues were cauterized to ensure proper hemostasis. The skin incision was closed in a layered fashion. 3-0 Vircyl deep dermal sutures followed by a running 4-0 monocryl subcuticular running stitch. The area was cleansed and skin glue was applied. Instrument, sponge, and needle counts were correct at the conclusion of the case. Patient tolerated the procedure well without any complications.? Patient was transferred to PACU in stable condition. Anesthesia: MAC Surgeon: Kristopher Lopez Estimated blood loss (mL): 3 Pathology: other (right chest wall cyst) Condition: stable Disposition: PACU
[2024-05-15] MEDS: CEFAZOLIN SODIUM/DEXTROSE,ISO 2 GM/50 ML PIGGYBACK IV (10:00)
[2024-05-15] MEDS: LIDOCAINE HCL 1%-EPINEPHRINE 1:100,000 10 ML MDV INJ (10:13)
== END 2024-05-15 11:40 | disposition home or self-care (01) ==
PROVIDERS: PCP Family Medicine; Visit Provider Surgery
PROC: (CPT 00400; principal; 2024-05-15 09:35)
DX: L72.0 Epidermal cyst (principal); E78.5 Hyperlipidemia, unspecified; I10 Essential (primary) hypertension; I25.10 Atherosclerotic heart disease of native coronary artery without angina pectoris; E11.9 Type 2 diabetes mellitus without complications
CPT/HCPCS: 00400; 11406; 12032; 36415; 82948; 88304; J0690; J2405; J2704; J3010

== ENCOUNTER 2024-12-15 13:00 | Emergency (ER) | payer OTHER, MEDICARE, SELFPAY ==
[2024-12-15] VITALS (9 sets, daily range): BP systolic 141–175; BP diastolic 71–83; PULSE 86–98; TEMP 36.5; O2SAT 92–97; BMI 32.0
--- OUTSIDE RECORDS SUMMARY | 2024-12-15 13:29 | XMS_ITS | CCD ---
Author Organization [facility] Providers Care Proj Engineer Name Role Phone PHYSICIAN, DEFAULT Unavailable Unavailable PHYSICIAN, DEFAULT Unavailable Unavailable ALVARO Fernandes, CECIL Admitting Unavailable CECIL WRIGHT Attending Unavailable DAMON, DR VIKTORIA Zhang Consulting Unavailable NADERER, DR LUX [place] Primary Care Unavailable CECIL WRIGHT Consulting Unavailable ALLYSSA, DR ULX [place] Attending Unavailable ALLYSSA, DR LUX [place] Admitting Unavailable ALLYSSA, DR LUX [place] Primary Care Unavailable ALLYSSA, DR LUX [place] Consulting Unavailable Allyssa, Dr. Lux Christine Primary Care Deangelo Spivey, Dr. Lux Christine Primary Care Roosevelt Thomas Attending Unavailable Allyssa, Dr. Lux Christine Primary Care Lux Maciel MD Primary Care Provider LUX SPIVEY Primary Care Unavailable NGUYỄN JASMINE Attending Unavailable NGUYỄN JASMINE Attending Unavailable NGUYỄN JASMINE Referring Unavailable LUX SPIVEY Primary Care Unavailable MD Lux Spivey Primary Care Provider DO Odilon Lopez Attending Provider Odilon Lopez Attending Unavailable Odilon Lopez Admitting Unavailable Lux Spivey Primary Care Unavailable Lux Spivey MD Primary Care Provider Lux Spivey MD Primary Care Provider ROOSEVELT ABDI Attending Unavailable ROOSEVELT ABDI Referring Unavailable LUX SPIVEY Primary Care Unavailreagan e LUX SPIVEY Referring Unavailable LUX SPIVEY Attending Unavailable ODILON LOPEZ Attending Unavailable LUX SPIVEY Referring Unavailable LUX SPIVEY Attending Unavailable ODILON LOPEZ Attending Unavailable LUX SPIVEY Attending Unavailable ODILON LOPEZ Attending Unavailable ROCKY LUNSFORD Attending Unavailable ROCKY LUNSFORD Attending Unavailable LUX SPIVEY Attending Unavailable JACQUE HUNT Attending Unavailable ASUNCION INGRAM Attending Unavailable LUX SPIVEY Referring Unavailable LUX SPIVEY Attending Unavailable Medications Current Medications Medication Drug Class(es) Dates Sig (Normalized) Sig (Original) acetaminophen 325 mg / HYDROcodone bitartrate 5 mg oral tablet (12 sources) Opioid Agonist Start: 08-31-2024 End: 09-07-2024 take 1 tablet by mouth four times daily as needed for pain HYDROcodone-acetamin ophen ([place]) 5-325 MG tablet Indications: Primary osteoarthritis of both knees Take 1 tablet by mouth 4 (four) times a day as needed for severe pain for up to 7 days 28 tablet 08/31/2024 09/07/2024 Active Start: 06-18-2024 End: 06-25-2024 take 1 tablet by mouth four times daily as needed for pain HYDROcodone-acetaminophen ([place]) 5-325 MG tablet Indications: Primary osteoarthritis of both knees Take 1 tablet by mouth 4 (four) times a day as needed for severe pain for up to 7 days 28 tablet 06/18/2024 06/25/2024 Active Start: 05-18-2024 End: 06-16-2024 take 1 tablet by mouth four times daily as needed for pain HYDROcodone-acetaminophen ([place]) 5-325 MG tablet Indications: Primary osteoarthritis of both knees Take 1 tablet by mouth 4 (four) times a day as needed for severe pain for up to 7 days 28 tablet 05/18/2024 05/25/2024 Active Start: 01-15-2023 take 1 tablet by ching th every six hours Hydrocodone-Acetaminophen Active 1 TAB P O Q6H January 15, 2023 12:00am aspirin 81 mg delayed release oral tablet (20 sources) Platelet Aggregation Inhibitor, Nonsteroidal Anti-inflammatory Drug Start: 08-10-2024 Aspirin Low Dose 81 MG EC tablet Indications: Coronary artery disease, occlusive (CMS/HCC) TOME ADOLFO TABLETA TODOS LOS [place]NAMORADO 90 tablet 3 08/10/2024 Active Start: 01-16-2023 take 1 tablet by ching th once daily aspirin (Aspirin Low Dose) 81 MG EC tablet Indications: Coronary artery disease, occlusive (CMS/HCC) Take 1 tablet (81 mg) by mouth Daily 90 tablet 3 11/17/2023 Active atorvastatin 40 mg oral tablet (20 sources) HMG-CoA Reductase Inhibitor Start: 09-21-2024 take 1 tablet by mouth once daily atorvastatin (Lipitor) 40 MG tablet Take 1 tablet (40 mg) by mouth Daily 09/21/2024 Active Start: 09-21-2024 take 1 tablet by ching th once daily atorvastatin (Lipitor) 40 MG tablet Take 1 tablet (40 mg) by mouth Daily 09/21/2024 Active Start: 08-08-2024 End: 08-08-2025 take 1 tablet by mouth once daily atorvastatin (Lipitor) 40 mg tablet Indications: Mixed hyperlipidemia Take 1 tablet (40 mg) by mouth once daily. 90 tablet 3 08/08/2024 08/08/2025 Active Start: 08-03-2023 End: 09-21-2024 take 1 tablet by mouth once daily atorvastatin (Lipitor) 20 mg tablet Indications: Mixed hyperlipidemia Take 1 tablet (20 mg) by mouth once daily. 90 tablet 3 08/03/2023 08/08/2024 Discontinued (Reorder) Start: 01-16-2023 take 80 mg by mouth once daily in the evening Atorvastatin Active 80 MG PO Every evening January 16, 2023 12:00am cefdinir 300 mg oral capsule (1 source) Cephalosporin Antibacterial Start: 01-15-2023 take 300 mg by mouth twice daily Cefdinir Active 300 MG PO Twice daily January 15, 2023 12:00am famotidine 20 mg oral tablet (5 sources) Histamine-2 Receptor Antagonist End: 05-18-2024 take 1 tablet by mouth once daily at bedtime famotidine (Pepcid) 20 mg tablet Take 1 tablet (20 mg) by mouth once daily at bedtime. Active folic acid 1 mg oral tablet (20 sources) Start: 01-15-2023 folic acid (Folvite) 1 MG tablet Indications: Encounter for general adult medical examination without abnormal findings , Routine general medical examination at a health care facility KARMEN MUKHERJEE ENAMORADO 90 tablet 1 01/31/2024 Active hydroCHLOROthiazide 25 mg oral tablet (20 sources) Thiazide Diuretic Start: 01-15-2023 End: 08-02-2024 take 1 tablet by mouth once daily hydroCHLOROthiazide (HYDRODiuril) 25 mg tablet Indications: Essential hypertension Take 1 tablet (25 mg) by mouth once daily. 90 tablet 3 08/03/2023 Active lisinopril 10 mg oral tablet (20 sources) Angiotensin Converting Enzyme Inhibitor Start: 12-27-2023 lisinopril 10 MG tablet Indications: Essential hypertension, benign (CMS/HCC) KARMEN MATA TABLETA ESTIVEN MUKHERJEE ENAMORADO 90 tablet 3 12/27/2023 Active Start: 01-15-2023 take 20 mg by mouth once daily Lisinopril Active 20 MG PO Daily January 15, 2023 12:00am meclizine hydrochloride 25 mg oral tablet (1 source) Antiemetic Start: 01-15-2023 take 25 mg by mouth three times daily Meclizine Active 25 MG PO Three times daily January 15, 2023 12:00am melatonin 5 mg oral capsule (20 sources) Start: 01-16-2023 take 5 mg by mouth once daily at bedtime Melatonin Active 5 MG PO Daily at bedtime January 16, 2023 12:00am methocarbamol 750 mg oral tablet (1 source) Muscle Relaxant Start: 01-15-2023 take 750 mg by mouth three times daily Methocarbamol Active 750 MG PO Three times daily January 15, 2023 12:00am 24 hr metoprolol succinate 25 mg extended release oral tablet (20 sources) beta-Adrenergic Toño Start: 02-02-2024 metoprolol succinate XL (Toprol-XL) 25 mg 24 hr tablet Indications: Essential hypertension KARMEN MATA TABLETA ESTIVEN MUKHERJEE ENAMORADO 90 tablet 3 02/02/2024 Active Start: 08-03-2023 End: 09-21-2024 take 1 tablet by mouth every twenty-four hours in the morning metoprolol succinate XL (Toprol-XL) 25 MG 24 hr tablet Take 1 tablet by mouth in the morning. 08/03/2023 09/21/2024 Discontinued Start: 08-03-2023 End: 08-02-2024 take 0.5 tablet by mouth once daily metoprolol succinate XL (Toprol-XL) 25 mg 24 hr tablet Indications: Essential hypertension Take 0.5 tablets (12.5 mg) by mouth once daily. Do not crush or chew. 45 tablet 3 08/03/2023 08/02/2024 Active Start: 01-16-2023 take 25 mg by mouth once daily Metoprolol Succinate Active 25 MG PO Daily January 16, 2023 12:00am Multiple Vitamin (Multi-Vitamin) tablet (20 sources) take 1 tablet by mouth in the morning Multiple Vitamin (Multi-Vitamin) tablet Take 1 tablet by mouth in the morning. Active Multivit With Min-Folic Acid (Centrum Adult 50 Fresh-Fruity) 120 mcg Tablet,Chewable (1 source) Start: 01-15-2023 take 1 tablet by mouth once daily Multivit With Min-Folic Acid (Centrum Adult 50 Fresh-Fruity) 120 mcg Tablet,Chewable Active 1 TAB PO Daily January 15, 2023 12:00am multivitamin tablet (2 sources) take 1 tablet by mouth once daily multivitamin tablet Take 1 tablet by mouth once daily. Active take 1 tablet by mouth once janina y multivitamin tablet Take 1 tablet by mouth once daily. 0 Active nitroglycerin 0.4 mg sublingual tablet (20 sources) Nitrate Vasodilator Start: 01-16-2023 Nitroglycerin Active 0.4 MG SUBLINGUAL Q5M January 16, 2023 12:00am omeprazole 40 mg delayed release oral capsule (20 sources) Proton Pump Inhibitor Start: 09-14-2024 take 1 capsule by mouth before mealtime omeprazole (PriLOSEC) [address] capsule Indications: Gastroesophageal reflux disease without esophagitis TAKE 1 CAPSULE (40 MG) BY MOUTH IN THE MORNING. TAKE BEFORE MEALS. DO NOT CRUSH OR CHEW.. 90 capsule 1 09/14/2024 Active Start: 05-18-2024 take 1 capsule by mo uth before mealtime omeprazole (PriLOSEC) [address] capsule Indications: Gastroesophageal reflux disease without esophagitis Take 1 capsule (40 mg) by mouth in the morning. Take before meals. Do not crush or chew.. 30 capsule 3 05/18/2024 Active ondansetron 4 mg disintegrating oral tablet (1 source) Serotonin-3 Receptor Antagonist Start: 01-15-2023 take 4 mg by mouth every four hours Ondansetron Active 4 MG PO Q4H January 15, 2023 12:00am rOPINIRole 0.25 mg oral tablet (20 sources) Nonergot Dopamine Agonist Start: 09-14-2024 End: 09-21-2024 rOPINIRole (Requip) 0.25 MG tablet Indications: Restless legs syndrome TOME ADOLFO TABLETA TODOS YAZ SCOTTS AL ACOSTARSE 90 tablet 1 09/14/2024 09/21/2024 Discontinued Start: 12-27-2023 rOPINIRole (Re quip) 0.25 MG tablet Indications: Restless legs syndrome TOME ADOLFO TABLETA ESTIVEN ENAMORADO AL ACOSTARSE 90 tablet 1 12/27/2023 Active Completed/Discontinued Medications Medication Drug Class(es) Dates Sig (Normalized) Sig (Original) celecoxib 200 mg oral capsule (1 source) Nonsteroidal Anti-inflammatory Drug Start: 3 End: 3 take 200 mg by mouth twice daily Celecoxib Discontinued 200 MG PO Twice daily January 15, 2023 12:00am January 15, 2023 12:51pm 1 ml methylPREDNISolone acetate 40 mg/ml injection (4 sources) Corticosteroid Start: End: methylPREDNISolone acetate (DEPO-Medrol) injection 40 mg Start: 05-28-2024 End: 05-28-2024 40 mg, Intra-articular, Once PRN Procedure, Starting on 05/28/24 at 1738, For 1 dose Problems Active Problems Problem Classification Problem Date Documented Date Episodic/Chronic Acute myocardial infarction (2 sources) ST elevation (STEMI) myocardial infarction of unspecified site; Translations: [Acute myocardial infarction of anterior wall] Onset: 01-18-2023 08-31-2023 Chronic Coronary atherosclerosis and other heart disease (20 sources) History of non-ST segment elevation myocardial infarction; Translations: [Old myocardial infarction] Onset: 08-02-2023 08-03-2023 Chronic Diabetes mellitus with complications (17 sources) Hyperglycemia due to type 2 diabetes mellitus; Translations: [Type 2 diabetes mellitus with hyperglycemia] Onset: 11-17-2023 06-21-2024 Chronic Disorders of lipid metabolism (20 sources) Hyperlipidemia, unspecified; Translations: [Mixed hyperlipidemia] Onset: 08-11-2022 08-03-2023 Chronic E Codes: Fall (1 source) Fall Onset: 09-29-2023 Esophageal disorders (20 sources) Gastroesophageal reflux disease without esophagitis; Translations: [Gastro-esophageal reflux disease without esophagitis] Onset: 05-18-2024 05-18-2024 Chronic Essential hypertension (20 sources) Essential (primary) hypertension; Translations: [Essential hypertension] Onset: 08-06-2022 Chronic Joint disorders and dislocations; trauma-related (4 sources) Derangement of left knee; Translations: [Unspecified internal derangement of left knee] 05-28-2024 Chronic Osteoarthritis (20 sources) Primary gonarthrosis, bilateral; Translations: [Bilateral primary osteoarthritis of knee] Onset: 11-17-2023 11-17-2023 Chronic Other aftercare (1 source) Other [place] [facility] (current) drug therapy; Translations: [OTH [facility] [employer]IST CURRENT DRUG THERAPY] Onset: 01-18-2023 Episodic Other ear and sense organ disorders (3 sources) Sensorineural hearing loss, bilateral; Translations: [Sensorineural hearing loss, bilateral] 08-07-2024 Chronic Other non-traumatic joint disorders (1 source) Effusion, left knee; Translations: [Effusion, left knee] Onset: 09-29-2023 Episodic Other non-traumatic joint disorders (4 sources) Pain in left knee; Translations: [Pain in joint, lower leg] 05-28-2024 Episodic Other nutritional; endocrine; and metabolic disorders (1 source) Obesity, unspecified; Translations: [OBESITY UNSPECIFIED] Onset: 08-11-2022 Chronic Other nutritional; endocrine; and metabolic disorders (2 sources) Body mass index 30+ - obesity; Translations: [Body mass index (BMI) 33.0-33.9, adult] Onset: 08-08-2024 08-08-2024 Chronic Other nutritional; endocrine; and metabolic disorders (2 sources) Body mass index (BMI) 33.0-33.9, adult; Translations: [Body mass index (BMI) 33.0-33.9, adult] Onset: 08-08-2024 Chronic Other upper respiratory disease (20 sources) Allergic rhinitis due to pollen; Translations: [Allergic rhinitis due to pollen] Onset: 01-21-2017 11-17-2023 Chronic Screening and history of mental health and substance abuse codes (4 sources) Ex-smoker; Translations: [Personal history of nicotine dependence] Onset: 08-08-2024 08-08-2024 Episodic Spondylosis; intervertebral disc disorders; other back problems (20 sources) Degeneration of cervical intervertebral disc; Translations: [Other cervical disc degeneration, unspecified cervical region] Onset: 11-17-2023 11-17-2023 Chronic Unclassified (1 source) Fall, Knee Pain Onset: 09-29-2023 Past or Other Problems Problem Classification Problem Date Documented Da te Episodic/Chronic Diabetes mellitus without complication (14 sources) Prediabetes; Translations: [Prediabetes] Onset: 11-17-2023 11-17-2023 Episodic Malaise and fatigue (2 sources) Fatigue; Translations: [Other fatigue] Onset: 08-02-2023 08-02-2023 Episodic Mood disorders (11 sources) Mood disorders Onset: 06-21-2024 06-21-2024 Nonspecific chest pain (5 sources) Chest pain, unspecified; Translations: [Atypical chest pain] Onset: 01-15-2023 Episodic Other and unspecified benign neoplasm (20 sources) Benign neoplasm, unspecified site; Translations: [Benign neoplasm of unspecified site] Onset: 04-24-2024 04-24-2024 Episodic Other ear and sense organ disorders (20 sources) Bilateral tinnitus; Translations: [Tinnitus, bilateral] Onset: 05-18-2024 05-18-2024 Episodic Other ear and sense organ disorders (20 sources) Bilateral hearing loss of ears caused by noise; Translations: [Noise effects on inner ear, bilateral] Onset: 05-18-2024 05-18-2024 Episodic Other screening for suspected conditions (not mental disorders or infectious disease) (1 source) Encounter for screening for malignant neoplasm of prostate; Translations: [ENC SCREEN MALIG NEOPLASM PROSTATE] Onset: 08-11-2022 Episodic Other skin disorders (2 sources) H/O: skin disorder; Translations: [Personal history of diseases of the skin and subcutaneous tissue] 05-23-2024 Episodic Unclassified (2 sources) Onset: 08-03-2023 Resolved: 08-08-2024 08-03-2023 Varicose veins of lower extremity (20 sources) Pain co-occurrent and due to varicose veins of bilateral legs; Translations: [Varicose veins of bilateral lower extremities with pain] Onset: 11-17-2023 11-17-2023 Episodic Results Test Name Value Interpretation Reference Range Facility Auditory function testson Right Ear: Mild slop ing to profound sensorineural hearing loss above 1500 Hz. Left Ear: Mild sloping to severe sensorineural hearing loss above 1K Hz. Critical access hospital No Panel Informationon 05-28 [place] [facility] [place] 05/28/2024 5:41 PM L Inj/Asp: L knee on 05/28/2024 5:38 PM Indications: pain Details: anterolateral approach Medications: 40 mg methylPREDNISolone acetate 40 MG/ML Site was cleaned with isopropyl alcohol Consent was given by the patient. [facility] 05-15-2024 L Specimen: [id number] Received: 05/15/24 Status: SHREE Conklin Num: [id number] Spec Type: Surgical Subm Dr: Odilon Lopez DO Tissues: A Skin Cyst (R CHEST WALL CYST) Procedures: HE, Gross/Micro L3 Age/ Patient Sex Location Account Attending Physician Benitez Degroot Sr 68/M [facility] [id number] Odilon Lopez DO SPEC NUM: [id number] RECD: 05/15/24 STATUS: [facility] NUM: [id number] SHANNAN: 05/15/[address]: Odilon Lopez DO ENTERED: 05/15/[address]: Ronak,Magda SPEC TYPE: Surgical DEPT: VANDANA REA ENTERED BY: [id number] RECV BY: [id number] ORDERED: HE, Gross/Micro L3 ORDERED: HE, Gross/Micro L3 Pathological Diagnosis Cystic, right chest wall, excision: Ruptured epidermal inclusion cyst with surrounding soft tissue inflammation. Clinical Information Dermoid cyst on trunk, path pending Gross Description The specimen was received in formalin with the patient's name and right chest wall cyst is a lagos unoriented ellipse of skin measuring 3.2 x 1.1 x 1.2 cm. The skin surface is lagos wrinkled with a pink-red, lesion measuring 0.3 x 0.3 cm. The lesion is continuous with a cystic cavity in the subcutaneous tissue measuring 1.3 x 0.6 x 0.5 cm. The cyst is filled with cystic debris. The resection margin is inked black and serially sectioned. Explosives Operator sections are submitted in cassette A1. CPT Codes 88650 Specimen: [id number] Received: 05/15/24 Status: SHREE Conklin Num: [id number] Spec Type: Surgical Subm Dr: Odilon Lopez DO Tissues: A Skin Cyst (R CHEST WALL CYST) Procedures: Kamran TURNER/Bailey L3 Patient: Benitez Degroot Sr [id number] (Continued) Signed (signature on file) Zuleyka Morales MD 05/22/24 1435 Normal [facility] XR KNEE LT 3 VWSon 4 XR KNEE LT 3 VWS XR KNEE LT 3 VWS XR KNEE LT 3 VWS HISTORY: Fall, knee pain. COMPARISON: None. IMPRESSION: 1. No acute fracture or dislocation. 2. Large knee joint effusion. Finalized by Akin Leon MD on 09/29/2023 9:46 AM Normal [facility] BNPon 01-15-2023 Natriuretic peptide B (Bld) [Mass/Vol] 15.0 pg/mL Normal <=900.0 [facility] Comment on above: Performed By: #### C MP, BNP, CMADM #### [facility] [address] [address] [address] Harmeet Dorsey CARDIAC JULEE ADMITon 023 CK [Catalytic activity/Vol] 109 U/L Normal 39-308 [facility] Comment on above: Performed By: #### C MP, BNP, CMADM #### [facility] [address] [place] [address] Dr. Harmeet Dorsey CK.MB [Mass/Vol] 2.05 ng/mL Normal <=3.60 [facility] Comment on above: Performed By: #### C MP, BNP, CMADM #### [facility] [address] [place] [address] Dr. Harmeet Dorsey HSTROP 69.9 pg/mL Normal 4.0-76.1 [facility] Comment on above: Result Comment: CUT- OFF POINTS HAVE BEEN ESTABLISHED BASED ON THE FOURTH UNIVERSAL DEFINITIONS OF MYOCARDIAL INFARCTION. THE UPPER REFERENCE LIMIT (URL) OF TROPONIN, DEFINED THE 99TH PERCENTILE OF cTnI DISTRIBUTION IN A REFERENCE POPULATION, HAS BEEN CONFIRMED THE DECISION THRESHOLD FOR NE DIAGNOSIS. Performed By: #### C MP, BNP, CMADM #### [facility] [address] [place] [address] Dr. Harmeet Dorsey PRICE 96 ng/mL Normal 16-96 [facility] Comment on above: Performed By: #### C MP, BNP, CMADM #### [facility] [address] [place] [address] Dr. Harmeet Dorsey CBC AUTO DIFFon 01-15-2023 BASO # 0.1 103/ul Normal 0.0-0.1 [facility] Comment on above: Performed By: #### C BC #### [facility] [address] [address] [address] Harmeet Dorsey Basophils/100 WBC (Bld) 0.6 % Normal 0.2-2.0 [facility] Comment on above: Performed By: #### C BC #### [facility] [address] [address] [address] Harmeet Dorsey EO # 0.1 103/ul Normal 0.0-0.7 [facility] Comment on above: Performed By: #### C BC #### [facility] [address] [address] [address] Harmeet Dorsey Eosinophils/100 WBC (Bld) 0.7 % Critically low 0.9-7.0 [facility] Comment on above: Performed By: #### C BC #### [facility] [address] [place] [address] Dr. Harmeet Dorsey Erythrocyte distribution width (RBC) [Ratio] 13.3 % Normal 11.0-15.0 [facility] Comment on above: Performed By: #### C BC #### [facility] [address] [place] [address] Dr. Harmeet Dorsey Hematocrit (Bld) [Volume fraction] 54.4 % Critically high 42.0-54.0 [facility] Comment on above: Performed By: #### C BC #### [facility] [address] [place] [address] Dr. Harmeet Dorsey Hemoglobin (Bld) [Mass/Vol] 18.7 g/dL Critically high 14.0-18.0 [facility] Comment on above: Performed By: #### C BC #### [facility] [address] [place] [address] Dr. Harmeet Dorsey IG # 0.23 10e3/ul Critically high 0.00-0.03 [facility] Comment on above: Performed By: #### C BC #### [facility] [address] [place] [address] Dr. Harmeet Dorsey IG % 2.1 % Critically high 0.0-0.5 [facility] Comment on above: Performed By: #### C BC #### [facility] [address] [address] [address] Harmeet Dorsey LYMPH # 2.6 103/ul Normal 1.2-3.8 [facility] Comment on above: Performed By: #### C BC #### [facility] [address] [address] [address] Harmeet Dorsey Lymphocytes/100 WBC (Bld) 23.9 % Normal 20.5-60.0 [facility] Comment on above: Performed By: #### C BC #### [facility] [address] [place] [address] Dr. Harmeet Dorsey MANUAL DIFF REQ NO Normal [facility] Comment on above: Performed By: #### C BC #### [facility] [address] [place] [address] Dr. Harmeet Dorsey MCH (RBC) [Entitic mass] 31.2 pg Normal 25.9-34.0 [facility] Comment on above: Performed By: #### C BC #### [facility] [address] [place] [address] Dr. Harmeet Dorsey MCHC (RBC) [Mass/Vol] 34.4 g/dL Normal 29.9-35.2 [facility] Comment on above: Performed By: #### C BC #### [facility] [address] [place] [address] Dr. Harmeet Dorsey MCV (RBC) [Entitic vol] 90.8 fL Normal 80.0-94.0 [facility] Comment on above: Performed By: #### C BC #### [facility] [address] [place] [address] Dr. Harmeet Dorsey MONO # 0.9 103/ul Critically high 0.3-0.8 [facility] Comment on above: Performed By: #### C BC #### [facility] [address] [place] [address] Dr. Harmeet Dorsey Monocytes/100 WBC (Bld) 8.4 % Normal 1.7-12.0 [facility] Comment on above: Performed By: #### C BC #### [facility] [address] [address] [address] Harmeet Dorsey NEUT # 7.0 103/ul Critically high 1.4-6.5 [facility] Comment on above: Performed By: #### C BC #### [facility] [address] [address] [address] Harmeet Dorsey Neutrophils/100 WBC (Bld) 64.3 % Normal 43.0-75.0 [facility] Comment on above: Performed By: #### C BC #### [facility] [address] [address] [address] Harmeet Dorsey Platelet mean volume (Bld) [Entitic vol] 9.7 fL Normal 9.5-13.5 [facility] Comment on above: Performed By: #### C BC #### [facility] [address] [address] [address] Harmeet Dorsey PLT 262 103/ul Normal 150-450 [facility] Comment on above: Performed By: #### C BC #### [facility] Laboratory [address] [address] [address] Harmeet Dorsey RBC 5.99 106/ul Normal 4.70-6.10 [facility] Comment on above: Performed By: #### C BC #### [facility] [address] [address] [address] Harmeet Dorsey WBC 10.9 103/ul Normal 4.0-11.0 [facility] Comment on above: Performed By: #### C BC #### [facility] [address] [address] [address] Harmeet Dorsey PROF 14(COMP METB)on 023 Albumin [Mass/Vol] 3.5 g/dL Normal 3.4-5.0 The [facility] Comment on above: Performed By: #### C MP, BNP, CMADM #### [facility] [address] [address] [address] Harmeet Dorsey Albumin/Globulin [Mass ratio] 0.8 {ratio} Normal [facility] Comment on above: Performed By: #### C MP, BNP, CMADM #### [facility] [address] [address] [address] Harmeet Dorsey ALP [Catalytic activity/Vol] 71 U/L Normal 46-116 [facility] Comment on above: Performed By: #### C MP, BNP, CMADM #### [facility] [address] [address] [address] Harmeet Dorsey ALT [Catalytic activity/Vol] 218 U/L Critically high 16-63 [facility] Comment on above: Performed By: #### C MP, BNP, CMADM #### [facility] [address] [address] [address] Harmeet Dorsey Anion gap [Moles/Vol] 10.2 mmol/L Normal [facility] Comment on above: Performed By: #### C MP, BNP, CMADM #### [facility] [address] [place] [address] Dr. Harmeet Dorsey AST [Catalytic activity/Vol] 92 U/L Critically high 15-37 [facility] Comment on above: Performed By: #### C MP, BNP, CMADM #### [facility] [address] [address] [address] Harmeet Dorsey Bilirubin [Mass/Vol] 0.7 mg/dL Normal 0.2-1.0 [facility] Comment on above: Performed By: #### C MP, BNP, CMADM #### [facility] [address] [place] [address] Dr. Harmeet Dorsey Calcium [Mass/Vol] 8.9 mg/dL Normal 8.5-10.1 [facility] Comment on above: Performed By: #### C MP, BNP, CMADM #### [facility] [address] [place] [address] Dr. Harmeet Dorsey Chloride [Moles/Vol] 101 mmol/L Normal 98-107 [facility] Comment on above: Performed By: #### C MP, BNP, CMADM #### [facility] [address] [place] [address] Dr. Harmeet Dorsey CO2 [Moles/Vol] 29.3 mmol/L Normal 21.0-32.0 [facility] Comment on above: Performed By: #### C MP, BNP, CMADM #### [facility] [address] [address] [address] Harmeet Dorsey Creatinine [Mass/Vol] 1.26 mg/dL Normal 0.70-1.30 [facility] Comment on above: Performed By: #### C MP, BNP, CMADM #### [facility] [address] [address] [address] Harmeet Dorsey EGFR-AF DJIBOUTIAN >60 Normal >=60 [facility] Comment on above: Performed By: #### C MP, BNP, CMADM #### [facility] [address] [place] [address] Dr. Harmeet Dorsey EGFR-NON AF DJIBOUTIAN 57 mL/min/1.73m2 Critically low >=60 [facility] Comment on above: Performed By: #### C MP, BNP, CMADM #### [facility] [address] [place] [address] Dr. Harmeet Dorsey Globulin (S) [Mass/Vol] 4.3 g/dL Normal [facility] Comment on above: Performed By: #### C MP, BNP, CMADM #### [facility] [address] [place] [address] Dr. Harmeet Dorsey Glucose [Mass/Vol] 178 mg/dL Critically high 74-106 [facility] Comment on above: Performed By: #### C MP, BNP, CMADM #### [facility] [address] [place] [address] Dr. Harmeet Dorsey Potassium [Moles/Vol] 3.5 mmol/L Normal 3.5-5.1 [facility] Comment on above: Performed By: #### C MP, BNP, CMADM #### [facility] [address] [place] [address] Dr. Harmeet Dorsey Protein [Mass/Vol] 7.8 g/dL Normal 6.4-8.2 [facility] Comment on above: Performed By: #### C MP, BNP, CMADM #### [facility] [address] [place] [address] Dr. Harmeet Dorsey Sodium [Moles/Vol] 137 mmol/L Normal 136-145 [facility] Comment on above: Performed By: #### C MP, BNP, CMADM #### [facility] [address] [place] [address] Dr. Harmeet Dorsey Urea nitrogen [Mass/Vol] 15.0 mg/dL Normal 7.0-18.0 [facility] Comment on above: Performed By: #### C MP, BNP, CMADM #### [facility] [address] [place] [address] Dr. Harmeet Dorsey Urea nitrogen/Creatinin e [Mass ratio] 11.9 mg/mg Normal [facility] Comment on above: Performed By: #### C MP, BNP, CMADM #### [facility] [address] [place] [address] Dr. Harmeet Dorsey PROTIMEon 01-15-2023 INR Coag (PPP) [Relative time] 0.98 {INR} Normal [facility] Comment on above: Performed By: #### P T, PTT #### [facility] [address] [place] [address] Dr. Harmeet Dorsey INR GUIDELINES SEE BELOW Normal [facility] Comment on above: Result Comment: VICENTE RED INR: 2.0 - 3.0 CONDITIONS NOT LISTED BELOW 2.5 - 3.5 FOR PROSTHETIC HEART VALVE REPLACEMENT 2.5 - 3.5 RECURRENT THROMBOSIS Performed By: #### P T, PTT #### [facility] [address] [place] [address] Dr. Harmeet Dorsey PT Coag (PPP) [Time] 10.4 s Normal 9.0-11.6 [facility] Comment on above: Performed By: #### P T, PTT #### [facility] [address] [place] [address] Dr. Harmeet Dorsey PTTon 01-15-2023 aPTT Coag (Bld) [Time] 26.0 s Normal 22.3-36.2 [facility] Comment on above: Performed By: #### P T, PTT #### [facility] [address] [place] [address] Dr. Harmeet Dorsey XR CHEST 1 Von 01-15-2023 XR CHEST [...] VIKTORIA JOSE Date: 2023-01-15 09:51 Normal [facility] CBC AUTO DIFFon 08-06-2022 BASO # 0.0 103/ul Normal 0.0-0.1 [facility] Comment on above: Performed By: #### C BC #### [facility] [address] [place] [address] Dr. Harmeet Dorsey Basophils/100 WBC (Bld) 0.4 % Normal 0.2-2.0 [facility] Comment on above: Performed By: #### C BC #### [facility] [address] [place] [address] Dr. Harmeet Dorsey EO # 0.2 103/ul Normal 0.0-0.7 [facility] Comment on above: Performed By: #### C BC #### [facility] [address] [place] [address] Dr. Harmeet Dorsey Eosinophils/100 WBC (Bld) 2.3 % Normal 0.9-7.0 [facility] Comment on above: Performed By: #### C BC #### [facility] [address] [place] [address] Dr. Harmeet Dorsey Erythrocyte distribution width (RBC) [Ratio] 12.9 % Normal 11.0-15.0 [facility] Comment on above: Performed By: #### C BC #### [facility] [address] [place] [address] Dr. Harmeet Dorsey Hematocrit (Bld) [Volume fraction] 49.8 % Normal 42.0-54.0 [facility] Comment on above: Performed By: #### C BC #### [facility] [address] [place] [address] Dr. Harmeet Dorsey Hemoglobin (Bld) [Mass/Vol] 17.0 g/dL Normal 14.0-18.0 [facility] Comment on above: Performed By: #### C BC #### [facility] [address] [place] [address] Dr. Harmeet Dorsey IG # 0.03 10e3/ul Normal 0.00-0.03 [facility] Comment on above: Performed By: #### C BC #### [facility] [address] [place] [address] Dr. Harmeet Dorsey IG % 0.4 % Normal 0.0-0.5 [facility] Comment on above: Performed By: #### C BC #### [facility] [address] [place] [address] Dr. Harmeet Dorsey LYMPH # 2.5 103/ul Normal 1.2-3.8 [facility] Comment on above: Performed By: #### C BC #### [facility] [address] [place] [address] Dr. Harmeet Dorsey Lymphocytes/100 WBC (Bld) 30.9 % Normal 20.5-60.0 [facility] Comment on above: Performed By: #### C BC #### [facility] [address] [place] [address] Dr. Harmeet Dorsey MANUAL DIFF REQ NO Normal [facility] Comment on above: Performed By: #### C BC #### [facility] [address] [place] [address] Dr. Harmeet Dorsey MCH (RBC) [Entitic mass] 30.7 pg Normal 25.9-34.0 [facility] Comment on above: Performed By: #### C BC #### [facility] [address] [place] [address] Dr. Harmeet Dorsey MCHC (RBC) [Mass/Vol] 34.1 g/dL Normal 29.9-35.2 [facility] Comment on above: Performed By: #### C BC #### [facility] [address] [place] [address] Dr. Harmeet Dorsey MCV (RBC) [Entitic vol] 90.1 fL Normal 80.0-94.0 [facility] Comment on above: Performed By: #### C BC #### [facility] [address] [place] [address] Dr. Harmeet Dorsey MONO # 0.8 103/ul Normal 0.3-0.8 [facility] Comment on above: Performed By: #### C BC #### [facility] [address] [place] [address] Dr. Harmeet Dorsey Monocytes/100 WBC (Bld) 10.1 % Normal 1.7-12.0 [facility] Comment on above: Performed By: #### C BC #### [facility] [address] [place] [address] Dr. Harmeet Dorsey NEUT # 4.6 103/ul Normal 1.4-6.5 [facility] Comment on above: Performed By: #### C BC #### [facility] [address] [place] [address] Dr. Harmeet Dorsey Neutrophils/100 WBC (Bld) 55.9 % Normal 43.0-75.0 [facility] Comment on above: Performed By: #### C BC #### [facility] [address] [place] [address] Dr. Harmeet Dorsey Platelet mean volume (Bld) [Entitic vol] 10.8 fL Normal 9.5-13.5 [facility] Comment on above: Performed By: #### C BC #### [facility] [address] [place] [address] Dr. Harmeet Dorsey PLT 254 103/ul Normal 150-450 [facility] Comment on above: Performed By: #### C BC #### [facility] [address] [place] [address] Dr. Harmeet Dorsey RBC 5.53 106/ul Normal 4.70-6.10 [facility] Comment on above: Performed By: #### C BC #### [facility] [address] [place] [address] Dr. Harmeet Dorsey WBC 8.2 103/ul Normal 4.0-11.0 [facility] Comment on above: Performed By: #### C BC #### [facility] [address] [address] [address] Harmeet Dorsey LIPID PROFILEon 08-06-2022 CHOL-HDL RATIO NORM SEE BELOW Normal [facility] Comment on above: Result Comment: 3.3 - 4.4 LOW RISK 4.4 - 7.1 AVERAGE RISK 7.1 - 11.0 MODERATE RISK >11.0 HIGH RISK Performed By: #### L IPID, BMP, LIVER, TSH #### [facility] [address] [address] [address] Harmeet Dorsey Cholesterol [Mass/Vol] 236 mg/dL Critically high <=200 [facility] Comment on above: Performed By: #### L IPID, BMP, LIVER, TSH #### [facility] [address] [address] [address] Harmeet Dorsey Cholesterol in HDL [Mass/Vol] 43 mg/dL Normal 40-60 [facility] Comment on above: Performed By: #### L IPID, BMP, LIVER, TSH #### [facility] [address] [address] [address] Harmeet Doresy Cholesterol in LDL [Mass/Vol] 146.8 mg/dL Normal [facility] Comment on above: Performed By: #### L IPID, BMP, LIVER, TSH #### [facility] [address] [address] [address] Harmeet Dorsey Cholesterol.total/ Cholesterol in HDL [Mass ratio] 5.5 {ratio} Normal [facility] Comment on above: Performed By: #### L IPID, BMP, LIVER, TSH #### [facility] [address] [address] [address] Harmeet Dorsey HDL NORMAL > or = 60 mg/dl - LO W CARDIOVASCULAR RISK <40 mg/dl - HIGH CARDIOVASCULAR RISK Normal [facility] Comment on above: Performed By: #### L IPID, BMP, LIVER, TSH #### [facility] [address] [place] [address] Dr. Harmeet Dorsey LDL CALC NORMAL SEE BELOW Normal [facility] Comment on above: Result Comment: <100 mg/dl OPTIMAL 100 - 129 mg/dl NEAR OR ABOVE OPTIMAL 130 - 159 mg/dl BORDERLINE HIGH 160 - 189 mg/dl HIGH >190 mg/dl VERY HIGH Performed By: #### L IPID, BMP, LIVER, TSH #### [facility] [address] [address] [address] Harmeet Dorsey Triglyceride [Mass/Vol] 231 mg/dL Critically high <=150 [facility] Comment on above: Performed By: #### L IPID, BMP, LIVER, TSH #### [facility] [address] [address] [address] Harmeet Dorsey VLDL CALC 46.2 mg/dL Normal [facility] Comment on above: Performed By: #### L IPID, BMP, LIVER, TSH #### [facility] [address] [address] [address] Harmeet Dorsey LIVER PROFILEon 08-06-2022 Albumin [Mass/Vol] 3.7 g/dL Normal 3.4-5.0 [facility] Comment on above: Performed By: #### C MP, BNP, CMADM #### [facility] [address] [address] [address] Harmeet Dorsey Albumin/Globulin [Mass ratio] 1.0 {ratio} Normal [facility] Comment on above: Performed By: #### C MP, BNP, CMADM #### [facility] [address] [address] [address] Harmeet Dorsey ALP [Catalytic activity/Vol] 65 U/L Normal 46-116 [facility] Comment on above: Performed By: #### C MP, BNP, CMADM #### [facility] [address] [address] [address] Harmeet Dorsey ALT [Catalytic activity/Vol] 131 U/L Critically high 16-63 [facility] Comment on above: Performed By: #### C MP, BNP, CMADM #### [facility] [address] [address] [address] Harmeet Drosey AST [Catalytic activity/Vol] 83 U/L Critically high 15-37 [facility] Comment on above: Performed By: #### C MP, BNP, CMADM #### [facility] [address] [place] [address] Dr. Harmeet HALEI, CONJUGATED 0.2 mg/dL Normal 0.0-0.2 [facility] Comment on above: Performed By: #### C MP, BNP, CMADM #### [facility] [address] [place] [address] Dr. Harmeet Dorsey Bilirubin [Mass/Vol] 0.8 mg/dL Normal 0.2-1.0 [facility] Comment on above: Performed By: #### C MP, BNP, CMADM #### [facility] [address] [place] [address] Dr. Harmeet Dorsey Globulin (S) [Mass/Vol] 3.8 g/dL Normal [facility] Comment on above: Performed By: #### C MP, BNP, CMADM #### [facility] [address] [place] [address] Dr. Harmeet Dorsey Protein [Mass/Vol] 7.5 g/dL Normal 6.4-8.2 [facility] Comment on above: Performed By: #### C MP, BNP, CMADM #### [facility] [address] [place] [address] Dr. Harmeet Dorsey PROF CHEM 8 (BAS METB)on Anion gap [Moles/Vol] 9.5 mmol/L Normal [facility] Comment on above: Performed By: #### C MP, BNP, CMADM #### [facility] [address] [place] [address] Dr. Harmeet Dorsey Calcium [Mass/Vol] 8.8 mg/dL Normal 8.5-10.1 [facility] Comment on above: Performed By: #### C MP, BNP, CMADM #### [facility] [address] [place] [address] Dr. Harmeet Dorsey Chloride [Moles/Vol] 102 mmol/L Normal 98-107 [facility] Comment on above: Performed By: #### C MP, BNP, CMADM #### [facility] [address] [address] [address] Harmeet Dorsey CO2 [Moles/Vol] 29.0 mmol/L Normal 21.0-32.0 [facility] Comment on above: Performed By: #### C MP, BNP, CMADM #### [facility] [address] [address] [address] Harmeet Dorsey Creatinine [Mass/Vol] 1.07 mg/dL Normal 0.70-1.30 [facility] Comment on above: Performed By: #### C MP, BNP, CMADM #### [facility] [address] [address] [address] Harmeet Dorsey EGFR-AF DJIBOUTIAN >60 Normal >=60 [facility] Comment on above: Performed By: #### C MP, BNP, CMADM #### [facility] [address] [address] [address] Harmeet Dorsey EGFR-NON AF DJIBOUTIAN >60 Normal >=60 [facility] Comment on above: Performed By: #### C MP, BNP, CMADM #### [facility] [address] [address] [address] Harmeet Dorsey Glucose [Mass/Vol] 142 mg/dL Critically high 74-106 [facility] Comment on above: Performed By: #### C MP, BNP, CMADM #### [facility] [address] [address] [address] Harmeet Dorsey Potassium [Moles/Vol] 3.5 mmol/L Normal 3.5-5.1 [facility] Comment on above: Performed By: #### C MP, BNP, CMADM #### [facility] [address] [address] [address] Harmeet Dorsey Sodium [Moles/Vol] 137 mmol/L Normal 136-145 [facility] Comment on above: Performed By: #### C MP, BNP, CMADM #### [facility] [address] [address] [address] Harmeet Dorsey Urea nitrogen [Mass/Vol] 15.0 mg/dL Normal 7.0-18.0 [facility] Comment on above: Performed By: #### C MP, BNP, CMADM #### [facility] [address] [address] [address] Harmeet Dorsey Urea nitrogen/Creatinin e [Mass ratio] 14.0 mg/mg Normal [facility] Comment on above: Performed By: #### C MP, BNP, CMADM #### [facility] [address] [address] [address] Harmeet Dorsey TSHon 08-06-2022 TSH 1.940 uIU/mL Normal 0.358-3.740 [facility] Comment on above: Performed By: #### C MP, BNP, CMADM #### [facility] [address] [place] [address] Dr. Harmeet Dorsey Vital Signs Date Time Vital Sign Value Performing Clinician Facility 09-21-2024 09:18-0500 Body height 157.5 cm Lux Spivey MD Work Phone: [facility] 09-21-2024 09:18-0500 Body mass index (BMI) [Ratio] 34.39 kg/m2 Lux Spivey MD Work Phone: [facility] 09-21-2024 09:18-0500 Body temperature 98.2 [degF] Lux Spivey MD Work Phone: [facility] 09-21-2024 09:18-0500 Body weight 85.28 kg Lux Spivey MD Work Phone: [facility] 09-21-2024 09:18-0500 Diastolic blood pressure 64 mm[Hg] Lux Spivey MD Work Phone: [facility] 09-21-2024 09:18-0500 Heart rate 59 /min Lux Spivey MD Work Phone: [facility] 09-21-2024 09:18-0500 Respiratory rate 18 /min Lux Spivey MD Work Phone: [facility] 09-21-2024 09:18-0500 SaO2% (BldA) [Mass fraction] 95 % Lux Spivey MD Work Phone: [facility] 09-21-2024 09:18-0500 Systolic blood pressure 110 mm[Hg] Lux Spivey MD Work Phone: [facility] 08-08-2024 08:58-0500 Body height 157.5 cm Roosevelt Abdi DO Work Phone: [facility] 08-08-2024 08:58-0500 Body mass index (BMI) [Ratio] 33.84 kg/m2 Roosevelt Abdi DO Work Phone: [facility] 08-08-2024 08:58-0500 Body weight 83.92 kg Roosevelt Abdi DO Work Phone: [facility] 08-08-2024 08:58-0500 Diastolic blood pressure 66 mm[Hg] Roosevelt Abdi DO Work Phone: [facility] 08-08-2024 08:58-0500 Heart rate 60 /min Roosevelt Abdi DO Work Phone: [facility] 08-08-2024 08:58-0500 Systolic blood pressure 124 mm[Hg] Roosevelt Abdi DO Work Phone: [facility] 08-07-2024 13:40-0500 Body height 157.5 cm Asuncion Ingram MD Work Phone: [facility] 08-07-2024 13:40-0500 Body mass index (BMI) [Ratio] 34.39 kg/m2 Asuncion Ingram MD Work Phone: [facility] 08-07-2024 13:40-0500 Body weight 85.28 kg Asuncion Ingram MD Work Phone: [facility] 08-07-2024 13:40-0500 Diastolic blood pressure 68 mm[Hg] Asuncion Ingram MD Work Phone: [facility] 08-07-2024 13:40-0500 Systolic blood pressure 134 mm[Hg] Asuncion Ingram MD Work Phone: [facility] 06-21-2024 13:15-0400 Body height 157.5 cm Lux Spivey MD Work Phone: [facility] 06-21-2024 13:15-0400 Body mass index (BMI) [Ratio] 34.2 kg/m2 Lux Spivey MD Work Phone: [facility] 06-21-2024 13:15-0400 Body temperature 97.5 [degF] Lux Spivey MD Work Phone: [facility] 06-21-2024 13:15-0400 Body weight 84.82 kg Lux Spivey MD Work Phone: [facility] 06-21-2024 13:15-0400 Diastolic blood pressure 66 mm[Hg] Lux Spivey MD Work Phone: [facility] 06-21-2024 13:15-0400 Heart rate 71 /min Lux Spivey MD Work Phone: [facility] 06-21-2024 13:15-0400 Respiratory rate 18 /min Lux Spivey MD Work Phone: [facility] 06-21-2024 13:15-0400 SaO2% (BldA) [Mass fraction] 93 % Lux Spivey MD Work Phone: [facility] 06-21-2024 13:15-0400 Systolic blood pressure 124 mm[Hg] Lux Spivey MD Work Phone: [facility] 05-28-2024 13:46-0400 Body height 157.5 cm Rocky Lunsford NP Work Phone: [facility] 05-28-2024 13:46-0400 Body mass index (BMI) [Ratio] 34.75 kg/m2 Rocky Lunsford [employer]TRACTION ATTENDANT Work Phone: [facility] 05-28-2024 13:46-0400 Body weight 86.18 kg Rocky Lunsford ATTRACTION ATTENDANT Work Phone: [facility] 05-23-2024 11:32-0400 Body mass index (BMI) [Ratio] 35.01 kg/m2 Odilon Lopez DO Work Phone: [facility] 05-23-2024 11:32-0400 Body temperature 97.5 [degF] Odilon Lopez DO Work Phone: [facility] 05-23-2024 11:32-0400 Body weight 86.82 kg Odilon Lopez DO Work Phone: [facility] 05-23-2024 11:32-0400 Diastolic blood pressure 72 mm[Hg] Odilon Lopez DO Work Phone: [facility] 05-23-2024 11:32-0400 Heart rate 69 /min Odilon Lopez DO Work Phone: [facility] 05-23-2024 11:32-0400 Respiratory rate 24 /min Odilon Lopez DO Work Phone: [facility] 05-23-2024 11:32-0400 SaO2% (BldA) [Mass fraction] 98 % Odilon Lopez DO Work Phone: [facility] 05-23-2024 11:32-0400 Systolic blood pressure 148 mm[Hg] Odilon Lopez DO Work Phone: [facility] 05-18-2024 11:27-0400 Body height 157.5 cm Lux Spivey MD Work Phone: [facility] 05-18-2024 11:27-0400 Body mass index (BMI) [Ratio] 34.93 kg/m2 Lux Spivey MD Work Phone: [facility] 05-18-2024 11:27-0400 Body temperature 97.5 [degF] Lux Spivey MD Work Phone: [facility] 05-18-2024 11:27-0400 Body weight 86.64 kg Lux Spivey MD Work Phone: [facility] 05-18-2024 11:27-0400 Diastolic blood pressure 70 mm[Hg] Lux Spivey MD Work Phone: [facility] 05-18-2024 11:27-0400 Heart rate 75 /min Lux Spivey MD Work Phone: [facility] 05-18-2024 11:27-0400 Respiratory rate 18 /min Lux Spivey MD Work Phone: [facility] 05-18-2024 11:27-0400 SaO2% (BldA) [Mass fraction] 96 % Lux Spivey MD Work Phone: [facility] 05-18-2024 11:27-0400 Systolic blood pressure 146 mm[Hg] Lux Spivey MD Work Phone: [facility] 08-03-2023 11:04-0500 Diastolic blood pressure 80 mm[Hg] Roosevelt Abdi DO Work Phone: [facility] 08-03-2023 11:04-0500 Systolic blood pressure 144 mm[Hg] Roosevelt Abdi DO Work Phone: [facility] 08-03-2023 10:21-0500 Body height 157.5 cm Roosevelt Abdi DO Work Phone: [facility] 08-03-2023 10:21-0500 Body mass index (BMI) [Ratio] 34.02 kg/m2 Roosevelt Abdi DO Work Phone: [facility] 08-03-2023 10:21-0500 Body weight 84.37 kg Roosevelt Abdi DO Work Phone: [facility] 08-03-2023 10:21-0500 Heart rate 64 /min Roosevelt Abdi DO Work Phone: [facility] Encounters Encounter Date Encounter Type Care Provider Facility Start: 09-21-2024 End: 09-21-2024 Lane flowssuman Spivey MD Work Phone: [facility] Start: 09-21-2024 End: 09-21-2024 Lane flowssuman Spivey MD Work Phone: [facility] Start: 09-21-2024 End: 09-21-2024 Office outpatient visit 25 minutes Lux Spivey MD Work Phone: [facility] Comment on above: Type 2 diabetes alisson itus with hyperglycemia, without long-term current use of insulin ([facility]) (Primary Dx); Essential hypertension, benign ([facility]); Primary osteoarthritis of both knees; Gastroesophageal reflux disease without esophagitis; Degeneration of intervertebral disc of lumbar region with discogenic back pain; Coronary artery disease, occlusive ([facility]); Dyslipidemia ([facility]); Type 2 diabetes mellitus with other specified complication ([facility]) Start: 09-21-2024 End: 09-21-2024 ambulatory LUX SPIVEY Not Available Start: 08-31-2024 End: 08-31-2024 Refill Lux Spivey MD Work Phone: [facility] Comment on above: Primary osteoarthrit is of both knees Start: 08-08-2024 End: 08-08-2024 Office outpatient visit 15 minutes Roosevelt Abdi Work Phone: [facility] Comment on above: History of non-ST el evation myocardial infarction (NSTEMI); Atherosclerosis of [place] coronary artery of [place] heart, unspecified whether angina present; Essential hypertension; Mixed hyperlipidemia; BMI 33.0-33.9,adult; Former smoker Start: 08-08-2024 End: 08-08-2024 ambulatory [facility] Start: 08-07-2024 End: 08-07-2024 Bamboo flowsheet Asuncion Ingram MD Work Phone: [facility] Start: 08-07-2024 End: 08-07-2024 Bammitzio flowssuman Ingram MD Work Phone: [facility] Start: 08-07-2024 End: 08-07-2024 Office outpatient new 30 minutes Asuncion Ingram MD Work Phone: [facility] Comment on above: Tinnitus of both ear s; Sensorineural hearing loss (SNHL), bilateral Start: 08-07-2024 End: 08-07-2024 ambulatory ASUNCION INGRAM Not Available Start: 08-01-2024 End: 08-01-2024 Clinical Support Jacquevelasquez Hunt CCC-A Work Phone: [facility] Comment on above: Sensorineural hearin g loss, bilateral (Primary Dx); Tinnitus, bilateral Start: 08-01-2024 End: 08-01-2024 Bamboo flowsheet Jacque Cordoba SalonBookr CCC-A Work Phone: [facility] Start: 08-01-2024 End: 08-01-2024 Bamboo flowsheet Jacque Cordoba Gilbert CCC-A Work Phone: [facility] Start: 06-21-2024 End: 06-21-2024 Bamboo flowsheet Lux Spivey MD Work Phone: [facility] Start: 06-21-2024 End: 06-21-2024 Bamboo flowsheet Lux Spivey MD Work Phone: [facility] Start: 06-21-2024 End: 06-21-2024 ambulatory LUX SPIVEY Not Available Start: 06-21-2024 End: 06-21-2024 Patient encounter procedure Lux Spivey MD Work Phone: [facility] Work Phone: Start: 06-21-2024 End: 06-21-2024 Postop follow up visit related to original px Lux Spivey MD Work Phone: [facility] Comment on above: Medicare annual well ness visit, subsequent (Primary Dx); Type 2 diabetes mellitus with hyperglycemia, without long-term current use of insulin ([facility]) Start: 06-16-2024 End: 06-18-2024 Refill Aubrey Thompson MA [facility] Comment on above: Primary osteoarthrit is of both knees (Primary Dx) Start: 06-11-2024 End: 06-11-2024 Bamboo flowsheet Rocky Lunsford NP Work Phone: [facility] Start: 06-11-2024 End: 06-11-2024 Bamboo flowsheet Rocky Lunsford NP Work Phone: [facility] Start: 06-11-2024 End: 06-11-2024 Office outpatient visit 10 minutes Rocky Lunsford NP Work Phone: [facility] Comment on above: Internal derangement of left knee (Primary Dx); Chronic pain of left knee Start: 06-11-2024 End: 06-11-2024 ambulatory ROCKY LUNSFORD Not Available Start: 05-28-2024 End: 05-28-2024 Bamboo flowsheet Rocky Lunsford NP Work Phone: [facility] Start: 05-28-2024 End: 05-28-2024 Bamboo flowsheet Rocky Lunsford NP Work Phone: [facility] Start: 05-28-2024 End: 05-28-2024 Office outpatient new 45 minutes Rocky Lunsford NP Work Phone: [facility] Comment on above: Internal derangement of left knee (Primary Dx); Chronic pain of left knee Start: 05-28-2024 End: 05-28-2024 ambulatory ROCKY LUNSFORD Not Available Start: 05-23-2024 End: 05-23-2024 Bamboo flowsheet Odilon Lopez DO Work Phone: [facility] Start: 05-23-2024 End: 05-23-2024 Bamboo flowsheet Odilon Lopez DO Work Phone: [facility] Start: 05-23-2024 End: 05-23-2024 Postop follow up visit related to original px Odilon Lopez DO Work Phone: [facility] Comment on above: Status post surgery (Primary Dx); H/O sebaceous cyst Start: 05-23-2024 End: 05-23-2024 ambulatory ODILON LOPEZ Not Available Start: 05-18-2024 End: 05-18-2024 Bamboo flowsheet Lux Spivey MD Work Phone: [facility] Start: 05-18-2024 End: 05-18-2024 Bamboo flowsheet Lux Spivey MD Work Phone: [facility] Start: 05-18-2024 End: 05-18-2024 Office outpatient visit 25 minutes Lux Spivey MD Work Phone: [facility] Comment on above: Essential hypertensi on, benign (CMS/HCC) (Primary Dx); Primary osteoarthritis of both knees; DDD (degenerative disc disease), lumbar; Tinnitus of both ears; Noise-induced hearing loss of both ears; Gastroesophageal reflux disease without esophagitis; Annual physical exam Start: 05-18-2024 End: 05-18-2024 Patient encounter procedure Lux Spivey MD Work Phone: [facility] Start: 05-18-2024 End: 05-18-2024 ambulatory LUX SPIVEY Not Available Start: 05-15-2024 End: 05-15-2024 ambulatory MD Lux Spivey Work Phone: [facility] Work Phone: Start: 05-15-2024 End: 05-15-2024 Departed Referred MD Lux Spivey Work Phone: [facility] Start: 04-30-2024 End: 04-30-2024 ambulatory ODILON LOPEZ Not Available Start: 04-24-2024 End: 04-24-2024 ambulatory LUX SPIVEY Not Available Start: 01-02-2024 End: 01-02-2024 ambulatory ODILON LOPEZ Not Available Start: 11-17-2023 End: 11-17-2023 ambulatory LUX SPIVEY Not Available Start: 09-29-2023 End: 09-30-2023 Emergency department patient visit NGUYỄN Cordoba [facility] Start: 09-29-2023 End: 09-29-2023 ambulatory LUX SPIVEY Not Available Start: 08-03-2023 End: 08-03-2023 Office outpatient visit 25 minutes Roosevlet Abdi DO Work Phone: [facility] Comment on above: History of non-ST el evation myocardial infarction (NSTEMI); Atherosclerosis of [place] coronary artery of [place] heart, unspecified whether angina present; Mixed hyperlipidemia; Essential hypertension Start: 01-17-[address] Lux Spivey Facility:[facility] Start: 01-15-[address] Lux Spivey Facility:[id number] Start: 01-15-2023 End: 01-15-2023 ambulatory CECIL JOHN . Facility: Start: 01-15-[address] Lux Spivey Facility:[id number] Start: 08-06-2022 End: 08-07-[address] LUX SPIVEY Facility: Start: 09-29-2018 End: 09-30-2018 Patient encounter procedure DEFAULT PHYSICIAN Facility:[facility] Procedures Date Procedure Procedure Detail Performing Clinician Start: 08-01-2024 AUDITORY FUNCTION TESTS Jacque Hunt [facility] Work Phone: Start: 05-28-2024 Arthrocentesis aspir &/inj major jt/bursa w/o Rocky T Jailene ATTRACTION ATTENDANT Work Phone: Start: 05-25-2024 Lipid 1996 panel - S berenice or Plasma Roosevelt Abdi DO Work Phone: Start: 01-17-2024 Colonoscopy Lux crespo MD Work Phone: Start: 08-06-2022 PSA screening CECIL RAO . Comment on above: Performed By: #### P [facility] #### [facility] [address] [place] [address] Dr. Harmeet Dorsey H/O: surgery Status post surgery Odilon diaz DO Work Phone: Plan of Treatment Date Care Activity Detail Author Start: 01-16-2034 Screening for malignant neoplasm of colon [facility] Start: 05-25-2029 Lipid panel Lipid Panel [facility] Start: 04-04-2026 Glaucoma screening Diabetes: Retinopathy Screening [facility] Start: 05-25-2025 Urine screening for protein Diabetes: Urine Protein Screening [facility] Start: 03-29-2025 End: 03-29-2025 Patient encounter procedure 03/29/2025 9:15 AM EDT Office Visit [facility] [address] [place] [id number] Lux Spivey MD [address] [place] [address] [facility] Start: 03-18-2025 DTaP/Tdap/Td Vaccines (2 - Td or Tdap) DTaP/Tdap/Td Vaccines (2 - Td or Tdap) [facility] Start: 11-22-2024 Hemoglobin A1c measurement Diabetes: Hemoglobin A1C [facility] Start: 09-21-2024 End: 09-21-2025 Hemoglobin A1c/Hemoglobin.total in Blood Hemoglobin A1c Lab Routine Type 2 diabetes mellitus with hyperglycemia, without long-term current use of insulin ([facility]) Expected: 09/21/2024 (Approximate), Expires: 09/21/2025 [facility] Comment on above: Expected: 09/21/2024 (Approximate), Expi res: 09/21/2025 Start: 09-21-2024 End: 09-21-2025 Microalbumin/Creatinine panel in random Urine Microalbumin / creatinine, urine ratio Lab Routine Type 2 diabetes mellitus with hyperglycemia, without long-term current use of insulin ([facility]) Expected: 09/21/2024 (Approximate), Expires: 09/21/2025 [facility] Work Phone: Comment on above: Expected: 09/21/2024 (Approximate), Expi res: 09/21/2025 Start: 09-21-2024 End: 09-21-2024 Patient encounter procedure [facility] Comment on above: Arrived Start: 08-24-2024 Hemoglobin A1c measurement Diabetes: Hemoglobin A1C [facility] Start: 08-07-2024 End: 08-07-2024 Patient encounter procedure [facility] Comment on above: Tinnitus of both ears; Noise-induced hearing loss of both ears Start: 08-01-2024 End: 08-01-2024 Clinical Support 08/01/2024 2:15 PM EST Clinical Support [facility] [address] [place] [address] Jacque Hunt, [facility] [address] [place] [address] [facility] Start: 06-21-2024 End: 06-21-2024 Patient encounter procedure 06/21/2024 1:00 PM EDT Office Visit [facility] [address] [place] [address] Lux Spivey MD [address] [place] [phone] [facility] Start: 06-18-2024 End: 06-18-2024 Patient encounter procedure 06/18/2024 11:30 AM EDT Office Visit [facility] [address] [place] [address] Lux Spivey MD [address] [place] [phone] [facility] Start: 06-11-2024 End: 06-11-2024 Patient encounter procedure 06/11/2024 1:30 PM EDT Office Visit [facility] [address] [place] [phone] Rocky Lunsford, ATTRACTION ATTENDANT [address] [place] [address] [facility] Start: 05-28-2024 End: 05-28-2024 Patient encounter procedure [facility] Comment on above: Arrived Start: 05-23-2024 End: 05-23-2024 Patient encounter procedure [facility] Comment on above: Arrived Start: 05-20-2024 COVID-19 Vaccine () COVID-19 Vaccine () [facility] Start: 05-20-2024 Influenza vaccination Influenza Vaccine (#1) [facility] Start: 05-18-2024 End: 05-18-2025 Basic metabolic 1998 panel - Serum or Plasma Basic metabolic panel Lab Routine Annual physical exam Expected: 05/18/2024 (Approximate), Expires: 05/18/2025 [facility] Comment on above: Expected: 05/18/2024 (Approximate), Expi res: 05/18/2025 Start: 05-18-2024 End: 05-18-2025 CBC W Auto Differential panel - Blood CBC and differential Lab Routine Annual physical exam Expected: 05/18/2024 (Approximate), Expires: 05/18/2025 [facility] Comment on above: Expected: 05/18/2024 (Approximate), Expi res: 05/18/2025 Start: 05-18-2024 End: 05-18-2025 Hemoglobin A1c/Hemoglobin.total in Blood Hemoglobin A1c Lab Routine Annual physical exam Expected: 05/18/2024 (Approximate), Expires: 05/18/2025 [facility] Work Phone: Comment on above: Expected: 05/18/2024 (Approximate), Expi res: 05/18/2025 Start: 05-18-2024 End: 05-18-2025 Hepatic function 2000 panel - Serum or Plasma Hepatic function panel Lab Routine Annual physical exam Expected: 05/18/2024 (Approximate), Expires: 05/18/2025 [facility] Comment on above: Expected: 05/18/2024 (Approximate), Expi res: 05/18/2025 Start: 05-18-2024 End: 05-18-2025 Lipid 1996 panel - Serum or Plasma Lipid panel Lab Routine Annual physical exam Expected: 05/18/2024 (Approximate), Expires: 05/18/2025 [facility] Comment on above: Expected: 05/18/2024 (Approximate), Expi res: 05/18/2025 Start: 05-18-2024 End: 05-18-2025 Prostate specific Ag [Mass/volume] in Serum or Plasma PSA Lab Routine Annual physical exam Expected: 05/18/2024 (Approximate), Expires: 05/18/2025 [facility] Comment on above: Expected: 05/18/2024 (Approximate), Expi res: 05/18/2025 Start: 05-18-2024 End: 05-18-2025 Thyrotropin [Units/volume] in Serum or Plasma TSH Lab Routine Annual physical exam Expected: 05/18/2024 (Approximate), Expires: 05/18/2025 [facility] Comment on above: Expected: 05/18/2024 (Approximate), Expi res: 05/18/2025 Start: 05-18-2024 End: 05-18-2024 Patient encounter procedure 05/18/2024 11:15 AM EDT Office Visit [facility] [address] [place] [phone] Lux Spivey MD [address] [place] [phone] Arrived [facility] Comment on above: Arrived Start: 08-03-2023 End: 08-03-2024 Alanine aminotransferase [Enzymatic activity/volume] in Serum or Plasma by With P-5'-P Alanine Aminotransferase Lab Routine Mixed hyperlipidemia Expected: 08/03/2023 (Approximate), Expires: 08/03/2024 [facility] Service Area Work Phone: Comment on above: Expected: 08/03/2023 (Approximate), Expi res: 08/03/2024 Start: 08-03-2023 End: 08-03-2024 Aspartate aminotransferase [Enzymatic activity/volume] in Serum or Plasma by With P-5'-P Aspartate Aminotransferase Lab Routine Mixed hyperlipidemia Expected: 08/03/2023 (Approximate), Expires: 08/03/2024 [facility] Work Phone: Comment on above: Expected: 08/03/2023 (Approximate), Expi res: 08/03/2024 Start: 08-03-2023 End: 08-03-2024 Basic metabolic 2000 panel - Serum or Plasma Basic Metabolic Panel Lab Routine History of non-ST elevation myocardial infarction (NSTEMI) Atherosclerosis of [place] coronary artery of [place] heart, unspecified whether angina present Mixed hyperlipidemia Essential hypertension Expected: 08/03/2023 (Approximate), Expires: 08/03/2024 [facility] Work Phone: Comment on above: Expected: 08/03/2023 (Approximate), Expi res: 08/03/2024 Start: 08-03-2023 End: 08-03-2024 Lipid 1996 panel - Serum or Plasma Lipid Panel Lab Routine Mixed hyperlipidemia Expected: 08/03/2023 (Approximate), Expires: 08/03/2024 [facility] Work Phone: Comment on above: Expected: 08/03/2023 (Approximate), Expi res: 08/03/2024 Start: 05-20-2023 Influenza vaccination Influenza Vaccine (#1) [facility] Start: 08-27-2021 Zoster Vaccines (2 of 2) Zoster Vaccines (2 of 2) [facility] Start: 03-05-2021 COVID-19 Vaccine (3 - Pfizer series) COVID-19 Vaccine (3 - Pfizer series) [facility] Start: 2020 Abdominal aortic aneurysm screening Abdominal Aortic Aneurysm (AAA) Screening [facility] Start: 2015 RSV High Risk: (Elderly (60+) or Population) (1 - Risk 60-74 years 1-dose series) RSV High Risk: (Elderly (60+) or Population) (1 - Risk 60-74 years 1-dose series) [facility] Start: 1974 Urine screening for protein Diabetes: Urine Protein Screening [facility] Start: 1973 Diabetes mellitus screening Diabetes Screening [facility] Start: 1973 Hepatitis C screening Hepatitis C Screening [facility] Start: 1965 Glaucoma screening Diabetes: Retinopathy Screening [facility] Start: 1961 Pneumococcal Vaccine: 65+ Years (1 - PCV) Pneumococcal Vaccine: 65+ Years (1 - PCV) [facility] Start: 1961 Pneumococcal Vaccine: 65+ Years (1 of 2 - PCV) Pneumococcal Vaccine: 65+ Years (1 of 2 - PCV) [facility] Start: 1955 Lipid panel Lipid Panel [facility] Start: 1955 Screening for malignant neoplasm of colon [facility] Start: 1955 Yearly Adult Physical Yearly Adult Physical [facility] Immunizations Immunization Date Immunization Notes Care Provider Fa cility 10-26-2021 COVID-19 mRNA-1273 (Wilfrid) MD Lux Spivey Work Phone: [facility] 10-10-2021 COVID-19 mRNA-1273 (Wilfrid) MD Lux Spivey Work Phone: [facility] 07-02-2021 influenza virus vaccine, unspecified formulation Roosevelt Abdi Work Phone: [facility] Work Phone: Payers Date Payer Category Payer Self-pay 2023 Managed Care (Private) [facility] [id number] 2023 Private Health Insurance [id number] 2023 Private Health Insurance [id number] 2020 Medicare [id number] 1959 Medicare [id number] 1959 Private Health Insurance [id number] 1955 Unknown [id number] 2.16.840.1.421371.3.579. 2.647 1955 Unknown [id number] 2.16.840.1.812177.3.579. 2.593 1955 Unknown [id number] 2.16.840.1.273228.3.579. 2.593 1955 Unknown [id number] 2.16.840.1.030817.3.579. 2.356 1955 Unknown [id number] 2.16.840.1.530467.3.579. 2.356 1955 Unknown [id number] 2.16.840.1.379497.3.579. 2.1286 1955 Unknown [id number] 2.16.840.1.585808.3.579. 2.1286 1955 Unknown [id number] 2.16.840.1.456304.3.579. 2.1244 1955 Unknown [id number] 2.16.840.1.421141.3.579. 2.1259 1955 Unknown [id number] 2.16.840.1.657579.3.579. 2.125 1955 Unknown [id number] 2.16.840.1.273229.3.579. 2.1259 1955 Unknown [id number] 2.16.840.1.841038.3.579. 2.1259 1955 Unknown [id number] 2.16.840.1.382149.3.579. 2.1259 1955 Unknown [id number] 2.16.840.1.808096.3.579. 2.125 1955 Unknown [id number] 2.16.840.1.940270.3.579. 2.1259 1955 Unknown [id number] 2.16.840.1.834199.3.579. 2.1259 1955 Unknown [id number] 2.16.840.1.449738.3.579. 2.1259 1955 Unknown [id number] 2.16.840.1.671759.3.579. 2.1259 1955 Unknown [id number] 2.16.840.1.374812.3.579. 2.1259 1955 Unknown [id number] 2.16.840.1.346139.3.579. 2.1259 1955 Unknown [id number] 2.16.840.1.273622.3.579. 2.1259 Unknown Unknown [id number] 2.16.840.1.883520.3.579. 2.531 Social History Date Type Detail Facility Start: [facility]03[facility] History of tobacco use Current smoker [facility] Work Phone: History of tobacco use Cigarette Smoker [facility] Work Phone: Start: 08-03-2023 End: 11-17-2023 Tobacco use and exposure Smokeless tobacco non-user [facility] Work Phone: Start: 08-03-2023 End: 08-08-2024 Alcohol intake Lifetime non-drinker (finding) [facility] Work Phone: Start: 08-03-2023 End: 06-21-2024 History of Social function [facility] Work Phone: Start: 08-03-2023 End: 06-21-2024 Tobacco use panel [facility] Work Phone: Start: 1955 Sex Assigned At Not on file [facility] Work Phone: Start: 07-24-2023 End: 08-08-2024 Exposure to SARS-CoV-2 (event) Not sure [facility] Start: 01-15-2023 [facility] Start: 1955 Sex Assigned At Male [facility] Start: 11-17-2023 Tobacco smoking stat [facility] Never smoked tobacco [facility] Start: 06-21-2024 End: 09-21-2024 Alcoholic beverage intake Ex-drinker (finding) [facility] Medical Equipment Procedure Code Equipment Code Equipment Origin al Text Equipment Identifier Dates Femoral artery closure plug/patch, synthetic polymer [id number] [facility] Start: 01-15-2023 Clinical Notes 10-26-2021 to 09-21-2024 Lux Spivey MD - 09/21/2024 9:51 AM Cb Spivey MD - 09/21/2024 9:48 AM Cb Spivey MD - 09/21/2024 9:48 AM Cb Spivey MD - 09/21/2024 9:48 AM ESTPatient Instructions Note Date & Type Note Facility 09-21-2024 History of Present illness Narrative Associated Problem(s): Dyslipidemia (CMS/HCC) Continue lipitor and will monitor labs. Associated Problem(s): Type 2 diabetes mellitus with hyperglycemia, without long-term current use of insulin (CMS/HCC) Not checking BS and due for A1C. Stick to ADA diet and limit carbs. Associated Problem(s): Primary osteoarthritis of both knees Pain stable and use norco PRN. Associated Problem(s): Gastroesophageal reflux disease without esophagitis Symptoms controlled with omeprazole and continue. Associated Problem(s): Essential hypertension, benign (CMS/HCC) BP controlled and monitor PRN. Associated Problem(s): DDD (degenerative disc disease), lumbar Pain stable and use norco PRN. Associated Problem(s): Coronary artery disease, occlusive (CMS/HCC) No symptoms and continue medication. Images from the original note were not included. Subjective Patient ID: Benitez Degroot is a 68 y.o. male who presents for Follow-up (3m). Follow up DM, HTN, OA knee, and back pain. Not checking BS away from office. Tries to eat well and stick to ADA diet. Denies signs of elevated BS such as polyuria, polyphagia or polydipsia. Checking BP PRN and typically controlled. BP normal today. Taking medication daily and tolerating without side effects. Knee pain stable. Frequent popping, clicking, and grinding. Not unsteady or giving out. Pain increased with walking and standing. Pain in low back stable. Pain in low back and across top hips. No radiation into gluteal region or down legs. Pain increased with walking and standing. Using norco PRN and helps. GERD controlled with omeprazole. Denies epigastric pain or burning and not waking up with symptoms. Following with cardiology for CAD. No chest pain or palpitations. Taking medication daily. Review of Systems Constitutional: Negative for fatigue. Respiratory: Negative for cough, shortness of breath and wheezing. Cardiovascular: Negative for chest pain and palpitations. Gastrointestinal: Negative for abdominal pain, diarrhea, nausea and vomiting. Genitourinary: Negative for dysuria. Objective Physical Exam Constitutional: General: He is not in acute distress. Appearance: Normal appearance. HENT: Head: Normocephalic. Right Ear: Tympanic membrane and ear canal normal. Left Ear: Tympanic membrane and ear canal normal. Eyes: Extraocular Movements: Extraocular movements intact. Pupils: Pupils are equal, round, and reactive to light. Cardiovascular: Rate and Rhythm: Normal rate and regular rhythm. Heart sounds: No murmur heard. No friction rub. No gallop. Pulmonary: Breath sounds: Normal breath sounds. No wheezing, rhonchi or rales. Abdominal: General: Bowel sounds are normal. There is no distension. Palpations: Abdomen is soft. Tenderness: There is no abdominal tenderness. There is no guarding or rebound. Musculoskeletal: Left lower leg: No edema. Neurological: Mental Status: He is alert. Assessment/Plan Problem List Items Addressed This Visit Essential hypertension, benign (CMS/HCC) BP controlled and monitor PRN. Coronary artery disease, occlusive (CMS/HCC) No symptoms and continue medication. DDD (degenerative disc disease), lumbar Pain stable and use norco PRN. Type 2 diabetes mellitus with hyperglycemia, without long-term current use of insulin (CMS/HCC) - Primary Not checking BS and due for A1C. Stick to ADA diet and limit carbs. Relevant Orders Microalbumin / creatinine, urine ratio Hemoglobin A1c Primary osteoarthritis of both knees Pain stable and use norco PRN. Gastroesophageal reflux disease without esophagitis Symptoms controlled with omeprazole and continue. documented in this encounter [facility] 08-08-2024 History of Present illness Narrative Subjective Benitez Degroot Sr. is a 68 y.o. male Chief Complaint Annual Exam 68-year-old gentleman returns for annual follow-up he is doing well he denies any cardiovascular events, complaints or nitrate usage or hospitalizations. He does complain of increasing fatigue. He sustained a small STEMI back in December 2022 with a small second diagonal branch occlusion with normal left ventricular function. He is relegated to conservative management no angioplasty or stenting was performed. He has had no clinical sequela Most recent LDL level is 108. He is nondiabetic, blood pressure is under good control he is a non-smoker We can continue to follow him for conservative management of his CAD and prior ACS event Recommendations, escalate atorvastatin to 40 mg daily and follow-up in 1 year Review of Systems All other systems reviewed and are negative. Vitals: 08/08/24 0858 BP: 124/66 BP Location: Left arm Patient Position: Sitting Pulse: 60 Weight: 83.9 kg (185 lb) Height: 1.575 m (5' 2 ) Objective Physical Exam Constitutional: Appearance: Normal appearance. HENT: Nose: Nose normal. Neck: Vascular: No carotid bruit. Cardiovascular: Rate and Rhythm: Normal rate. Pulses: Normal pulses. Heart sounds: Normal heart sounds. Pulmonary: Effort: Pulmonary effort is normal. Abdominal: General: Bowel sounds are normal. Palpations: Abdomen is soft. Musculoskeletal: General: Normal range of motion. Cervical back: Normal range of motion. Right lower leg: No edema. Left lower leg: No edema. Skin: General: Skin is warm and dry. Neurological: General: No focal deficit present. Mental Status: He is alert. Psychiatric: Mood and Affect: Mood normal. Behavior: Behavior normal. Thought Content: Thought content normal. Judgment: Judgment normal. Allergies Patient has no known allergies. Current Medications Current Outpatient Medications: aspirin 81 mg EC tablet, Take 1 tablet (81 mg) by mouth once daily., Disp: , Rfl: atorvastatin (Lipitor) 20 mg tablet, Take 1 tablet (20 mg) by mouth once daily., Disp: 90 tablet, Rfl: 3 famotidine (Pepcid) 20 mg tablet, Take 1 tablet (20 mg) by mouth once daily at bedtime., Disp: , Rfl: folic acid (Folvite) 1 mg tablet, Take 1 tablet (1 mg) by mouth once daily., Disp: , Rfl: hydroCHLOROthiazide (HYDRODiuril) 25 mg tablet, Take 1 tablet (25 mg) by mouth once daily., Disp: 90 tablet, Rfl: 3 melatonin 5 mg capsule, Take 1 capsule (5 mg) by mouth once daily., Disp: , Rfl: metoprolol succinate XL (Toprol-XL) 25 mg 24 hr tablet, TOME ADOLFO BELINDAA TODOS LOS ENAM[place]O, Disp: 90 tablet, Rfl: 3 multivitamin tablet, Take 1 tablet by mouth once daily., Disp: , Rfl: nitroglycerin (Nitrostat) 0.4 mg SL tablet, Place 1 tablet (0.4 mg) under the tongue every 5 minutes if needed for chest pain., Disp: , Rfl: Assessment/Plan 1. History of non-ST elevation myocardial infarction (NSTEMI) Follow Up In Cardiology 2. Atherosclerosis of [place] coronary artery of [place] heart, unspecified whether angina present Follow Up In Cardiology 3. Essential hypertension Follow Up In Cardiology 4. Mixed hyperlipidemia 5. BMI 33.0-33.9,adult 6. Former smoker Scribe Attestation By signing my name below, I, Naheed Copeland RN , Scribe attest that this documentation has been prepared under the direction and in the presence of Roosevelt Abdi DO. Provider Attestation - Scribe documentation All medical record entries made by the Scribe were at my direction and personally dictated by me. I have reviewed the chart and agree that the record accurately reflects my personal performance of the history, physical exam, discussion and plan. documented in this encounter [facility] Work Phone: 08-08-2024 Instructions Naheed Newton RN - 08/08/2024 9:10 AM EST Please bring all medicines, vitamins, and herbal supplements with you when you come to the office. Prescriptions will not be filled unless you are compliant with your follow up appointments or have a follow up appointment scheduled as per instruction of your physician. Refills should be requested at the time of your visit. BMI was above normal measurement. Current weight: 83.9 kg (185 lb) Weight change since last visit (-) denotes wt loss -1 lbs Weight loss needed to achieve BMI 25: 48.6 Lbs Weight loss needed to achieve BMI 30: 21.3 Lbs Provided instructions on dietary changes Provided instructions on exercise. documented in this encounter [facility] Work Phone: 08-07-2024 History of Present illness Narrative Subjective Patient ID: Benitez Degroot is a 68 y.o. male who presents for Tinnitus (Audio 08/01/24) Loud noise at work, but wears earplugs. Pt presents after failing work screening audio. 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 Review of work audios show a gradual progression of karlos SNHL. 08/01 audio shows mild to severe karlos downsloping SNHL. Review of Systems All other systems reviewed and are negative. Family History Problem Relation Name Age of Onset Diabetes Mother Hypertension Mother Cancer Father Active Ambulatory Problems Diagnosis Date Noted Essential hypertension, benign ([facility]/HCC) 11/17/2023 Coronary artery disease, occlusive ([facility]) 11/17/2023 Degenerative, intervertebral disc, cervical 11/17/2023 DDD (degenerative disc disease), lumbar 11/17/2023 Dyslipidemia ([facility]) 11/17/2023 Type 2 diabetes mellitus with hyperglycemia, without long-term current use of insulin ([facility]) 11/17/2023 Primary osteoarthritis of both knees 11/17/2023 Allergic rhinitis due to pollen 01/21/2017 Pain due to varicose veins of both lower extremities 11/17/2023 Dermoid cyst 04/24/2024 Medicare annual wellness visit, subsequent 05/18/2024 Tinnitus of both ears 05/18/2024 Noise-induced hearing loss of both ears 05/18/2024 Gastroesophageal reflux disease without esophagitis 05/18/2024 Resolved Ambulatory Problems Diagnosis Date Noted No Resolved Ambulatory Problems Past Medical History: Diagnosis Date Abnormal liver function At low risk for fall Benign essential hypertension (CMS/HCC) DDD (degenerative disc disease), cervical Encounter for long-term (current) use of medications Lung nodule Obesity with body mass index (BMI) of 30.0 to 39.9 Prediabetes Primary localized osteoarthritis of knees, bilateral Varicose veins with pain Past Surgical History: Procedure Laterality Date BREAST SURGERY Right 04/2024 Had cyst removed from under RT breast No Known Allergies Current Outpatient Medications on File Prior to Visit Medication Sig Dispense Refill aspirin (Aspirin Low Dose) 81 MG EC tablet Take 1 tablet (81 mg) by mouth Daily 90 tablet 3 atorvastatin (Lipitor) 20 MG tablet Take 1 tablet by mouth in the morning. folic acid (Folvite) 1 MG tablet TOME ADOLFO TABLETA TODOS [place] 90 tablet 1 hydroCHLOROthiazide (HYDRODiuril) 25 MG tablet Take 1 tablet by mouth in the morning. lisinopril 10 MG tablet TOME ADOLFO TABLETA DO [place] 90 tablet 3 Melatonin 5 MG capsule Take 1 capsule by mouth at bedtime Multiple Vitamin (Multi-Vitamin) tablet Take 1 tablet by mouth in the morning. nitroglycerin (Nitrostat) 0.[address] 1 tablet under the tongue every 5 (five) minutes if needed for chest pain omeprazole (PriLOSEC) [address] capsule Take 1 capsule (40 mg) by mouth in the morning. Take before meals. Do not crush or chew.. 30 capsule 3 rOPINIRole (Requip) 0.25 MG tablet TOME ADOLFO TABLETA TOAC AL ACOSTARSE 90 tablet 1 metoprolol succinate XL (Toprol-XL) 25 MG 24 hr tablet Take 0.5 tablets by mouth in the morning. No current facility-administered medications on file prior to visit. Objective Last Recorded Vitals Vitals: 08/07/24 1340 BP: 134/68 ENT Physical Exam Constitutional Appearance: patient appears well-developed and well-nourished, Head and Face Appearance: head appears normal and face appears atraumatic; Ear Ear comments: Karlos ears normal Nose External Nose: nares patent bilaterally; external nose normal; Internal Nose: nasal mucosa normal; Oral Cavity/Oropharynx Lips: normal; Teeth: normal; Gums: gingiva normal; Tongue: normal; Oral mucosa: normal; Hard palate: normal; Neck Neck: neck normal; neck palpation normal; Thyroid: thyroid normal; Respiratory Inspection: breathing unlabored; normal breathing rate; Auscultation: breath sounds are clear; Cardiovascular Inspection: extremities are warm and well perfused; no peripheral edema present; Auscultation: regular rate and rhythm; Assessment/Plan Diagnoses and all orders for this visit: Tinnitus of both ears - Ambulatory referral to ENT Sensorineural hearing loss (SNHL), bilateral - Ambulatory [facility]'s tinn[facility]. Discussed HYATT, but not interested at this pont documented in this encounter [facility] 08-01-2024 History of Present illness Narrative History: Pt was referred to ENT because of bilateral tinnitus and noise-induced hearing loss. Pt's hearing test at work on 05-15-24 showed bilateral hearing loss, worse in the higher frequencies. Pt indicated his tinnitus is in both ears and is constant. History is positive for noise exposure. Pt still works part-time. Otoscopic Exam: Ear canal clear and TM intact AU Pure Tone Audiometry Right Ear: Mild sloping to profound sensorineural hearing loss above 1500 Hz. Left Ear: Mild sloping to severe sensorineural hearing loss above 1K Hz. Speech Audiometry Right SRT = 45 dB and word discrimination score at 75 dBHL (masked) = 92% Left SRT = 30 dB and word discrimination score at 75 dBHL (masked) = 88 % Tympanometry Right Ear: Type A tympanogram Left Ear: Type A tympanogram documented in this encounter [facility] 06-21-2024 History of Present illness Narrative Associated Problem(s): Type 2 diabetes mellitus with hyperglycemia, without long-term current use of insulin ([facility]) New onset DM and A1C 7.0. Stick to ADA diet and limit carbs. Associated Problem(s): Medicare annual wellness visit, subsequent Reviewed labs. Discussed proper diet and regular aerobic exercise. Need aerobic exercise 5-6 days a week for 30 minutes at a time. Smaller portions and limit total calories. Colonoscopy every 10 years. Tetanus every 10 years. Advised not to smoke. Discussed daily Aspirin therapy. Images from the original note were not included. Subjective Patient ID: Benitez Degroot is a 68 y.o. male who presents for Medicare Annual Wellness Visit Subsequent (wellness). Presents for medicare annual wellness visit. Feels well today. Weight unchanged over the past year. Active at work but no regular exercise or activity at home. Tries to watch diet and eat healthy. Increased fruits and vegetables. Smaller portions and limits snacking. Tries to limit total daily calories. Reviewed recent labs. A1C 7.0 and meets criteria for DM. Denies signs of elevated BS such as polyuria, polyphagia or polydipsia. Review of Systems Constitutional: Negative for fatigue. Respiratory: Negative for cough, shortness of breath and wheezing. Cardiovascular: Negative for chest pain and palpitations. Gastrointestinal: Negative for abdominal pain, diarrhea, nausea and vomiting. Genitourinary: Negative for dysuria. Objective Physical Exam Constitutional: General: He is not in acute distress. Appearance: Normal appearance. HENT: Head: Normocephalic. Right Ear: Tympanic membrane and ear canal normal. Left Ear: Tympanic membrane and ear canal normal. Eyes: Extraocular Movements: Extraocular movements intact. Pupils: Pupils are equal, round, and reactive to light. Cardiovascular: Rate and Rhythm: Normal rate and regular rhythm. Heart sounds: No murmur heard. No friction rub. No gallop. Pulmonary: Breath sounds: Normal breath sounds. No wheezing, rhonchi or rales. Abdominal: General: Bowel sounds are normal. There is no distension. Palpations: Abdomen is soft. Tenderness: There is no abdominal tenderness. There is no guarding or rebound. Musculoskeletal: Left lower leg: No edema. Neurological: Mental Status: He is alert. Assessment/Plan Problem List Items Addressed This Visit Type 2 diabetes mellitus with hyperglycemia, without long-term current use of insulin ([facility]) New onset DM and A1C 7.0. Stick to ADA diet and limit carbs. Medicare annual wellness visit, subsequent - Primary Reviewed labs. Discussed proper diet and regular aerobic exercise. Need aerobic exercise 5-6 days a week for 30 minutes at a time. Smaller portions and limit total calories. Colonoscopy every 10 years. Tetanus every 10 years. Advised not to smoke. Discussed daily Aspirin therapy. documented in this encounter [facility] 06-11-2024 History of Present illness Narrative Images from the original note were not included. NAME: Benitez Degroot : 1955 HISTORY OF PRESENT ILLNESS: Benitez Degroot is an 68 y.o. @ male. (EST PT) LT KNEE PAIN, STARTED HAVING PAIN ONE DAY. INTERMITTENT 2 YEARS, PROGRESSIVELY GETTING WORSE. S/P DEPO INJ 05/28 (2 WKS) XRAY [facility] 09/29/23 DEPO INJECTION 05/28/24 90% IMPROVEMENT. OCCAS PAIN MEDIAL KNEE. NO PAIN MEDS. DENIES N/T, SWELLING. DENIES POPPING/GRINDING. DENIES GIVING OUT. DOES NOT WAKE AT HS. SAMMARINESE SPEAKING. HERE WITH WHO TRANSLATES. PAST MEDICAL HISTORY: Past Medical History: Diagnosis Date Abnormal liver function At low risk for fall Benign essential hypertension (CMS/HCC) Coronary artery disease, occlusive (CMS/HCC) DDD (degenerative disc disease), cervical DDD (degenerative disc disease), lumbar Dyslipidemia (CMS/HCC) Encounter for long-term (current) use of medications Lung nodule Obesity with body mass index (BMI) of 30.0 to 39.9 Prediabetes Primary localized osteoarthritis of knees, bilateral Varicose veins with pain PAST SURGICAL HISTORY: Past Surgical History: Procedure Laterality Date BREAST SURGERY Right 04/2024 Had cyst removed from under RT breast ALLERGIES: No Known Allergies HOME MEDICATIONS: Current Outpatient Medications Medication Instructions aspirin (ASPIRIN LOW DOSE) 81 mg, Oral, Daily atorvastatin (Lipitor) 20 MG tablet 1 tablet, Oral, Daily folic acid (Folvite) 1 MG tablet TOME ADOLFO TABLETA TODOS [place] hydroCHLOROthiazide (HYDRODiuril) 25 MG tablet 1 tablet, Oral, Daily lisinopril 10 MG tablet TOME ADOLFO TABLETA DOS [place] Melatonin 5 MG capsule 1 capsule, Oral, Nightly metoprolol succinate XL (Toprol-XL) 25 MG 24 hr tablet 0.5 tablets, Oral, Daily RT Multiple Vitamin (Multi-Vitamin) tablet 1 tablet, Oral, Daily RT nitroglycerin (Nitrostat) 0.4 MG SL tablet 1 tablet, Sublingual, Every 5 min PRN omeprazole (PRILOSEC) 40 mg, Oral, Daily before breakfast, Do not crush or chew. rOPINIRole (Requip) 0.25 MG tablet TOME ADOLFO TABLETA TODOS [place] AL ACOSTARSE Vitals: There is no height or weight on file to calculate BMI. PHYSICAL EXAM: Left Knee Exam Tenderness The patient is experiencing tenderness in the medial joint line (trace). Range of Motion Extension: -5 Flexion: 110 Tests Varus: negative Valgus: negative Other Erythema: absent Scars: absent Sensation: normal Pulse: present Swelling: mild IMAGING: I reviewed xray of left knee which showed joint effusion but no acute fracture or dislocation. Procedures ASSESSMENT: ICD-10-CM 1. Internal derangement of left knee M23.92 2. Chronic pain of left knee M25.562 G89.29 PLAN: Patient states that he had 90% relief with injection. I educated patient that we can repeat injection every 3-4 months as needed. He will call with any worsening symptoms. Questions answered in laymen terms at the bedside. The diagnosis, home exercise plan and any ongoing restrictions/ recommendations reviewed. If unable to be reached in office, I recommend evaluation at nearest Emergency Room if any symptoms worsened or new symptoms develop for requiring urgent evaluation. Rocky Lunsford, [employer] documented in this encounter [facility] 05-28-2024 History of Present illness Narrative Associated Order(s): L Inj/Asp: L knee Post-Procedure Diagnose(s): Internal derangement of left knee Images from the original note were not included. NAME: Benitez Degroot : 1955 HISTORY OF PRESENT ILLNESS: Benitez Degroot is an 68 y.o. @ male. DR SPIVEY REFERRAL. LT KNEE PAIN, STARTED HAVING PAIN ONE DAY. INTERMITTENT 2 YEARS, PROGRESSIVELY GETTING WORSE. XRAY H 09/29/23 PAIN MEDIAL, PAIN INCREASES WITH KNEE BENT. PAIN WITH SITTING AND WHEN HE GOES TO STAND UP. TAKING NORCO PRN-BY DR SPIVEY. TRIED ICE, HEAT AND BIOFREEZE. OCCAS FALLS ASLEEP, BUT NOT OFTEN. DENIES SWELLING. DENIES POPPING/GRINDING. DENIES GIVING OUT. DOES NOT WAKE AT HS. SAMMARINESE SPEAKING. HERE WITH WHO TRANSLATES. PAST MEDICAL HISTORY: Past Medical History: Diagnosis Date Abnormal liver function At low risk for fall Benign essential hypertension (CMS/HCC) Coronary artery disease, occlusive (CMS/HCC) DDD (degenerative disc disease), cervical DDD (degenerative disc disease), lumbar Dyslipidemia (CMS/HCC) Encounter for long-term (current) use of medications Lung nodule Obesity with body mass index (BMI) of 30.0 to 39.9 Prediabetes Primary localized osteoarthritis of knees, bilateral Varicose veins with pain PAST SURGICAL HISTORY: Past Surgical History: Procedure Laterality Date BREAST SURGERY Right 04/2024 Had cyst removed from under RT breast ALLERGIES: No Known Allergies HOME MEDICATIONS: Current Outpatient Medications Medication Instructions aspirin (ASPIRIN LOW DOSE) 81 mg, Oral, Daily atorvastatin (Lipitor) 20 MG tablet 1 tablet, Oral, Daily folic acid (Folvite) 1 MG tablet TOME ADOLFO TABLETA TODOS [place] hydroCHLOROthiazide (HYDRODiuril) 25 MG tablet 1 tablet, Oral, Daily lisinopril 10 MG tablet TOME ADOLFO TABLETA YAZ ENAMORADO Melatonin 5 MG capsule 1 capsule, Oral, Nightly metoprolol succinate XL (Toprol-XL) 25 MG 24 hr tablet 0.5 tablets, Oral, Daily RT Multiple Vitamin (Multi-Vitamin) tablet 1 tablet, Oral, Daily RT nitroglycerin (Nitrostat) 0.4 MG SL tablet 1 tablet, Sublingual, Every 5 min PRN omeprazole (PRILOSEC) 40 mg, Oral, Daily before breakfast, Do not crush or chew. rOPINIRole (Requip) 0.25 MG tablet TOME ADOLFO TABLETA ARRI[place]A ENAMORADO AL ACOSTARSE Vitals: Body mass index is 34.75 kg/m . PHYSICAL EXAM: Left Knee Exam Tenderness The patient is experiencing tenderness in the medial joint line. Range of Motion Extension: -10 Flexion: 110 Tests Varus: negative Valgus: negative Other Erythema: absent Scars: absent Sensation: normal Pulse: present Swelling: mild IMAGING: I reviewed xray of left knee which showed joint effusion but no acute fracture or dislocation. L Inj/Asp: L knee on 05/28/2024 5:38 PM Indications: pain Details: anterolateral approach Medications: 40 mg methylPREDNISolone acetate 40 MG/ML Site was cleaned with isopropyl alcohol Consent was given by the patient. ASSESSMENT: ICD-10-CM 1. Internal derangement of left knee M23.92 2. Chronic pain of left knee M25.562 G89.29 PLAN: I reviewed xray findings with the patient and discussed treatment options, answered questions. I discussed with the patient the option of an injection. I advised the patient of risks associated with an injection including a reaction to medication, infection, failure to improve and possible worsening. The patient demonstrated understanding. Patient requesting injection. Skin Cleansed with alcohol swab. Utilizing aseptic technique patient given 40mg Depomedrol was injected. Patient tolerated this well. Neurovasc intact s/p injection. Post injection care instructions discussed. If still painful in 2 weeks consider MRI. Questions answered in laymen terms at the bedside. The diagnosis, home exercise plan and any ongoing restrictions/ recommendations reviewed. If unable to be reached in office, I recommend evaluation at nearest Emergency Room if any symptoms worsened or new symptoms develop for requiring urgent evaluation. Rocky Lunsford APRN-ANNMARIE documented in this encounter [facility] 05-23-2024 History of Present illness Narrative General Surgery H&P Benitez Degroot 1955 Benitez Degroot is a 68 y.o. male presents with chief complaint of Follow-up (Cyst removal. Discomfort between and 12/27 at times. No other concerns. S/p cyst removal of right chest wall 05/15/24. Doing well postoperatively. Denies fevers, chills, or sweats. Denies nausea or vomiting. Tolerating diet and having regular bowel function. Minimal to no pain currently. No complaints at this time. SUBJECTIVE: MEDICATIONS: ALLERGIES Current Outpatient Medications Medication Instructions aspirin (ASPIRIN LOW DOSE) 81 mg, Oral, Daily atorvastatin (Lipitor) 20 MG tablet 1 tablet, Oral, Daily folic acid (Folvite) 1 MG tablet TOME ADOLFO TABLETA [facility] ENAMORADO hydroCHLOROthiazide (HYDRODiuril) 25 MG tablet 1 tablet, Oral, Daily HYDROcodone-acetaminophen ([place]) 5-325 MG tablet 1 tablet, Oral, 4 times daily PRN lisinopril 10 MG tablet TOME ADOLFO TABLETA ENAMORADO Melatonin 5 MG capsule 1 capsule, Oral, Nightly metoprolol succinate XL (Toprol-XL) 25 MG 24 hr tablet 0.5 tablets, Oral, Daily RT Multiple Vitamin (Multi-Vitamin) tablet 1 tablet, Oral, Daily RT nitroglycerin (Nitrostat) 0.4 MG SL tablet 1 tablet, Sublingual, Every 5 min PRN omeprazole (PRILOSEC) 40 mg, Oral, Daily before breakfast, Do not crush or chew. rOPINIRole (Requip) 0.25 MG tablet TOME ADOLFO TABLETA [facility] [place] AL ACOSTARSE No Known Allergies PAST MEDICAL HISTORY: SOCIAL HISTORY SURGICAL HISTORY: Past Medical History: Diagnosis Date Abnormal liver function At low risk for fall Benign essential hypertension (CMS/HCC) Coronary artery disease, occlusive (CMS/HCC) DDD (degenerative disc disease), cervical DDD (degenerative disc disease), lumbar Dyslipidemia (CMS/HCC) Encounter for long-term (current) use of medications Lung nodule Obesity with body mass index (BMI) of 30.0 to 39.9 Prediabetes Primary localized osteoarthritis of knees, bilateral Varicose veins with pain Social History Tobacco Use Smoking status: Never Smokeless tobacco: Never No past surgical history on file. Family History Problem Relation Name Age of Onset Diabetes Mother Hypertension Mother Cancer Father No Known Allergies No past surgical history on file. Tobacco Use: Low Risk (05/23/2024) Patient History Smoking Tobacco Use: Never Smokeless Tobacco Use: Never Passive Exposure: Not on file Alcohol Use: Not At Risk (09/20/2018) Received from [employer], [employer] AUDIT-C Frequency of Alcohol Consumption: Never Average Number of Drinks: Not on file Frequency of Binge Drinking: Not on file Depression: Not at risk (04/17/2018) Received from [employer], [employer] PHQ-2 Total Score: 0 Physical Activity: Not on file REVIEW OF SYMPTOMS: Review of Systems All other systems reviewed and are negative. 10 systems were reviewed. Positives noted above. Remainder are negative per CMS guidelines OBJECTIVE: Visit Vitals BP 148/72 (BP Location: Left arm, Patient Position: Sitting, BP Cuff Size: Adult) Pulse 69 Temp 97.5 F (Temporal) Resp 24 Wt 191 lb 6.4 oz SpO2 98% BMI 35.01 kg/m Smoking Status Never BSA 1.95 m Physical Exam Vitals reviewed. General: AAOx3, NAD Head: atraumatic normocephalic Neck: trachea midline. No masses or lymphadenopathy Right chest wall incision healing well, non tender, no erythema Heart: Regular rate and rhythm Lungs: equal chest rise and fall, non labored breathing Abdomen: soft, nontender, and non distended Ext: motor 5/5 all extremities with no gross deformities Psych: alert and oriented, behavior appropriate ASSESSMENT AND PLAN: Assessment/Plan Diagnoses and all orders for this visit: Status post surgery H/O sebaceous cyst S/p cyst removal of right chest wall 05/15/24 Patient doing well. No complaints. Instructed to continue daily washing of incisions and no swimming/bathing until 14 days past procedure or until incisions fully healed. Lifting as tolerated. Ok to return to work with lifting restrictions mentioned above. Follow up as needed. Thank you, Dinorah Lopez DO documented in this encounter [facility] 05-18-2024 History of Present illness Narrative Associated Problem(s): Tinnitus of both ears Increased symptoms and refer to ENT. Associated Problem(s): Primary osteoarthritis of both knees Pain worse and refer to ortho for possible injections. Use norco PRN. Associated Problem(s): Noise-induced hearing loss of both ears Abnormal hearing screen at work and refer to ENT. Associated Problem(s): Gastroesophageal reflux disease without esophagitis Worsening symptoms and start omeprazole. Associated Problem(s): Essential hypertension, benign (CMS/HCC) BP controlled and monitor PRN. Associated Problem(s): DDD (degenerative disc disease), lumbar Pain stable and use norco PRN. Images from the original note were not included. Subjective Patient ID: Benitez Degroot is a 68 y.o. male who presents for Follow-up (6 m), Tinnitus (Noises in ears causing headaches), and Dizziness. Follow up HTN, OA knee, and back pain. Checking BP PRN and recently controlled. BP okay today. Taking medication daily and tolerating without side effects. Knee pain worse. C/o pain on inside left knee that has worsened since accident. Skin very sensitive to touch and pain when wearing pants. Pain with palpation over inside of knee. Frequent popping, clicking, and grinding. Not unsteady or giving out. Pain increased with walking and standing. Pain in low back stable. Pain in low back and across top hips. No radiation into gluteal region or down legs. Pain increased with walking and standing. Using norco PRN and helps. C/o ringing in both ears for several days. C/o decreased hearing for months. Hearing screen abnormal at work and told need to see doctor. C/o GERD over past few weeks. Epigastric pain and burning. Symptoms worse after eating. Occasionally feels like food sticks in throat. Not on OTC. Dizziness Pertinent negatives include no abdominal pain, chest pain, coughing, fatigue, nausea or vomiting. Review of Systems Constitutional: Negative for fatigue. Respiratory: Negative for cough, shortness of breath and wheezing. Cardiovascular: Negative for chest pain and palpitations. Gastrointestinal: Negative for abdominal pain, diarrhea, nausea and vomiting. Genitourinary: Negative for dysuria. Neurological: Positive for dizziness. Objective Physical Exam Constitutional: General: He is not in acute distress. Appearance: Normal appearance. HENT: Head: Normocephalic. Right Ear: Tympanic membrane and ear canal normal. Left Ear: Tympanic membrane and ear canal normal. Eyes: Extraocular Movements: Extraocular movements intact. Pupils: Pupils are equal, round, and reactive to light. Cardiovascular: Rate and Rhythm: Normal rate and regular rhythm. Heart sounds: No murmur heard. No friction rub. No gallop. Pulmonary: Breath sounds: Normal breath sounds. No wheezing, rhonchi or rales. Abdominal: General: Bowel sounds are normal. There is no distension. Palpations: Abdomen is soft. Tenderness: There is no abdominal tenderness. There is no guarding or rebound. Musculoskeletal: Left lower leg: No edema. Neurological: Mental Status: He is alert. Assessment/Plan Problem List Items Addressed This Visit Essential hypertension, benign (CMS/HCC) - Primary BP controlled and monitor PRN. DDD (degenerative disc disease), lumbar Pain stable and use norco PRN. Primary osteoarthritis of both knees Pain worse and refer to ortho for possible injections. Use norco PRN. Relevant Medications HYDROcodone-acetaminophen ([place]) 5-325 MG tablet Other Relevant Orders Ambulatory referral to Orthopaedic Surgery Annual physical exam Relevant Orders Hemoglobin A1c Basic metabolic panel CBC and differential Hepatic function panel Lipid panel PSA TSH Tinnitus of both ears Increased symptoms and refer to ENT. Relevant Orders Ambulatory referral to ENT Noise-induced hearing loss of both ears Abnormal hearing screen at work and refer to ENT. Relevant Orders Ambulatory referral to ENT Gastroesophageal reflux disease without esophagitis Worsening symptoms and start omeprazole. Relevant Medications omeprazole (PriLOSEC) [address] capsule documented in this encounter [facility] 08-03-2023 History of Present illness Narrative Subjective Benitez Degroot Sr. is a 67 y.o. male [...] elevation myocardial infarction (NSTEMI) 2. Atherosclerosis of [place] coronary artery of [place] heart, unspecified whether angina present 3. Mixed hyperlipidemia 4. Essential hypertension documented in this encounter [facility] Work Phone: 08-03-2023 Instructions Savannah Graham LPN - 08/03/2023 [...] of your visit. documented in this encounter [facility] Work Phone: 10-26-2021 Note PROCEDURE: GE el? peed VCT 64, 5.0 mm withIV contrast, [...] signed by Pradeep Renteria on 10/26/2021 133[address] [facility] Evaluation note Diagnosis History of non-ST elevation myocardial infarction (NSTEMI) Atherosclerosis of [place] coronary artery of [place] heart, unspecified whether angina present Mixed hyperlipidemia Essential hypertension Unspecified essential hypertension documented in this encounter [facility] Work Phone: Evaluation noteNo assessment information available [facility] Work Phone: Evaluation note* Diagnosis Medicare annual wellness visit, subsequent- Primary Type 2 diabetes mellitus with hyperglycemia, without long-term current use of insulin (CMS/HCC) documented in this encounter [facility] Healthcare[facility]* Diagnosis History of non-ST elevation myocardial infarction (NSTEMI) Atherosclerosis of [place] coronary artery of [place] heart, unspecified whether angina present Essential hypertension Unspecified essential hypertension Mixed hyperlipidemia BMI 33.0-33.9,adult Former smoker Personal history of tobacco use, presenting hazards to health documented in this encounter [facility] Work Phone: Evaluation note* Diagnosis Essential hypertension, benign (CMS/HCC)- Primary Essential hypertension, benign Pain due to varicose veins of both lower extremities Primary osteoarthritis of both knees DDD (degenerative disc disease), lumbar Degeneration of lumbar or lumbosacral intervertebral disc Seasonal allergic rhinitis due to pollen Coronary artery disease, occlusive (CMS/HCC) Acute myocardial infarction, unspecified site, episode of care unspecified Dermoid cyst- Primary Essential hypertension, benign (CMS/HCC)- Primary Essential hypertension, benign Primary osteoarthritis of both knees DDD (degenerative disc disease), lumbar Degeneration of lumbar or lumbosacral intervertebral disc Tinnitus of both ears Unspecified tinnitus Noise-induced hearing loss of both ears Gastroesophageal reflux disease without esophagitis Esophageal reflux Annual physical exam Routine general medical examination at a [facility] Medicare annual wellness visit, subsequent- Primary Type 2 diabetes mellitus with hyperglycemia, without long-term current use of insulin (CMS/HCC) Tinnitus of both ears Unspecified tinnitus Sensorineural hearing loss (SNHL), bilateral documented in this encounter [facility]* Diagnosis Essential hypertension, benign (CMS/HCC)- Primary Essential hypertension, benign Pain due to varicose veins of both lower extremities Primary osteoarthritis of both knees DDD (degenerative disc disease), lumbar Degeneration of lumbar or lumbosacral intervertebral disc Seasonal allergic rhinitis due to pollen Coronary artery disease, occlusive (CMS/HCC) Acute myocardial infarction, unspecified site, episode of care unspecified Dermoid cyst- Primary Essential hypertension, benign (CMS/HCC)- Primary Essential hypertension, benign Primary osteoarthritis of both knees DDD (degenerative disc disease), lumbar Degeneration of lumbar or lumbosacral intervertebral disc Tinnitus of both ears Unspecified tinnitus Noise-induced hearing loss of both ears Gastroesophageal reflux disease without esophagitis Esophageal reflux Annual physical exam Routine general medical examination at a [facility] Medicare annual wellness visit, subsequent- Primary Type 2 diabetes mellitus with hyperglycemia, without long-term current use of insulin (CMS/HCC) Sensorineural hearing loss, bilateral- Primary Tinnitus, bilateral Unspecified tinnitus documented in this encounter [facility]* Diagnosis Essential hypertension, benign (CMS/HCC)- Primary Essential hypertension, benign Pain due to varicose veins of both lower extremities Primary osteoarthritis of both knees DDD (degenerative disc disease), lumbar Degeneration of lumbar or lumbosacral intervertebral disc Seasonal allergic rhinitis due to pollen Coronary artery disease, occlusive (CMS/HCC) Acute myocardial infarction, unspecified site, episode of care unspecified Dermoid cyst- Primary Essential hypertension, benign (CMS/HCC)- Primary Essential hypertension, benign Primary osteoarthritis of both knees DDD (degenerative disc disease), lumbar Degeneration of lumbar or lumbosacral intervertebral disc Tinnitus of both ears Unspecified tinnitus Noise-induced hearing loss of both ears Gastroesophageal reflux disease without esophagitis Esophageal reflux Annual physical exam Routine general medical examination at a health care facility Medicare annual wellness visit, subsequent- Primary Type 2 diabetes mellitus with hyperglycemia, without long-term current use of insulin (CMS/HCC) Primary osteoarthritis of both knees documented in this encounter [facility]* Diagnosis Essential hypertension, benign (CMS/HCC)- Primary Essential hypertension, benign Primary osteoarthritis of both knees DDD (degenerative disc disease), lumbar Degeneration of lumbar or lumbosacral intervertebral disc Tinnitus of both ears Unspecified tinnitus Noise-induced hearing loss of both ears Gastroesophageal reflux disease without esophagitis Esophageal reflux Annual physical exam Routine general medical examination at a health care facility documented in this encounter [facility]* Diagnosis Status post surgery- Primary H/O sebaceous cyst documented in this encounter [facility]* Diagnosis Internal derangement of left knee- Primary Chronic pain of left knee documented in this encounter [facility]* Diagnosis Primary osteoarthritis of both knees- Primary documented in this encounter [facility]* Diagnosis Internal derangement of left knee- Primary Chronic pain of left knee documented in this encounter [facility]* Diagnosis Essential hypertension, benign (CMS/HCC)- Primary Essential hypertension, benign Pain due to varicose veins of both lower extremities Primary osteoarthritis of both knees DDD (degenerative disc disease), lumbar Degeneration of lumbar or lumbosacral intervertebral disc Seasonal allergic rhinitis due to pollen Coronary artery disease, occlusive (CMS/HCC) Acute myocardial infarction, unspecified site, episode of care unspecified Dermoid cyst- Primary Essential hypertension, benign (CMS/HCC)- Primary Essential hypertension, benign Primary osteoarthritis of both knees DDD (degenerative disc disease), lumbar Degeneration of lumbar or lumbosacral intervertebral disc Tinnitus of both ears Unspecified tinnitus Noise-induced hearing loss of both ears Gastroesophageal reflux disease without esophagitis Esophageal reflux Annual physical exam Routine general medical examination at a health care facility Medicare annual wellness visit, subsequent- Primary Type 2 diabetes mellitus with hyperglycemia, without long-term current use of insulin (CMS/HCC) Type 2 diabetes mellitus with hyperglycemia, without long-term current use of insulin (CMS/HCC)- Primary Essential hypertension, benign (CMS/HCC) Essential hypertension, benign Primary osteoarthritis of both knees Gastroesophageal reflux disease without esophagitis Esophageal reflux Degeneration of intervertebral disc of lumbar region with discogenic back pain Coronary artery disease, occlusive (CMS/HCC) Acute myocardial infarction, unspecified site, episode of care unspecified Dyslipidemia (CMS/HCC) Other and unspecified hyperlipidemia Type 2 diabetes mellitus with other specified complication (CMS/HCC) documented [facility] this encounter [facility] (narrative)* Consultation (Routine) - Authorized Specialty Diagnoses / Procedures Referred By Contac t Referred To Contact Cardiology Diagnoses History of non-ST elevation myocardial infarction (NSTEMI) Atherosclerosis of [place] coronary artery of [place] heart, unspecified whether angina present Essential hypertension Procedures Follow Up In Cardiology Roosevelt Abdi DO [address] [facility] [address], [address] [address] Roosevelt Abdi DO [address] [facility], [facility] [address] [place] [address] Referral ID Status Reason Start Date Expiration Date V isits Requested Visits Authorized [id number] Authorized 08/03/2023 08/02/2024 1 1 [facility] Work Phone: Reason for referral (narrative)* Consultation (Routine) - Pending Review Specialty Diagnoses / Procedures Referred By Contmercy t Referred To Contact Otolaryngology Diagnoses Tinnitus of both ears Noise-induced hearing loss of both ears Procedures CT OFFICE/OUTPATIENT NEW HIGH MDM 60 MINUTES Lux Spivey MD [address] [place] [address] Asuncion Ingram MD [address] [facility] [address] [place] [address] Referral ID Status Reason Start Date Expiration Date Visits Requested Visits Authorized [id number] Pending Review Specialty Services Required 05/18/2024 11/14/2024 1 1 * Consultation (Routine) - Pending Review Specialty Diagnoses / Procedures Referred By Contac t Referred To Contact Orthopaedic Surgery Diagnoses Primary osteoarthritis of both knees Lux Spivey MD [address] [place] [address] Jr. Ted Ibarra DO [address] [place] [address] Referral ID Status Reason Start Date Expiration Date Visits Requested Visits Authorized [id number] Pending Review Specialty Services Required 05/18/2024 11/14/2024 1 1 [facility] Summary Purpose Family History No Family History Records FoundNo Family History Records FoundNo Family History Records FoundNo Family History Records FoundNo Family History Records FoundNo Family History Records FoundNo Family History Records FoundNo Family History Records Found Advance Directives No Advanced Directives Records Found Advance Directive Response Recorded Date/ Time Advance Directives No January 15, 2 023 9:49am Reason for Referral Specialty Diagnoses / Procedures Referred By Leonie villanueva Referred To Contact Orthopaedic Surgery Diagnoses Internal derangement of left knee Procedures L Inj/Asp: L knee Rocky Lunsford, ATTRACTION ATTENDANT [address] [place] [address] Referral ID Status Reason Start Date Expiration Date V isits Requested Visits Authorized [id number] Authorized 05/28/2024 11/24/2024 1 1 Additional Source Comments (unrecognized sect ion and content) No Status Records FoundNo Status Records FoundNo Status Records FoundNo Status Records FoundNo Status Records FoundNo Status Records FoundNo Status Records FoundNo Status Records Found INFORMATION SOURCE (unrecogn ized section and content) DATE CREATED AUTHOR 10/02/2018 [facility] DATE CREATED AUTHOR AUTHOR'S ORGANIZ ATION 10/27/2021 [facility] dical Specialist DATE CREATED AUTHOR AUTHOR'S ORGANIZ ATION 01/18/2023 [facility] DATE CREATED AUTHOR AUTHOR'S ORGANIZ ATION 01/19/2023 [facility] DATE CREATED AUTHOR AUTHOR'S ORGANIZ ATION 10/02/2023 [facility] DATE CREATED AUTHOR AUTHOR'S ORGANIZ ATION 05/24/2024 [facility] DATE CREATED AUTHOR AUTHOR'S ORGANIZ ATION 08/10/2024 [facility] DATE CREATED AUTHOR AUTHOR'S ORGANIZ ATION 09/28/2024 [facility] dical Specialists EPIC Reason for Visit (unrecogniz ed section and content) Reason Comments Follow-up 6m Reason Comments Medicare Annual Wellness Visit Subsequen t wellness Reason Comments Annual Exam Specialty Diagnoses / Procedures Referred By Contac t Referred To Contact Cardiology Diagnoses History of non-ST elevation myocardial infarction (NSTEMI) Atherosclerosis of [place] coronary artery of [place] heart, unspecified whether angina present Essential hypertension Procedures Follow Up In Cardiology Roosevelt Abdi, DO [address] [facility] [address], [address] [address] Phone: tel: fax: Roosevelt Abid, DO [address] [facility], [address] [address] [place] [address] Phone: tel: fax: Referral ID Status Reason Start Date Expiration Date V isits Requested Visits Authorized [id number] Authorized 08/03/2023 08/02/2024 1 1 Reason Comments Tinnitus Audio 08/01/24 Specialty Diagnoses / Procedures Referred By Leonie ivllanueva Referred To Contact Otolaryngology Diagnoses Tinnitus of both ears Noise-induced hearing loss of both ears Procedures CT OFFICE/OUTPATIENT NEW HIGH MDM 60 MINUTES Lux Spivey MD [address] [place] [address] Phone: tel: fax: Asuncion Ingram MD [address] [facility] [address] [place] [address] Phone: tel: fax: Referral ID Status Reason Start Date Expiration Date V isits Requested Visits Authorized [id number] Closed Specialty Services Required 05/18/2024 11/14/2024 1 1 Reason Onset Date Comments Med Refill 08/31/2024 Reason Comments Follow-up 6 m Tinnitus Noises in ears causi ng headaches Dizziness Reason Comments Follow-up Cyst removal. Discom fort between 2 and 12/27 at times. No other concerns. Reason Comments Pain Reason Onset Date Comments Med Refill 06/16/2024 Reason Comments Follow-up Reason Comments Follow-up Care Teams (unrecognized sec tion and content) Proj Engineer Relationship Specialty Start Date End Date Lux Spivey MD [address] [place] [address] PCP - General 01/17/23 Team Status: Active Member Role Status Dates Lux Spivey MD Primary Care Provider Active Team Status: Inactive Member Role Status Dates Lux Spivey MD Primary Care Provider Active S tart: May 15, 2024 End: May 15, 2024 Odilon Lopez DO Attending Provider Active Star t: May 15, 2024 End: May 15, 2024 Proj Engineer Relationship Specialty Start Date End Date Lux Spivey MD [address] [place] [address] PCP - General Family Medicine 10/10/23 Proj Engineer Relationship Specialty Start Date End Date Lux Spivey MD [address] [place] [address] PCP - General Family Medicine 10/10/23 Proj Engineer Relationship Specialty Start Date End Date Lux Spivey MD [address] [place] [address] PCP - General Family Medicine 10/10/23 Proj Engineer Relationship Specialty Start Date End Date Lux Spivey MD PCP - General 01/17/23 Proj Engineer Relationship Specialty Start Date End Date Lux Spivey MD [address] [place] [address] PCP - General Family Medicine 10/10/23 Proj Engineer Relationship Specialty Start Date End Date Lux Spivey MD [address] [place] [address] PCP - General Family Medicine 10/10/23 Proj Engineer Relationship Specialty Start Date End Date Lux Spivey MD [address] [place] [address] PCP - General Family Medicine 10/10/23 Proj Engineer Relationship Specialty Start Date End Date Lux Spivey MD [address] [place] [address] PCP - General Family Medicine 10/10/23 Proj Engineer Relationship Specialty Start Date End Date Lux Spivey MD [address] [place] [address] PCP - General Family Medicine 10/10/23 Proj Engineer Relationship Specialty Start Date End Date Lux Spivey MD [address] [place] [address] PCP - General Family Medicine 10/10/23 Proj Engineer Relationship Specialty Start Date End Date Lux Spivey MD [address] [place] [address] PCP - General Family Medicine 10/10/23 Proj Engineer Relationship Specialty Start Date End Date Lux Spivey MD [address] [place] [address] PCP - General Family Medicine 10/10/23 Proj Engineer Relationship Specialty Start Date End Date Lux Spivey MD [address] [place] [phone] PCP - [facility] 10/10/23 Proj Engineer Relationship Specialty Start Date End Date Lux Spivey MD [address] [place] [phone] PCP - [facility] 10/10/23 Proj Engineer Relationship Specialty Start Date End Date Lux Spivey MD [address] [place] [address] [facility] 10/10/23 Proj Engineer Relationship Specialty Start Date End Date Lux Spivey MD [address] [place] [address] [facility] 10/10/23 Goals (unrecognized section and content) Goals may be documented in a n alternate section FOR RECORDS PERTAINING TO PATIENTS WHO ARE [...] BE BASED ON THE PRIMARY CLINICAL RECORDS. [facility] [employer] [facility]. provides no warranty or guarantee of the accuracy or completeness of information in this document.
--- NOTE | 2024-12-15 13:55 | ED.GENADUL1 ---
HPI HPI - General Adult General Chief complaint: Weakness Stated complaint: HEADACHE, SHOULDER AND BACK PAIN Time Seen by Provider: 12/15/24 13:12 Source: patient and family Mode of arrival: walk-in Limitations: no limitations History of Present Illness HPI narrative: CC - HEADACHE AND LEFT TRAPEZIUS PAIN Pt speaks limited Lao so his family member speaks to him in qatari and translates. Pt with history of headaches presents with waxing and waning pain across the top of the scalp that has been present for about a month. No preceding injury or illness. Around the same time he also developed pain to the lower left neck and into the left trapezius. As this pain continued, he now gets tingling and occasional pain down the left arm into the left hand. Worse with activity/use. He had some improvement when he applied OTC pain patches to the area of the neck/trapezius. In the midst of this he had some cough and went to an urgent care and was prescribed antibiotics for bronchitis . he has not been able to get an appointment to see his PCP during this time - he is scheduled to be seen by the CERTIFIED WELLNESS PROGRAM COORDINATOR next week. No fever or chills today. No vision changes. He does admit to some dizziness - none now. Related Data Home Medications ?Medication ?Instructions ?Recorded ?Confirmed aspirin 81 mg tablet,delayed 81 mg PO DAILY 01/10/24 12/15/24 release (Adult Aspirin Regimen) atorvastatin 20 mg tablet 20 mg PO DAILY 01/10/24 12/15/24 famotidine 20 mg tablet (Pepcid) 20 mg PO DAILY 01/10/24 12/15/24 folic acid 1 mg tablet 1 mg PO QDAY 01/10/24 12/15/24 lisinopril 10 mg tablet 10 mg PO DAILY 01/10/24 12/15/24 metoprolol succinate 25 mg 12.5 mg PO DAILY 01/10/24 12/15/24 tablet,extended release 24 hr (Toprol XL) multivitamin (Daily Multi-Vitamin 1 tab PO DAILY 01/10/24 12/15/24 tablet) nitroglycerin 0.4 mg sublingual 0.4 mg sublingual Q5M 01/10/24 12/15/24 tablet (Nitrostat) hydrochlorothiazide 25 mg tablet 25 mg PO DAILY 05/07/24 12/15/24 hydrocodone 5 mg-acetaminophen 325 1 tab PO Q6H 05/07/24 12/15/24 mg tablet Previous Rx's ?Medication ?Instructions ?Recorded methocarbamol 750 mg tablet 750 mg PO Q6H PRN pain #30 tabs 12/15/24 nabumetone 750 mg tablet 750 mg PO BID PRN pain #14 tabs 12/15/24 Allergies Allergy/AdvReac Type Severity Reaction Status Date / Time No Known Drug Allergies Allergy Verified 05/07/24 09:16 Opioid HPI Opioid Management Most Recent Opioid Data: Last Pain Scale 3 05/15/24 08:30 05/15/24 [facility] Medical History (Updated 12/15/24 @ 14:04 by Srinivasa Tijerina) Dermoid cyst ?D36.9 - Benign neoplasm, unspecified site (ICD-10) Heartburn ?R12 - Heartburn (ICD-10) High cholesterol ?E78.00 - Pure hypercholesterolemia, unspecified (ICD-10) Myocardial infarction (2022) ?I21.9 - Acute myocardial infarction, unspecified (ICD-10) RLS (restless legs syndrome) ?G25.81 - Restless legs syndrome (ICD-10) Varicose veins of both lower extremities ?I83.93 - Asymptomatic varicose veins of bilateral lower extremities (ICD-10) Knee osteoarthritis ?M17.9 - Osteoarthritis of knee, unspecified (ICD-10) Prediabetes ?R73.03 - Prediabetes (ICD-10) Lung nodule ?R91.1 - Solitary pulmonary nodule (ICD-10) Dyslipidemia ?E78.5 - Hyperlipidemia, unspecified (ICD-10) DDD (degenerative disc disease), lumbar ?M51.36 - Other intervertebral disc degeneration, lumbar region (ICD-10) DDD (degenerative disc disease), cervical ?M50.30 - Other cervical disc degeneration, unspecified cervical region (ICD-10) CAD (coronary artery disease) ?I25.10 - Atherosclerotic heart disease of [place] coronary artery without angina pectoris (ICD-10) Hypertension ?I10 - Essential (primary) hypertension (ICD-10) Abnormal liver function ?R94.5 - Abnormal results of liver function studies (ICD-10) Surgical History History of cardiac catheterization (01/15/23) ?Z98.890 - Other specified postprocedural states (ICD-10) H/O colonoscopy (~12/2023) ?Z98.890 - Other specified postprocedural states (ICD-10) History of testicular surgery ?Z98.890 - Other specified postprocedural states (ICD-10) Family History (Updated 05/15/24 @ 08:43 by Magi Dunbar, RN) Other Family history of hypertension Social History (Updated 05/15/24 @ 08:43 by Magi Dunbar RN) Within the past year, how often did you have a drink containing alcohol: never Score interpretation: A score less than 4 is consistent with normal alcohol consumption. Smoking status: Former smoker Non-prescribed substance use: denies use Previous occupational history: [employer] Highest level of school completed/degree received: 6th grade Little interest or pleasure in doing things: not at all Feeling down, depressed, or hopeless: not at all Exam Narrative Exam Narrative: Nurses notes and vital signs reviewed and patient is not hypoxic. afebrile General: Well-appearing and in no apparent distress. Skin: Warm, dry, no pallor noted. No rash. Head: Normocephalic, atraumatic. Neck: Supple, non-tender. No lymphadenopathy. No meningismus. Eye: Pupils are equal, round and EOMI. No scleral icterus. Ears, Nose, Mouth, and Throat: TM are clear, no posterior oropharynx erythema or nasal mucosal hypertrophy, uvula is mid-line Oral mucosa is moist Cardiovascular: Regular Rate and Rhythm without murmur, gallop or rub. Respiratory: No accessory muscle use or respiratory distress. Lungs are clear to auscultation, no wheezing, rales or rhonchi Chest Wall: Left upper chest wall tenderness without crepitus or subcutaneous emphysema Back: No midline thoracic or lumbar vertebral tenderness. Superior left trapezius tenderness -palpation induces the tingling down the left upper extremity. Unremarkable left clavicle and left shoulder. Musculoskeletal: normal ROM, normal correctional sergeant strength bilaterally, no upper extremity edema/swelling Neurological: A&O x4. No cranial nerve dysfunction observed. No truncal ataxia. Moves all extremities. Sensation intact. Psychiatric: Cooperative and interactive. Normal mood and affect. Constitutional Vital Signs, click to edit/add: Last Vital Signs Temp 97.7 F 12/15/24 13:06 Pulse 97 H 12/15/24 13:06 Resp 16 12/15/24 13:06 BP 175/83 H 12/15/24 13:06 Pulse Ox 96 12/15/24 13:06 O2 Del Method Room Air 12/15/24 13:06 Course Vital Signs Vital signs: Vital Signs Temperature 97.7 F 12/15/24 13:06 Pulse Rate 97 H 12/15/24 13:06 Respiratory Rate 16 12/15/24 13:06 Blood Pressure 175/83 H 12/15/24 13:06 Pulse Oximetry 96 12/15/24 13:06 Oxygen Delivery Method Room Air 12/15/24 13:06 Temperature 97.7 F 12/15/24 13:06 Pulse Rate 97 H 12/15/24 13:06 Respiratory Rate 16 12/15/24 13:06 Blood Pressure 175/83 H 12/15/24 13:06 Pulse Oximetry 96 12/15/24 13:06 Oxygen Delivery Method Room Air 12/15/24 13:06 Medical Decision Making MDM Narrative Medical decision making narrative: The patient's exam reveals that the patient's symptoms are consistent with acute muscular strain of the left trapezius with some strain of the lower left neck as well as the left anterior upper chest. No neurological deficit to suggest acute CVA. No chest pain unless I palpate that left chest or he moves the left upper extremity at the shoulder. EKG is normal. Patient appears to be suffering from acute muscular strain of the left trapezius involving the left shoulder and left lower neck. This is exacerbated by his migraine headache, which has been waxing and waning. He has not been taking anything for this pain other than some patches to the trapezius which seems to help The patient was ordered to receive Toradol, Solu-Medrol, Phenergan and Zofran for his symptoms including headache and pain in the left trapezius. Diagnosis explained to patient through the translation of the family member. The patient was discharged home with prescriptions for Relafen and Robaxin. He was encouraged to keep his appoint with his primary care physician later this week. ECG Data Attestation: I personally reviewed and interpreted this ECG as follows: Interpretation: EKG interpretation: Emergency Department physician interpretation. Normal sinus rhythm at 98bpm. Normal axis, normal intervals and no ST segment elevation or depression. Normal EKG Discharge Plan Discharge Chief Complaint: Weakness Clinical Impression: Muscle strain, Migraine, Cervical radiculopathy Patient Disposition: Home, Self-Care Time of Disposition Decision: 14:03 Prescriptions / Home Meds: New nabumetone 750 mg tablet 750 mg PO BID PRN (Reason: pain) Qty: 14 0RF methocarbamol 750 mg tablet 750 mg PO Q6H PRN (Reason: pain) Qty: 30 0RF No Action aspirin [Adult Aspirin Regimen] 81 mg tablet,delayed release (DR/EC) 81 mg PO DAILY atorvastatin 20 mg tablet 20 mg PO DAILY famotidine [Pepcid] 20 mg tablet 20 mg PO DAILY folic acid 1 mg tablet 1 mg PO QDAY lisinopril 10 mg tablet 10 mg PO DAILY metoprolol succinate [Toprol XL] 25 mg tablet extended release 24 hr 12.5 mg PO DAILY multivitamin [Daily Multi-Vitamin] Tablet 1 tab PO DAILY nitroglycerin [Nitrostat] 0.4 mg tablet, sublingual 0.4 mg sublingual Q5M Rx Instructions: do not exceed 3 doses per episode hydrochlorothiazide 25 mg tablet 25 mg PO DAILY hydrocodone-acetaminophen 5-325 mg tablet 1 tab PO Q6H Print Language: Lao Instructions: Migraine Headache (ED), Cervical Radiculopathy (ED), Musculoskeletal Pain (ED) Referrals: Lux Aguero MD [Primary Care Provider] - 1 week
--- NOTE | 2024-12-15 14:04 | ECG_ITS ---
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 Measurements Intervals [place] Rate: 98 P: 56 MO: 128 QRS: 45 QRSD: 82 T: 40 QT: 324 QTc: 379 Interpretive Statements 1100 Sinus rhythm 9110 normal ECG Compared to ECG 05/07/2024 09:34:33 No significant changes Electronically Signed On 12-15-2024 14:08:34 EDT by BRIAN HARE M.D.
[2024-12-15] MEDS: PROMETHAZINE HCL 25 MG TABLET PO (14:11)
[2024-12-15] MEDS: ONDANSETRON 4 MG RAPDIS TABLET SL (14:11)
[2024-12-15] MEDS: METHYLPREDNISOLONE SOD SUCC PF 125 MG/2 ML VIAL IM (14:11)
[2024-12-15] MEDS: KETOROLAC TROMETHAMINE 30 MG/ML VIAL IVP (14:11)
== END 2024-12-15 14:22 | disposition home or self-care (01) ==
PROVIDERS: Emergency Provider Emergency Medicine; PCP Family Medicine
DX: G43.909 Migraine, unspecified, not intractable, without status migrainosus (principal); M54.12 Radiculopathy, cervical region; Z87.891 Personal history of nicotine dependence; S29.012A Strain of muscle and tendon of back wall of thorax, initial encounter; S46.912A Strain of unspecified muscle, fascia and tendon at shoulder and upper arm level, left arm, initial encounter; S16.1XXA Strain of muscle, fascia and tendon at neck level, initial encounter; X58.XXXA Exposure to other specified factors, initial encounter
CPT/HCPCS: 93005; 96372; 96374; 99284; J1885; J2919; Q0162; Q0169